=== PATIENT | female | born 1955 | race Caucasian/White ===

== ENCOUNTER → 2016-08-17 | Outpatient (CLI) | payer MEDICARE | LOC: MMGSC 15:08 | PROVIDERS: ATTEND Family Medicine | DX: Z01.812 Encounter for preprocedural laboratory examination (principal) | CPT/HCPCS: 36415; 80051 ==

== ENCOUNTER 2017-01-19 12:15 | Emergency (ER) | payer OTHER, MEDICARE ==
[2017-01-19] MEDS ORDERED: SODIUM CHLORIDE 0.9% 1,000 ML IV STA (12:30)
[2017-01-19] MEDS ORDERED: ORPHENADRINE 30 MG/ML 2 ML VIAL IVP STA (12:31)
[2017-01-19] MEDS ORDERED: RX INFO: IV CONTRAST WAS GIVEN 1 EACH MISC MISCELLANE PRN (12:31)
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
[2017-01-19 13:29] LABS: Basophils % (A) 1 %; CH 32.1; Eosinophils # (A) 0.3 k/uL (0-0.7); Eosinophils % (A) 4 %; HCT 44.4 % (34.0-46.0); HDW 2.89; HGB 15.4 gm/dL (11.4-16.0); Luc # (Auto) 0.14; Luc % (Auto) 2; Lymphocytes # (A) 1.6 k/uL (1.0-4.8); Lymphocytes % (A) 24 %; MCHC 34.7 g/dL (31.0-37.0); MCV 92.2 fL (80.0-100.0); Mean Platelet Volume 6.6; Monocytes # (A) 0.4 k/uL (0-1.0); Monocytes % (A) 5 %; Neutrophils # (A) 4.4 k/uL (1.3-7.7); Neutrophils % (A) 65 %; Partial Thromboplastin Time 23.9 sec (22.0-30.0); Prothrombin Time 9.8 sec (9.0-12.0); RBC 4.81 m/uL (3.80-5.40); RDW 13.4 % (11.5-15.5); WBC 6.8 k/uL (3.8-10.6); WBC (Perox) 6.74
[2017-01-19 13:29] LABS: Appearance,Urine Clear (Clear); Bilirubin,Urine Negative (Negative); Glucose,Urine (UA) Negative (Negative); Ketones,Urine Negative (Negative); Leukocyte Esterase,Urine Small (Negative); Mucus,Urine Rare /hpf; Nitrite,Urine Negative (Negative); Particle Count 2465; Protein,Urine Negative (Negative); Specific Gravity,Urine 1.011 (1.001-1.035); Squamous Epithelial Cell,Urine 4 /hpf (0-4); UA Billing (MACRO vs. MICRO) MICRO; Urobilinogen,Urine <2.0 mg/dL (<2.0); WBC,Urine 3 /hpf (0-5)
[2017-01-19 13:30] LABS: ALT 34 U/L (9-52); AST 32 U/L (14-36); Alkaline Phosphatase 112 U/L (38-126); Anion Gap 9 mmol/L; Blood Urea Nitrogen 19 mg/dL (7-17); Calcium 9.4 mg/dL (8.4-10.2); Carbon Dioxide 25 mmol/L (22-30); Chloride 105 mmol/L (98-107); Glucose 94 mg/dL (74-99); Non-African American GFR(MDRD) >60 (>60 ml/min/1.73 sqM); Potassium 4.3 mmol/L (3.5-5.1); Sodium 139 mmol/L (137-145); Total Bilirubin 0.7 mg/dL (0.2-1.3)
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
[2017-01-19 15:03] VITALS: RESP 18
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
[2017-01-19 15:56] VITALS: BP 147/51; PULSE 61; TEMP 98.3
== END 2017-01-19 15:50 | disposition home or self-care (01) ==
LOC: EC 12:15
DX: S16.1XXA Strain of muscle, fascia and tendon at neck level, initial encounter (principal); S80.01XA Contusion of right knee, initial encounter; R10.9 Unspecified abdominal pain; M54.9 Dorsalgia, unspecified; M25.551 Pain in right hip; M79.631 Pain in right forearm; I10 Essential (primary) hypertension; E07.9 Disorder of thyroid, unspecified; F32.9 Major depressive disorder, single episode, unspecified; F41.9 Anxiety disorder, unspecified; I25.2 Old myocardial infarction; Z87.891 Personal history of nicotine dependence; Z79.82 Long term (current) use of aspirin; Z79.899 Other long term (current) drug therapy; Z86.79 Personal history of other diseases of the circulatory system; Z72.821 Inadequate sleep hygiene; Z98.890 Other specified postprocedural states; Z90.49 Acquired absence of other specified parts of digestive tract; Y00.XXXD Assault by blunt object, subsequent encounter
CPT/HCPCS: 36415; 86900; 86901; 80053; 85025; 85610; 85730; 86850; 81001; 73090; 73562; 72125; 70450; 71260; 74177; 99284; 96374; 96361 ×3; J2360; Q9967

== ENCOUNTER → 2017-02-21 | Outpatient (CLI) | payer MEDICARE ==
[2017-02-21 21:23] LABS: Basophils # (A) 0.1 k/uL (0-0.2); Basophils % (A) 1 %; CH 32.6; CHCM 33.8; Eosinophils # (A) 0.3 k/uL (0-0.7); Eosinophils % (A) 4 %; HCT 49.5 % (34.0-46.0); HDW 2.74; HGB 16.2 gm/dL (11.4-16.0); Luc # (Auto) 0.12; Luc % (Auto) 2; Lymphocytes # (A) 1.5 k/uL (1.0-4.8); Lymphocytes % (A) 23 %; MCH 31.7 pg (25.0-35.0); MCHC 32.7 g/dL (31.0-37.0); MCV 96.9 fL (80.0-100.0); Mean Platelet Volume 8.6; Monocytes # (A) 0.3 k/uL (0-1.0); Monocytes % (A) 5 %; Neutrophils # (A) 4.4 k/uL (1.3-7.7); Neutrophils % (A) 66 %; RBC 5.11 m/uL (3.80-5.40); RDW 14.2 % (11.5-15.5); WBC 6.7 k/uL (3.8-10.6); WBC (Perox) 6.54
[2017-02-22 07:52] LABS: Hemoglobin A1C 4.9 % (4.2-6.1)
== END | disposition home or self-care (01) ==
LOC: MMGSC 14:38
PROVIDERS: ATTEND Family Medicine
DX: E11.9 Type 2 diabetes mellitus without complications (principal); E78.5 Hyperlipidemia, unspecified; E03.9 Hypothyroidism, unspecified; T14.8 Other injury of unspecified body region
CPT/HCPCS: 36415; 80061; 83036; 84439; 84443; 85025

== ENCOUNTER 2017-07-04 01:46 | Observation (INO) | payer MEDICARE ==
[2017-07-04] MEDS ORDERED: NITROGLYCERIN SL TABS 0.4 MG TAB SUBLINGUAL STA (02:04)
[2017-07-04] MEDS ORDERED: SODIUM CHLORIDE 0.9% 1,000 ML IV STA ×2 (02:04→03:59)
[2017-07-04] MEDS ORDERED: MORPHINE SULFATE 4 MG/ML SYRINGE IV STA (02:04)
[2017-07-04] MEDS ORDERED: ONDANSETRON 4 MG/2 ML VIAL IVP STA (02:04)
--- NOTE | 2017-07-04 02:11 | ED ---
Chest Pain HPI - General Stated Complaint: Chest pain Time Seen by Provider: 07/04/17 01:49 - History of Present Illness Initial Comments: [age] years old female presented with a chest pain, chest pain started at 11 PM tonight. She started with the upper back pain she was laying in the bed and has serotonin the bed pain started she denies any fall or any trauma pain is worse with deep breaths is located on the left lower lung area she does have a history of heart disease, she has been compliant with her medications. She denies any headaches no neck stiffness has chest pain is short-winded and pain is worse with a deep breaths also complaining about some discomfort over epigastric area as well as over the left upper quadrant area denies any frequency urgency dysuria denies any constipation or diarrhea no signs of any TIA or CVA - Related Data Home Medications Medication Instructions Recorded Confirmed Aspirin EC [Ecotrin] 325 mg PO AC-SUPPER 03/21/14 01/19/17 Multivitamins, Thera [Multivitamin 1 tab PO DAILY 03/21/14 01/19/17 (formulary)] Sertraline [Zoloft] 100 mg PO BID 03/21/14 01/19/17 Topiramate [Topamax] 50 mg PO BID 03/21/14 01/19/17 Furosemide [Lasix] 40 mg PO DAILY 01/12/15 01/19/17 [place]-3 Fatty Acids [[place]-3] 1,000 mg PO DAILY 01/12/15 01/19/17 Levothyroxine Sodium [Synthroid] 88 mcg PO DAILY 01/10/16 01/19/17 Metoprolol Succinate (ER) [Toprol 12.5 mg PO DAILY 01/10/16 01/19/17 Xl] Potassium Chloride [Klor-Con 10] 10 meq PO DAILY 01/10/16 01/19/17 Hydrocodone/Acetaminophen [[place] 1 tab PO Q4H PRN 01/19/17 01/19/17 10-325] Phentermine HCl 37.5 mg PO DAILY 01/19/17 01/19/17 Temazepam 30 mg PO HS 01/19/17 01/19/17 Previous Rx's Medication Instructions Recorded Atorvastatin [Lipitor] 40 mg PO DAILY #30 tab 03/23/14 Cyclobenzaprine [Flexeril] 10 mg PO TID PRN #12 tablet 01/10/16 Orphenadrine [Norflex] 100 mg PO Q12H #10 tablet.er 01/19/17 Allergies Allergy/AdvReac Type Severity Reaction Status Date / Time adhesive Allergy Rash/Hives Verified 07/04/17 02:08 ciprofloxacin [From Cipro] Allergy Rash/Hives Verified 07/04/17 02:08 ciprofloxacin HCl Allergy Rash/Hives Verified 07/04/17 02:08 [From Cipro] Fish Containing Products Allergy Rash/Hives Verified 07/04/17 02:08 [Fish] ibuprofen Allergy Nausea Verified 07/04/17 02:08 onion [Onion] Allergy Chest Pain Verified 07/04/17 02:08 Sulfa (Sulfonamide Allergy Rash/Hives Verified 07/04/17 02:08 Antibiotics) sulfamethoxazole Allergy Rash/Hives Verified 07/04/17 02:08 [From Bactrim] trimethoprim [From Bactrim] Allergy Rash/Hives Verified 07/04/17 02:08 Review of Systems ROS Statement: Those systems with pertinent positive or pertinent negative responses have been documented in the HPI. ROS Other: All systems not noted in ROS Statement are negative. Past Medical History Past Medical History: Coronary Artery Disease (CAD), Chest Pain / Angina, Hypertension, Myocardial Infarction ([place]), Sleep Apnea/CPAP/BIPAP, Thyroid Disorder Last Myocardial Infarction Date:: 1987 History of Any Multi-Drug Resistant Organisms: None Reported Past Surgical History: Appendectomy, Breast Surgery, Cholecystectomy, Heart Catheterization, Hysterectomy, Joint Replacement Additional Past Surgical History / Comment(s): . FINGER REPAIR CARPAL TUNNEL RELEASE-BILATERAL. rIGHT ARM SURGERY (HAS PLATE) Past Psychological History: Anxiety, Depression Smoking Status: Former smoker Past Alcohol Use History: Occasional Past Drug Use History: None Reported General Exam - General Exam Comments Initial Comments: General: The patient is awake and alert, in no distress, and does not appear acutely ill. She isn't quite distressed because of the Skin: Skin is warm and dry and no rashes or lesions are noted. Eye: Pupils are equal, round and reactive to light, extra-ocular movements are intact; there is normal conjunctiva bilaterally. Ears, nose, mouth and throat: There are moist mucous membranes and no oral lesions. Neck: The neck is supple, there is no tenderness or JVD. Cardiovascular: There is a regular rate and rhythm. No murmur, rub or gallop is appreciated. Respiratory: To auscultation bilateral, no wheezing no rhonchi no distress respiratory mora noticed Gastrointestinal: Soft, non-distended, mild tenderness in epigastric area and the left upper quadrant area muscles are positive no guarding no rebounds Back: There is no tenderness to palpation in the midline. There is no obvious deformity. Musculoskeletal: Normal ROM, no tenderness, There is no pedal edema. There is no calf tenderness or swelling. No cords were appreciated. Neurological: CN II-XII intact, Cranial nerves III through XII are intact. There are no obvious motor or sensory deficits. Coordination appears grossly intact. Speech is normal. Psychiatric: Cooperative, appropriate mood & affect, normal judgment. Course Vital Signs 07/04/17 07/04/17 07/04/17 01:50 02:10 03:23 Temperature 97.8 F Pulse Rate 69 59 L 53 L Respiratory 20 20 18 Rate Blood Pressure 135/67 143/60 119/59 O2 Sat by Pulse 96 98 97 Oximetry 07/04/17 03:52 Temperature Pulse Rate 56 L Respiratory 20 Rate Blood Pressure 125/92 O2 Sat by Pulse 97 Oximetry EKG is sinus pericardial ventricular rate is 53 [place] interval is 196 QRS duration is 88 QT/QTc is 434/47 review of this EKG reveals bradycardia and now some flattening of the T-wave in lead [address] elevation or ST depression noticed this EKG - Reevaluation(s) Reevaluation #1: My labs were reviewed so was she is reassessed at 350 this morning d-dimer is elevated will require CT angiogram Creatinine is 1.3 creatinine 4 months ago was 0.75 COPD she'll she seems dehydrated she be hydrated with a liter of fluid and then we'll proceed with a CT angiogram when she be be admitted to [facility] physician since she is a cardiac patient given a CT angiogram mima spoke with the Dr. Be he is her physician with the [facility] he agreed with that suleman 07/04/17 03:56 Critical Care Time Total Critical Care Time: 30 Critical Care Time: 62-year-old female came in with excruciating chest pain she required pain medication and oxygen and Nitrol review of the labs revealed elevated d-dimer she is to proceed with the CT chest angiogram she be admitted to Dr. Be he is with the [facility] will consult cardiology and we will treat accordingly see if Disposition Clinical Impression: Chest pain, Pleuritic chest pain Disposition: ADMITTED IP TO THIS HOSP Referrals: Caitlin Back MD [Primary Care Provider] - 1-2 days
[2017-07-04 02:40] LABS: Basophils # (A) 0.1 k/uL (0-0.2); Basophils % (A) 1 %; Eosinophils # (A) 0.5 k/uL (0-0.7); Eosinophils % (A) 6 %; HCT 44.5 % (34.0-46.0); HGB 14.7 gm/dL (11.4-16.0); Lymphocytes # (A) 2.1 k/uL (1.0-4.8); Lymphocytes % (A) 25 %; MCH 31.9 pg (25.0-35.0); MCHC 33.1 g/dL (31.0-37.0); MCV 96.4 fL (80.0-100.0); Mean Platelet Volume 7.5; Monocytes # (A) 0.4 k/uL (0-1.0); Monocytes % (A) 5 %; Neutrophils # (A) 5.2 k/uL (1.3-7.7); Neutrophils % (A) 62 %; Platelet Count 182 k/uL (150-450); RBC 4.62 m/uL (3.80-5.40); RDW 13.1 % (11.5-15.5); WBC 8.4 k/uL (3.8-10.6)
--- NOTE | 2017-07-04 02:41 | XR ---
EXAMINATION TYPE: XR chest 2V DATE OF EXAM: 07/04/2017 COMPARISON: 08/21/2014 HISTORY: Chest pain TECHNIQUE: Frontal and lateral views of the chest are obtained. FINDINGS: Heart and mediastinum are normal. Lungs are clear. Diaphragm is normal. Bony thorax is int act. IMPRESSION: Normal chest. No change.
[2017-07-04 03:03] LABS: D-Dimer 1.02 mg/L FEU (<0.60)
[2017-07-04 03:07] LABS: Partial Thromboplastin Time 23.7 sec (22.0-30.0)
[2017-07-04 03:09] LABS: Creatine Kinase 63 U/L (30-135)
[2017-07-04 03:11] LABS: Prothrombin Time 9.6 sec (9.0-12.0)
[2017-07-04 03:12] LABS: Albumin 3.7 g/dL (3.5-5.0); Calcium 9.5 mg/dL (8.4-10.2); Magnesium 2.2 mg/dL (1.6-2.3); Potassium 4.1 mmol/L (3.5-5.1); Total Bilirubin 0.4 mg/dL (0.2-1.3); Total Protein 6.1 g/dL (6.3-8.2)
[2017-07-04 03:22] LABS: Troponin I <0.012 ng/mL (0.000-0.034)
[2017-07-04] MEDS ORDERED: RX INFO: IV CONTRAST WAS GIVEN 1 EACH MISC MISCELLANE PRN (03:51)
[2017-07-04] MEDS ORDERED: NITROGLYCERIN SL TABS 0.4 MG TAB SUBLINGUAL PRN (03:59)
[2017-07-04] MEDS ORDERED: MORPHINE SULFATE 4 MG/ML SYRINGE IVP PRN (03:59)
[2017-07-04] MEDS ORDERED: HEPARIN SODIUM,PORCINE 5,000 UNIT/ML 1 ML VIAL IV ONE (03:59)
[2017-07-04] MEDS ORDERED: HEPARIN SOD,PORK IN 0.45% NACL 25,000 UNIT in 0.45% NACL 1 500ML.BAG IV SCH (04:00)
[2017-07-04] MEDS ORDERED: HYDROcodone/APAP 10-325MG 1 EACH TAB PO PRN (04:09)
[2017-07-04] MEDS ORDERED: CYCLOBENZAPRINE 10 MG TAB PO PRN (04:09)
[2017-07-04] MEDS ORDERED: ORPHENADRINE 100 MG PO SCH (04:15)
--- NOTE | 2017-07-04 05:14 | CT ---
EXAM: CT Chest With Intravenous Contrast CLINICAL HISTORY: Reason: Pain TECHNIQUE: Axial computed tomography images of the chest with intravenous contrast during the arterial phase of enhancement. CTDI is 243.8 mGy and DLP is 1068.8 mGy-cm. This CT exam was performed using one or more of the following dose reduction techniques: automated exposure control, adjustment of the mA and/or kV according to patient size, and/or use of iterative reconstruction technique. Coronal and sagittal reformatted images were created and reviewed. COMPARISON: CT chest 01/19/2017 FINDINGS: Pulmonary arteries: No evidence of pulmonary embolism. Aorta: No evidence of thoracic aortic aneurysm or dissection. Lungs: Mild right middle lobe and lingular subsegmental atelectasis or scarring. No evidence of acute pulmonary parenchymal disease or focal infiltrate. No pulmonary masses. Pleural space: No evidence of pleural effusion or pneumothorax. Heart: Heart size upper limits of normal. Scattered coronary arterial calcifications. No significant pericardial effusion. Bones/joints: Prominent degenerative changes throughout the thoracic spine with prominent anterior osteophyte formation. No acute bony abnormalities identified. Lymph nodes: Borderline-enlarged subcarinal mediastinal adenopathy and mild right hilar adenopathy. Upper abdomen: Imaged upper abdomen is unremarkable. IMPRESSION: No evidence of pulmonary embolism. No thoracic aortic aneurysm or dissection. Borderline subcarinal mediastinal and mild right hilar lymphadenopathy which is nonspecific.
[2017-07-04] MEDS ORDERED: LEVOTHYROXINE 88 MCG TAB PO SCH (06:30)
[2017-07-04] MEDS ORDERED: ALPRAZolam 0.25 MG TAB PO PRN (07:20)
[2017-07-04] MEDS ORDERED: NALOXONE 0.4 MG/ML 1 ML VIAL IV PRN (07:20)
--- NOTE | 2017-07-04 07:34 | P.HPIM ---
History of Present Illness H&P Date: 07/04/17 Chief Complaint: chest pain 62 year old female with CAD. Patient presented due to sudden onset left-sided chest pain. She reports that she was in bed last night at 11 PM watching the news very relaxed when all of a sudden she was trying to change her position and had a sudden tearing pain in her lower back that out of 10 in severity and nonradiating associated with any numbness tingling or weakness in her lower extremities never happened before felted like sharp pain 10 out of 10 in severity however she was waiting for the pain to go away where he was becoming so severe that then became associated with left-sided chest pain sharp in nature 10 out of 10 in severity and nonradiating associated with some nausea and shortness of breath but denies any sweating or dizziness or lightheadedness. Pain is nonradiating she took 4 tabs of aspirin and waited for about an hour pain not resolve and then her called EMS after 45 minutes of continuous pain patient reports that pain was resolved in the ER after taking morphine and nitro and oxygen. Patient was also found to have elevated d-dimer for which she CTA of the chest was performed and was negative for any permanent embolism. Patient was admitted for further care and to rule out acute coronary syndrome. Patient reports that in the past she had the left heart cath that showed distal coronary diseases could not be treated at that time due to risks outweigh benefits. Otherwise she feels comfortable during my interview denying any active chest pain however she still complaining of low back pain. Review of Systems Constitutional: Patient denies fever, denies chills, denies night sweating, denies significant weight changes Eyes: Patient denies visual changes, denies eye pain ENT: Patient denies ear pain, denies rhinorrhea, denies sore throat Cardiovascular: As per HPI, denies exertional dyspnea, denies peripheral leg edema, denies orthopnea, denies paroxysmal nocturnal dyspnea Respiratory:Patient denies cough, denies wheezing, denies shortness of breath Gastrointestinal: Patient denies diarrhea, denies constipation, denies nausea , denies vomiting, denies abdominal pain Genitourinary: Patient denies dysuria, denies hematuria, denies changes in urinary habits, denies genital lesions Musculoskeletal: Patient denies muscle pain, denies joint pain, complains of low back pain as per HPI Psychiatric: Patient denies changes in mood or memory, denies suicidal ideation, denies anxiety Endocrine: Patient denies heat intolerance, denies cold intolerance, denies excessive thirst, denies polyuria Neurological: Patient denies focal neurologic deficits, denies weakness, denies numbness, denies tingling Hem/Lymphatic: Patient denies bleeding tendency, denies bruising, denies swollen lymph glands Allergic/Immun: Patient denies recent allergic reactions Skin: Patient denies rashes, denies pruritis, denies ulcers Past Medical History Past Medical History: Coronary Artery Disease (CAD), Chest Pain / Angina, Hypertension, Myocardial Infarction ([place]), Sleep Apnea/CPAP/BIPAP, Thyroid Disorder Additional Past Medical History / Comment(s): previous [place] x2 Last Myocardial Infarction Date:: 2013 History of Any Multi-Drug Resistant Organisms: None Reported Past Surgical History: Appendectomy, Breast Surgery, Cholecystectomy, Heart Catheterization, Hysterectomy, Joint Replacement Additional Past Surgical History / Comment(s): . FINGER REPAIR CARPAL TUNNEL RELEASE-BILATERAL. rIGHT ARM SURGERY (HAS PLATE). Last cath 2013 - no intervention Past Anesthesia/Blood Transfusion Reactions: No Reported Reaction Past Psychological History: Anxiety, Depression Smoking Status: Current every day smoker Past Alcohol Use History: Occasional Additional Past Alcohol Use History / Comment(s): pt states she smoked from 1976 til 2005. then just restarted smoking in 05/2017. less than 1 ppd Past Drug Use History: None Reported - Past Family History Father Family Medical History: Myocardial Infarction ([place]) Mother Family Medical History: CVA/TIA Brother(s) Family Medical History: CVA/TIA Medications and Allergies Home Medications Medication Instructions Recorded Confirmed Type Aspirin EC [Ecotrin] 325 mg PO AC-SUPPER 03/21/14 07/04/17 History Multivitamins, Thera [Multivitamin 1 tab PO DAILY 03/21/14 07/04/17 History (formulary)] Sertraline [Zoloft] 100 mg PO BID 03/21/14 07/04/17 History Topiramate [Topamax] 50 mg PO BID 03/21/14 07/04/17 History Atorvastatin [Lipitor] 40 mg PO DAILY #30 tab 03/23/14 07/04/17 Rx Furosemide [Lasix] 40 mg PO DAILY 01/12/15 07/04/17 History Levothyroxine Sodium [Synthroid] 88 mcg PO DAILY 01/10/16 07/04/17 History Metoprolol Succinate (ER) [Toprol 12.5 mg PO DAILY 01/10/16 07/04/17 History Xl] Potassium Chloride [Klor-Con 10] 10 meq PO DAILY 01/10/16 07/04/17 History Hydrocodone/Acetaminophen [[place] 1 tab PO Q4H PRN 01/19/17 07/04/17 History 10-325] Phentermine HCl 37.5 mg PO DAILY 01/19/17 07/04/17 History Temazepam 30 mg PO HS 01/19/17 07/04/17 History Krill/Om-3/Dha/Epa/Phospho/Ast 1 each PO DAILY 07/04/17 07/04/17 History [[place]-3 Krill Oil 300 mg Sfgl] Allergies Allergy/AdvReac Type Severity Reaction Status Date / Time adhesive Allergy Rash/Hives Verified 07/04/17 02:08 ciprofloxacin [From Cipro] Allergy Rash/Hives Verified 07/04/17 02:08 ciprofloxacin HCl Allergy Rash/Hives Verified 07/04/17 02:08 [From Cipro] Fish Containing Products Allergy Rash/Hives Verified 07/04/17 02:08 [Fish] ibuprofen Allergy Nausea Verified 07/04/17 02:08 onion [Onion] Allergy Chest Pain Verified 07/04/17 02:08 Sulfa (Sulfonamide Allergy Rash/Hives Verified 07/04/17 02:08 Antibiotics) sulfamethoxazole Allergy Rash/Hives Verified 07/04/17 02:08 [From Bactrim] trimethoprim [From Bactrim] Allergy Rash/Hives Verified 07/04/17 02:08 Physical Exam Vitals: Vital Signs Temp Pulse Pulse Resp BP Pulse Ox 07/04/17 05:30 61 20 07/04/17 04:56 98.8 F 58 L 20 141/64 95 07/04/17 03:52 56 L 20 125/92 97 07/04/17 03:23 53 L 18 119/59 97 07/04/17 02:10 59 L 20 143/60 98 07/04/17 01:50 97.8 F 69 20 135/67 96 Intake and Output 07/03/17 07/03/17 07/04/17 14:59 22:59 06:59 Other: Voiding Method Toilet # Voids 2 Weight 108.862 kg Patient Weight 07/04/17 06:59 Weight 108.862 kg Constitutional: No acute distress, conversant, pleasant Eyes: Anicteric sclerae, moist conjunctiva, no lid-lag Pupils equal round reactive to light ENMT: NC/AT Oropharynx clear, no erythema, exudates Neck: Supple, FROM, no masses, or JVD No carotid bruits No thyromegaly Lungs: Clear to auscultation Clear to percussion Normal respiratory effort, no accessory muscle use Cardiovascular: Heart regular in rate and rhythm, No murmurs, gallops, or rubs No peripheral edema Abdominal: Stiff lumbar paraspinal muscles, with discomfort to palpation Soft Slight discomfort left lower quadrant of abdomen with deep palpation, no guarding, rebound or rigidity Abdomen moving with respiration Normoactive bowel sounds No hepatomegaly, No splenomegaly No palpable mass No abdominal wall hernia noted Skin: Normal temperature, tone, texture, turgor No induration No subcutaneous nodules No rash, lesions No ulcers Extremities: No digital cyanosis No clubbing Pedal pulses intact and symmetrical Radial pulses intact and symmetrical No calf tenderness Psychiatric: Alert and oriented to person, place and time Appropriate affect fair judgement Neuro Muscles Strength 5/5 in all 4 extremities Sensation to light touch grossly present throughout Cranial nerves II-XII grossly intact No focal sensory deficits Lymphatics: no palpable cervical or supraclavicular , or inguinal lymph nodes Results CBC & Chem 7: 07/04/17 01:50 07/04/17 01:50 Labs: Abnormal Lab Results - Last 24 Hours (Table) 07/04/17 07/04/17 Range/Units 01:50 01:50 D-Dimer 1.02 H (<0.60) mg/L FEU Chloride 109 H (98-107) mmol/L BUN 26 H (7-17) mg/dL Creatinine 1.30 H (0.52-1.04) mg/dL Total Protein 6.1 L (6.3-8.2) g/dL Thrombosis Risk Factor Assmnt - Choose All That Apply Each Factor Represents 1 point: Age 41-60 years, Obesity (BMI >25) Thrombosis Risk Factor Assessment Total Risk Factor Score: 2 Thrombosis Risk Factor Assessment Level: Low Risk Assessment and Plan (1) Chest pain Narrative/Plan: Rule out unstable angina Patient has strong history of CAD no stents in the past Continue with aspirin, statin Currently on heparin drip Nitro when necessary for chest pain Morphine when necessary Oxygen through nasal cannula keep oxygen saturation above 92% Await cardiology input Current Visit: Yes Status: Acute Code(s): R07.9 - CHEST PAIN, UNSPECIFIED SNOMED Code(s): 71054456 (2) Acute kidney injury Narrative/Plan: Avoid nephrotoxic medications Patient received contrast for CVA Continue with IV fluid hydration Monitor urine output Avoid NSAIDs Current Visit: Yes Status: Acute Code(s): N17.9 - ACUTE KIDNEY FAILURE, UNSPECIFIED SNOMED Code(s): 25806818 (3) Low back pain Narrative/Plan: Symptomatic control No radiculopathy at this point Current Visit: Yes Status: Acute Code(s): M54.5 - LOW BACK PAIN SNOMED Code(s): 202361242 (4) Hypertension Narrative/Plan: Currently controlled Continue home medications Current Visit: Yes Status: Acute Code(s): I10 - ESSENTIAL (PRIMARY) HYPERTENSION SNOMED Code(s): 29929255 (5) DVT prophylaxis Narrative/Plan: Currently patient heparin drip for ACS Current Visit: Yes Status: Acute Code(s): UFK6813 - SNOMED Code(s): 560577230 (6) Hypothyroid Narrative/Plan: Continue home medication Current Visit: No Status: Chronic Code(s): E03.9 - HYPOTHYROIDISM, UNSPECIFIED SNOMED Code(s): 62843442 Plan: CTA of the chest was done due to elevated d-dimer, no evidence of acute pulmonary embolism Surrogate decision-maker: Silvano ERWIN STATUS: Full code Discussed with: Patient, ER, RN Anticipated discharge: <[address]: Home A total of 35 minutes were spent on the care of this complex patient more than 50% of the time was spent in counseling and care coordination.
[2017-07-04] MEDS ORDERED: SODIUM CHLORIDE 0.9% 1,000 ML IV SCH (07:45)
[2017-07-04] MEDS ORDERED: HEPARIN SODIUM,PORCINE 5,000 UNIT/ML 1 ML VIAL SQ SCH (08:00)
[2017-07-04 08:14] VITALS: RESP 16
[2017-07-04 08:15] VITALS: BMI 43.9
[2017-07-04] MEDS ORDERED: MULTIVITAMINS, THERA 1 EACH TAB PO SCH (09:00)
[2017-07-04] MEDS ORDERED: NON-FORMULARY DRUG (Krill/Om-3/Dha/Epa/Phospho/Ast [Omega-3 Krill Oil 300 Mg Sfgl] 1 EACH) PO SCH (09:00)
[2017-07-04] MEDS ORDERED: FUROSEMIDE 40 MG TAB PO SCH (09:00)
[2017-07-04] MEDS ORDERED: METOPROLOL SUCCINATE (ER) 25 MG TAB.ER.24H PO SCH (09:00)
[2017-07-04] MEDS ORDERED: NON-FORMULARY DRUG (Omega-3 Fatty Acids [Omega-3] 1,000 MG) PO SCH (09:00)
[2017-07-04] MEDS ORDERED: ATORVASTATIN 40 MG TAB PO SCH (09:00)
[2017-07-04] MEDS ORDERED: SERTRALINE 100 MG TAB PO SCH (09:00)
[2017-07-04] MEDS ORDERED: TOPIRAMATE 25 MG TAB PO SCH (09:00)
[2017-07-04 09:03] LABS: Creatine Kinase 63 U/L (30-135)
[2017-07-04 09:15] LABS: Creatine Kinase MB 1.1 ng/mL (0.0-2.4); Troponin I <0.012 ng/mL (0.000-0.034)
[2017-07-04] MEDS ORDERED: LEVOTHYROXINE 88 MCG TAB PO STA (10:12)
--- NOTE | 2017-07-04 10:56 | P.CRDCN ---
History of Present Illness Consult date: 07/04/17 Consult reason: chest pain History of present illness: Mrs. Gomez is a pleasant 62-year-old female past medical history significant for coronary artery disease with chronic total occlusion of mid LAD , hypertension, dyslipidemia, chronic tobacco use and obesity. She follows with Dr. JEFF Polk in the office. We have been asked to see her in consultation for complaints of chest pain. She states she rolled over in bed last night around 2300 and felt something "tear" in her left mid back. The pain was excrutiating and worse with movement. After laying in bed for another hour or so with the back pain and crying she started having midsternal chest pain associated with palpitations, shortness of breath and nausea. At this time she decided to present to ED for evaluation. She was given SL nitroglycerin and got no relief of pain. Then morphine was given and she felt relief of her pain. The relief lasted for about 3 hours and came back again in her left mid back. At the time of my exam she denies chest pain, shortness of breath, palpitations, dizziness, nausea or vomiting. She is currently using a hot pack on her back and achieving relief. EKG on arrival reveals sinus bradycardia heart rate 53 with non-specific T-wave abnormalities. Consistent with old EKG. Chest xray negative for an acute cardiopulmonary process. CTA negative for PE or aortic dissection. Laboratory data reviewed, hemoglobin 14.7, platelets 182, d-dimer 1.02, potassium 4.1, magnesium 2.2, creatinine 1.3, cardiac enzymes negative 2. Current cardiac medications include potassium 10 daily, Toprol 12.5 mg daily, Lasix 40 mg daily, atorvastatin 40 mg daily, and aspirin 325 mg daily. Most recent Lexiscan stress test performed January 2016 reveals anteroapical fixed defect with partial reversibility suggesting a prior TN with mild allison- infarct ischemia. Most recent echocardiogram performed in May 2015 reveals preserved left ventricular function with ejection fraction 55%. Review of Systems At the time of my exam: CONSTITUTIONAL: Denies fever. Denies chills. EYES: Denies blurred vision. Denies vision changes. Denies eye pain. EARS, NOSE, MOUTH & THROAT: Denies headache. Denies sore throat. Denies ear pain. CARDIOVASCULAR: Denies chest pain. Denies shortness of breath. Denies orthopnea. Denies PND. Denies palpitations. RESPIRATORY: Denies cough. GASTROINTESTINAL: Denies abdominal pain. Denies diarrhea. Denies constipation. Denies nausea. Denies vomiting. MUSCULOSKELETAL: Plans of left mid back pain. INTEGUMENTARY: Denies pruitis. Denies rash. NEUROLOGIC: Denies numbness. Denies tingling. Denies weakness. PSYCHIATRIC: Denies anxiety. Denies depression. ENDOCRINE: Denies fatigue. Denies weight change. Denies polydipsia. Denies polyurina. GENITOURINARY: Denies burning, hematuria or urgency with micturation. HEMATOLOGIC: Denies history of anemia. Denies bleeding. Past Medical History Past Medical History: Coronary Artery Disease (CAD), Chest Pain / Angina, Hypertension, Myocardial Infarction ([place]), Sleep Apnea/CPAP/BIPAP, Thyroid Disorder Additional Past Medical History / Comment(s): previous [place] x2 Last Myocardial Infarction Date:: 2013 History of Any Multi-Drug Resistant Organisms: None Reported Past Surgical History: Appendectomy, Breast Surgery, Cholecystectomy, Heart Catheterization, Hysterectomy, Joint Replacement Additional Past Surgical History / Comment(s): . FINGER REPAIR CARPAL TUNNEL RELEASE-BILATERAL. rIGHT ARM SURGERY (HAS PLATE). Last cath 2013 - no intervention Past Anesthesia/Blood Transfusion Reactions: No Reported Reaction Past Psychological History: Anxiety, Depression Smoking Status: Current every day smoker Past Alcohol Use History: Occasional Additional Past Alcohol Use History / Comment(s): pt states she smoked from 1976 til 2005. then just restarted smoking in 05/2017. less than 1 ppd Past Drug Use History: None Reported - Past Family History Father Family Medical History: Myocardial Infarction ([place]) Mother Family Medical History: CVA/TIA Brother(s) Family Medical History: CVA/TIA Medications and Allergies Home Medications Medication Instructions Recorded Confirmed Type Aspirin EC [Ecotrin] 325 mg PO AC-SUPPER 03/21/14 07/04/17 History Multivitamins, Thera [Multivitamin 1 tab PO DAILY 03/21/14 07/04/17 History (formulary)] Sertraline [Zoloft] 100 mg PO BID 03/21/14 07/04/17 History Topiramate [Topamax] 50 mg PO BID-W/MEALS 03/21/14 07/04/17 History Atorvastatin [Lipitor] 40 mg PO DAILY #30 tab 03/23/14 07/04/17 Rx Furosemide [Lasix] 40 mg PO DAILY 01/12/15 07/04/17 History Levothyroxine Sodium [Synthroid] 88 mcg PO DAILY 01/10/16 07/04/17 History Metoprolol Succinate (ER) [Toprol 12.5 mg PO DAILY 01/10/16 07/04/17 History Xl] Potassium Chloride [Klor-Con 10] 10 meq PO DAILY 01/10/16 07/04/17 History Hydrocodone/Acetaminophen [[place] 1 tab PO Q4H PRN 01/19/17 07/04/17 History 10-325] Phentermine HCl 37.5 mg PO DAILY 01/19/17 07/04/17 History Temazepam 30 mg PO HS 01/19/17 07/04/17 History Krill/Om-3/Dha/Epa/Phospho/Ast 1 cap PO DAILY 07/04/17 07/04/17 History [[place]-3 Krill Oil 300 mg Sfgl] Allergies Allergy/AdvReac Type Severity Reaction Status Date / Time adhesive Allergy Rash/Hives Verified 07/04/17 08:46 ciprofloxacin [From Cipro] Allergy Rash/Hives Verified 07/04/17 08:46 ciprofloxacin HCl Allergy Rash/Hives Verified 07/04/17 08:46 [From Cipro] Fish Containing Products Allergy Rash/Hives Verified 07/04/17 08:46 [Fish] ibuprofen Allergy Nausea Verified 07/04/17 08:46 onion [Onion] Allergy Chest Pain Verified 07/04/17 08:46 Sulfa (Sulfonamide Allergy Rash/Hives Verified 07/04/17 08:46 Antibiotics) sulfamethoxazole Allergy Rash/Hives Verified 07/04/17 08:46 [From Bactrim] trimethoprim [From Bactrim] Allergy Rash/Hives Verified 07/04/17 08:46 Physical Exam Vitals: Vital Signs Temp Pulse Pulse Pulse Resp BP BP 07/04/17 07:31 97.7 F 65 16 123/67 07/04/17 05:30 61 20 07/04/17 04:56 98.8 F 58 L 20 141/64 07/04/17 03:52 56 L 20 125/92 07/04/17 03:23 53 L 18 119/59 02/08/18 02:10 59 L 20 143/60 07/04/17 01:50 97.8 F 69 20 135/67 Pulse Ox 07/04/17 07:31 95 07/04/17 05:30 07/04/17 04:56 95 07/04/17 03:52 97 07/04/17 03:23 97 07/04/17 02:10 98 07/04/17 01:50 96 Intake and Output 07/03/17 07/04/17 07/04/17 22:59 06:59 14:59 Other: Voiding Method Toilet # Voids 2 Weight 108.862 kg Blood pressure 123/67 heart rate 65 afebrile GENERAL: This is a 62-year-old female in no apparent distress at the time of my examination. HEENT: Head is atraumatic, normocephalic. Pupils are equal, round. Sclerae anicteric. Conjunctivae are clear. Mucous membranes of the mouth are moist. Neck is supple. There is no jugular venous distention. No carotid bruit is heard. LUNGS: Clear to auscultation no wheezes, rales or rhonchi. No chest wall tenderness is noted on palpation or with deep breathing. HEART: Regular rate and rhythm without murmurs, rubs or gallops. S1 and S2 heard. ABDOMEN: Soft, nontender. Bowel sounds are heard. No organomegaly noted. EXTREMITIES: No evidence of peripheral edema and no calf tenderness noted. VASCULAR: Radial and dorsalis pedis pulses palpated, no evidence of clubbing. NEUROLOGIC: Patient is awake, alert and oriented x3. Results 07/04/17 01:50 07/04/17 01:50 Cardiac Enzymes 07/04/17 07/04/17 Range/Units 01:50 01:50 AST 24 (14-36) U/L CK-MB (CK-2) 1.0 (0.0-2.4) ng/mL Troponin I <0.012 (0.000-0.034) ng/mL Coagulation 07/04/17 Range/Units 01:50 PT 9.6 (9.0-12.0) sec APTT 23.7 (22.0-30.0) sec CBC 07/04/17 Range/Units 01:50 WBC 8.4 (3.8-10.6) k/uL RBC 4.62 (3.80-5.40) m/uL Hgb 14.7 (11.4-16.0) gm/dL Hct 44.5 (34.0-46.0) % Plt Count 182 (150-450) k/uL Comprehensive Metabolic Panel 07/04/17 Range/Units 01:50 Sodium 143 (137-145) mmol/L Potassium 4.1 (3.5-5.1) mmol/L Chloride 109 H (98-107) mmol/L Carbon Dioxide 25 (22-30) mmol/L BUN 26 H (7-17) mg/dL Creatinine 1.30 H (0.52-1.04) mg/dL Glucose 93 (74-99) mg/dL Calcium 9.5 (8.4-10.2) mg/dL AST 24 (14-36) U/L ALT 25 (9-52) U/L Alkaline Phosphatase 102 (38-126) U/L Total Protein 6.1 L (6.3-8.2) g/dL Albumin 3.7 (3.5-5.0) g/dL Current Medications Generic Name Dose Route Start Last Admin Trade Name Freq PRN Reason Stop Dose Admin Hydrocodone Bitart/Acetaminophen 1 each 07/04/17 04:09 [place] 10 PO Q4H PRN Pain Alprazolam 0.25 mg 07/04/17 07:20 Xanax PO Q6HR PRN Anxiety Aspirin 325 mg 07/05/17 09:00 Aspirin PO DAILY [facility] Atorvastatin Calcium 40 mg 07/04/17 09:00 Lipitor PO DAILY [facility] Cyclobenzaprine HCl 10 mg 07/04/17 04:09 Flexeril PO TID PRN Pain Sodium Chloride 1,000 mls @ 100 mls/hr 07/04/17 02:04 07/04/17 02:18 Saline 0.9% IV 07/04/17 12:03 100 mls/hr .Q10H STA Administration Heparin Sodium/Sodium Chloride 500 mls @ 20.03 mls/hr 07/04/17 04:00 04:46 25,000 unit/ Sodium Chloride IV 9.18 units/kg/hr .Q24H HOLLI 20 mls/hr Protocol Administration 9.2 UNITS/KG/HR Sodium Chloride 1,000 mls @ 140 mls/hr 07/04/17 07:45 Saline 0.9% IV .Q7H9M [facility] Levothyroxine Sodium 88 mcg 07/04/17 06:30 07/04/17 06:09 Synthroid PO Not Given 0630 [facility] Metoprolol Succinate 12.5 mg 07/04/17 09:00 Toprol Xl PO DAILY [facility] Miscellaneous Information 1 each 07/04/17 03:51 07/04/17 04:00 Rx Info: Iv Contrast Was Given MISCELLANE 07/06/17 03:51 1 each DAILY PRN Administration Per Protocol Morphine Sulfate 2 mg 07/04/17 03:59 07/04/17 05:26 Morphine Sulfate (Inj) IVP 2 mg Q5M PRN Administration Chest Pain Multivitamins 1 each 07/04/17 09:00 Theragran PO DAILY [facility] Naloxone HCl 0.2 mg 07/04/17 07:20 Narcan IV Q2M PRN Opioid Reversal Nitroglycerin 0.4 mg 07/04/17 03:59 Nitrostat SUBLINGUAL Q5M PRN Chest Pain Sertraline HCl 100 mg 07/04/17 09:00 Zoloft PO BID [facility] Topiramate 50 mg 07/04/17 09:00 Topamax PO BID [facility] Intake and Output 07/03/17 07/04/17 07/04/17 22:59 06:59 14:59 Other: Voiding Method Toilet # Voids 2 Weight 108.862 kg 07/04/17 01:50 07/04/17 01:50 Assessment and Plan Assessment: ASSESSMENT 1. Musculoskeletal back 2. Chest pain, atypical. EKG with no evidence of ischemia and negative cardiac enzymes. 3. History of chronic stable coronary artery disease on appropriate medical therapy 4. Hypertension 5. Dyslipidemia 6. Chronic tobacco abuse 7. Obesity PLAN An acute coronary event has been ruled out with negative cardiac enzymes and no indication of EKG changes. Smoking cessation discussed and recommended. Lifestyle modifications recommended. No further cardiac workup required, follow-up with Dr. Polk in 2-3 weeks. Recommend possible anti-inflammatory medication for pain relief. Thank you kindly for this consultation. Nurse Practitioner note has been reviewed, I agree with a documented findings and plan of care. Patient was seen and examined.
[2017-07-04 11:34] VITALS: BP 107/53; PULSE 56; TEMP 98.2
--- NOTE | 2017-07-04 12:28 | P.DS ---
Providers Date of admission: 07/04/17 03:59 Expected date of discharge: 07/04/17 Attending physician: Michael Roberts MD Consults: 07/04/17 03:59 Consult Physician Urgent Consulting Provider: Raphael Vang Consult Reason/Comments: Chest pain Do you want consulting provider notified?: Yes Primary care physician: Caitlin Back - Discharge Diagnosis(es) (1) Chest pain Current Visit: Yes Status: Acute (2) Hypertension Current Visit: Yes Status: Acute (3) Acute kidney injury Current Visit: Yes Status: Acute Hospital Course: 62-year-old female that was admitted with symptoms of chest pain. So cardiac enzymes were negative. Cardiology EKG so no signs of ischemia with troponin negative. Patient okay to be discharged home. Condition at discharge stable Consultants Dr Soto Follow-up with PCP in one week Patient Condition at Discharge: Stable Plan - Discharge Summary New Discharge Prescriptions: Continue Topiramate [Topamax] 50 mg PO BID-W/MEALS Sertraline [Zoloft] 100 mg PO BID Multivitamins, Thera [Multivitamin (formulary)] 1 tab PO DAILY Aspirin EC [Ecotrin] 325 mg PO AC-SUPPER Atorvastatin [Lipitor] 40 mg PO DAILY #30 tab Furosemide [Lasix] 40 mg PO DAILY Potassium Chloride [Klor-Con 10] 10 meq PO DAILY Metoprolol Succinate (ER) [Toprol XL] 12.5 mg PO DAILY Levothyroxine Sodium [Synthroid] 88 mcg PO DAILY Temazepam 30 mg PO HS Phentermine HCl 37.5 mg PO DAILY Hydrocodone/Acetaminophen [[place] 10-325] 1 tab PO Q4H PRN PRN Reason: Pain Krill/Om-3/Dha/Epa/Phospho/Ast [[place]-3 Krill Oil 300 mg Sfgl] 1 cap PO DAILY Discharge Medication List Aspirin EC [Ecotrin] 325 mg PO AC-SUPPER 03/21/14 [History] Multivitamins, Thera [Multivitamin (formulary)] 1 tab PO DAILY 03/21/14 [History ] Sertraline [Zoloft] 100 mg PO BID 03/21/14 [History] Topiramate [Topamax] 50 mg PO BID-W/MEALS 03/21/14 [History] Atorvastatin [Lipitor] 40 mg PO DAILY #30 tab 03/23/14 [Rx] Furosemide [Lasix] 40 mg PO DAILY 01/12/15 [History] Levothyroxine Sodium [Synthroid] 88 mcg PO DAILY 01/10/16 [History] Metoprolol Succinate (ER) [Toprol XL] 12.5 mg PO DAILY 01/10/16 [History] Potassium Chloride [Klor-Con 10] 10 meq PO DAILY 01/10/16 [History] Hydrocodone/Acetaminophen [[place] 10-325] 1 tab PO Q4H PRN 01/19/17 [History] Phentermine HCl 37.5 mg PO DAILY 01/19/17 [History] Temazepam 30 mg PO HS 01/19/17 [History] Krill/Om-3/Dha/Epa/Phospho/Ast [[place]-3 Krill Oil 300 mg Sfgl] 1 cap PO DAILY [History] Follow up Appointment(s)/Referral(s): Khadar Polk MD [STAFF PHYSICIAN] - 2 Weeks Caitlin Back MD [Primary Care Provider] - 1-2 days Discharge Disposition: HOME SELF-CARE
[2017-07-04] MEDS ORDERED: NON-FORMULARY DRUG (Aspirin Ec 325 MG) PO SCH (17:30)
[2017-07-05] MEDS ORDERED: ASPIRIN 325 MG TAB PO SCH (09:00)
== END 2017-07-04 13:22 | disposition home or self-care (01) ==
LOC: EC 01:46 → 3OBS 03:59
PROVIDERS: ADMIT Internal Medicine; ATTEND Internal Medicine
DX: R07.89 Other chest pain (principal); R10.13 Epigastric pain; R79.89 Other specified abnormal findings of blood chemistry; R10.12 Left upper quadrant pain; N17.9 Acute kidney failure, unspecified; R11.0 Nausea; R00.2 Palpitations; R06.02 Shortness of breath; M54.5 Low back pain; M54.6 Pain in thoracic spine; I10 Essential (primary) hypertension; F17.200 Nicotine dependence, unspecified, uncomplicated; I25.82 Chronic total occlusion of coronary artery; I25.10 Atherosclerotic heart disease of native coronary artery without angina pectoris; E66.9 Obesity, unspecified; Z68.41 Body mass index [BMI] 40.0-44.9, adult; E03.9 Hypothyroidism, unspecified; E78.5 Hyperlipidemia, unspecified; F32.9 Major depressive disorder, single episode, unspecified; F41.9 Anxiety disorder, unspecified; Z79.82 Long term (current) use of aspirin; Z79.899 Other long term (current) drug therapy; Z88.6 Allergy status to analgesic agent; Z88.1 Allergy status to other antibiotic agents; Z91.013 Allergy to seafood; Z88.2 Allergy status to sulfonamides; Z91.018 Allergy to other foods; Z91.048 Other nonmedicinal substance allergy status; I25.2 Old myocardial infarction; G47.30 Sleep apnea, unspecified; Z99.89 Dependence on other enabling machines and devices; Z82.3 Family history of stroke
CPT/HCPCS: 99291; 96375 ×3; 96361 ×3; 96376 ×3; 96365 ×2; 96366; 36415; 93005; 85379; 83880; 80053; 82150; 82550; 82553; 83690; 83735; 84484; 85025; 85610; 85730; 71046; 71275; G0378; J2270; J1644 ×2; Q9967; J2405

== ENCOUNTER → 2017-08-01 | Outpatient (CLI) | payer MEDICARE | END | disposition home or self-care (01) | LOC: MMGSC 15:31 | PROVIDERS: ATTEND Family Medicine | DX: N39.0 Urinary tract infection, site not specified (principal) | CPT/HCPCS: 87086 ==

== ENCOUNTER 2017-08-14 15:16 | Emergency (ER) | payer MEDICARE ==
[2017-08-14] MEDS ORDERED: RX INFO: IV CONTRAST WAS GIVEN 1 EACH MISC MISCELLANE PRN (16:29)
[2017-08-14 16:40] LABS: Basophils # (A) 0.1 k/uL (0-0.2); Basophils % (A) 1 %; Eosinophils # (A) 0.6 k/uL (0-0.7); Eosinophils % (A) 7 %; HGB 14.6 gm/dL (11.4-16.0); Lymphocytes # (A) 2.5 k/uL (1.0-4.8); Lymphocytes % (A) 31 %; MCH 30.4 pg (25.0-35.0); MCHC 33.1 g/dL (31.0-37.0); MCV 91.8 fL (80.0-100.0); Mean Platelet Volume 7.2; Monocytes # (A) 0.4 k/uL (0-1.0); Monocytes % (A) 6 %; Neutrophils # (A) 4.3 k/uL (1.3-7.7); Neutrophils % (A) 54 %; Platelet Count 176 k/uL (150-450); RBC 4.79 m/uL (3.80-5.40); RDW 13.4 % (11.5-15.5)
[2017-08-14 16:47] LABS: Amorphous Sediment,Urine Rare /hpf; Appearance,Urine Cloudy (Clear); Bilirubin,Urine Negative (Negative); Blood,Urine Negative (Negative); Color,Urine Yellow; Glucose,Urine (UA) Negative (Negative); Ketones,Urine Negative (Negative); Leukocyte Esterase,Urine Negative (Negative); Mucus,Urine Rare /hpf; Nitrite,Urine Negative (Negative); Protein,Urine Negative (Negative); RBC,Urine 2 /hpf (0-5); Specific Gravity,Urine 1.017 (1.001-1.035); Squamous Epithelial Cell,Urine 3 /hpf (0-4); Urobilinogen,Urine <2.0 mg/dL (<2.0)
[2017-08-14] MEDS ORDERED: ONDANSETRON 4 MG/2 ML VIAL IVP STA (16:49)
[2017-08-14] MEDS ORDERED: MORPHINE SULFATE 4 MG/ML SYRINGE IVP STA (16:49)
[2017-08-14] MEDS ORDERED: MORPHINE SULFATE/PF 10MG/10ML VL ONE (16:56)
[2017-08-14 17:02] LABS: ALT 23 U/L (9-52); AST 19 U/L (14-36); Albumin 3.9 g/dL (3.5-5.0); Alkaline Phosphatase 126 U/L (38-126); Anion Gap 12 mmol/L; Blood Urea Nitrogen 19 mg/dL (7-17); Calcium 9.6 mg/dL (8.4-10.2); Carbon Dioxide 23 mmol/L (22-30); Chloride 109 mmol/L (98-107); Glucose 94 mg/dL (74-99); Potassium 4.1 mmol/L (3.5-5.1); Sodium 144 mmol/L (137-145); Total Bilirubin 0.3 mg/dL (0.2-1.3); Total Protein 6.6 g/dL (6.3-8.2)
[2017-08-14 17:03] VITALS: BP 140/64; PULSE 71; RESP 18; TEMP 97.5
[2017-08-14] MEDS ORDERED: MORPHINE SULFATE/PF 10MG/10ML VL IVP STA (17:04)
--- NOTE | 2017-08-14 18:02 | CT ---
EXAMINATION TYPE: CT abdomen pelvis w con DATE OF EXAM: 08/14/2017 COMPARISON: NONE HISTORY: Lower abd pain. CT DLP: 1915 mGycm. Automated exposure control for dose reduction was used. TECHNIQUE: Helical acquisition of images was performed from the lung bases through the pelvis. CONTRAST: Performed without Oral Contrast and with IV Contrast, patient injected with 100ml mL of Iso sanaz M300. FINDINGS: LUNG BASES: No significant abnormality is appreciated. LIVER/GB: No significant abnormality is appreciated. PANCREAS: No significant abnormality is seen. SPLEEN: No significant abnormality is seen. ADRENALS: No significant abnormality is seen. KIDNEYS: No significant abnormality is seen. PERITONEAL CAVITY: Negative. RETROPERITONEAL ADENOPATHY: None visualized REPRODUCTIVE ORGANS: No significant abnormality is seen URINARY BLADDER: No significant abnormality is seen. PELVIC ADENOPATHY: None visualized. OSSEOUS STRUCTURES: No significant abnormality is seen. BOWEL: No significant abnormality is seen. VASCULATURE: Negative except for widespread nonaneurysmal atherosclerotic calcifications. OTHER: The anterior abdominal wall is intact. IMPRESSION: NO ACUTE PROCESS, CT ABDOMEN PELVIS WITH CONTRAST.
--- NOTE | 2017-08-14 18:04 | ED ---
Abdominal Pain HPI - General Chief Complaint: Abdominal Pain Stated Complaint: lower abdominal pain Time Seen by Provider: 08/14/17 15:58 Source: patient Mode of arrival: ambulatory Limitations: no limitations - History of Present Illness Initial Comments: 62-year-old female patient presents to the emergency department today for complaints of suprapubic pain and pressure. Patient states that she has been having issues with the last 6 weeks. Patient states that she lifted something and felt a tearing sensation in her suprapubic region. States the pain was severe at that time radiating up into her chest. States that she was seen and evaluated for chest pain however was discharged home. Patient states that since that time she has been having some intermittent discomfort and pressure to the suprapubic region and also issue with urge incontinence. Patient states that she has been evaluated by her primary care physician. Patient states that over the last 2 weeks the pain has increased significantly. States that she has had numerous incontinent episodes. She states that she did have an ultrasound this morning ordered by her primary care doctor in the reported that he was normal. She states that she comes in tonight at the direction of her primary care physician for further evaluation. Patient denies any hematuria or dysuria. Patient states she is having urinary frequency. She denies any fevers or chills with this. She denies any low back pain. Denies any difficulty with bowel movements. Patient does have a history of hysterectomy and has had a bladder suspension twice. Patient states her symptoms now are similar to when she needed to suspensions in the past. Patient denies seeing a sewer connector in the recent past. Patient denies any recent rash, shortness breath, chest pain, nausea, vomiting, diarrhea, constipation, numbness, tingling , dizziness, weakness, headache, visual changes, or any other complaints. - Related Data Home Medications Medication Instructions Recorded Confirmed Aspirin EC [Ecotrin] 325 mg PO AC-SUPPER 03/21/14 08/14/17 Multivitamins, Thera [Multivitamin 1 tab PO DAILY 03/21/14 08/14/17 (formulary)] Sertraline [Zoloft] 100 mg PO BID 03/21/14 08/14/17 Topiramate [Topamax] 50 mg PO BID-W/MEALS 03/21/14 08/14/17 Furosemide [Lasix] 40 mg PO DAILY 01/12/15 08/14/17 Levothyroxine Sodium [Synthroid] 88 mcg PO DAILY 01/10/16 08/14/17 Metoprolol Succinate (ER) [Toprol 12.5 mg PO DAILY 01/10/16 08/14/17 XL] Potassium Chloride [Klor-Con 10] 10 meq PO DAILY 01/10/16 08/14/17 Hydrocodone/Acetaminophen [Williams 1 tab PO Q8H PRN 01/19/17 08/14/17 10-325] Temazepam 30 mg PO HS 01/19/17 08/14/17 Krill/Om-3/Dha/Epa/Phospho/Ast 1 cap PO DAILY 07/04/17 08/14/17 [[place]-3 Krill Oil 300 mg Sfgl] Fluticasone Nasal [place] [Flonase 1 spray EA NOSTRIL DAILY 08/14/17 08/14/17 Nasal [place]] Previous Rx's Medication Instructions Recorded Atorvastatin [Lipitor] 40 mg PO DAILY #30 tab 03/23/14 Allergies Allergy/AdvReac Type Severity Reaction Status Date / Time adhesive Allergy Rash/Hives Verified 08/14/17 18:03 ciprofloxacin [From Cipro] Allergy Rash/Hives Verified 08/14/17 18:03 ciprofloxacin HCl Allergy Rash/Hives Verified 08/14/17 18:03 [From Cipro] Fish Containing Products Allergy Rash/Hives Verified 08/14/17 18:03 [Fish] ibuprofen Allergy Nausea Verified 08/14/17 18:03 onion [Onion] Allergy Chest Pain Verified 08/14/17 18:03 Sulfa (Sulfonamide Allergy Rash/Hives Verified 08/14/17 18:03 Antibiotics) sulfamethoxazole Allergy Rash/Hives Verified 08/14/17 18:03 [From Bactrim] trimethoprim [From Bactrim] Allergy Rash/Hives Verified 08/14/17 18:03 Review of Systems ROS Statement: Those systems with pertinent positive or pertinent negative responses have been documented in the HPI. ROS Other: All systems not noted in ROS Statement are negative. Past Medical History Past Medical History: Coronary Artery Disease (CAD), Chest Pain / Angina, Hypertension, Myocardial Infarction ([place]), Sleep Apnea/CPAP/BIPAP, Thyroid Disorder Additional Past Medical History / Comment(s): previous [place] x2 Last Myocardial Infarction Date:: 2013 History of Any Multi-Drug Resistant Organisms: None Reported Past Surgical History: Appendectomy, Breast Surgery, Cholecystectomy, Heart Catheterization, Hysterectomy, Joint Replacement Additional Past Surgical History / Comment(s): . FINGER REPAIR CARPAL TUNNEL RELEASE-BILATERAL. rIGHT ARM SURGERY (HAS PLATE). Last cath 2013 - no intervention Past Anesthesia/Blood Transfusion Reactions: No Reported Reaction Past Psychological History: Anxiety, Depression Smoking Status: Current every day smoker Past Alcohol Use History: Occasional Past Drug Use History: None Reported - Past Family History Father Family Medical History: Myocardial Infarction ([place]) Mother Family Medical History: CVA/TIA Brother(s) Family Medical History: CVA/TIA General Exam Limitations: no limitations General appearance: alert, in no apparent distress, other (This is a well- developed, well-nourished adult female patient in no acute distress. Vital signs upon presentation are temperature 98.4F, pulse 79, respirations 20, blood pressure 126/63, pulse ox 98% on room air.) Eye exam: Present: normal appearance, PERRL, EOMI. Absent: scleral icterus, conjunctival injection, periorbital swelling Respiratory exam: Present: normal lung sounds bilaterally. Absent: respiratory distress, wheezes, rales, rhonchi, stridor Cardiovascular Exam: Present: regular rate, normal rhythm, normal heart sounds. Absent: systolic murmur, diastolic murmur, rubs, gallop, clicks GI/Abdominal exam: Present: soft, tenderness (Suprapubic tenderness), normal bowel sounds. Absent: distended, guarding, rebound, rigid External exam: Present: normal external exam Speculum exam: Present: other (Painful speculum insertion. ). Absent: erythema , vaginal bleeding, foreign body By manual exam: Present: other (Bulgling over the anterior vaginal wall. Vaginal tenderness. ) Back exam: Absent: CVA tenderness (R), CVA tenderness (L) Neurological exam: Present: alert, oriented X3, CN II-XII intact Psychiatric exam: Present: normal affect, normal mood Skin exam: Present: warm, dry, intact, normal color. Absent: rash Course Vital Signs 08/14/17 08/14/17 15:18 17:03 Temperature 98.4 F 97.5 F L Pulse Rate 79 71 Respiratory 20 18 Rate Blood Pressure 126/63 140/64 O2 Sat by Pulse 98 96 Oximetry Medical Decision Making - Medical Decision Making 62-year-old female patient presents to the emergency department today with complaints of suprapubic pain and pressure. Physical examination did reveal suprapubic tenderness. Did perform a vaginal examination, bulging was noted over the anterior wall of the vagina. There is no external prolapse. Labs reviewed and were unremarkable. Urinalysis was negative. CT of the abdomen and pelvis was obtained and showed no acute abnormalities. I did discuss findings with the patient and her . Did discuss that her symptoms are probably related to bladder prolapse. She will be discharged home to follow-up with the ELECTRODE CLEANING MACHINE OPERATOR as soon as possible. She is instructed to return here immediately for any new, worsening, or concerning symptoms. Patient does take Williams 10 at home for pain control, she is urged to continue taking this. She verbalizes understanding and agrees with this plan. - Lab Data Result diagrams: 08/14/17 16:00 08/14/17 16:00 Lab Results 08/14/17 08/14/17 08/14/17 Range/Units 16:00 16:00 16:00 WBC 8.0 (3.8-10.6) k/uL RBC 4.79 (3.80-5.40) m/uL Hgb 14.6 (11.4-16.0) gm/dL Hct 44.0 (34.0-46.0) % MCV 91.8 (80.0-100.0) fL MCH 30.4 (25.0-35.0) pg MCHC 33.1 (31.0-37.0) g/dL RDW 13.4 (11.5-15.5) % Plt Count 176 (150-450) k/uL Neutrophils % 54 % Lymphocytes % 31 % Monocytes % 6 % Eosinophils % 7 % Basophils % 1 % Neutrophils # 4.3 (1.3-7.7) k/uL Lymphocytes # 2.5 (1.0-4.8) k/uL Monocytes # 0.4 (0-1.0) k/uL Eosinophils # 0.6 (0-0.7) k/uL Basophils # 0.1 (0-0.2) k/uL Sodium 144 (137-145) mmol/L Potassium 4.1 (3.5-5.1) mmol/L Chloride 109 H (98-107) mmol/L Carbon Dioxide 23 (22-30) mmol/L Anion Gap 12 mmol/L BUN 19 H (7-17) mg/dL Creatinine 0.76 (0.52-1.04) mg/dL Est GFR (CKD-EPI)AfAm >90 (>60 ml/min/1.73 sqM) Est GFR (CKD-EPI)NonAf 86 (>60 ml/min/1.73 sqM) Glucose 94 (74-99) mg/dL Calcium 9.6 (8.4-10.2) mg/dL Total Bilirubin 0.3 (0.2-1.3) mg/dL AST 19 (14-36) U/L ALT 23 (9-52) U/L Alkaline Phosphatase 126 (38-126) U/L Total Protein 6.6 (6.3-8.2) g/dL Albumin 3.9 (3.5-5.0) g/dL Urine Color Yellow Urine Appearance Cloudy H (Clear) Urine pH 7.0 (5.0-8.0) Ur Specific [place] 1.017 (1.001-1.035) Urine Protein Negative (Negative) Urine Glucose (UA) Negative (Negative) Urine Ketones Negative (Negative) Urine Blood Negative (Negative) Urine Nitrite Negative (Negative) Urine Bilirubin Negative (Negative) Urine Urobilinogen <2.0 (<2.0) mg/dL Ur Leukocyte Esterase Negative (Negative) Urine RBC 2 (0-5) /hpf Ur Squamous Epith Cells 3 (0-4) /hpf Amorphous Sediment Rare H (None) /hpf Urine Mucus Rare H (None) /hpf - Radiology Data Radiology results: report reviewed, image reviewed Ultrasound of the pelvis ordered by Dr. Urrutiake he was performed this morning, results show the uterus is surgically absent, endometrium is surgically absent, right ovary surgically absent, left ovary surgically absent, bilateral adnexa with normal limits, posterior cul-de-sac is within normal limits. Impression by Dr. Barnett shows unremarkable transabdominal images of the low pelvis with surgical absence of the uterus and ovaries. CT of the abdomen and pelvis with contrast was obtained. Report was reviewed in its entirety. Impression by Dr. Alfred Hartmann shows no acute process, CT abdomen and pelvis with contrast. Disposition Clinical Impression: Suprapubic pain, Bladder prolapse Disposition: HOME SELF-CARE Condition: Good Instructions: Abdominal Pain (ED) Additional Instructions: Follow-up with ELECTRODE CLEANING MACHINE OPERATOR as soon as possible. Return here immediately for any new , worsening, or concerning symptoms. Referrals: Caitlin Back MD [Primary Care Provider] - 1-2 days Samra Dhillon MD [STAFF PHYSICIAN] - 1-2 days Time of Disposition: 18:18
== END 2017-08-14 18:29 | disposition home or self-care (01) ==
LOC: EC 15:16
DX: N81.10 Cystocele, unspecified (principal); R10.30 Lower abdominal pain, unspecified; I25.10 Atherosclerotic heart disease of native coronary artery without angina pectoris; I10 Essential (primary) hypertension; I25.2 Old myocardial infarction; E07.9 Disorder of thyroid, unspecified; F41.9 Anxiety disorder, unspecified; F32.9 Major depressive disorder, single episode, unspecified; F17.200 Nicotine dependence, unspecified, uncomplicated; G47.30 Sleep apnea, unspecified; Z99.89 Dependence on other enabling machines and devices; Z90.49 Acquired absence of other specified parts of digestive tract; Z95.5 Presence of coronary angioplasty implant and graft; Z79.51 Long term (current) use of inhaled steroids; Z79.82 Long term (current) use of aspirin; Z79.899 Other long term (current) drug therapy; Z91.048 Other nonmedicinal substance allergy status; Z88.1 Allergy status to other antibiotic agents; Z91.013 Allergy to seafood; Z88.6 Allergy status to analgesic agent; Z91.018 Allergy to other foods; Z88.2 Allergy status to sulfonamides
CPT/HCPCS: 99284; 96374; 96375; 36415; 80053; 85025; 81001; 74177; J2405; Q9967; J2270

== ENCOUNTER → 2017-08-14 | Outpatient (CLI) | payer MEDICARE ==
--- NOTE | 2017-08-14 13:31 | US ---
EXAMINATION TYPE: US pelvic limited DATE OF EXAM: 08/14/2017 COMPARISON: CT 01/19/2017 CLINICAL HISTORY: R10.30 LOWER PELVIC PAIN. Total hysterectomy 1980. Lower pelvic pain TECHNIQUE: . Transabdominal sonographic images of the pelvis were acquired Date of LMP: 1980 EXAM MEASUREMENTS: Uterus: Surgically absent Endometrial Stripe: Surgically absent Right Ovary: Surgically absent Left Ovary: Surgically absent 1. Uterus: Surgically absent 2. Endometrium: Surgically absent 3. Right Ovary: Surgically absent 4. Left Ovary: Surgically absent 5. Bilateral Adnexa: wnl 6. Posterior cul-de-sac: wnl IMPRESSION: Unremarkable transabdominal images of the low pelvis with surgical absence of the uterus and ovaries. MTDD
== END | disposition home or self-care (01) ==
LOC: RADUSWWP 11:54
PROVIDERS: ATTEND Family Medicine
DX: R10.30 Lower abdominal pain, unspecified (principal); Z90.710 Acquired absence of both cervix and uterus; Z90.722 Acquired absence of ovaries, bilateral
CPT/HCPCS: 76856; 76857

== ENCOUNTER 2017-08-20 09:25 | Observation (INO) | payer MEDICARE ==
[2017-08-20] MEDS ORDERED: SODIUM CHLORIDE 0.9% 1,000 ML IV ONE (10:28)
[2017-08-20] MEDS ORDERED: MORPHINE SULFATE/PF 10MG/10ML VL IVP STA ×2 (10:28→11:26)
[2017-08-20 10:53] LABS: Appearance,Urine Clear (Clear); Bilirubin,Urine Negative (Negative); Blood,Urine Negative (Negative); Color,Urine Colorless; Glucose,Urine (UA) Negative (Negative); Ketones,Urine Negative (Negative); Leukocyte Esterase,Urine Negative (Negative); Nitrite,Urine Negative (Negative); Protein,Urine Negative (Negative); Specific Gravity,Urine 1.007 (1.001-1.035); Urobilinogen,Urine <2.0 mg/dL (<2.0)
[2017-08-20 11:13] LABS: Basophils # (A) 0.1 k/uL (0-0.2); Basophils % (A) 1 %; Eosinophils # (A) 0.4 k/uL (0-0.7); Eosinophils % (A) 5 %; HCT 45.6 % (34.0-46.0); HGB 14.9 gm/dL (11.4-16.0); Lymphocytes # (A) 1.7 k/uL (1.0-4.8); Lymphocytes % (A) 20 %; MCH 29.9 pg (25.0-35.0); MCHC 32.6 g/dL (31.0-37.0); MCV 91.7 fL (80.0-100.0); Mean Platelet Volume 7.1; Monocytes # (A) 0.5 k/uL (0-1.0); Monocytes % (A) 6 %; Neutrophils # (A) 5.8 k/uL (1.3-7.7); Neutrophils % (A) 67 %; Platelet Count 189 k/uL (150-450); RBC 4.97 m/uL (3.80-5.40); RDW 13.3 % (11.5-15.5); WBC 8.7 k/uL (3.8-10.6)
[2017-08-20 11:21] LABS: Calcium 9.9 mg/dL (8.4-10.2); Potassium 4.5 mmol/L (3.5-5.1); Total Bilirubin 0.6 mg/dL (0.2-1.3); Total Protein 6.8 g/dL (6.3-8.2)
[2017-08-20] MEDS ORDERED: PHENAZOPYRIDINE 200 MG TAB PO STA (11:38)
--- NOTE | 2017-08-20 12:28 | ED ---
General Adult HPI - General Chief complaint: Urogenital Stated complaint: bladder/kidney pain Time Seen by Provider: 08/20/17 10:08 Source: patient, family, RN notes reviewed, old records reviewed Mode of arrival: ambulatory Limitations: no limitations - History of Present Illness Initial comments: Chief complaint history of present illness is a 62-year-old female here for . The patient's been having bladder and suprapubic pain getting progressively worse over the last week. Patient's serum difficulty urinating. - Related Data Home Medications Medication Instructions Recorded Confirmed Aspirin EC [Ecotrin] 325 mg PO AC-SUPPER 03/21/14 08/20/17 Multivitamins, Thera [Multivitamin 1 tab PO DAILY 03/21/14 08/20/17 (formulary)] Sertraline [Zoloft] 100 mg PO BID 03/21/14 08/20/17 Topiramate [Topamax] 50 mg PO BID-W/MEALS 03/21/14 08/20/17 Furosemide [Lasix] 40 mg PO DAILY 01/12/15 08/20/17 Levothyroxine Sodium [Synthroid] 88 mcg PO DAILY 01/10/16 08/20/17 Metoprolol Succinate (ER) [Toprol 12.5 mg PO DAILY 01/10/16 08/20/17 XL] Potassium Chloride [Klor-Con 10] 10 meq PO DAILY 01/10/16 08/20/17 Hydrocodone/Acetaminophen [[place] 1 tab PO Q8H PRN 01/19/17 08/20/17 10-325] Temazepam 30 mg PO HS 01/19/17 08/20/17 Krill/Om-3/Dha/Epa/Phospho/Ast 1 cap PO DAILY 07/04/17 08/20/17 [[place]-3 Krill Oil 300 mg Sfgl] Fluticasone Nasal [place] [Flonase 1 spray EA NOSTRIL DAILY 08/14/17 08/20/17 Nasal [place]] Previous Rx's Medication Instructions Recorded Atorvastatin [Lipitor] 40 mg PO DAILY #30 tab 03/23/14 Allergies Allergy/AdvReac Type Severity Reaction Status Date / Time adhesive Allergy Rash/Hives Verified 08/20/17 09:59 ciprofloxacin [From Cipro] Allergy Rash/Hives Verified 08/20/17 09:59 ciprofloxacin HCl Allergy Rash/Hives Verified 08/20/17 09:59 [From Cipro] Fish Containing Products Allergy Rash/Hives Verified 08/20/17 09:59 [Fish] ibuprofen Allergy Nausea Verified 08/20/17 09:59 onion [Onion] Allergy Chest Pain Verified 08/20/17 09:59 Sulfa (Sulfonamide Allergy Rash/Hives Verified 08/20/17 09:59 Antibiotics) sulfamethoxazole Allergy Rash/Hives Verified 08/20/17 09:59 [From Bactrim] trimethoprim [From Bactrim] Allergy Rash/Hives Verified 08/20/17 09:59 Review of Systems ROS Statement: Those systems with pertinent positive or pertinent negative responses have been documented in the HPI. Review of systems no headache or chest pain or shortness of breath she is able to urinate frequent small amounts. But with significant amount of pain. The patient rocks with pain with her legs wide open. Examination done last week showed suspicion for a bladder prolapse with the beginnings of one. Patient does have an appointment to follow-up with AEROSPACE QUALITY ENGINEER tomorrow but she is in too much pain to wait. Patient denies any fever or chills. No nausea no vomiting. All systems were reviewed. Past medical problems significant for angina, hypertension, previous [place], sleep apnea, hypothyroidism. The patient's surgeries include appendectomy, breast surgery, cholecystectomy, heart catheterization without stents because of the placement problems. Left total knee replacement. Finger repair. Family history noncontributory ALLERGIES to adhesive, Cipro, fish containing products, ibuprofen and onions. While in emergency room the patient did receive IV morphine for pain relief. She was also given Pyridium after urine was collected. ROS Other: All systems not noted in ROS Statement are negative. Past Medical History Past Medical History: Coronary Artery Disease (CAD), Chest Pain / Angina, Hypertension, [place]ocardial Infarction ([place]), Sleep Apnea/CPAP/BIPAP, Thyroid Disorder Additional Past Medical History / Comment(s): previous [place] x2 Last Myocardial Infarction Date:: 2013 History of Any Multi-Drug Resistant Organisms: None Reported Past Surgical History: Appendectomy, Breast Surgery, Cholecystectomy, Heart Catheterization, Hysterectomy, Joint Replacement Additional Past Surgical History / Comment(s): . FINGER REPAIR CARPAL TUNNEL RELEASE-BILATERAL. rIGHT ARM SURGERY (HAS PLATE). Last cath 2013 - no intervention Past Anesthesia/Blood Transfusion Reactions: No Reported Reaction Past Psychological History: Anxiety, Depression Smoking Status: Current every day smoker Past Alcohol Use History: Occasional Past Drug Use History: None Reported - Past Family History Father Family Medical History: Myocardial Infarction ([place]) Mother Family Medical History: CVA/TIA Brother(s) Family Medical History: CVA/TIA General Exam - General Exam Comments Initial Comments: General: The patient is awake and alert, moderate distress because of pain with urination need for frequent urination and suprapubic region pain getting progressively worse. Also complains of bilateral flank discomfort complaining that her kidneys hurt. Vital signs temperature 98.0 pulse 76 respiratory rate 20 pulse ox 96% room air blood pressure 142/73 Eye: Pupils are equal, , extra-ocular movements are intact; there is normal conjunctiva bilaterally. No signs of icterus. Ears, nose, mouth and throat: There are moist mucous membranes and no oral lesions. Neck: The neck is supple, moves without apparent discomfort Cardiovascular: There is a regular rate and rhythm. No murmur, rub or gallop is appreciated. Respiratory: Lungs are clear to auscultation, respirations are non-labored, breath sounds are equal. No wheezes, stridor, rales, or rhonchi. Gastrointestinal: Discomfort with palpation suprapubic region. Vaginal examination done with the help of Sharyn KABA, Usha possible mild bladder prolapse also possibility of a small dilatation of the urethra just proximal to the meatus of the urethra. Palpation of this caused exquisite discomfort. The nurse was instructed to insert a Bernstein catheter to initially evacuate this area and then finally into the bladder which did help significantly per patient. Back: Complains of back discomfort, and her kidney area. Musculoskeletal: Normal ROM, no tenderness, There is no pedal edema. There is no calf tenderness or swelling. Neurological: No neuro deficits Skin: Skin is warm and dry and no rashes or lesions are noted. Psychiatric: Cooperative, history of depression and anxiety, no complaints of depression. Limitations: no limitations Course Vital Signs 08/20/17 08/20/17 09:30 11:30 Temperature 98.0 F Pulse Rate 76 60 Respiratory 20 18 Rate Blood Pressure 142/73 126/58 O2 Sat by Pulse 96 99 Oximetry Medical Decision Making - Medical Decision Making Medical decision making; this is a 62-year-old female with a complaint of difficulty urinating and pain with urinating. Patient had a Bernstein catheter in which significantly helped. It appears the patient has a dilatation of the distal urethra just proximal to the meatus. Also possibility of a prolapse causing this to happen. The patient has had a hysterectomy and 2 previous bladder suspensions. Labs today show evidence of acute kidney injury. On the of the month, 6 days ago her creatinine was 0.76 today is 1.22. The first week of June was 1.3. Patient denies ever having had knowledge of any previous acute kidney injuries or renal problems. The patient was given IV morphine to relieve the pain the most was fully catheter. Patient was also given Pyridium. I discussed the labs with the patient which include a white count of 8.7 hemoglobin 14.9 hematocrit of 45 with a potassium 4.5. BUN as noted 21 creatinine 1.2 to with GFR 48. Glucose 90. Urine clean no signs of infection. I discussed the case with Dr. Jeong, on-call hospitalist. Patient be admitted to his service. He states he'll complete the orders including possible consultation from AEROSPACE QUALITY ENGINEER. Dr. Blount - Lab Data Result diagrams: 08/20/17 10:55 08/20/17 10:55 Lab Results 08/20/17 08/20/17 08/20/17 Range/Units 10:05 10:55 10:55 WBC 8.7 (3.8-10.6) k/uL RBC 4.97 (3.80-5.40) m/uL Hgb 14.9 (11.4-16.0) gm/dL Hct 45.6 (34.0-46.0) % MCV 91.7 (80.0-100.0) fL MCH 29.9 (25.0-35.0) pg MCHC 32.6 (31.0-37.0) g/dL RDW 13.3 (11.5-15.5) % Plt Count 189 (150-450) k/uL Neutrophils % 67 % Lymphocytes % 20 % Monocytes % 6 % Eosinophils % 5 % Basophils % 1 % Neutrophils # 5.8 (1.3-7.7) k/uL Lymphocytes # 1.7 (1.0-4.8) k/uL Monocytes # 0.5 (0-1.0) k/uL Eosinophils # 0.4 (0-0.7) k/uL Basophils # 0.1 (0-0.2) k/uL Sodium 143 (137-145) mmol/L Potassium 4.5 (3.5-5.1) mmol/L Chloride 105 (98-107) mmol/L Carbon Dioxide 25 (22-30) mmol/L Anion Gap 13 mmol/L BUN 21 H (7-17) mg/dL Creatinine 1.22 H (0.52-1.04) mg/dL Est GFR (CKD-EPI)AfAm 56 (>60 ml/min/1.73 sqM) Est GFR (CKD-EPI)NonAf 48 (>60 ml/min/1.73 sqM) Glucose 90 (74-99) mg/dL Calcium 9.9 (8.4-10.2) mg/dL Total Bilirubin 0.6 (0.2-1.3) mg/dL AST 23 (14-36) U/L ALT 26 (9-52) U/L Alkaline Phosphatase 98 (38-126) U/L Total Protein 6.8 (6.3-8.2) g/dL Albumin 4.0 (3.5-5.0) g/dL Urine Color Colorless Urine Appearance Clear (Clear) Urine pH 5.0 (5.0-8.0) Ur Specific [place] 1.007 (1.001-1.035) Urine Protein Negative (Negative) Urine Glucose (UA) Negative (Negative) Urine Ketones Negative (Negative) Urine Blood Negative (Negative) Urine Nitrite Negative (Negative) Urine Bilirubin Negative (Negative) Urine Urobilinogen <2.0 (<2.0) mg/dL Ur Leukocyte Esterase Negative (Negative) Disposition Clinical Impression: Acute kidney injury, Urethral urinoma Disposition: ADMITTED IP TO THIS HOSP Condition: Fair Referrals: Caitlin Back MD [Primary Care Provider] - 1-2 days
[2017-08-20] MEDS ORDERED: ACETAMINOPHEN TAB 325 MG TAB PO PRN (13:36)
[2017-08-20] MEDS ORDERED: NALOXONE 0.4 MG/ML 1 ML VIAL IV PRN (13:36)
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
[2017-08-20 14:49] VITALS: BMI 46.8
[2017-08-20] MEDS: HYDROcodone/APAP 5-325MG 1 EACH TAB PO PRN ×2 (15:34→20:16)
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
[2017-08-20] MEDS ORDERED: ASPIRIN 325 MG TAB PO SCH (17:30)
[2017-08-20] MEDS: TOPIRAMATE 25 MG TAB PO SCH (17:46)
[2017-08-20] MEDS ORDERED: TEMAZEPAM 30 MG CAP PO SCH (21:00)
[2017-08-20] MEDS: OXYBUTYNIN CHLORIDE 5 MG TAB PO SCH (21:06)
[2017-08-20] MEDS: SERTRALINE 100 MG TAB PO SCH (21:06)
[2017-08-20] MEDS: SODIUM CHLORIDE 0.9% 1,000 ML IV SCH (23:30)
[2017-08-21] MEDS: HYDROcodone/APAP 5-325MG 1 EACH TAB PO PRN ×3 (00:40→12:51)
[2017-08-21] MEDS: SODIUM CHLORIDE 0.9% 1,000 ML IV SCH (00:49)
[2017-08-21 06:17] LABS: Basophils # (A) 0.1 k/uL (0-0.2); Basophils % (A) 1 %; Eosinophils # (A) 0.4 k/uL (0-0.7); Eosinophils % (A) 7 %; HCT 38.6 % (34.0-46.0); HGB 13.2 gm/dL (11.4-16.0); Lymphocytes # (A) 1.6 k/uL (1.0-4.8); Lymphocytes % (A) 30 %; MCH 31.6 pg (25.0-35.0); MCHC 34.3 g/dL (31.0-37.0); MCV 91.9 fL (80.0-100.0); Mean Platelet Volume 6.8; Monocytes # (A) 0.3 k/uL (0-1.0); Monocytes % (A) 5 %; Neutrophils # (A) 2.9 k/uL (1.3-7.7); Neutrophils % (A) 54 %; Platelet Count 159 k/uL (150-450); RBC 4.19 m/uL (3.80-5.40); RDW 13.1 % (11.5-15.5); WBC 5.4 k/uL (3.8-10.6)
[2017-08-21 06:29] LABS: Calcium 8.9 mg/dL (8.4-10.2); Phosphorus 5.1 mg/dL (2.5-4.5); Potassium 4.2 mmol/L (3.5-5.1); Total Bilirubin 0.4 mg/dL (0.2-1.3); Total Protein 5.4 g/dL (6.3-8.2)
[2017-08-21] MEDS ORDERED: LEVOTHYROXINE 88 MCG TAB PO SCH (06:30)
[2017-08-21] MEDS: TOPIRAMATE 25 MG TAB PO SCH (07:03)
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
[2017-08-21] MEDS: OXYBUTYNIN CHLORIDE 5 MG TAB PO SCH (08:54)
[2017-08-21] MEDS: SERTRALINE 100 MG TAB PO SCH (08:54)
[2017-08-21] MEDS ORDERED: FUROSEMIDE 40 MG TAB PO SCH (09:00)
[2017-08-21] MEDS ORDERED: NON-FORMULARY DRUG (Krill/Om-3/Dha/Epa/Phospho/Ast [Omega-3 Krill Oil 300 Mg Sfgl] 1 CAP) PO SCH (09:00)
[2017-08-21] MEDS ORDERED: FLUTICASONE 50MCG/SPRAY NASAL 16GM EA NOSTRIL SCH (09:00)
[2017-08-21] MEDS ORDERED: METOPROLOL SUCCINATE (ER) 25 MG TAB.ER.24H PO SCH (09:00)
[2017-08-21] MEDS ORDERED: ATORVASTATIN 40 MG TAB PO SCH (09:00)
[2017-08-21] MEDS ORDERED: POTASSIUM CHLORIDE ER 10 MEQ TAB.ER.PRT PO SCH (09:00)
--- NOTE | 2017-08-21 09:16 | P.DS ---
Providers Date of admission: 08/20/17 12:36 Expected date of discharge: 08/21/17 Attending physician: Levi Jara MD Consults: 08/20/17 13:38 Consult Physician Routine Consulting Provider: Yovani Thompson Consult Reason/Comments: bladder obstruction Do you want consulting provider notified?: Yes 08/20/17 18:09 Consult Physician Routine Consulting Provider: Westley Lakhani Consult Reason/Comments: VULVAR PAIN Do you want consulting provider notified?: Already Contacted Primary care physician: Caitlin Back - Discharge Diagnosis(es) (1) Suprapubic pain Current Visit: No Status: Acute (2) Bladder spasm Current Visit: Yes Status: Acute (3) Lumbar disc disease Current Visit: Yes Status: Acute (4) Acute kidney injury Current Visit: Yes Status: Acute (5) Hypertension Current Visit: No Status: Acute Hospital Course: Patient is a 62-year-old female with a past medical history of coronary artery disease, dyslipidemia, hypertension, and obstructive sleep apnea who presented to the hospital with complaints of bladder and suprapubic pain. She had recently had a CT of the abdomen and pelvis and pelvic ultrasound completed both of which were negative. Her laboratory analysis showed a slightly elevated creatinine at 1.22. Her urinalysis was negative. She was admitted as observation for further care. She had a Bernstein catheter inserted with return of 100 mL of urine. She stated that this event happened after she turned in bed and felt a pop and it has been going on since that point in time. She was seen by Dr. Felipe of urology he felt that this was not due to urinary retention as she only had 100 mL and Bernstein catheter was placed. He was concerned about possible bladder spasm and started her on Ditropan. He states she may need a cystoscopy at some point in the future. Is also concerned this could be coming from her lumbar disc disease as it started after feeling a pop in her back. She was seen by [facility] and had a pelvic exam performed which was negative. They did not feel it was secondary to a BEER BREWER issue is she has had her pelvic organs removed and no sign of a vaginal infection. He felt that this could be secondary to bladder spasms or detrussor instability. Her creatinine had improved by the next morning down to 1.03. Her Bernstein catheter has been discontinued and will ensure she voids prior to discharge. She was determined stable for discharge as there is no plans for further inpatient workup at this point in time. I discussed with the patient that this bladder issue and spasm could be coming from her back. She does not feel it is secondary to this she has had back problems for years. She does states that it all started after she turned in bed and felt a pop. I again told her that this may be secondary to a back problem with her history of lumbar disc disease. She still feels she tore something that it was not in her back. We discussed the results of her CT scan and pelvic ultrasound. I have assured her that she will need continued follow-up for this problem including follow-up with Dr. Soliman and Dr. Felipe for possible cystoscopy. However, at this point in time her work-up can be completed as an outpatient. Patient is frustrated that no definitive diagnosis has been made this hospitalization and I do empathize with her. She would like to see Dr. Soliman prior to following with Dr. Felipe. I do recommend repeat renal function at time of visit with Dr. Soliman. I do believe that she may have interstitial cystitis. We did discuss having colonoscopy to ensure that there is no external pressure on the bladder, she is not interested at this time saying that they told her she didn't have to follow- up for 10 years. I encouraged her to think about this further if she does not have improvement with ditropan being started and steroid pack. Patient seen and examined at bedside. No chest pain or shortness of breath. Still feels the feeling of incomplete bladder emptying and the need to urinate despite having Bernstein catheter in place. Vital signs reviewed and stable. General: non toxic, no distress, appears at stated age Derm: warm, dry Head: atraumatic, normocephalic, symmetric Eyes: EOMI, no lid lag, anicteric sclera Mouth: no lip lesion, mucus membranes moist Cardiovascular: S1S2 reg, no murmur, positive posterior tibial pulse bilateral, Lungs: CTA bilateral, no rhonchi, no rales , no accessory muscle use Abdominal: soft, nontender to palpation, no guarding, no appreciable organomegaly Ext: no gross muscle atrophy, no edema, no contractures Neuro: CN II-XI grossly intact, no focal neuro deficits Psych: Alert, oriented, appropriate affect A total of 35 minutes of time were spent preparing this complex discharge summary . Pertinent Studies: CT abdomen and pelvis with contrast was done on 08/14/17 and came back negative. Pelvic ultrasound was done on 08/14/17 and came back negative Procedures: None Patient Condition at Discharge: Stable Plan - Discharge Summary Discharge Rx Participant: No New Discharge Prescriptions: New Acetaminophen Tab [Tylenol] 650 mg PO Q6HR PRN tab PRN Reason: Mild Pain Or Fever > 100.5 HYDROcodone/APAP 5-325MG [[place] 5-325] 2 each PO Q4HR PRN tab PRN Reason: Moderate Pain methylPREDNISolone Dose Pack [Medrol Dose Pack] 4 mg PO DIRECTED #21 package Oxybutynin Chloride [Oxybutynin Chloride ER] 10 mg PO HS #30 tab.er.24 Continue Topiramate [Topamax] 50 mg PO BID-W/MEALS Sertraline [Zoloft] 100 mg PO BID Multivitamins, Thera [Multivitamin (formulary)] 1 tab PO DAILY Aspirin EC [Ecotrin] 325 mg PO AC-SUPPER Atorvastatin [Lipitor] 40 mg PO DAILY #30 tab Furosemide [Lasix] 40 mg PO DAILY Potassium Chloride [Klor-Con 10] 10 meq PO DAILY Metoprolol Succinate (ER) [Toprol XL] 12.5 mg PO BID Levothyroxine Sodium [Synthroid] 88 mcg PO DAILY Temazepam 30 mg PO HS Krill/Om-3/Dha/Epa/Phospho/Ast [[place]-3 Krill Oil 300 mg Sfgl] 1 cap PO DAILY Fluticasone Nasal [place] [Flonase Nasal [place]] 1 spray EA NOSTRIL DAILY Discontinued Hydrocodone/Acetaminophen [[place] 10-325] 1 tab PO Q8H PRN PRN Reason: Pain Discharge Medication List Aspirin EC [Ecotrin] 325 mg PO AC-SUPPER 03/21/14 [History] Multivitamins, Thera [Multivitamin (formulary)] 1 tab PO DAILY 03/21/14 [History ] Sertraline [Zoloft] 100 mg PO BID 03/21/14 [History] Topiramate [Topamax] 50 mg PO BID-W/MEALS 03/21/14 [History] Atorvastatin [Lipitor] 40 mg PO DAILY #30 tab 03/23/14 [Rx] Furosemide [Lasix] 40 mg PO DAILY 01/12/15 [History] Levothyroxine Sodium [Synthroid] 88 mcg PO DAILY 01/10/16 [History] Metoprolol Succinate (ER) [Toprol XL] 12.5 mg PO BID 01/10/16 [History] Potassium Chloride [Klor-Con 10] 10 meq PO DAILY 01/10/16 [History] Temazepam 30 mg PO HS 01/19/17 [History] Krill/Om-3/Dha/Epa/Phospho/Ast [[place]-3 Krill Oil 300 mg Sfgl] 1 cap PO DAILY [History] Fluticasone Nasal [place] [Flonase Nasal [place]] 1 spray EA NOSTRIL DAILY 08/14/17 [History] Acetaminophen Tab [Tylenol] 650 mg PO Q6HR PRN tab 08/21/17 [Rx] HYDROcodone/APAP 5-325MG [[place] 5-325] 2 each PO Q4HR PRN tab 08/21/17 [Rx] Oxybutynin Chloride [Oxybutynin Chloride ER] 10 mg PO HS #30 tab.er.24 08/21/17 [Rx] methylPREDNISolone Dose Pack [Medrol Dose Pack] 4 mg PO DIRECTED #21 package 08/21/17 [Rx] Follow up Appointment(s)/Referral(s): Caitlin Back MD [Primary Care Provider] - 1-2 days
[2017-08-21] MEDS ORDERED: MULTIVITAMINS, THERA 1 EACH TAB PO SCH (12:00)
[2017-08-21 14:24] VITALS: BP 119/64; PULSE 51; RESP 16; TEMP 97.9
== END 2017-08-21 13:25 | disposition home or self-care (01) ==
LOC: EC 09:25 → 6PED 12:36
PROVIDERS: ADMIT Internal Medicine; ATTEND Internal Medicine
DX: R10.2 Pelvic and perineal pain (principal); N32.89 Other specified disorders of bladder; M51.27 Other intervertebral disc displacement, lumbosacral region; I10 Essential (primary) hypertension; N17.9 Acute kidney failure, unspecified; N36.8 Other specified disorders of urethra; R39.14 Feeling of incomplete bladder emptying; N90.89 Other specified noninflammatory disorders of vulva and perineum; M46.90 Unspecified inflammatory spondylopathy, site unspecified; E03.9 Hypothyroidism, unspecified; I25.10 Atherosclerotic heart disease of native coronary artery without angina pectoris; G47.33 Obstructive sleep apnea (adult) (pediatric); Z99.89 Dependence on other enabling machines and devices; F41.9 Anxiety disorder, unspecified; F32.9 Major depressive disorder, single episode, unspecified; F17.200 Nicotine dependence, unspecified, uncomplicated; G43.909 Migraine, unspecified, not intractable, without status migrainosus; G89.29 Other chronic pain; I25.2 Old myocardial infarction; E66.01 Morbid (severe) obesity due to excess calories; Z68.42 Body mass index [BMI] 45.0-49.9, adult; Z79.82 Long term (current) use of aspirin; Z79.899 Other long term (current) drug therapy; Z79.51 Long term (current) use of inhaled steroids; Z88.6 Allergy status to analgesic agent; Z88.1 Allergy status to other antibiotic agents; Z88.2 Allergy status to sulfonamides; Z88.8 Allergy status to other drugs, medicaments and biological substances; Z91.018 Allergy to other foods; Z91.048 Other nonmedicinal substance allergy status; Z87.440 Personal history of urinary (tract) infections; Z90.710 Acquired absence of both cervix and uterus; Z81.8 Family history of other mental and behavioral disorders; Z84.2 Family history of other diseases of the genitourinary system; Z82.49 Family history of ischemic heart disease and other diseases of the circulatory system; Z82.3 Family history of stroke
CPT/HCPCS: 51702 ×2; 99284 ×2; 96374 ×2; 96375 ×2; 36415; 80053 ×2; 83735; 84100; 85025 ×2; 81003; G0378 ×2; J2270

== ENCOUNTER → 2017-11-15 | Outpatient (CLI) | payer MEDICARE ==
[2017-11-15 11:25] LABS: Partial Thromboplastin Time 24.1 sec (22.0-30.0); Prothrombin Time 9.5 sec (9.0-12.0)
[2017-11-15 11:30] LABS: Appearance,Urine Clear (Clear); Bilirubin,Urine Negative (Negative); Blood,Urine Negative (Negative); Color,Urine Light Yellow; Glucose,Urine (UA) Negative (Negative); HCT 48.5 % (34.0-46.0); Ketones,Urine Negative (Negative); Leukocyte Esterase,Urine Negative (Negative); MCH 31.1 pg (25.0-35.0); MCHC 32.9 g/dL (31.0-37.0); MCV 94.6 fL (80.0-100.0); Mean Platelet Volume 6.8; Nitrite,Urine Negative (Negative); Platelet Count 183 k/uL (150-450); Protein,Urine Negative (Negative); RBC 5.13 m/uL (3.80-5.40); RDW 13.6 % (11.5-15.5); Specific Gravity,Urine 1.008 (1.001-1.035); Urobilinogen,Urine <2.0 mg/dL (<2.0)
[2017-11-15 11:43] LABS: Albumin 4.4 g/dL (3.5-5.0); Calcium 9.8 mg/dL (8.4-10.2); Potassium 4.4 mmol/L (3.5-5.1); Total Bilirubin 0.5 mg/dL (0.2-1.3)
== END | disposition home or self-care (01) ==
LOC: LABPAT 10:42
PROVIDERS: ATTEND Orthopaedic Surgery
DX: Z01.812 Encounter for preprocedural laboratory examination (principal); M17.11 Unilateral primary osteoarthritis, right knee
CPT/HCPCS: 36415; 80053; 81003; 85027; 85610; 85730; 87070

== ENCOUNTER 2017-12-03 06:07 | Inpatient (IN) | payer OTHER, MEDICARE ==
[2017-11-25 10:56] VITALS: BMI 44.8
[~2017-12-03 06:07] MED LIST: DEXAMETHASONE SOD PHOSPHATE 10 MG/ML 1 ML VIAL IV ONE; HYDROmorphone 0.5 MG/0.5 ML SYRINGE IVP PRN; LACTATED RINGERS 1,000 ML IV SCH; ONDANSETRON 4 MG/2 ML VIAL IVP ONE; ceFAZolin IN SWFI 2 GM/20 ML SYRINGE IVP ONE
[2017-12-03] MEDS ORDERED: MIDAZOLAM 2 MG/2 ML VIAL ONE (07:50)
[2017-12-03] MEDS ORDERED: fentaNYL (PF) 50 MCG/ML 2 ML AMP ONE (07:50)
[2017-12-03] MEDS ORDERED: PROPOFOL 10 MG/ML 20 ML VIAL IV ONE (07:50)
[2017-12-03] MEDS ORDERED: LACTATED RINGERS 1,000 ML IV ONE (08:05)
[2017-12-03] MEDS ORDERED: HYDROcodone/APAP 10-325MG 1 EACH TAB PO PRN (10:12)
[2017-12-03] MEDS ORDERED: BISACODYL 10 MG SUPP RECTAL PRN (10:12)
[2017-12-03] MEDS ORDERED: ACETAMINOPHEN TAB 325 MG TAB PO PRN (10:12)
[2017-12-03] MEDS ORDERED: NA PHOS,M-B/NA PHOS,DI-BA 133 ML ENEMA RECTAL PRN (10:12)
[2017-12-03] MEDS ORDERED: ONDANSETRON 4 MG/2 ML VIAL IVP PRN (10:12)
[2017-12-03] MEDS ORDERED: TEMAZEPAM 15 MG CAP PO PRN (10:12)
[2017-12-03] MEDS ORDERED: HYDROmorphone 0.5 MG/0.5 ML SYRINGE IVP PRN ×2 (10:12)
[2017-12-03] MEDS ORDERED: MAGNESIUM HYDROXIDE 2,400 MG/10 ML CUP PO PRN (10:12)
[2017-12-03] MEDS ORDERED: NALOXONE 0.4 MG/ML 1 ML VIAL IV PRN (10:12)
--- NOTE | 2017-12-03 10:50 | XR ---
EXAMINATION TYPE: XR knee limited RT DATE OF EXAM: 12/03/2017 CLINICAL HISTORY: Right knee pain and arthritis status post total knee replacement. TECHNIQUE: Portable AP and crosstable lateral views of the right knee are obtained immediately posto peratively. COMPARISON: Right knee x-ray January 19, 2017 FINDINGS: Metallic hardware from total right knee arthroplasty is seen and appears satisfactory in a lignment and position. There is evidence of recent surgery with diffuse subcutaneous gas and soft ti ssue swelling anteriorly and superiorly noted. IMPRESSION: METALLIC HARDWARE FROM TOTAL RIGHT KNEE ARTHROPLASTY IS SATISFACTORY IN ALIGNMENT.
[2017-12-03] MEDS: HYDROmorphone 0.5 MG/0.5 ML SYRINGE IVP PRN ×4 (11:22→20:57)
[2017-12-03] MEDS: LACTATED RINGERS 1,000 ML IV SCH ×2 (12:00→21:23)
[2017-12-03] MEDS: hydrOXYzine PAMOATE 25 MG CAP PO PRN ×2 (12:46→19:42)
[2017-12-03] MEDS: HYDROcodone/APAP 10-325MG 1 EACH TAB PO PRN ×2 (12:46→19:42)
[2017-12-03] MEDS: ceFAZolin IN SWFI 2 GM/20 ML SYRINGE IVP SCH (15:48)
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
[2017-12-03] MEDS: TOPIRAMATE 25 MG TAB PO SCH (17:44)
[2017-12-03] MEDS: ALBUTEROL NEBULIZED 2.5 MG/3 ML INHALATION SCH (19:39)
[2017-12-03] MEDS: SERTRALINE 100 MG TAB PO SCH (20:35)
[2017-12-03] MEDS: SENNOSIDES-DOCUSATE SODIUM 1 EACH TAB PO SCH (20:35)
[2017-12-03] MEDS: FLUTICASONE 50MCG/SPRAY NASAL 16GM EA NOSTRIL SCH (20:35)
[2017-12-03] MEDS ORDERED: ASPIRIN 325 MG TAB PO SCH (21:00)
[2017-12-03] MEDS ORDERED: HYDROmorphone 0.5 MG/0.5 ML SYRINGE ONE (23:10)
[2017-12-04] MEDS ORDERED: HYDROmorphone 0.5 MG/0.5 ML SYRINGE ONE (02:47)
[2017-12-04] MEDS: ceFAZolin IN SWFI 2 GM/20 ML SYRINGE IVP SCH (04:56)
[2017-12-04] MEDS: HYDROcodone/APAP 10-325MG 1 EACH TAB PO PRN (05:39)
[2017-12-04] MEDS: LEVOTHYROXINE 88 MCG TAB PO SCH (05:39)
[2017-12-04] MEDS: hydrOXYzine PAMOATE 25 MG CAP PO PRN (05:40)
[2017-12-04 08:00] LABS: Basophils # (A) 0.1 k/uL (0-0.2); Basophils % (A) 1 %; Eosinophils # (A) 0.2 k/uL (0-0.7); Eosinophils % (A) 2 %; HCT 38.5 % (34.0-46.0); Lymphocytes # (A) 2.2 k/uL (1.0-4.8); Lymphocytes % (A) 22 %; MCH 31.6 pg (25.0-35.0); MCHC 33.1 g/dL (31.0-37.0); MCV 95.7 fL (80.0-100.0); Monocytes # (A) 0.6 k/uL (0-1.0); Monocytes % (A) 6 %; Neutrophils # (A) 6.8 k/uL (1.3-7.7); Neutrophils % (A) 68 %; Platelet Count 187 k/uL (150-450); RBC 4.03 m/uL (3.80-5.40); RDW 13.5 % (11.5-15.5); WBC 9.9 k/uL (3.8-10.6)
[2017-12-04 08:03] LABS: HGB 12.7 gm/dL (11.4-16.0)
--- NOTE | 2017-12-04 08:03 | P.PN ---
Subjective Progress Note Date: 12/04/17 Principal diagnosis: right knee pain Patient is a 62-year-old female with a past medical history of hypertension, dyslipidemia, and prior myocardial infarction who presented for elective right total knee arthroplasty. She tolerated the procedure well with no immediate post-op complications. Struggles with pain control. Patient seen and examined at bedside. No complaints of chest pain of shortness of breath. Difficulty with pain control overnight. Despite norco and dilaudid she is still having knee throbbing. She takes norco 10 at home every 3-5 hours and states it barely touches her chronic pain. I have agreed to add ultram. Objective - Vital Signs Vital signs: Vital Signs Temp 97.1 F L 12/04/17 07:30 Pulse 68 12/04/17 07:30 Resp 16 12/04/17 07:30 BP 160/69 12/04/17 07:30 Pulse Ox 93 L 12/04/17 07:30 Intake & Output 12/03/17 12/04/17 12/04/17 18:59 06:59 18:59 Intake Total 1400 1680 Output Total 1350 Balance 50 1680 Weight 111.13 kg Intake: IV 1200 Intake, IV Titration 200 1200 Amount Lactated Ringers 1,000 ml 200 1200 @ 100 mls/hr IV .Q10H HOLLI Rx#:[id number] Oral 480 Output: Urine 1300 Estimated Blood Loss 50 Other: Voiding Method Indwelling Catheter Indwelling Catheter Indwelling Catheter # Voids 2 - Exam General: non toxic, no distress, appears at stated age, Obese Derm: warm, dry, dressing intact over right knee without soak through. Head: atraumatic, normocephalic, symmetric Eyes: EOMI, no lid lag, anicteric sclera Mouth: no lip lesion, mucus membranes moist Cardiovascular: S1S2 reg, no murmur, positive posterior tibial pulse bilateral, Lungs: decreased bs b/l bases, no rhonchi, no rales , no accessory muscle use Abdominal: soft, nontender to palpation, no guarding, no appreciable organomegaly Ext: no gross muscle atrophy, no edema, no contractures Neuro: CN II-XI grossly intact, no focal neuro deficits Psych: Alert, oriented, appropriate affect Assessment and Plan Assessment: Osteoarthritis status post Right total knee arthroplasty -Pain control -PT/OT evaluation -Plan is for home with home health care -DVT prophylaxis as per orthopedic surgery with aspirin 325 mg twice daily -Await CBC Obstructive sleep apnea -Home CPAP Atherosclerotic coronary artery disease -Currently on aspirin, Lipitor, metoprolol Hypertension, controlled -Resume home medications as listed above -Follow blood pressures, anticipate that slightly elevated blood pressure secondary to pain Hypothyroidism -Synthroid Morbid obesity -Structured outpatient weight loss - still awaiting to work with PT and struggling with pain control. Once pain is better controlled she is medically stable for dishcarge at the discretion of Dr. Landaverde and the orthopedic team. Thank you for allowing us to participate in the care of this patient. Do not hesitate to contact us with questions. Someone can be reached from the [facility] hospitalist group at all hours of the day at [phone].
[2017-12-04] MEDS ORDERED: oxyCODONE-APAP 5-325MG 1 EACH TAB PO PRN (08:30)
[2017-12-04] MEDS: ALBUTEROL NEBULIZED 2.5 MG/3 ML INHALATION SCH ×3 (08:32→19:48)
--- NOTE | 2017-12-04 08:37 | P.PN ---
Subjective Progress Note Date: 12/04/17 Principal diagnosis: Status post right total knee arthroplasty This is a 62 year-old female post right total knee arthroplasty. This is post- op day 1. The patient was evaluated at the bedside today. The patient denies nausea, vomiting, abdominal pain, shortness of breath, and chest pain this morning. She states her pain is not controlled at this time. The patient has not been up with physical therapy yet this morning. Objective - Vital Signs Vital signs: Vital Signs Temp 97.1 F L 12/04/17 07:30 Pulse 68 12/04/17 07:30 Resp 16 12/04/17 07:30 BP 160/69 12/04/17 07:30 Pulse Ox 93 L 12/04/17 07:30 Intake & Output 12/03/17 12/04/17 12/04/17 18:59 06:59 18:59 Intake Total 1400 1680 Output Total 1350 Balance 50 1680 Weight 111.13 kg Intake: IV 1200 Intake, IV Titration 200 1200 Amount Lactated Ringers 1,000 ml 200 1200 @ 100 mls/hr IV .Q10H HOLLI Rx#:[id number] Oral 480 Output: Urine 1300 Estimated Blood Loss 50 Other: Voiding Method Indwelling Catheter Indwelling Catheter Indwelling Catheter # Voids 2 - Exam The patient does not appear in acute distress. Alert and orientated x3. Dressing is clean dry and intact. Incision appears fine with no erythema or active drainage. Calf is soft and nontender. Good foot and ankle motion without difficulty. Sensation and circulatory status is intact. - Labs CBC & Chem 7: 12/04/17 07:05 Assessment and Plan (1) Primary localized osteoarthritis of right knee Current Visit: Yes Status: Acute Code(s): M17.11 - UNILATERAL PRIMARY OSTEOARTHRITIS, RIGHT KNEE SNOMED Code(s): 331315160 (2) Status post total right knee replacement Current Visit: Yes Status: Acute Code(s): Z96.651 - PRESENCE OF RIGHT ARTIFICIAL KNEE JOINT SNOMED Code(s): 8077678437204 Plan: 1. Continue pain control, increase to Percocet and Toradol as needed 2. Anticoagulation changed to Xarelto 3. Start physical therapy, CPM, and ambulation 4. Anticipate discharge home with homecare in the next 1-2 days.
[2017-12-04] MEDS: METOPROLOL SUCCINATE (ER) 25 MG TAB.ER.24H PO SCH (09:15)
[2017-12-04] MEDS: ATORVASTATIN 40 MG TAB PO SCH (09:15)
[2017-12-04] MEDS: SERTRALINE 100 MG TAB PO SCH ×2 (09:15→20:49)
[2017-12-04] MEDS: TOPIRAMATE 25 MG TAB PO SCH ×2 (09:15→17:05)
[2017-12-04] MEDS: POTASSIUM CHLORIDE ER 10 MEQ TAB.ER.PRT PO SCH (09:15)
[2017-12-04] MEDS: FLUTICASONE 50MCG/SPRAY NASAL 16GM EA NOSTRIL SCH ×2 (09:18→20:48)
[2017-12-04] MEDS: traMADol 50 MG TAB PO PRN ×3 (09:18→21:43)
[2017-12-04] MEDS: KETOROLAC 30 MG/ML 1 ML VIAL IVP PRN ×3 (09:23→21:42)
[2017-12-04] MEDS: oxyCODONE-APAP 5-325MG 1 EACH TAB PO PRN ×3 (10:10→19:42)
[2017-12-04] MEDS: RIVAROXABAN 10 MG TAB PO SCH (11:01)
[2017-12-04] MEDS: FUROSEMIDE 40 MG TAB PO SCH (11:01)
[2017-12-04] MEDS: LACTATED RINGERS 1,000 ML IV SCH (11:13)
[2017-12-04] MEDS: MULTIVITAMINS, THERA 1 EACH TAB PO SCH (11:57)
--- NOTE | 2017-12-04 17:47 | OP ---
OPERATIVE REPORT DATE OF SURGERY: 12/03/2017 SURGEON: Alfredo Landaverde SOLAR ENERGY ENGINEER: ISAIAS Lara PREOPERATIVE DIAGNOSIS: Degenerative joint disease of the right knee. FINAL DIAGNOSIS: Degenerative joint disease of the right knee. PROCEDURE PERFORMED: Right total knee replacement arthroplasty utilizing Rosemary Press-Fit components. DESCRIPTION OF PROCEDURE: The patient was taken to the operative suite and placed in supine position. Spinal anesthesia was performed by the department of anesthesiology. A Betadine prep was carried out over the right thigh to mid calf. Sterile drapes were applied in the usual manner. Pneumatic tourniquet was inflated to 350 mmHg. A medial parapatellar incision was developed. The medial retinaculum was incised as well as the synovium. The patella was everted and dislocated laterally as the knee was brought into flexion and held in a leg lr. An intramedullary cutting guide was initiated into the femur. A size 5 right was selected. Appropriate cuts were initiated. Provisionary component size 5 right was impacted into position and alignment as well as bone interface was well maintained. The tibial cutting guide was aligned and the wafer cut was performed. Wafer was removed as well as excising both medial and lateral menisci. A size 3 tibial plate was selected. A 10 mm spacer was checked as the knee was taken through full range of motion, and following acceptance of the provisionary component, tibial tray was marked for position. The tibial tray was then secured and appropriate peg holes were drilled in preparation for the final patella. The patella was shaped with a shelving planer. A size 29 mm patellar component was selected and examined and selected for final component. Pulsavac antibiotic solution was utilized in preparation for the final component. The final size 3 trabecular metal three-hole peg plate was selected, placed in pre- drilled holes and impacted. The final size right 5 femoral component was impacted into position. The final patellar component size 29 was placed in the pre-drilled peg holes and impacted into position. The final 10 mm polyethylene tray was inserted into tibial tray and locked in position. The knee was placed in slight flexion and pneumatic tourniquet deflated. Knee was irrigated with Pulsavac antibiotic solution. Superficial bleeding was controlled with the electrocautery. Medial retinaculum was the approximated with #3 Vicryl suture in horizontal mattress fashion. Number 2 Quill suture was utilized in reinforcing the retinaculum in running fashion. Vicryl 2-0 was utilized in closure of subcutaneous tissue. Number 3-0 Quill suture was utilized for subcuticular closure. Dermabond was utilized in sealing the wound and a sterile dressing was applied. The patient was then transferred to the recovery room in satisfactory postoperative condition. GROSS PATHOLOGY: There was evidence of degenerative joint disease of the right knee. NEIL / JOAQUIMN: [id number] / [id number]
[2017-12-04] MEDS: SENNOSIDES-DOCUSATE SODIUM 1 EACH TAB PO SCH (20:49)
[2017-12-05] MEDS: oxyCODONE-APAP 5-325MG 1 EACH TAB PO PRN ×3 (00:34→11:40)
[2017-12-05] MEDS: traMADol 50 MG TAB PO PRN ×2 (04:30→17:29)
[2017-12-05] MEDS: KETOROLAC 30 MG/ML 1 ML VIAL IVP PRN ×3 (04:30→20:37)
[2017-12-05] MEDS: LEVOTHYROXINE 88 MCG TAB PO SCH (05:46)
[2017-12-05] MEDS: ALBUTEROL NEBULIZED 2.5 MG/3 ML INHALATION SCH ×3 (08:03→19:34)
--- NOTE | 2017-12-05 08:10 | P.PN ---
Subjective Progress Note Date: 12/05/17 Principal diagnosis: right knee pain Patient is a 62-year-old female with a past medical history of hypertension, dyslipidemia, and prior myocardial infarction who presented for elective right total knee arthroplasty. She tolerated the procedure well with no immediate post-op complications. Struggles with pain control. Patient seen and examined at bedside. Still struggling with pain control. No chest pain, no shortness of breath. Sleeping better. Had a bowel movement. Objective - Vital Signs Vital signs: Vital Signs Temp 98.6 F 12/05/17 07:45 Pulse 67 12/05/17 07:45 Resp 16 12/05/17 07:45 BP 116/67 12/05/17 07:45 Pulse Ox 97 12/04/17 23:55 Intake & Output 12/04/17 12/05/17 12/05/17 18:59 06:59 18:59 Intake Total 220 820 Output Total 2750 200 Balance -2530 620 Intake: Oral 220 820 Output: Urine 2750 200 Uretheral (Bernstein) 1400 Other: Voiding Method Indwelling Catheter Toilet # Voids 1 2 1 # Bowel Movements 1 - Exam General: non toxic, no distress, appears at stated age, Obese Derm: warm, dry, dressing intact over right knee without soak through. Head: atraumatic, normocephalic, symmetric Eyes: EOMI, no lid lag, anicteric sclera Mouth: no lip lesion, mucus membranes moist Cardiovascular: S1S2 reg, no murmur, positive posterior tibial pulse bilateral, Lungs: decreased bs b/l bases, no rhonchi, no rales , no accessory muscle use Abdominal: soft, nontender to palpation, no guarding, no appreciable organomegaly Ext: no gross muscle atrophy, trace edema right leg, no contractures Neuro: CN II-XI grossly intact, no focal neuro deficits Psych: Alert, oriented, appropriate affect - Labs CBC & Chem 7: 12/04/17 07:05 Assessment and Plan Assessment: Osteoarthritis status post Right total knee arthroplasty -Pain control -PT/OT evaluation -Plan is for home with home health care -DVT prophylaxis as per orthopedic surgery with aspirin 325 mg twice daily -Post op HgB stable Obstructive sleep apnea -Home CPAP Atherosclerotic coronary artery disease -Currently on aspirin, Lipitor, metoprolol Hypertension, controlled -Resume home medications as listed above -Follow blood pressures, anticipate that slightly elevated blood pressure secondary to pain Hypothyroidism -Synthroid Morbid obesity -Structured outpatient weight loss Medically stable for discharge at the discretion of Dr. Landaverde and the orthopedic team. Thank you for allowing us to participate in the care of this patient. Do not hesitate to contact us with questions. Someone can be reached from the [facility] hospitalist group at all hours of the day at [phone].
--- NOTE | 2017-12-05 08:23 | P.PN ---
Subjective Progress Note Date: 12/05/17 Principal diagnosis: Status post right total knee arthroplasty This is a 62 year-old female post right total knee arthroplasty. This is post- op day 2. The patient was evaluated at the bedside today. The patient denies nausea, vomiting, abdominal pain, shortness of breath, and chest pain this morning. She states her pain is better controlled today. The patient has been up with physical therapy and is doing well. She states she has had loose stools last night due to the Senok[place]. Objective - Vital Signs Vital signs: Vital Signs Temp 98.6 F 12/05/17 07:45 Pulse 64 12/05/17 08:16 Resp 16 12/05/17 07:45 BP 116/67 12/05/17 07:45 Pulse Ox 97 12/04/17 23:55 Intake & Output 12/04/17 12/05/17 12/05/17 18:59 06:59 18:59 Intake Total 220 820 Output Total 2750 200 Balance -2530 620 Intake: Oral 220 820 Output: Urine 2750 200 Uretheral (Bernstein) 1400 Other: Voiding Method Indwelling Catheter Toilet # Voids 1 2 1 # Bowel Movements 1 - Exam The patient does not appear in acute distress. Alert and orientated x3. Dressing is clean dry and intact. Incision appears fine with no erythema or active drainage. Calf is soft and nontender. Good foot and ankle motion without difficulty. Sensation and circulatory status is intact. - Labs CBC & Chem 7: 12/04/17 07:05 Assessment and Plan (1) Primary localized osteoarthritis of right knee Current Visit: Yes Status: Acute Code(s): M17.11 - UNILATERAL PRIMARY OSTEOARTHRITIS, RIGHT KNEE SNOMED Code(s): 652150662 (2) Status post total right knee replacement Current Visit: Yes Status: Acute Code(s): Z96.651 - PRESENCE OF RIGHT ARTIFICIAL KNEE JOINT SNOMED Code(s): 0089583331159 Plan: 1. Continue pain control, continue Percocet and Toradol as needed 2. Anticoagulation with Xarelto 3. Continue physical therapy, CPM, and ambulation 4. Anticipate discharge home with homecare likely tomorrow.
[2017-12-05] MEDS: RIVAROXABAN 10 MG TAB PO SCH (08:55)
[2017-12-05] MEDS: ATORVASTATIN 40 MG TAB PO SCH (08:55)
[2017-12-05] MEDS: POTASSIUM CHLORIDE ER 10 MEQ TAB.ER.PRT PO SCH (08:55)
[2017-12-05] MEDS: FUROSEMIDE 40 MG TAB PO SCH (08:55)
[2017-12-05] MEDS: METOPROLOL SUCCINATE (ER) 25 MG TAB.ER.24H PO SCH (08:55)
[2017-12-05] MEDS: FLUTICASONE 50MCG/SPRAY NASAL 16GM EA NOSTRIL SCH ×2 (08:55→21:14)
[2017-12-05] MEDS: TOPIRAMATE 25 MG TAB PO SCH ×2 (08:56→17:30)
[2017-12-05] MEDS: SERTRALINE 100 MG TAB PO SCH ×2 (08:56→21:14)
[2017-12-05] MEDS: MULTIVITAMINS, THERA 1 EACH TAB PO SCH (11:45)
[2017-12-05] MEDS: SENNOSIDES-DOCUSATE SODIUM 1 EACH TAB PO SCH (21:07)
[2017-12-06] MEDS: traMADol 50 MG TAB PO PRN (00:41)
[2017-12-06] MEDS: oxyCODONE-APAP 5-325MG 1 EACH TAB PO PRN ×2 (06:00→13:02)
[2017-12-06] MEDS: LEVOTHYROXINE 88 MCG TAB PO SCH (06:00)
[2017-12-06 07:23] VITALS: BP 104/61; RESP 16; TEMP 98.6
[2017-12-06] MEDS: FLUTICASONE 50MCG/SPRAY NASAL 16GM EA NOSTRIL SCH (07:42)
[2017-12-06 07:43] LABS: Basophils % (A) 0 %; Eosinophils # (A) 0.2 k/uL (0-0.7); Eosinophils % (A) 2 %; HGB 11.3 gm/dL (11.4-16.0); Lymphocytes # (A) 1.4 k/uL (1.0-4.8); Lymphocytes % (A) 13 %; MCH 31.2 pg (25.0-35.0); MCHC 33.4 g/dL (31.0-37.0); MCV 93.4 fL (80.0-100.0); Mean Platelet Volume 7.2; Monocytes # (A) 0.6 k/uL (0-1.0); Monocytes % (A) 6 %; Neutrophils # (A) 8.2 k/uL (1.3-7.7); Neutrophils % (A) 78 %; Platelet Count 156 k/uL (150-450); RBC 3.64 m/uL (3.80-5.40); RDW 13.1 % (11.5-15.5); WBC 10.5 k/uL (3.8-10.6)
[2017-12-06] MEDS: TOPIRAMATE 25 MG TAB PO SCH (07:43)
[2017-12-06] MEDS: ALBUTEROL NEBULIZED 2.5 MG/3 ML INHALATION SCH ×2 (07:54→12:59)
[2017-12-06 07:57] VITALS: PULSE 78
--- NOTE | 2017-12-06 08:55 | P.DS ---
Providers Date of admission: 12/03/17 06:07 Expected date of discharge: 12/06/17 Attending physician: Alfredo Landaverde Consults: 12/03/17 10:12 Consult Physician Routine Consulting Provider: Caitlin Back Consult Reason/Comments: medical management Do you want consulting provider notified?: Yes 12/03/17 10:27 Consult Physician Routine Consulting Provider: Basilio Alvarado Consult Reason/Comments: medical managment Do you want consulting provider notified?: Yes Primary care physician: Stated None - Discharge Diagnosis(es) (1) Primary localized osteoarthritis of right knee Current Visit: Yes Status: Acute (2) Status post total right knee replacement Current Visit: Yes Status: Acute Hospital Course: This is a pleasant 62-year-old male last seen in our office with complaints of right knee pain. Patient has known history of degenerative arthritis of the right knee and presented to discuss options. After discussion and consideration , patient elected to proceed with a total knee arthroplasty of the right knee. The patient was seen preoperatively and medically cleared for surgery by Dr. Perdue. The patient was admitted to [facility] and underwent right total knee arthroplasty on 12/03/[address] Landaverde. The procedure was performed without complications or sequelae. The patient has done well postoperatively. The patient was seen and evaluated at bedside today and denies any new complaints. Pain is reasonably controlled. Dressing is clean dry and intact. Incision looks fine with no erythema or active drainage. Calf is soft and nontender. The patient has full foot and ankle motion without difficulty. Patient's right lower extremity is neurovascular intact. Patient is orthopedically stable for discharge to home today. Pertinent Studies: Laboratory Tests 12/06/17 07:02 WBC 10.5 RBC 3.64 L Hgb 11.3 L Hct 34.0 Neutrophils # 8.2 H Patient Condition at Discharge: Stable Plan - Discharge Summary Discharge Rx Participant: Yes New Discharge Prescriptions: New oxyCODONE HCL/ACETAMINOPHEN [Percocet 5-325 mg] 1 tab PO Q4HR PRN #50 tab PRN Reason: Pain Rivaroxaban [Xarelto] 10 mg PO DAILY #14 tab No Action Topiramate [Topamax] 50 mg PO BID-W/MEALS Sertraline [Zoloft] 100 mg PO BID Multivitamins, Thera [Multivitamin (formulary)] 1 tab PO DAILY Aspirin EC [Ecotrin] 325 mg PO AC-SUPPER Atorvastatin [Lipitor] 40 mg PO DAILY #30 tab Furosemide [Lasix] 40 mg PO DAILY Potassium Chloride [Klor-Con 10] 10 meq PO DAILY Metoprolol Succinate (ER) [Toprol XL] 12.5 mg PO DAILY Levothyroxine Sodium [Synthroid] 88 mcg PO DAILY Krill/Om-3/Dha/Epa/Phospho/Ast [Ruth-3 Krill Oil 300 mg Sfgl] 1 cap PO DAILY Fluticasone Nasal [place] [Flonase Nasal [place]] 2 spray EA NOSTRIL BID Acetaminophen Tab [Tylenol] 650 mg PO Q6HR PRN tab PRN Reason: Mild Pain Or Fever > 100.5 Albuterol Nebulized [Ventolin Nebulized] 2.5 mg INHALATION RT-TID HYDROcodone/APAP 5-325MG [[place] 5-325] 2 tab PO Q4HR PRN PRN Reason: Moderate Pain Discharge Medication List Aspirin EC [Ecotrin] 325 mg PO AC-SUPPER 03/21/14 [History] Multivitamins, Thera [Multivitamin (formulary)] 1 tab PO DAILY 03/21/14 [History ] Sertraline [Zoloft] 100 mg PO BID 03/21/14 [History] Topiramate [Topamax] 50 mg PO BID-W/MEALS 03/21/14 [History] Atorvastatin [Lipitor] 40 mg PO DAILY #30 tab 03/23/14 [Rx] Furosemide [Lasix] 40 mg PO DAILY 01/12/15 [History] Levothyroxine Sodium [Synthroid] 88 mcg PO DAILY 01/10/16 [History] Metoprolol Succinate (ER) [Toprol XL] 12.5 mg PO DAILY 01/10/16 [History] Potassium Chloride [Klor-Con 10] 10 meq PO DAILY 01/10/16 [History] Krill/Om-3/Dha/Epa/Phospho/Ast [Ruth-3 Krill Oil 300 mg Sfgl] 1 cap PO DAILY [History] Fluticasone Nasal [place] [Flonase Nasal [place]] 2 spray EA NOSTRIL BID 08/14/17 [ History] Acetaminophen Tab [Tylenol] 650 mg PO Q6HR PRN tab 08/21/17 [Rx] Albuterol Nebulized [Ventolin Nebulized] 2.5 mg INHALATION RT-TID 12/03/17 [ History] HYDROcodone/APAP 5-325MG [[place] 5-325] 2 tab PO Q4HR PRN 12/03/17 [History] Rivaroxaban [Xarelto] 10 mg PO DAILY #14 tab 12/06/17 [Rx] oxyCODONE HCL/ACETAMINOPHEN [Percocet 5-325 mg] 1 tab PO Q4HR PRN #50 tab [Rx] Follow up Appointment(s)/Referral(s): Alfredo Landaverde DO [Doctor of Osteopathic Medicine] - 12/18/17 8:00 am Ambulatory/Diagnostic Orders: Continuous Passive Motion (CPM) Machine [DME.AMB1] Time Frame: 3 Weeks, Location : None Selected Activity/Diet/Wound Care/Special Instructions: [facility] - [phone] Weightbearing as tolerated with a walker Xarelto daily for 2 weeks. then Aspirin 325mg 1 tablet daily for 1 month CPM 5-6 hours daily-Start CPM at 45 degrees then increase by 5 degrees every time on CPM as patient tolerates. Maximum total of 15 degrees every 24 hours. May shower in 3 days if no drainage from incision Keep incision clean and dry Call [facility] at with questions or concerns Call [facility] once home to arrange delivery of CPM - [phone] Discharge Disposition: HOME WITH HOME HEALTH SERVICES
--- NOTE | 2017-12-06 09:25 | XR ---
EXAMINATION TYPE: XR chest 2V DATE OF EXAM: 12/06/2017 COMPARISON: 07/04/2017 HISTORY: Postop knee surgery. Shortness of breath. Fever. TECHNIQUE: Frontal and lateral views of the chest are obtained. FINDINGS: There is no focal air space opacity, pleural effusion, or pneumothorax seen. The cardiac silhouette size is within normal limits. The osseous structures are intact. Moderate multilevel deg enerative changes of the thoracic spine are noted. The anterior margin of the chest is not included o n the lateral image. IMPRESSION: No acute cardiopulmonary process.
[2017-12-06] MEDS: KETOROLAC 30 MG/ML 1 ML VIAL IVP PRN (10:00)
[2017-12-06] MEDS: SERTRALINE 100 MG TAB PO SCH (10:04)
[2017-12-06] MEDS: POTASSIUM CHLORIDE ER 10 MEQ TAB.ER.PRT PO SCH (10:04)
[2017-12-06] MEDS: ATORVASTATIN 40 MG TAB PO SCH (10:04)
[2017-12-06] MEDS: FUROSEMIDE 40 MG TAB PO SCH (10:04)
[2017-12-06] MEDS: RIVAROXABAN 10 MG TAB PO SCH (10:04)
[2017-12-06] MEDS: METOPROLOL SUCCINATE (ER) 25 MG TAB.ER.24H PO SCH (10:04)
--- NOTE | 2017-12-06 10:43 | P.PN ---
Subjective Progress Note Date: 12/06/17 Principal diagnosis: right knee pain Patient is a 62-year-old female with a past medical history of hypertension, dyslipidemia, and prior myocardial infarction who presented for elective right total knee arthroplasty. She tolerated the procedure well with no immediate post-op complications. Struggles with pain control. Had 1 episode of fevers overnight. Patient seen and examined at bedside. Feeling better today. No shortness of breath. Chronic dry cough unchanged. No urinary symptoms such as dysuria or urinary frequency. Does not feel like she has an infection. Just had one episode of fevers. She is unsure whether she was wearing her CPAP when these fevers occurred or not. Encouraged incentive spirometry home to continue to use this along with her CPAP. D/W patient follow up with Dr. Kolb early next week. We'll also need to monitor fever profile at home. If recurrent fever greater than 100.[address] Landaverde or Dr. Back seek medical attention. Objective - Vital Signs Vital signs: Vital Signs Temp 98.6 F 12/06/17 07:00 Pulse 78 12/06/17 08:05 Resp 16 12/06/17 08:00 BP 104/61 12/06/17 07:00 Pulse Ox 94 L 12/06/17 07:00 Intake & Output 12/05/17 12/06/17 12/06/17 18:59 06:59 18:59 Intake Total 677 500 Output Total 200 Balance 477 500 Weight 111.13 kg Intake: Oral 677 500 Output: Urine 200 Other: Voiding Method Toilet Toilet Toilet # Voids 1 1 # Bowel Movements 1 - Exam General: non toxic, no distress, appears at stated age, Obese Derm: warm, dry, dressing intact over right knee . Head: atraumatic, normocephalic, symmetric Eyes: EOMI, no lid lag, anicteric sclera Mouth: no lip lesion, mucus membranes moist Cardiovascular: S1S2 reg, no murmur, positive posterior tibial pulse bilateral, Lungs: decreased bs b/l bases, no rhonchi, no rales , no accessory muscle use Abdominal: soft, nontender to palpation, no guarding, no appreciable organomegaly Ext: no gross muscle atrophy, no edema right leg, no contractures Neuro: CN II-XI grossly intact, no focal neuro deficits Psych: Alert, oriented, appropriate affect - Labs CBC & Chem 7: 12/06/17 07:02 Labs: Abnormal Lab Results - Last 24 Hours (Table) 12/06/17 Range/Units 07:02 RBC 3.64 L (3.80-5.40) m/uL Hgb 11.3 L (11.4-16.0) gm/dL Neutrophils # 8.2 H (1.3-7.7) k/uL Assessment and Plan Assessment: Fevers - CXR negative, not recurrent - Likely due to atelectasis - Patient given instructions to monitor temp at home and call if greater than 100.4 -No urinary symptoms. - D/W patient most common causes of infection/ fever post op... UTI and PNA and signs and symptoms to look for. Osteoarthritis status post Right total knee arthroplasty -Pain control -PT/OT recs -Plan is for home with home health care -DVT prophylaxis as per orthopedic surgery with aspirin 325 mg twice daily -Post op HgB stable Anticipated Acute blood loss anemia - stable, follow up with [facility] Obstructive sleep apnea -Home CPAP Atherosclerotic coronary artery disease -Currently on aspirin, Lipitor, metoprolol Hypertension, controlled -Resume home medications as listed above -Follow blood pressures, anticipate that slightly elevated blood pressure secondary to pain Hypothyroidism -Synthroid Morbid obesity -Structured outpatient weight loss Medically stable for discharge at the discretion of Dr. Landaverde and the orthopedic team. Instructions on monitoring fever added to discharge. Thank you for allowing us to participate in the care of this patient. Do not hesitate to contact us with questions. Someone can be reached from the [facility] hospitalist group at all hours of the day at [phone].
[2017-12-06] MEDS: MULTIVITAMINS, THERA 1 EACH TAB PO SCH (13:03)
== END 2017-12-06 14:56 | disposition home health service (06) | DRG 470 ==
LOC: 2ORMAIN 06:07 → 3SUR 10:16
PROVIDERS: ADMIT Orthopaedic Surgery; ATTEND Orthopaedic Surgery
PROC: 0SRC0JA Replacement of Right Knee Joint with Synthetic Substitute, Uncemented, Open Approach (ICD-10-PCS; principal; 2017-12-03 08:00)
DX: M17.11 Unilateral primary osteoarthritis, right knee (principal); J98.11 Atelectasis; D62 Acute posthemorrhagic anemia; Z68.41 Body mass index [BMI] 40.0-44.9, adult; E03.9 Hypothyroidism, unspecified; E66.01 Morbid (severe) obesity due to excess calories; Z83.3 Family history of diabetes mellitus; Z82.3 Family history of stroke; Z83.2 Family history of diseases of the blood and blood-forming organs and certain disorders involving the immune mechanism; Z80.0 Family history of malignant neoplasm of digestive organs; Z80.8 Family history of malignant neoplasm of other organs or systems; E78.5 Hyperlipidemia, unspecified; G47.33 Obstructive sleep apnea (adult) (pediatric); G89.29 Other chronic pain; I10 Essential (primary) hypertension; I25.10 Atherosclerotic heart disease of native coronary artery without angina pectoris; I25.2 Old myocardial infarction; Z79.82 Long term (current) use of aspirin; Z79.899 Other long term (current) drug therapy; Z80.7 Family history of other malignant neoplasms of lymphoid, hematopoietic and related tissues; Z82.49 Family history of ischemic heart disease and other diseases of the circulatory system; Z90.710 Acquired absence of both cervix and uterus; Z88.2 Allergy status to sulfonamides; Z88.1 Allergy status to other antibiotic agents; Z91.013 Allergy to seafood; Z91.81 History of falling; Z79.890 Hormone replacement therapy; Z96.652 Presence of left artificial knee joint; M54.5 Low back pain
CPT/HCPCS: 71046; 85025; 88300; 94640

== ENCOUNTER → 2018-03-07 | Outpatient (CLI) | payer OTHER ==
[2018-03-07 13:53] LABS: Basophils # (A) 0.1 k/uL (0-0.2); Basophils % (A) 1 %; Eosinophils # (A) 0.3 k/uL (0-0.7); Eosinophils % (A) 5 %; HCT 45.8 % (34.0-46.0); HGB 14.6 gm/dL (11.4-16.0); Lymphocytes # (A) 1.6 k/uL (1.0-4.8); Lymphocytes % (A) 26 %; MCH 29.7 pg (25.0-35.0); MCHC 31.8 g/dL (31.0-37.0); MCV 93.2 fL (80.0-100.0); Mean Platelet Volume 7.3; Monocytes # (A) 0.3 k/uL (0-1.0); Monocytes % (A) 5 %; Neutrophils # (A) 3.7 k/uL (1.3-7.7); Neutrophils % (A) 60 %; Platelet Count 172 k/uL (150-450); RBC 4.91 m/uL (3.80-5.40); RDW 13.9 % (11.5-15.5); WBC 6.2 k/uL (3.8-10.6)
[2018-03-07 16:17] LABS: Erythrocyte Sedimentation Rate 8 mm/hr (0-20)
== END ==
LOC: LABWHC1 12:41
PROVIDERS: ATTEND Orthopaedic Surgery
DX: M25.551 Pain in right hip (principal); M70.61 Trochanteric bursitis, right hip; M25.561 Pain in right knee; M67.861 Other specified disorders of synovium, right knee; Z96.651 Presence of right artificial knee joint
CPT/HCPCS: 36415; 85025; 85652; 86140

== ENCOUNTER → 2018-03-19 | Outpatient (CLI) | payer OTHER ==
[2018-03-19 15:11] LABS: HCT 50.2 % (34.0-46.0); HGB 15.9 gm/dL (11.4-16.0); MCH 29.6 pg (25.0-35.0); MCHC 31.6 g/dL (31.0-37.0); MCV 93.6 fL (80.0-100.0); Mean Platelet Volume 6.7; Platelet Count 200 k/uL (150-450); RBC 5.36 m/uL (3.80-5.40); RDW 14.4 % (11.5-15.5); WBC 7.6 k/uL (3.8-10.6)
[2018-03-19 15:19] LABS: Prothrombin Time 9.5 sec (9.0-12.0)
[2018-03-19 15:22] LABS: Albumin 4.3 g/dL (3.5-5.0); Calcium 9.9 mg/dL (8.4-10.2); Potassium 4.3 mmol/L (3.5-5.1); Total Bilirubin 0.4 mg/dL (0.2-1.3); Total Protein 7.3 g/dL (6.3-8.2)
[2018-03-19 15:27] LABS: Appearance,Urine Clear (Clear); Bilirubin,Urine Negative (Negative); Blood,Urine Negative (Negative); Color,Urine Yellow; Glucose,Urine (UA) Negative (Negative); Ketones,Urine Negative (Negative); Leukocyte Esterase,Urine Negative (Negative); Nitrite,Urine Negative (Negative); Protein,Urine Negative (Negative); Specific Gravity,Urine 1.015 (1.001-1.035); Urobilinogen,Urine <2.0 mg/dL (<2.0)
== END ==
LOC: LABPAT 14:25
PROVIDERS: ATTEND Orthopaedic Surgery
DX: Z01.812 Encounter for preprocedural laboratory examination (principal)
CPT/HCPCS: 80053; 81003; 85027; 85610; 85730; 87070

== ENCOUNTER 2018-04-15 06:40 | Inpatient (IN) | payer OTHER, MEDICARE ==
[2018-04-08 12:30] VITALS: BMI 48.4
[~2018-04-15 06:40] MED LIST changes: +ACETAMINOPHEN TAB 500 MG TAB PO ONE; -HYDROmorphone 0.5 MG/0.5 ML SYRINGE IVP PRN; -LACTATED RINGERS 1,000 ML IV SCH; +LIDOCAINE 1% 20 ML VIAL (10MG/ML) FOR IV START INTRADERMA PRN; +MELOXICAM 7.5 MG TAB PO ONE; +MIDAZOLAM 2 MG/2 ML VIAL IV PRN; +ROPIVACAINE 246.25 MG, EPINEPHrine 0.5 MG, KETOROLAC 30 MG, cloNIDine HCL/PF 80 MCG, WA... MISCELLANE ONE; +SCOPOLAMINE 1.5MG/72HR PATCH TRANSDERM ONE; +TRANEXAMIC ACID 1,000 MG in SODIUM CHLORIDE 0.9% 50 ML IVPB ONE; -ceFAZolin IN SWFI 2 GM/20 ML SYRINGE IVP ONE
[2018-04-15] MEDS: LACTATED RINGERS 1,000 ML IV SCH (07:38)
[2018-04-15] MEDS ORDERED: fentaNYL (PF) 50 MCG/ML 2 ML AMP ONE (08:39)
[2018-04-15] MEDS ORDERED: PROPOFOL 10 MG/ML 20 ML VIAL IV ONE (08:39)
[2018-04-15] MEDS ORDERED: SODIUM CHLORIDE 0.9% 100 ML BAG ONE (08:39)
[2018-04-15] MEDS ORDERED: diphenhydrAMINE 50 MG/ML 1 ML VIAL ONE (08:39)
[2018-04-15] MEDS ORDERED: MIDAZOLAM 2 MG/2 ML VIAL ONE (08:39)
[2018-04-15] MEDS ORDERED: TRANEXAMIC ACID 1,000 MG/10 ML VIAL ONE (08:39)
[2018-04-15] MEDS ORDERED: HYDROmorphone 1 MG/ML 1 ML SYRINGE IVP PRN ×2 (08:59)
[2018-04-15] MEDS ORDERED: BISACODYL 10 MG SUPP RECTAL PRN (08:59)
[2018-04-15] MEDS ORDERED: MAGNESIUM HYDROXIDE 2,400 MG/10 ML CUP PO PRN (08:59)
[2018-04-15] MEDS ORDERED: ONDANSETRON 4 MG/2 ML VIAL IVP PRN (08:59)
[2018-04-15] MEDS ORDERED: HYDROcodone/APAP 5-325MG 1 EACH TAB PO PRN (08:59)
[2018-04-15] MEDS ORDERED: NA PHOS,M-B/NA PHOS,DI-BA 133 ML ENEMA RECTAL PRN (08:59)
[2018-04-15] MEDS ORDERED: DIAZEPAM 5 MG TAB PO PRN (08:59)
[2018-04-15] MEDS ORDERED: NALOXONE 0.4 MG/ML 1 ML VIAL IV PRN (08:59)
[2018-04-15] MEDS ORDERED: ceFAZolin 1,000 MG VIAL IVPB ONE (09:06)
[2018-04-15] MEDS ORDERED: ceFAZolin 3,000 MG in SODIUM CHLORIDE 0.9% IRRIGATIO 3,000 ML IRRIGATION ONE (09:35)
[2018-04-15] MEDS ORDERED: LACTATED RINGERS 1,000 ML IV ONE (10:00)
[2018-04-15] MEDS ORDERED: ROPIVACAINE 1,100 MG, SODIUM CHLORIDE 0.9% 500 ML 330 ML MISCELLANE PRN ×2 (10:54)
--- NOTE | 2018-04-15 11:53 | XR ---
EXAMINATION TYPE: XR knee limited RT DATE OF EXAM: 04/15/2018 CLINICAL HISTORY: Right knee pain and arthritis status post total knee replacement. TECHNIQUE: Portable AP and crosstable lateral views of the right knee are obtained immediately posto peratively. COMPARISON: None FINDINGS: Metallic hardware from total right knee arthroplasty is seen and appears satisfactory in a lignment and position. There is evidence of recent surgery with diffuse subcutaneous gas and soft ti ssue swelling noted. IMPRESSION: METALLIC HARDWARE FROM TOTAL RIGHT KNEE ARTHROPLASTY IS SATISFACTORY IN ALIGNMENT.
[2018-04-15] MEDS: HYDROmorphone 0.5 MG/0.5 ML SYRINGE IVP PRN ×2 (12:48→12:53)
[2018-04-15] MEDS: HYDROcodone/APAP 5-325MG 1 EACH TAB PO PRN (14:21)
[2018-04-15] MEDS: SODIUM CHLORIDE 0.9% 1,000 ML IV SCH ×2 (14:22→20:50)
[2018-04-15] MEDS ORDERED: ceFAZolin 3 GM in SODIUM CHLORIDE 0.9% 100 ML IVPB SCH (16:00)
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
--- NOTE | 2018-04-15 16:31 | P.OP ---
Date of Procedure: 04/15/18 Preoperative Diagnosis: Loosening tibial component right total knee Postoperative Diagnosis: Loosening tibial component right total knee Procedure(s) Performed: Revision right total knee arthroplasty Implants: [employer] Legion Oxinium constrained femoral component size 3, right [employer] legion press-fit stem 12 mm x 160 mm [employer] legion revision tibial baseplate size 3, right [employer] Legion offset emergency care attendant, 6 mm [employer] legion press-fit stem 11 mm x 120 mm [employer] size 9 mm Legion constrained articular insert, size 3-4 [employer] Jojo II resurfacing patellar component, 29 mm, 7.5 mm thick All components were cemented using [place] R bone cement x 2 The articulation is Oxinium on polyethylene. Anesthesia: spinal Surgeon: Tyree Pascual [employer] Recruiter #1: Manisha Childs Estimated Blood Loss (ml): 150 Pathology: other (Cultures 2 and frozen section) Condition: stable Disposition: PACU Indications for Procedure: This is a 63-year-old female that was seen by me in the office for persistent pain in her right knee following a right total knee arthroplasty. After discussing the surgical nonsurgical treatment options with her at length, she wishes to proceed with a revision right total knee arthroplasty. Informed consent was obtained. Operative Findings: The operative findings are consistent with a loose tibial component of the right total knee arthroplasty. Description of Procedure: Patient was seen in the preoperative area consent was reviewed and operative site was marked with a skin marker. An adductor canal pain catheter was placed by anesthesia in the preoperative area. Patient was then brought to the operating room and given preoperative antibiotics intravenously. A spinal anesthetic was administered by the anesthesia department. A tourniquet was placed on the upper thigh and the lower extremity was prepped and draped in usual sterile fashion. A gram of transexamic acid was given. A universal timeout was then performed which confirmed the patient's name, surgical site, ALLERGIES, and consent. The lower extremity was then exsanguinated and tourniquet was inflated to 250 mmHg. A standard and anterior midline approach to the knee was performed. The skin and subcutaneous tissue was dissected down to the patellar tendon, with the prior scar being excised. A medial parapatellar arthrotomy was then performed. A moderate amount of clear fluid was encountered, and this was cultured 2. The knee was then extended, the patellar was everted, and the knee was again flexed. A sample of synovium was then sent for frozen section, which was found to be negative for acute inflammation. There was difficulty in everting the patella, so a quadriceps snip was performed in order to enhance exposure without risking rupturing the patellar tendon. The components were then inspected and grossly were found to be well fixed. The tibial poly-was then removed without incident. Attention was directed to the femur. Using a small oscillating saw, the implant cement interface was disrupted, and the femoral component was easily removed with an osteotome and a mallet. There was minimal bone loss encountered. Attention was then directed to the tibia. Again using a small oscillating saw, the implant bone interface was disrupted. The tibial component was an easily removed with an osteotome and a mallet. The undersurface of the tibial component showed very little bone ingrowth. There was very little bone loss from the tibia. Next, the saw was then used to remove the patellar bone and as well. Attention was redirected to the femur. Sequential reaming of the femoral canal was performed until good cortical fit at 12 mm. The distal cutting guide was then placed over the reamer the distal femur cut was performed. Next the 4-in- 1 cutting block was placed over the reamer and the appropriate cuts were performed. The cutting block and reamer were then removed and the femoral trial was placed. The bone was then removed for the box. Femoral trial was then removed. Attention was then redirected to the tibia. Sequential reaming of the tibial canal was performed until good cortical fit at 11 mm. The intramedullary proximal tibial cutting guide was then placed over the reamer, the proximal tibia was cut. The tibia was sized and it was determined that an offset stem should be used. Proximal tibia was then prepared for the offset stem next the patella was then prepared as well. Trials were then placed with a 9 mm constrained liner. The knee was able to fully extend and flex to 115 and was stable throughout all range of motion. Trials were then removed. The cut surfaces of bone were then irrigated with pulsatile lavage. The posterior structures were injected with the ropivacaine solution. The knee was also irrigated with Irrisept solution. The components were then opened, the cement was mixed, and the components were then cemented in place. The cement was allowed to harden with the knee in full extension. While the cement was hardening, the remaining soft tissues were then injected with a ropivacaine solution, which consisted of 246.25 mg of ropivacaine, 0.5 mg of epinephrine, 30 mg of Toradol, 80 g of clonidine, and 48.45 mL of sterile water, for a total of 100 mL of fluid injected. After the cemented hardened. The tourniquet was released, and hemostasis was obtained. A second gram of transexamic acid was given. The knee was again irrigated. The knee was again taken through range of motion and found to be stable throughout all range of motion of 0-130 , and the patella tracked normally. The fascia was then closed with #2 strata fix suture. The subcutaneous tissue was closed with 3-0 Vicryl and 3-0 strata fix. Dermabond glue was used for the skin and placed with the knee in flexion. The patient was placed in a sterile silver dressing. Patient was then transferred to recovery room in stable condition. The cataloging assistant VALENTIN Babin was required due the complexity surgery and the need for a skilled surgical assistant certified. She assisted in positioning, draping, retraction, and closure of the wound.
[2018-04-15] MEDS: HYDROmorphone 1 MG/ML 1 ML SYRINGE IVP PRN (18:16)
[2018-04-15] MEDS: ASPIRIN 325 MG TAB PO SCH (18:17)
[2018-04-15] MEDS: SENNOSIDES-DOCUSATE SODIUM 1 EACH TAB PO SCH (20:47)
[2018-04-15] MEDS: SERTRALINE 100 MG TAB PO SCH (20:48)
[2018-04-16] MEDS: HYDROmorphone 1 MG/ML 1 ML SYRINGE IVP PRN ×3 (00:06→09:07)
[2018-04-16] MEDS: LACTATED RINGERS 1,000 ML IV SCH (02:06)
[2018-04-16] MEDS: LEVOTHYROXINE 88 MCG TAB PO SCH (05:52)
[2018-04-16] MEDS: HYDROcodone/APAP 5-325MG 1 EACH TAB PO PRN (05:53)
[2018-04-16 08:20] LABS: Basophils % (A) 0 %; Eosinophils # (A) 0.3 k/uL (0-0.7); Eosinophils % (A) 3 %; HCT 39.1 % (34.0-46.0); HGB 13.3 gm/dL (11.4-16.0); Lymphocytes # (A) 2.2 k/uL (1.0-4.8); Lymphocytes % (A) 22 %; MCH 31.6 pg (25.0-35.0); MCHC 34.1 g/dL (31.0-37.0); MCV 92.8 fL (80.0-100.0); Mean Platelet Volume 7.2; Monocytes # (A) 0.6 k/uL (0-1.0); Monocytes % (A) 6 %; Neutrophils # (A) 6.8 k/uL (1.3-7.7); Neutrophils % (A) 68 %; Platelet Count 159 k/uL (150-450); RBC 4.21 m/uL (3.80-5.40); RDW 14.4 % (11.5-15.5); WBC 9.9 k/uL (3.8-10.6)
[2018-04-16] MEDS ORDERED: HYDROcodone/APAP 7.5-325MG 1 EACH TAB PO PRN (08:48)
[2018-04-16] MEDS ORDERED: KETOROLAC 30 MG/ML 1 ML VIAL IVP STA (08:49)
--- NOTE | 2018-04-16 08:54 | P.PN ---
Subjective Progress Note Date: 04/16/18 This is a 63-year-old female who is status post revision right total knee arthroplasty. This is postoperative day #1 and patient is seen and evaluated at bedside with Dr. Tyree Pascual. Patient does complain of pain today. Patient denies any fever/chills, numbness, weakness, tingling, abdominal pain, shortness of breath or chest pain. Objective - Vital Signs Vital signs: Vital Signs Temp 98 F 04/16/18 07:00 Pulse 62 04/16/18 07:00 Resp 16 04/16/18 07:00 BP 129/74 04/16/18 07:00 Pulse Ox 96 04/16/18 07:00 Intake & Output 04/15/18 04/16/18 04/16/18 18:59 06:59 18:59 Intake Total 1451 800 Output Total 150 Balance 1301 800 Weight 120.202 kg Intake: IV 1451 Intake, IV Titration 800 Amount Sodium Chloride 0.9% 1, 700 000 ml @ 70 mls/hr IV . [id number] [facility] Rx#:[id number] ceFAZolin 3 gm In Sodium 100 Chloride 0.9% 50 ml @ 100 mls/hr IVPB Q8HR [facility] Rx# :[id number] Output: Estimated Blood Loss 150 Other: Voiding Method Toilet Toilet # Voids 1 2 - Exam Vital signs are stable. Patient is in no acute distress and is alert and oriented 3. Calf is soft and nontender to palpation. Dressing is clean, dry, and intact. Patient has full foot and ankle motion without pain or difficulty. Neurovascular status and circulatory status are intact. - Labs CBC & Chem 7: 04/16/18 07:22 Labs: Microbiology - Last 24 Hours (Table) 04/15/18 10:30 Gram Stain - Preliminary Knee - Right Wound Culture - Preliminary 04/15/18 10:30 Gram Stain - Preliminary Knee - Right Wound Culture - Preliminary 04/15/18 10:30 Anaerobic Culture - Preliminary Knee - Right 04/15/18 10:30 Anaerobic Culture - Preliminary Knee - Right Assessment and Plan Assessment: Coronary artery disease Depression Hypothyroidism (1) Status post revision of total replacement of right knee Current Visit: Yes Status: Acute Code(s): Z96.651 - PRESENCE OF RIGHT ARTIFICIAL KNEE JOINT SNOMED Code(s): 239416821114893 Plan: #1 Continue with routine postoperative care and pain control, leave dressing in place for ten days. #2 Anticoagulation with aspirin. #3 Physical therapy and CPM today. #4 Appreciate input from medicine. #5 Anticipate discharge home with home care likely tomorrow.
[2018-04-16] MEDS: ATORVASTATIN 40 MG TAB PO SCH (09:07)
[2018-04-16] MEDS: ASPIRIN 325 MG TAB PO SCH ×2 (09:07→20:13)
[2018-04-16] MEDS: PANTOPRAZOLE 40 MG TABLET PO SCH (09:07)
[2018-04-16] MEDS: SERTRALINE 100 MG TAB PO SCH ×2 (09:07→20:14)
[2018-04-16] MEDS: METOPROLOL SUCCINATE (ER) 25 MG TAB.ER.24H PO SCH (09:07)
[2018-04-16] MEDS: FUROSEMIDE 40 MG TAB PO SCH (09:08)
--- NOTE | 2018-04-16 09:45 | P.PN ---
Progress Note - Text 04/16 720am 63-year-old female status post total knee replacement by Dr. Tyree castillo. Patient has an On-Q pump for postop pain control, solution running at 10 mL an hour. Patient has had poor pain relief. I asked the nurse to increase the rate to 12 mL an hour. Oral pain meds have been ordered by the surgeon
--- NOTE | 2018-04-16 09:54 | P.ONQ ---
Anesthesiology Proc Note - PNB - Peripheral Nerve Block Performed Right Adductor Canal Infusion Time Out Performed: Yes Procedure Start Time: :21 Procedure Stop Time: :30 Indication: Acute Post-Operative Pain, Requested by physician Sedation Type: Sedate with meaningful contact maintained Preparation: Sterile Dressing Position: Supine Catheter: Indwelling Needle Types: On-Q Needle Size: 100mm (4") Needle Gauge: 21 Technique: Ultrasound Injectate: 0.5% Ropivacaine (see comment for volume) (ropi .5% 20cc) Blood Aspirated: No Pain Paresthesia on Injection Noted: No Resistance on Injection: Normal Events: Uneventful and Well Tolerated
--- NOTE | 2018-04-16 12:29 | P.PN ---
Subjective Progress Note Date: 04/16/18 The patient is a 63 yo F with the PMH of hypothyroidism, ELINA on CPAP, CAD s/p MIs x 2, depression, and tiera knee OA was admitted to the hospital for planned R knee repeat total arthroplasty. The patient initially underwent a R knee arthroplasty 11/2017 and subsequently developed severe pain of the R knee. She underwent the repeat R total knee arthroplasty uneventfully yesterday. She was seen and examined at the bedside. Patient notes that she continues to have pain at R knee 12/03 at time of my examination but otherwise denied any active complaints. She has been ambulating to the restroom and had a BM overnight. She otherwise denied fever, chills, nausea, vomiting, cough, chest pain, or SOB. Objective - Vital Signs Vital signs: Vital Signs Temp 98 F 04/16/18 07:00 Pulse 62 04/16/18 07:00 Resp 16 04/16/18 07:00 BP 129/74 04/16/18 07:00 Pulse Ox 96 04/16/18 07:00 Intake & Output 04/15/18 04/16/18 04/16/18 18:59 06:59 18:59 Intake Total 1451 800 Output Total 150 Balance 1301 800 Weight 120.202 kg Intake: IV 1451 Intake, IV Titration 800 Amount Sodium Chloride 0.9% 1, 700 000 ml @ 70 mls/hr IV . [id number] [facility] Rx#:[id number] ceFAZolin 3 gm In Sodium 100 Chloride 0.9% 50 ml @ 100 mls/hr IVPB Q8HR [facility] Rx# :[id number] Output: Estimated Blood Loss 150 Other: Voiding Method Toilet Toilet # Voids 1 2 - Exam General: Non-toxic, in mild distress due to pain, appears stated age, obese HEENT: NC/AT, anicteric sclerae, moist conjunctiva, no lid-lag, PERRLA Cardiovascular: S1/S2 wnl, no murmurs, rubs, or gallops Lungs: Clear to auscultation, normal respiratory effort, no accessory muscle use Abdominal: Soft, nontender, non-distended, no guarding, rebound, or rigidity Skin: Warm, dry Extremities: No edema or contractures, RLE w/ PEDRO bandage in place Psychiatric: Alert and oriented to person, place and time, appropriate affect, Intact judgment Neuro: CN II-XII grossly intact, Strength 5/5 in all extremities except RLE due to pain, Speech intact, Sensation to light touch grossly intact throughout - Labs CBC & Chem 7: 04/16/18 07:22 Labs: Microbiology - Last 24 Hours (Table) 04/15/18 10:30 Gram Stain - Preliminary Knee - Right Wound Culture - Preliminary 04/15/18 10:30 Gram Stain - Preliminary Knee - Right Wound Culture - Preliminary 04/15/18 10:30 Anaerobic Culture - Preliminary Knee - Right 04/15/18 10:30 Anaerobic Culture - Preliminary Knee - Right Assessment and Plan Plan: Post-operative pain s/p R total knee arthroplasty - Care as per Orthopedic service - C/w [place], Dilaudid, and Toradol prn for pain. Pt also started on Naropin pump. - Currently on Aspirin 325 mg po bid - PT/OT - Bowel regimen CAD - C/w Aspirin, Lipitor 40, and Toprol 25 mg po qhs - C/w Lasix 40 mg qd ELINA - C/w CPAP home device Depression - C/w Zoloft Hypothyroidism - C/w Levothyroxine 88 mcg qam DVT//GI proph - Aspirin high dose - Protonix 40 mg qd Pt advised that if she is to take NSAIDs following discharge (ie Mobic) along with Aspirin, that she should take a PPI along with it.
[2018-04-16] MEDS: KETOROLAC 30 MG/ML 1 ML VIAL IVP SCH ×2 (14:40→20:14)
[2018-04-16] MEDS: HYDROcodone/APAP 7.5-325MG 1 EACH TAB PO PRN (14:40)
[2018-04-16] MEDS: SODIUM CHLORIDE 0.9% 1,000 ML IV SCH (19:05)
[2018-04-16] MEDS: SENNOSIDES-DOCUSATE SODIUM 1 EACH TAB PO SCH (20:15)
[2018-04-17] MEDS: KETOROLAC 30 MG/ML 1 ML VIAL IVP SCH ×3 (03:45→20:39)
[2018-04-17] MEDS: SODIUM CHLORIDE 0.9% 1,000 ML IV SCH ×2 (05:36→20:38)
[2018-04-17] MEDS: LACTATED RINGERS 1,000 ML IV SCH (05:36)
[2018-04-17] MEDS: HYDROcodone/APAP 7.5-325MG 1 EACH TAB PO PRN ×4 (06:04→20:37)
[2018-04-17] MEDS: LEVOTHYROXINE 88 MCG TAB PO SCH (06:05)
--- NOTE | 2018-04-17 06:57 | P.PN ---
Progress Note - Text Progress Note Date: 04/17/18 Mariya is doing well this morning. She is postop day 3, right total knee replacement. She has a right adductor canal catheter is working well for her. She is using minimal when necessary medications. She reports that she still has some burning pain over the anterior knee but the pain is under control. She does not have any leg weakness. No numbness or tingling beyond the knee. Catheters running well. We will continue to follow the patient while she is in the hospital
--- NOTE | 2018-04-17 09:32 | P.PN ---
Subjective Progress Note Date: 04/17/18 Principal diagnosis: Loosening of components right knee. Status post total right knee arthroplasty revision. his is a 63-year-old female who is status post revision total right knee arthroplasty. She states that she had increased pain last evening. She has reservations about discharging home today. Vital signs are stable. Objective - Vital Signs Vital signs: Vital Signs Temp 99.2 F 04/17/18 00:30 Pulse 63 04/17/18 00:30 Resp 17 04/17/18 00:30 BP 96/45 04/17/18 00:30 Pulse Ox 96 04/17/18 00:30 Intake & Output 04/16/18 04/17/18 04/17/18 18:59 06:59 18:59 Intake Total 700 Balance 700 Intake: Intake, IV Titration 700 Amount Sodium Chloride 0.9% 1, 700 000 ml @ 70 mls/hr IV . [id number] [facility] Rx#:[id number] Other: Voiding Method Toilet Toilet # Voids 1 - Exam This is a pleasant 63-year-old female in no acute distress. She is alert and oriented 3. Exam of the right knee reveals that her dressing is clean, dry and intact. No active drainage. Dermabond glue is intact. She has full foot and ankle motion without difficulty or pain. Neurovascular status to the right lower extremity is intact. - Labs CBC & Chem 7: 04/16/18 07:22 Labs: Microbiology - Last 24 Hours (Table) 04/15/18 10:30 Gram Stain - Preliminary Knee - Right Wound Culture - Preliminary 04/15/18 10:30 Gram Stain - Preliminary Knee - Right Wound Culture - Preliminary Assessment and Plan (1) Status post revision of total replacement of right knee Current Visit: Yes Status: Acute Code(s): Z96.651 - PRESENCE OF RIGHT ARTIFICIAL KNEE JOINT SNOMED Code(s): 874160061077216 (2) Hypertension Current Visit: No Status: Acute Code(s): I10 - ESSENTIAL (PRIMARY) HYPERTENSION SNOMED Code(s): 75808597 (3) Low back pain Current Visit: No Status: Acute Code(s): M54.5 - LOW BACK PAIN SNOMED Code (s): 943827807 Plan: The clinical findings are discussed the patient. She would like to stay 1 more day for pain management and routine care. We are planning discharge to home tomorrow.
[2018-04-17] MEDS: ATORVASTATIN 40 MG TAB PO SCH (10:03)
[2018-04-17] MEDS: METOPROLOL SUCCINATE (ER) 25 MG TAB.ER.24H PO SCH (10:03)
[2018-04-17] MEDS: ASPIRIN 325 MG TAB PO SCH ×2 (10:04→20:37)
[2018-04-17] MEDS: SERTRALINE 100 MG TAB PO SCH ×2 (10:04→20:38)
[2018-04-17] MEDS: PANTOPRAZOLE 40 MG TABLET PO SCH (10:04)
[2018-04-17] MEDS: FUROSEMIDE 40 MG TAB PO SCH (10:04)
--- NOTE | 2018-04-17 11:43 | P.PN ---
Subjective Progress Note Date: 04/17/18 Principal diagnosis: knee pain Patient seen and examined at bedside. She denies any chest pain, shortness breath, nausea, or vomiting. She had a bowel movement yesterday. Knee pain is much better controlled today. Objective - Vital Signs Vital signs: Vital Signs Temp 99.2 F 04/17/18 00:30 Pulse 63 04/17/18 10:11 Resp 16 04/17/18 10:11 BP 139/62 04/17/18 10:11 Pulse Ox 94 L 04/17/18 10:11 Intake & Output 04/16/18 04/17/18 04/17/18 18:59 06:59 18:59 Intake Total 700 Balance 700 Intake: Intake, IV Titration 700 Amount Sodium Chloride 0.9% 1, 700 000 ml @ 70 mls/hr IV . [id number] [facility] Rx#:[id number] Other: Voiding Method Toilet Toilet # Voids 1 - Exam General: non toxic, no distress, appears at stated age, obese Derm: warm, dry Head: atraumatic, normocephalic, symmetric Eyes: EOMI, no lid lag, anicteric sclera Mouth: no lip lesion, mucus membranes moist Cardiovascular: S1S2 reg, no murmur, positive posterior tibial pulse bilateral, Lungs: Decreased breath sounds bilateral bases, no rhonchi, no rales , no accessory muscle use Abdominal: soft, nontender to palpation, no guarding, no appreciable organomegaly Ext: no gross muscle atrophy, no edema, no contractures, dressing in place over right knee Neuro: CN II-XI grossly intact, no focal neuro deficits Psych: Alert, oriented, appropriate affect - Labs CBC & Chem 7: 04/16/18 07:22 Labs: Microbiology - Last 24 Hours (Table) 04/15/18 10:30 Gram Stain - Preliminary Knee - Right Wound Culture - Preliminary 04/15/18 10:30 Gram Stain - Preliminary Knee - Right Wound Culture - Preliminary Assessment and Plan Assessment: Coronary artery disease -Continue with aspirin, Lipitor, metoprolol Obstructive sleep apnea -Continue with home CPAP Hypothyroidism -Continue levothyroxine Depression -Continue zoloft Right TKA with post-op pain - pain control with norco dilaudid and toradol - PT/OT - Ortho recs - add protonix for 30 days while on BID aspirin, once completes BID asa then should resume once daily aspirin- added to discharge med recs medically stable for discharge at the discretion of ortho DVT prophylaxis: Aspirin Discussed with: Patient A total of 15 minutes was spent on the care of this complex patient more than 50 % of the time was spent in counseling and care coordination.
[2018-04-17] MEDS: SENNOSIDES-DOCUSATE SODIUM 1 EACH TAB PO SCH (20:28)
[2018-04-18] MEDS: HYDROmorphone 1 MG/ML 1 ML SYRINGE IVP PRN (00:40)
[2018-04-18] MEDS: KETOROLAC 30 MG/ML 1 ML VIAL IVP SCH ×3 (03:02→09:12)
[2018-04-18] MEDS: LEVOTHYROXINE 88 MCG TAB PO SCH (06:01)
[2018-04-18] MEDS: HYDROcodone/APAP 7.5-325MG 1 EACH TAB PO PRN ×2 (06:44→12:53)
[2018-04-18] MEDS: METOPROLOL SUCCINATE (ER) 25 MG TAB.ER.24H PO SCH (07:10)
[2018-04-18] MEDS: PANTOPRAZOLE 40 MG TABLET PO SCH (07:10)
[2018-04-18] MEDS: ASPIRIN 325 MG TAB PO SCH (07:10)
[2018-04-18] MEDS: SERTRALINE 100 MG TAB PO SCH (07:11)
[2018-04-18] MEDS: SODIUM CHLORIDE 0.9% 1,000 ML IV SCH (07:11)
[2018-04-18] MEDS: FUROSEMIDE 40 MG TAB PO SCH (07:11)
[2018-04-18] MEDS: ATORVASTATIN 40 MG TAB PO SCH (07:11)
[2018-04-18] MEDS: LACTATED RINGERS 1,000 ML IV SCH (07:15)
[2018-04-18 08:14] LABS: Basophils % (A) 1 %; Eosinophils # (A) 0.4 k/uL (0-0.7); Eosinophils % (A) 6 %; HCT 34.8 % (34.0-46.0); HGB 11.3 gm/dL (11.4-16.0); Lymphocytes # (A) 1.4 k/uL (1.0-4.8); Lymphocytes % (A) 19 %; MCH 30.6 pg (25.0-35.0); MCHC 32.4 g/dL (31.0-37.0); MCV 94.3 fL (80.0-100.0); Mean Platelet Volume 7.2; Monocytes # (A) 0.5 k/uL (0-1.0); Monocytes % (A) 7 %; Neutrophils # (A) 4.9 k/uL (1.3-7.7); Neutrophils % (A) 67 %; Platelet Count 143 k/uL (150-450); RBC 3.69 m/uL (3.80-5.40); RDW 14.2 % (11.5-15.5); WBC 7.3 k/uL (3.8-10.6)
[2018-04-18] MEDS ORDERED: SODIUM CHLORIDE 0.9% 1,000 ML IV SCH (09:15)
--- NOTE | 2018-04-18 09:54 | P.PN ---
Subjective Progress Note Date: 04/18/18 Principal diagnosis: Loosening of components right knee. Status post total right knee arthroplasty revision. his is a 63-year-old female who is status post revision total right knee arthroplasty. She states that she does not feel well today. She did have a temperature of 100.6 this morning. She complains of chest pain and shortness of breath. Objective - Vital Signs Vital signs: Vital Signs Temp 100.6 F H 04/18/18 07:00 Pulse 71 04/18/18 07:00 Resp 17 04/18/18 07:00 BP 138/54 04/18/18 07:00 Pulse Ox 93 L 04/18/18 07:00 Intake & Output 04/17/18 04/18/18 04/18/18 18:59 06:59 18:59 Other: Voiding Method Toilet # Voids 1 2 # Bowel Movements 1 1 - Exam This is a pleasant 63-year-old female in no acute distress. She is alert and oriented 3. Exam of the right knee reveals that her dressing has serosanguineous drainage. Dressing is removed. There is a small area of active drainage about the mid to distal incision. Otherwise Dermabond glue is intact. Moderate swelling to the knee and calf. She has full foot and ankle motion with mild calf pain. Neurovascular status to the right lower extremity is intact. - Labs CBC & Chem 7: 04/18/18 06:40 Labs: Abnormal Lab Results - Last 24 Hours (Table) 04/18/18 Range/Units 06:40 RBC 3.69 L (3.80-5.40) m/uL Hgb 11.3 L (11.4-16.0) gm/dL Plt Count 143 L (150-450) k/uL Microbiology - Last 24 Hours (Table) 04/15/18 10:30 Anaerobic Culture - Preliminary Knee - Right 04/15/18 10:30 Anaerobic Culture - Preliminary Knee - Right 04/15/18 10:30 Gram Stain - Final Knee - Right Wound Culture - Final 04/15/18 10:30 Gram Stain - Final Knee - Right Wound Culture - Final Assessment and Plan (1) Status post revision of total replacement of right knee Current Visit: Yes Status: Acute Code(s): Z96.651 - PRESENCE OF RIGHT ARTIFICIAL KNEE JOINT SNOMED Code(s): 158498592737878 (2) Hypertension Current Visit: No Status: Acute Code(s): I10 - ESSENTIAL (PRIMARY) HYPERTENSION SNOMED Code(s): 64460107 (3) Low back pain Current Visit: No Status: Acute Code(s): M54.5 - LOW BACK PAIN SNOMED Code (s): 240499459 Plan: The clinical findings are discussed the patient. A chest CT has been ordered by internal medicine. I will order a venous Doppler as well. Dressing was changed. Will await Doppler and CT results.
--- NOTE | 2018-04-18 10:54 | US ---
EXAMINATION TYPE: US venous doppler duplex LE RT, post op right total knee replacement on 04/15/18 DATE OF EXAM: 04/18/2018 10:21 AM COMPARISON: NONE CLINICAL HISTORY: Calf pain, SOB, s/p tka. right leg swelling; on aspirin SIDE PERFORMED: Right TECHNIQUE: The lower extremity deep venous system is examined utilizing real time linear array sonog rajinder with graded compression, doppler sonography and color-flow sonography. VESSELS IMAGED: Common Femoral Vein Deep Femoral Vein Greater Saphenous Vein * Femoral Vein Popliteal Vein Small Saphenous Vein * Proximal Calf Veins (* superficial vessels) Right Leg: Negative for DVT IMPRESSION: 1. Right lower extremity ultrasound negative for deep venous thrombosis.
--- NOTE | 2018-04-18 13:41 | CT ---
EXAMINATION TYPE: CT angio chest DATE OF EXAM: 04/18/2018 COMPARISON: Prior CT 01/19/2017 HISTORY: pulmonary embolism CT DLP: 554.7 mGycm Automated exposure control for dose reduction was used. CONTRAST: CTA scan of the thorax is performed with IV Contrast, patient injected with 100 mL of Isovue 370, pul monary embolism protocol. MIP images are created and reviewed. 3D reconstructed images are created on an independent workstation and reviewed. FINDINGS: LUNGS: The lungs are grossly clear, there is no concerning parenchymal mass or nodule identified. T here is no pleural effusion or pneumothorax seen. The tracheobronchial tree is patent. Suspect there is some underlying air trapping. AORTA: No additional significant abnormality is seen. MEDIASTINUM: There is satisfactory enhancement of the pulmonary artery and its branches, there is no CT evidence for pulmonary embolism. There are no greater than 1 cm hilar or mediastinal lymph nodes. No pericardial effusion is seen. Pulmonary artery is dilated, correlate for pulmonary artery hyper tension. There are coronary artery calcifications present. The heart is enlarged. OTHER: There is a calcified right hilar nodes. IMPRESSION: NO EVIDENT PULMONARY EMBOLISM. CORRELATE FOR POSSIBLE COPD, PULMONARY ARTERY HYPERTENSION. CORONARY A RTERY DISEASE, CARDIOMEGALY.
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
[2018-04-18 17:08] VITALS: BP 102/45; PULSE 68; RESP 16; TEMP 98
== END 2018-04-18 17:38 | disposition home health service (06) | DRG 468 ==
LOC: 2ORMAIN 06:40 → 4SSUR 13:14
PROVIDERS: ADMIT Orthopaedic Surgery; ATTEND Orthopaedic Surgery
PROC: 0SPC0JZ Removal of Synthetic Substitute from Right Knee Joint, Open Approach (ICD-10-PCS; principal; 2018-04-15 09:00)
PROC: 0SRC06A Replacement of Right Knee Joint with Oxidized Zirconium on Polyethylene Synthetic Substitute, Uncemented, Open Approach (ICD-10-PCS; principal; 2018-04-15 09:00)
DX: T84.032A Mechanical loosening of internal right knee prosthetic joint, initial encounter (principal); Y79.2 Prosthetic and other implants, materials and accessory orthopedic devices associated with adverse incidents; E03.9 Hypothyroidism, unspecified; E78.5 Hyperlipidemia, unspecified; F17.200 Nicotine dependence, unspecified, uncomplicated; F32.9 Major depressive disorder, single episode, unspecified; G47.33 Obstructive sleep apnea (adult) (pediatric); I10 Essential (primary) hypertension; I25.10 Atherosclerotic heart disease of native coronary artery without angina pectoris; Z99.89 Dependence on other enabling machines and devices; I25.2 Old myocardial infarction; M17.0 Bilateral primary osteoarthritis of knee; Z79.82 Long term (current) use of aspirin; Z79.899 Other long term (current) drug therapy; Z80.0 Family history of malignant neoplasm of digestive organs; Z80.7 Family history of other malignant neoplasms of lymphoid, hematopoietic and related tissues; Z80.8 Family history of malignant neoplasm of other organs or systems; Z82.49 Family history of ischemic heart disease and other diseases of the circulatory system; Z86.718 Personal history of other venous thrombosis and embolism; Z90.710 Acquired absence of both cervix and uterus; Z79.890 Hormone replacement therapy; Z88.6 Allergy status to analgesic agent; Z91.013 Allergy to seafood; Z88.2 Allergy status to sulfonamides; Z88.8 Allergy status to other drugs, medicaments and biological substances; Z91.018 Allergy to other foods; Z90.49 Acquired absence of other specified parts of digestive tract
CPT/HCPCS: 71275; 85025; 87070; 87075; 87205; 88305; 88331

== ENCOUNTER 2018-05-28 14:53 | Emergency (ER) | payer MEDICARE ==
[2018-05-28 16:10] LABS: Basophils # (A) 0.1 k/uL (0-0.2); Basophils % (A) 1 %; Eosinophils # (A) 0.3 k/uL (0-0.7); Eosinophils % (A) 4 %; HCT 43.8 % (34.0-46.0); HGB 13.9 gm/dL (11.4-16.0); Lymphocytes # (A) 1.8 k/uL (1.0-4.8); Lymphocytes % (A) 27 %; MCHC 31.7 g/dL (31.0-37.0); MCV 91.3 fL (80.0-100.0); Mean Platelet Volume 6.6; Monocytes # (A) 0.4 k/uL (0-1.0); Monocytes % (A) 6 %; Neutrophils # (A) 4.1 k/uL (1.3-7.7); Neutrophils % (A) 59 %; Platelet Count 210 k/uL (150-450); RDW 14.2 % (11.5-15.5); WBC 6.9 k/uL (3.8-10.6)
[2018-05-28 16:30] LABS: Creatine Kinase 38 U/L (30-135)
[2018-05-28 16:33] LABS: ALT 26 U/L (9-52); AST 22 U/L (14-36); Albumin 3.9 g/dL (3.5-5.0); Alkaline Phosphatase 113 U/L (38-126); Anion Gap 9 mmol/L; Blood Urea Nitrogen 13 mg/dL (7-17); Calcium 10.2 mg/dL (8.4-10.2); Carbon Dioxide 26 mmol/L (22-30); Chloride 110 mmol/L (98-107); Glucose 87 mg/dL (74-99); Potassium 4.6 mmol/L (3.5-5.1); Sodium 145 mmol/L (137-145); Total Bilirubin 0.4 mg/dL (0.2-1.3); Total Protein 6.9 g/dL (6.3-8.2)
[2018-05-28 16:43] LABS: Creatine Kinase MB <0.2 ng/mL (0.0-2.4); Troponin I <0.012 ng/mL (0.000-0.034)
--- NOTE | 2018-05-28 17:18 | XR ---
EXAMINATION TYPE: XR chest 2V DATE OF EXAM: 05/28/2018 COMPARISON: 12/06/2017 HISTORY: Chest pain TECHNIQUE: Frontal and lateral views of the chest are obtained. FINDINGS: Heart and mediastinum are normal. Lungs are clear. Diaphragm is normal. Bony thorax is int act. IMPRESSION: Normal chest. No change.
[2018-05-28] MEDS ORDERED: cefTRIAXone 1,000 MG VIAL (IM USE) IM STA (18:53)
[2018-05-28] MEDS ORDERED: IPRATROPIUM-ALBUTEROL 3 ML NEB INHALATION STA (18:53)
[2018-05-28] MEDS ORDERED: methylPREDNISolone SOD SUCCI 125 MG/2 ML VIAL IM ONE (18:53)
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
[2018-05-28] MEDS ORDERED: LIDOCAINE 1% INJ 10MG/ML (20 ML MDV) SQ STA (19:21)
[2018-05-28 20:10] VITALS: BP 137/82; PULSE 61; RESP 16; TEMP 98
== END 2018-05-28 20:09 | disposition home or self-care (01) ==
LOC: EC 14:53
DX: J40 Bronchitis, not specified as acute or chronic (principal); J06.9 Acute upper respiratory infection, unspecified; I25.10 Atherosclerotic heart disease of native coronary artery without angina pectoris; I10 Essential (primary) hypertension; I25.2 Old myocardial infarction; E03.9 Hypothyroidism, unspecified; G43.909 Migraine, unspecified, not intractable, without status migrainosus; F41.9 Anxiety disorder, unspecified; F32.9 Major depressive disorder, single episode, unspecified; F17.200 Nicotine dependence, unspecified, uncomplicated; G47.33 Obstructive sleep apnea (adult) (pediatric); Z99.89 Dependence on other enabling machines and devices; Z95.818 Presence of other cardiac implants and grafts; Z96.652 Presence of left artificial knee joint; Z82.49 Family history of ischemic heart disease and other diseases of the circulatory system; Z79.82 Long term (current) use of aspirin; Z79.899 Other long term (current) drug therapy; Z91.048 Other nonmedicinal substance allergy status; Z88.1 Allergy status to other antibiotic agents; Z91.013 Allergy to seafood; Z88.6 Allergy status to analgesic agent; Z91.018 Allergy to other foods; Z88.2 Allergy status to sulfonamides
CPT/HCPCS: 36415; 94640; 93005; 80053; 82550; 82553; 84484; 85025; 87502; 71046; 99285; 96372 ×3; J2930; J2001; J0696

== ENCOUNTER 2018-06-12 15:23 | Inpatient (IN) | payer MEDICARE ==
[2018-06-12] MEDS ORDERED: SODIUM CHLORIDE 0.9% 1,000 ML IV STA (15:53)
[2018-06-12] MEDS ORDERED: ASPIRIN 81 MG PO STA (15:53)
[2018-06-12] MEDS ORDERED: ONDANSETRON 4 MG/2 ML VIAL IVP STA (15:53)
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
[2018-06-12 16:11] LABS: Basophils # (A) 0.1 k/uL (0-0.2); Basophils % (A) 1 %; Eosinophils # (A) 0.3 k/uL (0-0.7); Eosinophils % (A) 3 %; HCT 45.8 % (34.0-46.0); HGB 15.5 gm/dL (11.4-16.0); Lymphocytes # (A) 1.6 k/uL (1.0-4.8); Lymphocytes % (A) 19 %; MCH 30.8 pg (25.0-35.0); MCHC 33.7 g/dL (31.0-37.0); MCV 91.3 fL (80.0-100.0); Mean Platelet Volume 6.7; Monocytes # (A) 0.4 k/uL (0-1.0); Monocytes % (A) 5 %; Neutrophils # (A) 6.2 k/uL (1.3-7.7); Neutrophils % (A) 71 %; Platelet Count 187 k/uL (150-450); RBC 5.02 m/uL (3.80-5.40); RDW 14.2 % (11.5-15.5); WBC 8.7 k/uL (3.8-10.6)
[2018-06-12 16:23] LABS: Calcium 9.7 mg/dL (8.4-10.2); Magnesium 2.3 mg/dL (1.6-2.3); Potassium 4.1 mmol/L (3.5-5.1); Total Bilirubin 0.5 mg/dL (0.2-1.3); Total Protein 6.8 g/dL (6.3-8.2)
[2018-06-12 16:27] LABS: INR 0.8 (<1.2); Partial Thromboplastin Time 22.4 sec (22.0-30.0); Prothrombin Time 9.3 sec (9.0-12.0)
[2018-06-12 16:29] LABS: Creatine Kinase 35 U/L (30-135)
[2018-06-12 16:32] LABS: D-Dimer 4.44 mg/L FEU (<0.60)
--- NOTE | 2018-06-12 16:32 | XR ---
EXAMINATION TYPE: XR chest 2V DATE OF EXAM: 06/12/2018 COMPARISON: Prior chest x-ray 05/28/2018 HISTORY: Chest pain TECHNIQUE: Frontal and lateral views of the chest are obtained. FINDINGS: There are overlying cardiac leads. There is no focal air space opacity, pleural effusion, o r pneumothorax seen. The cardiac silhouette size is within normal limits. The osseous structures a re intact. IMPRESSION: No acute cardiopulmonary process.
[2018-06-12 16:38] LABS: Creatine Kinase MB 0.4 ng/mL (0.0-2.4); Troponin I <0.012 ng/mL (0.000-0.034)
[2018-06-12 17:20] LABS: Appearance,Urine Turbid (Clear); Bilirubin,Urine Negative (Negative); Blood,Urine Negative (Negative); Color,Urine Yellow; Glucose,Urine (UA) Negative (Negative); Ketones,Urine Negative (Negative); Leukocyte Esterase,Urine Negative (Negative); Mucus,Urine Rare /hpf; Nitrite,Urine Negative (Negative); PH, Urine 7.5 (5.0-8.0); Protein,Urine Negative (Negative); Specific Gravity,Urine 1.014 (1.001-1.035); Squamous Epithelial Cell,Urine 4 /hpf (0-4); Urobilinogen,Urine <2.0 mg/dL (<2.0); WBC,Urine 68 /hpf (0-5)
--- NOTE | 2018-06-12 18:00 | CT ---
EXAMINATION TYPE: CT brain wo con DATE OF EXAM: 06/12/2018 COMPARISON: 01/19/2017 HISTORY: SOB/ pain CT DLP: 1099.4 mGycm Automated exposure control for dose reduction was used. FINDINGS: Ventricles have normal size. There is no mass effect nor midline shift. There is no sign of intracran ial hemorrhage. There is no evidence of cerebral edema. Calvarium is intact. IMPRESSION: NEGATIVE CT SCAN OF THE BRAIN. NO CHANGE.
--- NOTE | 2018-06-12 18:04 | CT ---
EXAMINATION TYPE: CT chest angio for PE DATE OF EXAM: 06/12/2018 COMPARISON: 04/18/2018 HISTORY: pain/SOB CT DLP: 931.4 mGycm Automated exposure control for dose reduction was used. CONTRAST: CT Chest for pulmonary embolism performed with with IV Contrast, patient injected with 100 mL of Isov ue 370. There are 3-D post processed images. FINDINGS: There is mild aneurysm of the ascending aorta that measures 4.2 cm. There is no mediastinal adenopath y. There are no hilar masses. I see no filling defects in the pulmonary arteries. There is no pulmona ry consolidation. There is no evidence of a pulmonary mass. There are no hilar masses. There is no pl eural effusion. The bony thorax is intact. IMPRESSION: No evidence of pulmonary embolism. Mild cardiomegaly. No adverse change compared to old exam. Stable aneurysm of the ascending aorta.
[2018-06-12] MEDS ORDERED: KETOROLAC 30 MG/ML 1 ML VIAL IVP STA (18:19)
[2018-06-12] MEDS ORDERED: NITROGLYCERIN SL TABS 0.4 MG TAB SUBLINGUAL PRN (19:37)
[2018-06-12] MEDS ORDERED: ONDANSETRON 4 MG/2 ML VIAL IVP PRN (20:11)
[2018-06-12] MEDS ORDERED: cefTRIAXone 2,000 MG in SODIUM CHLORIDE 0.9% 100 ML IVPB SCH (21:00)
[2018-06-12 21:07] VITALS: BMI 47.5
[2018-06-12] MEDS: MORPHINE SULFATE 4 MG/ML SYRINGE IVP PRN (21:15)
[2018-06-12 21:55] LABS: Creatine Kinase 36 U/L (30-135)
[2018-06-12 22:07] LABS: Creatine Kinase MB 0.4 ng/mL (0.0-2.4); Troponin I <0.012 ng/mL (0.000-0.034)
[2018-06-12] MEDS ORDERED: ALBUTEROL NEBULIZED 2.5 MG/3 ML INHALATION PRN (22:53)
[2018-06-12] MEDS ORDERED: MAG HYDROX/AL HYDROX/SIMETH 30 ML, HYOSCYAMINE ELIXIR 10 ML, CIMETIDINE HCL 300 MG, LID... PO ONE ×4 (22:55)
[2018-06-12] MEDS ORDERED: NALOXONE 0.4 MG/ML 1 ML VIAL IV PRN (23:00)
[2018-06-12] MEDS: SODIUM CHLORIDE 0.9% 1,000 ML IV SCH (23:33)
[2018-06-12] MEDS: SERTRALINE 100 MG TAB PO SCH (23:42)
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
[2018-06-12] MEDS: PANTOPRAZOLE 40 MG TABLET PO SCH (23:43)
[2018-06-12] MEDS: TOPIRAMATE 25 MG TAB PO SCH (23:43)
[2018-06-12] MEDS: ATORVASTATIN 40 MG TAB PO SCH (23:43)
[2018-06-13] MEDS: NAPROXEN 250 MG TAB PO PRN (01:18)
[2018-06-13] MEDS: MORPHINE SULFATE 4 MG/ML SYRINGE IVP PRN (03:08)
[2018-06-13 04:07] LABS: Basophils # (A) 0.1 k/uL (0-0.2); Basophils % (A) 1 %; Eosinophils # (A) 0.3 k/uL (0-0.7); Eosinophils % (A) 4 %; HCT 43.4 % (34.0-46.0); HGB 14.4 gm/dL (11.4-16.0); Lymphocytes # (A) 2.2 k/uL (1.0-4.8); Lymphocytes % (A) 28 %; MCH 30.8 pg (25.0-35.0); MCHC 33.3 g/dL (31.0-37.0); MCV 92.5 fL (80.0-100.0); Mean Platelet Volume 6.8; Monocytes # (A) 0.4 k/uL (0-1.0); Monocytes % (A) 5 %; Neutrophils # (A) 4.7 k/uL (1.3-7.7); Neutrophils % (A) 61 %; Platelet Count 163 k/uL (150-450); RBC 4.69 m/uL (3.80-5.40); RDW 14.4 % (11.5-15.5); WBC 7.7 k/uL (3.8-10.6)
[2018-06-13 04:19] LABS: Calcium 9.4 mg/dL (8.4-10.2); Potassium 4.1 mmol/L (3.5-5.1)
[2018-06-13 04:22] LABS: Creatine Kinase 43 U/L (30-135)
[2018-06-13 04:36] LABS: Creatine Kinase MB 0.6 ng/mL (0.0-2.4); Troponin I <0.012 ng/mL (0.000-0.034)
[2018-06-13] MEDS: TOPIRAMATE 25 MG TAB PO SCH ×2 (06:49→21:20)
[2018-06-13] MEDS: SODIUM CHLORIDE 0.9% 1,000 ML IV SCH ×2 (06:49→15:15)
[2018-06-13] MEDS: PANTOPRAZOLE 40 MG TABLET PO SCH ×2 (06:49→21:20)
[2018-06-13] MEDS: FLUTICASONE 44 MCG INHALER INHALATION SCH ×2 (07:48→19:56)
[2018-06-13] MEDS: BENZOCAINE SPRAY 1 CAN TOPICAL ONE ×3 (10:43→10:55)
[2018-06-13] MEDS ORDERED: SODIUM CHLORIDE 0.9% 250 ML IV ONE (10:43)
[2018-06-13] MEDS ORDERED: fentaNYL (PF) 50 MCG/ML 2 ML AMP IVP ONE (10:55)
[2018-06-13] MEDS ORDERED: MIDAZOLAM 2 MG/2 ML VIAL IVP ONE (10:55)
--- NOTE | 2018-06-13 11:08 | CONS ---
CONSULTATION CHIEF COMPLAINT: TIASherman Meraz is a 63-year-old lady with history of obstructive sleep apnea, coronary artery disease, status post prior angioplasty, who sees my associate, Dr. Itz Polk in the office. He comes into hospital study comes into hospital with episodes of dizziness, blurred vision and slurred speech that lasted for about 2 hours. She also felt somewhat weak in her legs, came to the ER and gradually her symptoms have resolved. At the time of my evaluation, she appears comfortable at rest. Does not have any focal neurological deficits. Denies chest pain, difficulty in breathing, palpitations, or syncope. She had extensive workup in the ER. A CT scan of the chest was negative for pulmonary embolism. This was done secondary to elevated D-dimer. Cardiac enzymes have been negative. EKG shows sinus bradycardia without ST-T wave changes. Patient also had a CT scan of the brain that was negative. PAST MEDICAL HISTORY: Significant for COPD, hypothyroidism, dyslipidemia, hypertension. MEDICATIONS: At home included Requip 0.5 mg daily, Topamax 50 mg, Zoloft 100 b.i.d. K-Dur 10 q. daily, Toprol-XL 25 q. Synthroid, Lasix 40 mg daily, QVAR, Lipitor, aspirin and albuterol. The patient has multiple drug allergies including Cipro, sulfa and ibuprofen. FAMILY HISTORY: Negative for premature coronary artery disease. SOCIAL HISTORY: She denies smoking, ETOH abuse or drug abuse. REVIEW OF SYSTEMS: HEENT is unremarkable. CARDIAC: As described above. RESPIRATORY: Negative. GI: Negative. GENITOURINARY: Negative. ALLERGY/IMMUNOLOGY: Negative. SKIN: Negative. MUSCULOSKELETAL: as described above. PSYCHOSOCIAL: Negative. ENDOCRINE: Negative. DERMATOLOGICAL: Negative. CONSTITUTIONAL: Negative. ONCOLOGICAL: Negative. [employer] DRIVER: As described above. PHYSICAL EXAM: Patient is afebrile. Heart rate is 68 beats per minute. Blood pressure is 120/67, respiratory Chest exam reveals good air entry bilaterally heart exam reveals first and second heart sounds. No gallop. No murmur. Abdomen is soft, nontender. Exam of extremities did not reveal edema. Peripheral pulses are felt. LABS: Showed that the hemoglobin is 14.4, tropinins are negative. Tropes are negative. CT brain did not show any acute pathology 1. Potassium is 4.1 creatinine is 0.9. Echo results are pending at this time. Carotid duplex results are pending at this time. ASSESSMENT: 1. Transient ischemic attach, rule out cardiac source for thromboembolic phenomenon. 2. Coronary artery disease, status post angioplasty. 3. Hypertension. 4. Hypothyroidism. PLAN: I will advise the patient to undergo a transesophageal echo to rule out cardiac source for thromboembolic CVA. Thank you for allowing us to participate in the care of this pleasant lady. MMLUCHO / IJN: [id number] /
--- NOTE | 2018-06-13 11:30 | ECHOF ---
Referral Reason:tia MEASUREMENTS -------- HEIGHT: 157.5 cm WEIGHT: 119.7 kg BP: 123/67 RVIDd: 3.4 cm (< 3.3) IVSd: 1.3 cm (0.6 - 1.1) LVIDd: 4.3 cm (3.9 - 5.3) LVPWd: 1.2 cm (0.6 - 1.1) IVSs: 1.6 cm LVIDs: 2.9 cm LVPWs: 2.2 cm LA Diam: 4.0 cm (2.7 - 3.8) LAESV Index (A-L): 25.25 ml/m Ao Diam: 3.2 cm (2.0 - 3.7) AV Cusp: 2.5 cm (1.5 - 2.6) EPSS: 1.2 cm MV E Jett: 0.83 m/s MV DecT: 375 ms MV A Jett: 1.12 m/s MV E/A Ratio: 0.74 RAP: 5.00 mmHg RVSP: 27.00 mmHg MV EF SLOPE: 57.06 mm/s (70 - 150) MV EXCURSION: 1.64 cm (> 18.000) FINDINGS -------- Sinus rhythm. This was a technically adequate study. The left ventricular size is normal. There is mild concentric left ventricular hypertrophy. Overa ll left ventricular systolic function is normal with, an EF between 55 - 60 %. The right ventricle is mildly enlarged. Normal LA size by volume 22+/-6 ml/m2. The right atrium is normal in size. The aortic valve is trileaflet, and appears structurally normal. No aortic stenosis or regurgitation. The mitral valve is normal. There is trace to mild mitral regurgitation. Mild tricuspid regurgitation present. Right ventricular systolic pressure is normal at < 35 mmHg. The right ventricular systolic pressure, as measured by Doppler, is 27.00mmHg. There is no pulmonic regurgitation present. The aortic root size is normal. Normal inferior vena cava with normal inspiratory collapse consistent with estimated right atrial pre ssure of 5 mmHg. The inferior vena cava is mildly dilated. There is no pericardial effusion. CONCLUSIONS -------- 1. Sinus rhythm. 2. This was a technically adequate study. 3. The left ventricular size is normal. 4. There is mild concentric left ventricular hypertrophy. 5. Overall left ventricular systolic function is normal with, an EF between 55 - 60 %. 6. The right ventricle is mildly enlarged. 7. Normal LA size by volume 22+/-6 ml/m2. 8. The aortic valve is trileaflet, and appears structurally normal. No aortic stenosis or regurgitati on. 9. The mitral valve is normal. 10. There is trace to mild mitral regurgitation. 11. Mild tricuspid regurgitation present. 12. Right ventricular systolic pressure is normal at < 35 mmHg. 13. There is no pulmonic regurgitation present. 14. The aortic root size is normal. 15. Normal inferior vena cava with normal inspiratory collapse consistent with estimated right atrial pressure of 5 mmHg. 16. The inferior vena cava is mildly dilated. 17. There is no pericardial effusion. BAG PRESSER: DEIRDRE Espinosa
[2018-06-13] MEDS ORDERED: LOPERAMIDE 2 MG CAP PO PRN (11:42)
--- NOTE | 2018-06-13 12:21 | US ---
EXAMINATION TYPE: US carotid duplex BILAT DATE OF EXAM: 06/13/2018 COMPARISON: US 2016 CLINICAL HISTORY: tia. Lightheadedness, dizziness, TIA, exam done portable. EXAM MEASUREMENTS: RIGHT: Peak Systolic Velocity (PSV) cm/sec ----- Right CCA: 62.4 ----- Right ICA: 87.9 ----- Right ECA: 90.0 ICA/CCA ratio: 1.4 RIGHT: End Diastole cm/sec ----- Right CCA: 11.1 ----- Right ICA: 34.3 ----- Right ECA: 12.2 LEFT: Peak Systolic Velocity (PSV) cm/sec ----- Left CCA: 54.8 ----- Left ICA: 72.1 ----- Left ECA: 87.5 ICA/CCA ratio: 1.3 LEFT: End Diastole cm/sec ----- Left CCA: 12.0 ----- Left ICA: 35.1 ----- Left ECA: 9.7 VERTEBRALS (direction of flow): Right Vertebral: Antegrade Left Vertebral: Antegrade Rhythm: Normal Bilateral intimal thickening, no elevated velocities, no significant stenosis. Turbulent flow is noted on the left common carotid artery side. IMPRESSION: 1. Intimal thickening. No significant flow-limiting stenosis is evident. 2. There is some turbulent flow noted in the left common carotid artery internal carotid artery Criteria for Assigning % of Stenosis / Diameter reduction (Estimation based on the indirect measurements of the internal carotid artery velocities (ICA PSV). 1. Normal (no stenosis)=ICA PSV < 125 cm/s: ratio < 2.0: ICA EDV<40 cm/s. 2. Less than 50% stenosis=ICA PSV < 125 cm/s: ratio < 2.0: ICA EDV<40 cm/s. 3. 50 to 69% stenosis=ICA PSV of 125 to 230 cm/s: ration 2.0 ? 4.0: ICA EDV 40-100 cm/s. 4. Greater than 70% stenosis to near occlusion= ICA PSV > 230 cm/s: ratio > 4.0: ICA EDV > 100 cm/s. 5. Near occlusion= ICA PSV velocities may be low or undetectable: variable ratio and ICA EDV. 6. Total occlusion=unable to detect flow.
--- NOTE | 2018-06-13 12:29 | P.PN ---
Subjective Progress Note Date: 06/13/18 Principal diagnosis: TIA, diarrhea Patient was seen and examined. No acute events overnight. Patient returned from [facility]. She has no complaints this morning except for diarrhea. She denies any nausea, vomiting, chest pain, shortness of breath or palpitations. Patient' s reports that she had an episode of dizziness this morning she stood up to use the bathroom. The dizziness followed slurred speech, wobbliness in the lower extremity. Patient was concerned for stroke, prompting her to come to the ED. In the ED she received a GI cocktail which caused her to have diarrhea as per patient. Objective - Vital Signs Vital signs: Vital Signs Temp 97.5 F L 06/13/18 08:00 Pulse 55 L 06/13/18 11:11 Resp 18 06/13/18 11:11 BP 101/55 06/13/18 11:11 Pulse Ox 96 06/13/18 11:11 Intake & Output 06/12/18 06/13/18 06/13/18 18:59 06:59 18:59 Intake Total 150 Balance 150 Weight 117.934 kg 119.8 kg Intake: IV 150 Other: # Voids 1 - Exam General: [non toxic], [no distress], [appears at stated age] Derm: [warm], [dry] Head: [atraumatic], [normocephalic], [symmetric] Eyes: [EOMI], [no lid lag], [anicteric sclera] Mouth: [no lip lesion], [mucus membranes moist] Cardiovascular: [S1S2 reg], [no murmur], [positive DP pulse bilateral] Lungs: [CTA bilateral], [no rhonchi, no rales] , [no accessory muscle use] Abdominal: [soft], [ nontender to palpation], [no guarding], [no appreciable organomegaly] Ext: [no gross muscle atrophy], [no edema], [no contractures] Neuro: [Extremities 5 out of 5 strength, sensation intact to touch.] Psych: [Alert], [oriented], [appropriate affect] - Labs CBC & Chem 7: 06/13/18 03:45 06/13/18 03:45 Labs: Abnormal Lab Results - Last 24 Hours (Table) 06/12/18 06/12/18 06/12/18 Range/Units 15:45 15:45 16:55 D-Dimer 4.44 H (<0.60) mg/L FEU Chloride 108 H (98-107) mmol/L Glucose 113 H (74-99) mg/dL Urine Appearance Turbid H (Clear) Urine WBC 68 H (0-5) /hpf Urine WBC Clumps Rare H (None) /hpf Urine Mucus Rare H (None) /hpf 06/13/18 Range/Units 03:45 D-Dimer (<0.60) mg/L FEU Chloride (98-107) mmol/L Glucose 123 H (74-99) mg/dL Urine Appearance (Clear) Urine WBC (0-5) /hpf Urine WBC Clumps (None) /hpf Urine Mucus (None) /hpf Microbiology - Last 24 Hours (Table) 06/12/18 16:55 Urine Culture - Preliminary Urine,Voided Assessment and Plan Assessment: Assessment and Plan 1. TIA 2. Dizziness 3. Gastritis 4. Chest pain 5. Diarrhea 6. Hypertension 7. Hypothyroidism 8. ELINA 1. Symptoms of dizziness, headache, slurred speech lasting for 5 hours and completely resolved at this time. CT of the brain is negative for acute changes. Echocardiogram shows EF of 55-60% with mild LVH. Carotid ultrasound done, pending read. Cardiology was consulted, recommended [facility], done and pending read. We'll follow the results of the MRI brain. Continue aspirin and Lipitor. Neurochecks. Telemetry monitoring. Will consult PT, OT and ST. 2. Postural dizziness, possible dehydration. Echocardiogram shows EF of 55-60 % with no major valvular disorders. Telemetry monitoring. Orthostats + as pulse increased > 20 BPM on standing. Start NS at 100 cc/h. 3. Some epigastric discomfort. We'll continue Zofran IV 3 times a day as needed for nausea or vomiting. Continue Protonix 40 mg by mouth twice a day. 4. Troponins are less than 0.022 with EKG showing sinus bradycardia. Acute cord syndrome was ruled out. CTA of the chest is done in the ED due to elevated d-dimer, negative for PE. Pain possibly referred from GI. Telemetry monitoring. Continue aspirin, Lipitor and metoprolol. Follow cardiology recommendations. 5. Clostridium difficile negative. Will start Imodium 2 mg by mouth 4 times a day as needed for diarrhea. 6. BP is 111/56. Continue metoprolol 25 mg by mouth daily. Monitor vitals, adjust medications as necessary. 7. Stable. Continue Synthroid 88 g by mouth daily. 8. Stable. CPAP at bedtime. Patient suffered likely TIA, stroke workup underway. MR brain, [facility], carotid Doppler results pending. PT, OT and speech therapy evaluation pending. Patient has titanium plates in her right upper extremities, bilateral knee replacements. All 3 procedures have been done at [facility].
[2018-06-13] MEDS: SERTRALINE 100 MG TAB PO SCH ×2 (13:54→21:20)
[2018-06-13] MEDS: ASPIRIN 325 MG TAB PO SCH (13:55)
[2018-06-13] MEDS: METOPROLOL SUCCINATE (ER) 25 MG TAB.ER.24H PO SCH (13:59)
[2018-06-13] MEDS: LEVOTHYROXINE 88 MCG TAB PO SCH (14:00)
[2018-06-13] MEDS: ATORVASTATIN 40 MG TAB PO SCH (14:04)
[2018-06-13 15:18] LABS: Hemoglobin A1C 5.1 % (4.0-6.0)
[2018-06-13] MEDS ORDERED: LORazepam 2 MG/ML INJ IV STA (16:17)
--- NOTE | 2018-06-13 19:30 | MR ---
EXAMINATION TYPE: MR brain wo con DATE OF EXAM: 06/13/2018 COMPARISON: None HISTORY: Lightheadedness, TIA Standard multiplanar, multisequence MRI departmental protocol Multiplanar, multisequence images of the brain were acquired. Diffusion weighted imaging was performe d. FINDINGS: Ventricles and sulci appear normal. There is no mass effect nor midline shift. There is no sign of intracranial hemorrhage. On the T2 and FLAIR images there are a few foci of increased signal in the white matter that measure up to 3 to 4 mm. Total number is approximately 5. The brain stem is intact. Corpus callosum appears normal. Sella turcica is normal. There is no evidence of posterior fo ssa mass. There is no evidence of cortical infarct. IMPRESSION: There are a few small white matter high signal foci of uncertain significance. This could relate to m inimal chronic small vessel ischemia. No acute intracranial abnormality.
[2018-06-14] MEDS: PANTOPRAZOLE 40 MG TABLET PO SCH ×2 (07:34→17:26)
[2018-06-14] MEDS: TOPIRAMATE 25 MG TAB PO SCH ×2 (07:35→17:26)
[2018-06-14] MEDS: FLUTICASONE 44 MCG INHALER INHALATION SCH ×2 (07:51→20:05)
[2018-06-14] MEDS: ATORVASTATIN 40 MG TAB PO SCH (09:08)
[2018-06-14] MEDS: SERTRALINE 100 MG TAB PO SCH ×2 (09:08→20:42)
[2018-06-14] MEDS: METOPROLOL SUCCINATE (ER) 25 MG TAB.ER.24H PO SCH (09:08)
[2018-06-14] MEDS: LEVOTHYROXINE 88 MCG TAB PO SCH (09:08)
[2018-06-14] MEDS: ASPIRIN 325 MG TAB PO SCH (09:08)
--- NOTE | 2018-06-14 10:31 | P.PN ---
Subjective Progress Note Date: 06/14/18 Principal diagnosis: TIA, dizziness Patient was seen and examined. No acute events overnight. Patient continues to complain of lightheadedness, worse when going from a laying to a standing position. She denies any chest pain or palpitations. Patient reports some difficulties when ambulating to the bathroom, and needs to hold on to the wall. She denies vertiginous symptoms. No hearing loss. Fluid stopped last night, IV line infiltrated. Patient denies any slurred speech, difficulty speaking or eating, any numbness weakness or tingling of the extremities. Objective - Vital Signs Vital signs: Vital Signs Temp 98.7 F 06/14/18 08:00 Pulse 60 06/14/18 08:11 Resp 16 06/14/18 08:00 BP 103/63 06/14/18 08:00 Pulse Ox 95 06/14/18 08:00 Intake & Output 06/13/18 06/14/18 06/14/18 18:59 06:59 18:59 Intake Total 270 740 360 Balance 270 740 360 Weight 121.3 kg Intake: IV 150 Intake, IV Titration 500 Amount Sodium Chloride 0.9% 1, 500 000 ml @ 100 mls/hr IV . Q10H [facility] Rx#:[id number] Oral 120 240 360 Other: Voiding Method Toilet # Voids 2 1 2 # Bowel Movements 1 1 - Exam General: [non toxic], [no distress], [appears at stated age] Derm: [warm], [dry] Head: [atraumatic], [normocephalic], [symmetric] Eyes: [EOMI], [no lid lag], [anicteric sclera] Mouth: [no lip lesion], [mucus membranes moist] Cardiovascular: [S1S2 reg], [bradycardia], [positive DP pulse bilateral] Lungs: [CTA bilateral], [no rhonchi, no rales] , [no accessory muscle use] Abdominal: [soft], [ nontender to palpation], [no guarding], [no appreciable organomegaly] Ext: [no gross muscle atrophy], [no edema], [no contractures] Neuro: [Extremities 5 out of 5 strength, sensation intact to touch.] Psych: [Alert], [oriented], [appropriate affect] - Labs CBC & Chem 7: 06/13/18 03:45 06/13/18 03:45 Labs: Microbiology - Last 24 Hours (Table) 06/12/18 16:55 Urine Culture - Final Urine,Voided 06/12/18 15:45 Blood Culture - Preliminary Blood No Growth after 24 hours Assessment and Plan Assessment: Assessment and Plan 1. TIA 2. Dizziness 3. Gastritis 4. Chest pain 5. Diarrhea 6. Hypertension 7. Hypothyroidism 8. ELINA 1. Symptoms of dizziness, headache, slurred speech lasting for 5 hours and completely resolved at this time. CT of the brain is negative for acute changes. Echocardiogram shows EF of 55-60% with mild LVH. MRI brain shows few small white matter high signal foci, could relate to minimal chronic small vessel disease. Carotid ultrasound done, shows intimal thickening, turbulent flow in the left common carotid artery. A1c and lipid panel within normal limits. Cardiology was consulted, recommended ODETTE, done and pending read. Continue aspirin and Lipitor. Neurochecks. Telemetry monitoring. Will follow PT, OT and ST recommendations. 2. Postural dizziness, possible dehydration. Echocardiogram shows EF of 55-60 % with no major valvular disorders. Telemetry monitoring, shows bradycardia. Orthostats + as pulse increased > 20 BPM on standing. Continue NS at 100 cc/h. Follow orthostats this morning. We will follow Cardiology recommendations for bradycardia. 3. Some epigastric discomfort. We'll continue Zofran IV 3 times a day as needed for nausea or vomiting. Continue Protonix 40 mg by mouth twice a day. 4. Troponins are less than 0.022 with EKG showing sinus bradycardia. Acute cord syndrome was ruled out. CTA of the chest is done in the ED due to elevated d-dimer, negative for PE. Pain possibly referred from GI. Telemetry monitoring. Continue aspirin, Lipitor and metoprolol. Follow cardiology recommendations. 5. Clostridium difficile negative. Will start Imodium 2 mg by mouth 4 times a day as needed for diarrhea. 6. BP is 103/63. Continue metoprolol 25 mg by mouth daily. Monitor vitals, adjust medications as necessary. 7. Stable. Continue Synthroid 88 g by mouth daily. 8. Stable. CPAP at bedtime. Patient suffered possible CVA. Stroke workup mostly benign, patient continues to complain of dizziness. FU Orthostats. FU Cardiology for bradycardia. Continue IVF.
[2018-06-14] MEDS ORDERED: ASPIRIN-ACET-CAFF 250-250-65MG 1 EACH TAB PO PRN (11:45)
--- NOTE | 2018-06-14 11:54 | P.PN ---
Subjective Progress Note Date: 06/14/18 This is a pleasant 63-year-old female with history of obstructive sleep apnea, coronary artery disease with prior PCI, she presented to the hospital with symptoms of dizziness, blurred vision, and slurring of speech. She is being worked up for possible TIA. Cardiology was requested to see the patient to perform a ODETTE. ODETTE was performed yesterday by Dr. Parikh which did reveal evidence of a PFO. MRI of the brain revealed a few small white matter foci of uncertain significance. This could relate to minimal chronic small vessel ischemia. No acute intracranial abnormality was noted. Patient was seen and examined this morning, denies any further symptoms at present. Overall she feels well. Blood pressure 120/70 with a heart rate in the 50s to 60s. CBC normal. Sodium 140, potassium 4.1, BUN 17 and creatinine 0.9. Objective - Vital Signs Vital signs: Vital Signs Temp 98 F 06/14/18 11:36 Pulse 58 L 06/14/18 11:36 Resp 16 06/14/18 11:36 BP 114/74 06/14/18 11:36 Pulse Ox 98 06/14/18 11:36 Intake & Output 06/13/18 06/14/18 06/14/18 18:59 06:59 18:59 Intake Total 270 740 360 Balance 270 740 360 Weight 121.3 kg Intake: IV 150 Intake, IV Titration 500 Amount Sodium Chloride 0.9% 1, 500 000 ml @ 100 mls/hr IV . Q10H [facility] Rx#:[id number] Oral 120 240 360 Other: Voiding Method Toilet Toilet # Voids 2 1 2 # Bowel Movements 1 1 - Exam PHYSICAL EXAMINATION: GENERAL: 63-year-old female in no acute distress at the time of my examination HEENT: Head is atraumatic, normocephalic. Pupils equal, round. Sclera anicteric. Conjunctiva are clear. Mucous membranes of the mouth are moist. Neck is supple. There is no elevated jugular venous pressure. No carotid bruit is heard. HEART EXAMINATION: Heart S1, S2 normal. No murmur or gallop heard. CHEST EXAMINATION: Lungs are clear to auscultation and precussion. No chest wall tenderness is noted on palpation or with deep breathing. ABDOMEN: Soft, nontender. Bowel sounds are heard. No organomegaly noted. EXTREMITIES: 2+ peripheral pulses with no evidence of peripheral edema and no calf tenderness noted. NEUROLOGIC patient is awake, alert and oriented 3 . . - Labs CBC & Chem 7: 06/13/18 03:45 06/13/18 03:45 Labs: Microbiology - Last 24 Hours (Table) 06/12/18 16:55 Urine Culture - Final Urine,Voided 06/12/18 15:45 Blood Culture - Preliminary Blood No Growth after 24 hours Assessment and Plan Plan: Assessment and plan #1 TIA, evidence of PFO on transesophageal echocardiographic study. #2 coronary artery disease with prior PCI #3 hypertension #4 hyperlipidemia #5 hypothyroidism Plan From cardiology's perspective, patient may be able to be discharged home. Dr. Miller will perform PFO closure as an outpatient. He explained this to the patient in detail as well as the risks and the benefits. Patient will go home on aspirin, Lipitor 80, Plavix 75 mg daily. We will make her a follow-up appointment in the office to see Dr. JEFF Polk post discharge. DNP note has been reviewed, I agree with a documented findings and plan of care. Patient was seen and examined.
[2018-06-14] MEDS: ACETAMINOPHEN TAB 500 MG TAB PO PRN ×2 (12:20→17:28)
[2018-06-14] MEDS: NAPROXEN 250 MG TAB PO PRN (12:21)
[2018-06-14] MEDS: SODIUM CHLORIDE 0.9% 1,000 ML IV SCH ×3 (13:14→22:00)
[2018-06-14] MEDS: CLOPIDOGREL 75 MG TAB PO SCH (13:25)
[2018-06-14] MEDS ORDERED: MORPHINE ORAL SOLN 10 MG/5 ML CUP PO PRN (15:42)
--- NOTE | 2018-06-14 16:00 | CT ---
EXAMINATION TYPE: CT angio head neck DATE OF EXAM: 06/14/2018 HISTORY: Lightheadedness, concern for CVA COMPARISON: MRI brain 06/13/2018, carotid ultrasound 06/13/2018 CT DLP: 623.2 mGycm. Automated Exposure Control for Dose Reduction was Utilized. TECHNIQUE: CTA scan of the neck is performed with IV Contrast, patient injected with 65cc mL of Isov ue 370, axial images are obtained, coronal and sagittal reformatted images are reviewed. Three-D [place] nstructed images are created on an independent workstation and reviewed. FINDINGS: Carotid/Vascular Structures: Normal three-vessel aortic arch. The visualized portions of the thoracic aorta are unremarkable. There is an early origin of the left vertebral artery which is patent. The r ight vertebral artery has a normal origin and is patent throughout its course. The bilateral common c arotid arteries are patent without evidence of aneurysmal dilatation or narrowing. The bilateral inte rnal carotid arteries are within normal limits. The origin of the external carotid arteries unremarka ble. The internal carotid arteries course superiorly through the skull base without evidence of aneur ysmal dilatation or narrowing. The basilar artery and its branches are unremarkable. There is a origin of the left posterior c erebral artery. The [place] is otherwise unremarkable. The anterior cerebral arteries are bi lateral and patent. The anterior communicating caving artery is patent. The middle cerebral arteries are patent without evidence of aneurysmal dilatation or narrowing. The right posterior cerebral arter y is unremarkable. Other: Limited evaluation of the lung apices are unremarkable. Multilevel degenerative type changes a re seen throughout the visualized cervical spine IMPRESSION: 1. No evidence of hemodynamically significant luminal narrowing of the bilateral carotid system, vert ebral arteries. 2. No hemodynamically significant narrowing of the intracranial vasculature. 3. origin of the left posterior cerebral artery, a normal anatomic variant.
[2018-06-14] MEDS ORDERED: traMADol 50 MG TAB PO STA (18:30)
[2018-06-15] MEDS: NAPROXEN 250 MG TAB PO PRN ×2 (00:12→08:39)
[2018-06-15] MEDS: ACETAMINOPHEN TAB 500 MG TAB PO PRN (03:42)
[2018-06-15] MEDS: PANTOPRAZOLE 40 MG TABLET PO SCH ×2 (06:31→18:22)
[2018-06-15] MEDS: TOPIRAMATE 25 MG TAB PO SCH ×2 (06:32→18:22)
[2018-06-15] MEDS: FLUTICASONE 44 MCG INHALER INHALATION SCH ×2 (08:09→20:39)
[2018-06-15] MEDS: ASPIRIN 325 MG TAB PO SCH (08:39)
[2018-06-15] MEDS: LEVOTHYROXINE 88 MCG TAB PO SCH (08:39)
[2018-06-15] MEDS: ATORVASTATIN 40 MG TAB PO SCH (08:39)
[2018-06-15] MEDS: SERTRALINE 100 MG TAB PO SCH ×2 (08:40→20:33)
[2018-06-15] MEDS: SODIUM CHLORIDE 0.9% 1,000 ML IV SCH ×2 (08:40→20:33)
[2018-06-15] MEDS: CLOPIDOGREL 75 MG TAB PO SCH (08:40)
[2018-06-15] MEDS ORDERED: KETOROLAC 30 MG/ML 1 ML VIAL IVP STA (11:37)
[2018-06-15] MEDS ORDERED: MECLIZINE 25 MG TAB PO STA (11:38)
--- NOTE | 2018-06-15 11:54 | P.PN ---
Subjective Progress Note Date: 06/15/18 Principal diagnosis: Lightheadedness Patient seen and examined. No acute events overnight. Telemetry reveals heart rate in the high 50s. Patient reports being on metoprolol 25 mg daily since March, since her hip replacement surgery. She has been previously been on Metoprolol with issues in the past. Her Metoprolol was increased from 12.5 to 25 mg in preparation for surgery. She had been doing fine until her presentation to the hospital. Patient complains of lightheadedness when getting from laying to standing position. She also complains of headache, stabbing pain behind her eye. No nausea or vomiting. No chest pain, shortness of breath or palpitations. No hearing loss. She does complain of some pain in her R ear. No ear discharge, fever or chills. Objective - Vital Signs Vital signs: Vital Signs Temp 97.7 F 06/15/18 08:30 Pulse 52 L 06/15/18 08:30 Resp 16 06/15/18 08:30 BP 117/62 06/15/18 08:30 Pulse Ox 95 06/15/18 08:30 Intake & Output 06/14/18 06/15/18 06/15/18 18:59 06:59 18:59 Intake Total 720 1650 800 Balance 720 1650 800 Weight 123.2 kg Intake: IV 800 Sodium Chloride 0.9% 1, 800 000 ml @ 100 mls/hr IV . Q10H [facility] Rx#:[id number] Intake, IV Titration 700 Amount Sodium Chloride 0.9% 1, 700 000 ml @ 100 mls/hr IV . Q10H [facility] Rx#:[id number] Oral 720 950 Other: Voiding Method Toilet Toilet Toilet # Voids 2 1 1 # Bowel Movements 1 - Exam General: [non toxic], [no distress], [appears at stated age] Derm: [warm], [dry] Head: [atraumatic], [normocephalic], [symmetric] Eyes: [EOMI], [no lid lag], [anicteric sclera] Mouth: [no lip lesion], [mucus membranes moist] Cardiovascular: [S1S2 reg], [bradycardia], [positive DP pulse bilateral] Lungs: [CTA bilateral], [no rhonchi, no rales] , [no accessory muscle use] Abdominal: [soft], [ nontender to palpation], [no guarding], [no appreciable organomegaly] Ext: [no gross muscle atrophy], [no edema], [no contractures] Neuro: [Extremities 5 out of 5 strength, sensation intact to touch.] Psych: [Alert], [oriented], [appropriate affect] - Labs CBC & Chem 7: 06/13/18 03:45 06/13/18 03:45 Labs: Microbiology - Last 24 Hours (Table) 06/12/18 15:45 Blood Culture - Preliminary Blood No Growth after 48 hours Assessment and Plan Assessment: Assessment and Plan 1. TIA 2. Lightheadedness - Dehydration vs. Symptomatic bradycardia vs Migraine 3. Headache 4. Gastritis 5. Chest pain 6. Diarrhea 7. Hypertension 8. Hypothyroidism 9. ELINA 1. Symptoms of dizziness, headache, slurred speech lasting for 5 hours and completely resolved at this time. CT of the brain is negative for acute changes. Echocardiogram shows EF of 55-60% with mild LVH. MRI brain shows few small white matter high signal foci, could relate to minimal chronic small vessel disease. Carotid ultrasound done, shows intimal thickening, turbulent flow in the left common carotid artery. ODETTE shows PFO that will be repaired in the outpatient setting. CTA of the head and neck is unremarkable. A1c and lipid panel within normal limits. Continue aspirin and Lipitor. Neurochecks. Telemetry monitoring. Will follow PT, OT and ST recommendations. 2. Postural dizziness, possible dehydration + symptomatic bradycardia (HR ~ 52) . Echocardiogram shows EF of 55-60% with no major valvular disorders. Telemetry monitoring, shows bradycardia. Orthostats + as pulse increased > 20 BPM on standing, negative yesterday. Can DC IVF and encorage PO hydration. Discussed with Dr. Hodge, will decrease Metoprolol from 25 mg PO QD to 12.5 mg PO QD. Trial of Meclizine 25 mg PO Q6H. We will follow Cardiology recommendations for bradycardia. 3. Possible Migraine vs. inner ear pathology. CVA workup is complete and ruled out. Toradol 30 mg IV x 1 with a trial of Meclizine 25 mg PO Q6H. Continue Tylenol and Naproxen PRN for headache. 4. Some epigastric discomfort. We'll continue Zofran IV 3 times a day as needed for nausea or vomiting. Continue Protonix 40 mg by mouth twice a day. 5. Resolved. Troponins are less than 0.022 with EKG showing sinus bradycardia. Acute coronary syndrome was ruled out. CTA of the chest is done in the ED due to elevated d-dimer, negative for PE. Pain possibly referred from GI. Telemetry monitoring. Continue aspirin, Lipitor. Decrease Metoprolol. Follow cardiology recommendations. 6. Clostridium difficile negative. Will start Imodium 2 mg by mouth 4 times a day as needed for diarrhea. 7. BP is 117/62. Decrease Metoprolol from 25 mg PO QD to 12.5 mg PO QD. Monitor vitals, adjust medications as necessary. 8. Stable. Continue Synthroid 88 g by mouth daily. 9. Stable. CPAP at bedtime. CVA workup complete and negative. Patient continues to be lightheaded and is not safe for discharge. She has symptomatic bradycardia, we will decrease Metoprolol and observe her overnight.
--- NOTE | 2018-06-15 13:16 | P.PN ---
Subjective Progress Note Date: 06/15/18 Principal diagnosis: TIA This is a pleasant 63-year-old female patient with a known history of coronary artery disease, hypertension, dyslipidemia, was admitted to the hospital with an episode of TIA presented as dizziness, blurry vision, and slurred speech. The symptoms has resolved completely. Yesterday she was complaining of some headache which seems to be better today. She underwent transesophageal echocardiogram which revealed patent foramen ovale with [id number] shunt. The plan is to proceed with percutaneous closure of the PFO in the next few days to next few weeks. Hemodynamically she is bradycardic with heart rate in the 50s. I am going to decrease the dose of metoprolol to 12.5 mg by mouth daily. Objective - Vital Signs Vital signs: Vital Signs Temp 98 F 06/15/18 11:56 Pulse 54 L 06/15/18 11:56 Resp 20 06/15/18 11:56 BP 128/72 06/15/18 11:56 Pulse Ox 96 06/15/18 11:56 Intake & Output 06/14/18 06/15/18 06/15/18 18:59 06:59 18:59 Intake Total 720 1650 1160 Balance 720 1650 1160 Weight 123.2 kg Intake: IV 800 Sodium Chloride 0.9% 1, 800 000 ml @ 100 mls/hr IV . Q10H [facility] Rx#:[id number] Intake, IV Titration 700 Amount Sodium Chloride 0.9% 1, 700 000 ml @ 100 mls/hr IV . Q10H [facility] Rx#:[id number] Oral 720 950 360 Other: Voiding Method Toilet Toilet Toilet # Voids 2 1 1 # Bowel Movements 1 - Constitutional General appearance: Present: no acute distress - Respiratory Respiratory: bilateral: CTA - Cardiovascular Rhythm: regular Heart sounds: normal: S1, S2 - Labs CBC & Chem 7: 06/13/18 03:45 06/13/18 03:45 Labs: Microbiology - Last 24 Hours (Table) 06/12/18 15:45 Blood Culture - Preliminary Blood No Growth after 48 hours Assessment and Plan Assessment: Assessment #1 an episode of TIA #2 coronary artery disease #3 patent foramen ovale Plan #1 continue dual antiplatelet therapy along with a statin #2 decrease the dose of metoprolol in view of the bradycardia #3 percutaneous closure of the PFO in the next few weeks.
[2018-06-15] MEDS: MECLIZINE 12.5 MG TAB PO PRN ×2 (18:22→23:37)
[2018-06-15] MEDS: METOPROLOL SUCCINATE (ER) 25 MG TAB.ER.24H PO SCH (20:21)
[2018-06-15] MEDS: KETOROLAC 30 MG/ML 1 ML VIAL IVP PRN (20:32)
[2018-06-16] MEDS: methylPREDNISolone SOD SUCCI 125 MG/2 ML VIAL IV SCH ×3 (00:30→16:48)
[2018-06-16] MEDS: SODIUM CHLORIDE 0.9% 1,000 ML IV SCH (04:00)
[2018-06-16] MEDS: KETOROLAC 30 MG/ML 1 ML VIAL IVP PRN ×3 (05:03→22:31)
[2018-06-16] MEDS: PANTOPRAZOLE 40 MG TABLET PO SCH ×2 (06:43→16:49)
[2018-06-16] MEDS: FLUTICASONE 44 MCG INHALER INHALATION SCH ×2 (07:47→19:16)
[2018-06-16] MEDS ORDERED: METOPROLOL SUCCINATE (ER) 25 MG TAB.ER.24H PO SCH (09:00)
[2018-06-16] MEDS: CLOPIDOGREL 75 MG TAB PO SCH (09:37)
[2018-06-16] MEDS: TOPIRAMATE 25 MG TAB PO SCH ×2 (09:37→16:49)
[2018-06-16] MEDS: ASPIRIN 325 MG TAB PO SCH (09:37)
[2018-06-16] MEDS: ATORVASTATIN 40 MG TAB PO SCH (09:37)
[2018-06-16] MEDS: LEVOTHYROXINE 88 MCG TAB PO SCH (09:37)
[2018-06-16] MEDS: SERTRALINE 100 MG TAB PO SCH ×2 (09:37→20:43)
--- NOTE | 2018-06-16 10:39 | P.PN ---
Subjective Progress Note Date: 06/16/18 Principal diagnosis: Dizziness 63-year-old femalewith PMH of sleep apnea, CAD, hypertension presents to the ED for lightheadedness, slurred speech and blurry vision which lasted for 2 hours as she got up to use the bathroom. She also complains of a frontal headache, 10 out of 10 in severity behind her bilateral eyes.there is initial concerns for CVA. The working diagnosis was TIA. CT brain showed no acute changes.CT of the head and neck was unremarkable. MRI of the brain did not show an acute stroke. Cardiology was consulted and ODETTE was performed to rule out thromboembolic causes of stroke. A small PFO was discovered, recommended to follow-up outpatient for repair. A1c and lipid panel were within normal limits. Patient was initially orthostatic positive on day 1 was subsequently negative on days 2 and 3 after some IV fluids. Telemetry revealed sinus bradycardia. Cardiology recommended decreasing her Metoprolol from 25 mg to 12.5 mg daily. Patient continued to feel dizzy and a recommendation was made to discontinue her metoprolol completely. An otic exam showed that possible cause of dizziness could be vestibular neuritis or complex migraine. She was given Toradol IV with great improvement in her headache. Solu-Medrol and Meclizine was started for possible vestibular neuritis along with otic drops. Physical therapy was reconsulted to work with the patient. Patient seen and examined. No acute events overnight. Patient reports continued dizziness, this morning when ambulating with physical therapy. She reports resolution of her lightheadedness when she sits up side of her bed. She continues to complain of right ear pain, feels like fluid buildup behind her right ear. She denies she denies any frequent ear infections. She denies any nausea or vomiting. She denies any tinnitus or hearing loss. Patient does wear corrective lenses for her vision, last checked less than 1 year ago. Patient reports that Toradol helped immensely but she is still concerned about the possibility of falling. Objective - Vital Signs Vital signs: Vital Signs Temp 98.1 F 06/16/18 04:00 Pulse 57 L 06/16/18 04:00 Resp 18 06/16/18 04:00 BP 124/70 06/16/18 04:00 Pulse Ox 96 06/16/18 04:00 Intake & Output 06/15/18 06/16/18 06/16/18 18:59 06:59 18:59 Intake Total 1880 1400 200 Balance 1880 1400 200 Weight 124.4 kg Intake: IV 800 Sodium Chloride 0.9% 1, 800 000 ml @ 100 mls/hr IV . Q10H [facility] Rx#:[id number] Intake, IV Titration 1100 Amount Sodium Chloride 0.9% 1, 1100 000 ml @ 100 mls/hr IV . Q10H [facility] Rx#:[id number] Oral 1080 300 200 Other: Voiding Method Toilet Toilet # Voids 1 4 - Exam General: [non toxic], [no distress], [appears at stated age] Derm: [warm], [dry] Head: [atraumatic], [normocephalic], [symmetric] Eyes: [EOMI], [no lid lag], [anicteric sclera] Mouth: [no lip lesion], [mucus membranes moist] Cardiovascular: [S1S2 reg], [bradycardia], [positive DP pulse bilateral] Lungs: [CTA bilateral], [no rhonchi, no rales] , [no accessory muscle use] Abdominal: [soft], [ nontender to palpation], [no guarding], [no appreciable organomegaly] Ext: [no gross muscle atrophy], [no edema], [no contractures] Neuro: [Extremities 5 out of 5 strength, sensation intact to touch.] Psych: [Alert], [oriented], [appropriate affect] Otic exam shows mild erythema in the right ear canal. There is some fluid buildup behind the tympanic membrane. Tympanic membranes are bulging and there is no discharge.there is some tenderness with pulling on the right earlobe. Left ear is within normal limits. - Labs CBC & Chem 7: 06/13/18 03:45 06/13/18 03:45 Labs: Microbiology - Last 24 Hours (Table) 06/12/18 15:45 Blood Culture - Preliminary Blood No Growth after 72 hours Assessment and Plan Assessment: Assessment and Plan 1. TIA - initial presentation of dizziness, headache, slurred speech and LE weakness 2. Dizziness - Dehydration vs. Symptomatic bradycardia vs. Migraine vs. Vestibular neuritis 3. Headache 4. Gastritis 5. Chest pain 6. Diarrhea 7. Hypertension 8. Hypothyroidism 9. ELINA 1. Symptoms of dizziness, headache, slurred speech lasting for 5 hours and completely resolved at this time. CT of the brain is negative for acute changes. Echocardiogram shows EF of 55-60% with mild LVH. MRI brain shows few small white matter high signal foci, could relate to minimal chronic small vessel disease. Carotid ultrasound done, shows intimal thickening, turbulent flow in the left common carotid artery. ODETTE shows PFO that will be repaired in the outpatient setting. CTA of the head and neck is unremarkable. A1c and lipid panel within normal limits. Continue aspirin and Lipitor. Neurochecks. Telemetry monitoring. Will follow PT, OT and ST recommendations. 2. Postural dizziness, possible dehydration + symptomatic bradycardia (HR ~ 57 ) + vestibular neuritis (given otic complaints). Echocardiogram shows EF of 55- 60% with no major valvular disorders. Telemetry monitoring, shows bradycardia. Orthostats initially + as pulse increased > 20 BPM on standing, negative since. Can DC IVF and encorage PO hydration. Discussed with Dr. Hodge, will completely discontinue Metoprolol. Continue Meclizine 25 mg PO Q6H. Started Solumedrol 60 mg IV Q6H and Otic ear drops for possible vestibular neuritis. We will follow Cardiology recommendations for bradycardia. Follow PT and OT recommendations. 3. Possible Migraine. CVA workup is complete and ruled out. Toradol 30 mg IV Q6H with a trial of Meclizine 25 mg PO Q6H. Continue Tylenol and Naproxen PRN for headache. 4. Some epigastric discomfort. We'll continue Zofran IV 3 times a day as needed for nausea or vomiting. Continue Protonix 40 mg by mouth twice a day. 5. Resolved. Troponins are less than 0.022 with EKG showing sinus bradycardia. Acute coronary syndrome was ruled out. CTA of the chest is done in the ED due to elevated d-dimer, negative for PE. Pain possibly referred from GI. Telemetry monitoring. Continue aspirin, Lipitor. Decrease Metoprolol. Follow cardiology recommendations. 6. Clostridium difficile negative. Will start Imodium 2 mg by mouth 4 times a day as needed for diarrhea. 7. BP is 124/70. Discussed with Dr. Hodge, DC Metoprolol. Monitor vitals, adjust medications as necessary. 8. Stable. Continue Synthroid 88 g by mouth daily. 9. Stable. CPAP at bedtime. CVA workup complete and negative. Patient continues to be lightheaded and is not safe for discharge. She has symptomatic bradycardia, we will DC Metoprolol. Start Solumedrol for possible vestibular neuritis. Work with PT. Possible DC pending clinical improvement.
[2018-06-16] MEDS: NEOMYCIN-POLYMYXIN-HC (3.5-10,000-10 MG) OTIC DROPS 10 ML BTL RIGHT EAR SCH ×3 (11:38→20:43)
--- NOTE | 2018-06-16 15:05 | P.PN ---
Subjective Progress Note Date: 06/16/18 Principal diagnosis: TIA This is a pleasant 63-year-old female patient with a known history of coronary artery disease, hypertension, dyslipidemia, was admitted to the hospital with an episode of TIA presented as dizziness, blurry vision, and slurred speech. The symptoms has resolved completely. Yesterday she was complaining of some headache which seems to be better today. She underwent transesophageal echocardiogram which revealed patent foramen ovale with fzejv-jz-sefr shunt. The plan is to proceed with percutaneous closure of the PFO in the next few days to next few weeks. Hemodynamically she is bradycardic with heart rate in the 50s. She has been feeling dizzy and lightheaded. Because of that I did recommend to stop the metoprolol completely. Objective - Vital Signs Vital signs: Vital Signs Temp 97.3 F L 06/16/18 11:40 Pulse 50 L 06/16/18 11:40 Resp 18 06/16/18 11:40 BP 143/74 06/16/18 11:40 Pulse Ox 96 06/16/18 04:00 Intake & Output 06/15/18 06/16/18 06/16/18 18:59 06:59 18:59 Intake Total 1880 1400 440 Balance 1880 1400 440 Weight 124.4 kg Intake: IV 800 Sodium Chloride 0.9% 1, 800 000 ml @ 100 mls/hr IV . Q10H HOLLI Rx#:[id number] Intake, IV Titration 1100 Amount Sodium Chloride 0.9% 1, 1100 000 ml @ 100 mls/hr IV . Q10H HOLLI Rx#:[id number] Oral 1080 300 440 Other: Voiding Method Toilet Toilet # Voids 1 4 1 # Bowel Movements 1 - Constitutional General appearance: Present: no acute distress - Respiratory Respiratory: bilateral: CTA - Cardiovascular Rhythm: regular Heart sounds: normal: S1, S2 - Labs CBC & Chem 7: 06/13/18 03:45 06/13/18 03:45 Labs: Microbiology - Last 24 Hours (Table) 06/12/18 15:45 Blood Culture - Preliminary Blood No Growth after 72 hours Assessment and Plan Assessment: Assessment #1 an episode of TIA #2 coronary artery disease #3 patent foramen ovale #4 symptomatic bradycardia Plan #1 continue dual antiplatelet therapy along with a statin #2 DC the metoprolol in view of the bradycardia #3 percutaneous closure of the PFO in the next few weeks.
[2018-06-17] MEDS: TOPIRAMATE 25 MG TAB PO SCH ×2 (06:55→18:12)
[2018-06-17] MEDS: PANTOPRAZOLE 40 MG TABLET PO SCH ×2 (06:56→18:12)
[2018-06-17] MEDS: ASPIRIN 325 MG TAB PO SCH (07:47)
[2018-06-17] MEDS: SERTRALINE 100 MG TAB PO SCH (07:48)
[2018-06-17] MEDS: ATORVASTATIN 40 MG TAB PO SCH (07:48)
[2018-06-17] MEDS: LEVOTHYROXINE 88 MCG TAB PO SCH (07:48)
[2018-06-17] MEDS: CLOPIDOGREL 75 MG TAB PO SCH (07:48)
[2018-06-17] MEDS: methylPREDNISolone SOD SUCCI 125 MG/2 ML VIAL IV SCH ×2 (07:48→15:21)
[2018-06-17] MEDS: KETOROLAC 30 MG/ML 1 ML VIAL IVP PRN ×2 (07:49→14:17)
[2018-06-17] MEDS: NEOMYCIN-POLYMYXIN-HC (3.5-10,000-10 MG) OTIC DROPS 10 ML BTL RIGHT EAR SCH ×3 (07:50→15:25)
[2018-06-17] MEDS: FLUTICASONE 44 MCG INHALER INHALATION SCH (07:55)
--- NOTE | 2018-06-17 12:32 | P.DS ---
Providers Date of admission: 06/16/18 16:12 Expected date of discharge: 06/17/18 Attending physician: Michael Roberts MD Consults: 06/12/18 20:08 Consult Physician Urgent Consulting Provider: Jony Hodge Consult Reason/Comments: Chest pain Do you want consulting provider notified?: Yes Primary care physician: [facility] Course: Discharge Diagnosis: Intractable headache Intractable dizziness with bradycardia- Beta manfred discontinued Patent foramen Ovale Coronary artery disease Morbid obesity- BMI 50.2 HLD Chronic low back pain Hypothyroidism ELINA with CPAP use Hospital Course: Patient is a 63-year-old female with a history of hypertension, myocardial infarction, and obstructive sleep apnea who initially presented here on 06/12/18 after waking up with postural dizziness and lightheadedness associated with blurred vision and slurred speech which lasted approximately 2 hours. She denies any history of stroke. She also had a complaint of a frontal headache around the right eye which had been going on for a few days ago worse on the day of admission. The emergency department she underwent a CT of the chest which was negative for acute PE, CT had is negative for any acute process. Initial EKG showed no significant ST-T segment changes, troponin was negative, and urinalysis was negative. She was admitted for further evaluation of possible TIA. She underwent an echocardiogram which was remarkable for patent foramen ovale, she was seen by cardiology and outpatient procedure as planned.. She underwent an MRI of the brain which showed chronic small vessel ischemic changes. She underwent a carotid Doppler which was negative. This was followed by a CTA of the neck which was also negative. He was noted to have bradycardia and initially her beta manfred was decreased and was then held completely. She continued to have some bradycardia. Throughout her hospitalization she continued to complain of a 10 out of 10 headache. She describes as bilateral and frontal in nature. It feels as though there is a pressure behind her eye and she feels as though her vision is sometimes blurried and she is seen shadows in her pereferral vision. SHe also reports intermittent numbness in her hands. She states that when she is laying flat she is not dizzy however when she gets up and walks she becomes dizzy, her headache worsens, and she must sit down. She reports that she closes her eyes but she is unsure whether this seems to help with the headache. She states that the Toradol has helped. She is not a candidate for Imitrex secondary to her history of coronary artery disease. She was also given a trail of steroids with no help after 24 hours of treatment. There is concern that she needed evaluation by neurology with her persistent headache and associated visual changes. [facility] was contacted who graciously accepted the patient and she will be transferred there for further evaluation. Patient seen and examined at bedside. She is upset and tearful. States that there has been no answer to why she is having pain and dizziness. She reports that she continues to have a headache it is relieved with Toradol which lasted approximately 3 hours when she has to have another 3 hours pain. She states she tried to get up and walk today and became excessively dizzy headed to be directed back to the room and sat back down. Her dizziness is resolved. She denies any chest pain, shortness of breath, nausea, or vomiting. She states she is intermittent numbness in her hands as described above but none currently. Vital signs reviewed and stable. General: non toxic, no distress, appears at stated age Derm: warm, dry Head: atraumatic, normocephalic, symmetric Eyes: EOMI, no lid lag, anicteric sclera Mouth: no lip lesion, mucus membranes moist Cardiovascular: S1S2 reg, no murmur, positive posterior tibial pulse bilateral, Lungs: CTA bilateral, no rhonchi, no rales , no accessory muscle use Abdominal: soft, nontender to palpation, no guarding, no appreciable organomegaly Ext: no gross muscle atrophy, no edema, no contractures Neuro: CN II-XI grossly intact, no focal neuro deficits Psych: Alert, oriented, appropriate affect A total of 45 minutes of time were spent preparing this complex discharge summary . Pertinent Studies: Echocardiogram-mild LVH, ejection fraction 55-60% CTA of the chest-no evidence of PE, mild cardiomegaly, stable aneurysm of the ascending aorta at 4.2 cm MRI brain-few small white matter high signal foci of uncertain significant could be related to chronic small vessel ischemia Carotid Dopplers-negative CTA of the head and neck-no hemodynamically significant narrowing of the intracranial vasculature, origin the left posterior cerebral artery, normal anatomic variant Procedures: Transesophageal echo-patent foramen ovale Plan - Discharge Summary New Discharge Prescriptions: No Action Topiramate [Topamax] 50 mg PO BID-W/MEALS Sertraline [Zoloft] 100 mg PO BID Multivitamins, Thera [Multivitamin (formulary)] 1 tab PO DAILY Atorvastatin [Lipitor] 40 mg PO DAILY #30 tab Furosemide [Lasix] 40 mg PO DAILY Potassium Chloride [Klor-Con 10] 10 meq PO DAILY Metoprolol Succinate (ER) [Toprol XL] 25 mg PO DAILY Levothyroxine Sodium [Synthroid] 88 mcg PO DAILY Krill/Om-3/Dha/Epa/Phospho/Ast [[place]-3 Krill Oil 300 mg Sfgl] 1 cap PO DAILY Albuterol Nebulized [Ventolin Nebulized] 2.5 mg INHALATION RT-TID PRN PRN Reason: Shortness Of Breath Aspirin 81 mg PO HS rOPINIRole HCL [Requip] 0.5 mg PO HS Beclomethasone Dipropionate [Qvar 40 mcg Redihaler] 2 puff INHALATION RT-BID Discharge Medication List Multivitamins, Thera [Multivitamin (formulary)] 1 tab PO DAILY 03/21/14 [History ] Sertraline [Zoloft] 100 mg PO BID 03/21/14 [History] Topiramate [Topamax] 50 mg PO BID-W/MEALS 03/21/14 [History] Atorvastatin [Lipitor] 40 mg PO DAILY #30 tab 03/23/14 [Rx] Furosemide [Lasix] 40 mg PO DAILY 01/12/15 [History] Levothyroxine Sodium [Synthroid] 88 mcg PO DAILY 01/10/16 [History] Metoprolol Succinate (ER) [Toprol XL] 25 mg PO DAILY 01/10/16 [History] Potassium Chloride [Klor-Con 10] 10 meq PO DAILY 01/10/16 [History] Krill/Om-3/Dha/Epa/Phospho/Ast [[place]-3 Krill Oil 300 mg Sfgl] 1 cap PO DAILY [History] Albuterol Nebulized [Ventolin Nebulized] 2.5 mg INHALATION RT-TID PRN 12/03/17 [ History] Aspirin 81 mg PO HS 04/08/18 [History] Beclomethasone Dipropionate [Qvar 40 mcg Redihaler] 2 puff INHALATION RT-BID [History] rOPINIRole HCL [Requip] 0.5 mg PO HS 06/12/18 [History] Follow up Appointment(s)/Referral(s): Caitlin Back MD [Primary Care Provider] - 1 Week () Gama Parikh MD [STAFF PHYSICIAN] - 1 Week Patient Instructions/Handouts: Transient Ischemic Attack (DC), Transesophageal Echocardiogram (DC), Urinary Tract Infection in Women (DC), Heart Healthy Diet ( DC)
--- NOTE | 2018-06-17 12:40 | P.PN ---
Subjective Progress Note Date: 06/17/18 Principal diagnosis: TIA This is a pleasant 63-year-old female patient with a known history of coronary artery disease, hypertension, dyslipidemia, was admitted to the hospital with an episode of TIA presented as dizziness, blurry vision, and slurred speech. The symptoms has resolved completely. Yesterday she was complaining of some headache which seems to be better today. She underwent transesophageal echocardiogram which revealed patent foramen ovale with eekya-yj-tytt shunt. The plan is to proceed with percutaneous closure of the PFO in the next few days to next few weeks. On follow-up with the patient today, she stated that she continues to be dizzy and having headache. She expressed the wishes that she wanted be transferred to [facility]. Objective - Vital Signs Vital signs: Vital Signs Temp 97.6 F 06/17/18 12:23 Pulse 54 L 06/17/18 12:25 Resp 16 06/17/18 12:23 BP 108/57 06/17/18 12:23 Pulse Ox 94 L 06/17/18 12:23 Intake & Output 06/16/18 06/17/18 06/17/18 18:59 06:59 18:59 Intake Total 662 900 360 Balance 662 900 360 Intake: Oral 662 900 360 Other: Voiding Method Toilet # Voids 1 2 1 # Bowel Movements 1 - Constitutional General appearance: Present: no acute distress - Respiratory Respiratory: bilateral: CTA - Cardiovascular Rhythm: regular Heart sounds: normal: S1, S2 - Labs CBC & Chem 7: 06/13/18 03:45 06/13/18 03:45 Labs: Microbiology - Last 24 Hours (Table) 06/12/18 15:45 Blood Culture - Preliminary Blood No Growth after 96 hours Assessment and Plan Assessment: Assessment #1 an episode of TIA #2 coronary artery disease #3 patent foramen ovale #4 symptomatic bradycardia Plan #1 continue dual antiplatelet therapy along with a statin #2 the patient is going to be transferred to [facility].
[2018-06-17 15:31] VITALS: BP 143/63; PULSE 47; RESP 18; TEMP 98.1
--- NOTE | 2018-07-10 10:14 | ECHOT ---
TRANSESOPHAGEAL ECHOCARDIOGRAM INDICATION: TIA. PROCEDURE NOTE: After obtaining informed consent, transesophageal echocardiogram was performed in left lateral position using an Omniplane probe. Local and IV sedation were obtained using Xylocaine spray and intravenous Versed and fentanyl. The patient tolerated the procedure well without any obvious immediate complications. Patient received moderate conscious sedation. Sedation time was 10 minutes. FINDINGS: 1. There is no intracardiac thrombus within the left atrial appendage, left atrium, right atrium or right ventricle. 2. Left ventricle has normal size and systolic function. 3. Mitral valve is anatomically normal. There is mild mitral regurgitation noted. 4. Aortic valve is a 3-leaflet valve. There is no evidence of aortic stenosis or regurgitation. 5. Aorta shows mild atherosclerotic changes. 6. Interatrial septum: There is a PFO with evidence of fisr-ag-driwp shunt with color- flow Doppler. There is no evidence of opsop-uz-qoyz shunt with agitated saline contrast study. CONCLUSIONS: 1. A small patent foramen ovale with zrzm-[id number] shunt is noted on the study. 2. There is no intracardiac thrombus. 3. Left ventricular function is normal. MMODL / IJN: [id number] /
== END 2018-06-17 18:52 | disposition short-term general hospital (02) | DRG 69 ==
LOC: EC 15:23 → 1SOBS 19:59 → 3SCARD 06-13 00:57 → OBSVTOIN 06-16 16:12
PROVIDERS: ADMIT Internal Medicine; ATTEND Internal Medicine
PROC: B246ZZ4 Ultrasonography of Right and Left Heart, Transesophageal (ICD-10-PCS; principal; 2018-06-13 10:15)
DX: G45.9 Transient cerebral ischemic attack, unspecified (principal); Q21.1 Atrial septal defect; Z68.43 Body mass index [BMI] 50.0-59.9, adult; N39.0 Urinary tract infection, site not specified; R51 Headache; I67.82 Cerebral ischemia; I71.2 Thoracic aortic aneurysm, without rupture; E66.01 Morbid (severe) obesity due to excess calories; R00.1 Bradycardia, unspecified; H53.9 Unspecified visual disturbance; J44.9 Chronic obstructive pulmonary disease, unspecified; K29.70 Gastritis, unspecified, without bleeding; E86.0 Dehydration; I25.10 Atherosclerotic heart disease of native coronary artery without angina pectoris; R40.2362 Coma scale, best motor response, obeys commands, at arrival to emergency department; R40.2142 Coma scale, eyes open, spontaneous, at arrival to emergency department; R40.2252 Coma scale, best verbal response, oriented, at arrival to emergency department; R07.9 Chest pain, unspecified; H53.8 Other visual disturbances; R42 Dizziness and giddiness; I10 Essential (primary) hypertension; E78.5 Hyperlipidemia, unspecified; G89.29 Other chronic pain; M54.5 Low back pain; E03.9 Hypothyroidism, unspecified; G47.33 Obstructive sleep apnea (adult) (pediatric); F32.9 Major depressive disorder, single episode, unspecified; F41.9 Anxiety disorder, unspecified; H92.01 Otalgia, right ear; I25.2 Old myocardial infarction; F17.200 Nicotine dependence, unspecified, uncomplicated; Z79.82 Long term (current) use of aspirin; Z79.890 Hormone replacement therapy; Z79.51 Long term (current) use of inhaled steroids; Z79.899 Other long term (current) drug therapy; Z99.89 Dependence on other enabling machines and devices; Z90.49 Acquired absence of other specified parts of digestive tract; Z90.710 Acquired absence of both cervix and uterus; Z90.722 Acquired absence of ovaries, bilateral; Z96.653 Presence of artificial knee joint, bilateral; Z96.649 Presence of unspecified artificial hip joint; Z98.61 Coronary angioplasty status; Z88.1 Allergy status to other antibiotic agents; Z91.013 Allergy to seafood; Z88.2 Allergy status to sulfonamides; Z88.8 Allergy status to other drugs, medicaments and biological substances; Z91.018 Allergy to other foods; Z91.048 Other nonmedicinal substance allergy status; Z82.49 Family history of ischemic heart disease and other diseases of the circulatory system; Z81.8 Family history of other mental and behavioral disorders; Z80.0 Family history of malignant neoplasm of digestive organs; Z84.1 Family history of disorders of kidney and ureter; Z82.3 Family history of stroke; Z80.8 Family history of malignant neoplasm of other organs or systems; Z80.7 Family history of other malignant neoplasms of lymphoid, hematopoietic and related tissues
CPT/HCPCS: 36415; 70450; 70496; 70498; 70551; 71046; 71275; 80048; 80053; 80061; 81001; 82150; 82550; 82553; 83036; 83690; 83735; 84484; 85025; 85379; 85610; 85652; 85730; 86140; 87040; 87086; 87324; 93005; 93306; 93312; 93320; 93325; 93880; 94640; 94760; 96361; 96374; 96375; 99285

== ENCOUNTER 2018-06-24 12:19 | Emergency (ER) | payer MEDICARE ==
[2018-06-24] MEDS ORDERED: HYDROmorphone 1 MG/ML 1 ML SYRINGE IVP STA (12:30)
[2018-06-24] MEDS ORDERED: LORazepam 2 MG/ML INJ IV STA (12:30)
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
[2018-06-24 12:41] VITALS: TEMP 98
--- NOTE | 2018-06-24 13:46 | XR ---
EXAMINATION TYPE: XR chest 2V DATE OF EXAM: 06/24/2018 COMPARISON: Chest x-ray and CTA chest June 12, 2018. HISTORY: Chest pain. TECHNIQUE: Frontal and lateral views of the chest are obtained. FINDINGS: There is diminished inspiration on current study there is cardiomegaly with new mild to mo derate central vascular congestion. No suspicious focal airspace opacity, pleural effusion, or pneu mothorax is evident. The osseous structures are intact. IMPRESSION: Cardiomegaly with new mild to moderate central vascular congestion, possible CHF exacerb ation. Correlate clinically. Findings may be exaggerated by poor inspiration on current study.
[2018-06-24 13:56] LABS: Basophils % (A) 1 %; Eosinophils # (A) 0.3 k/uL (0-0.7); Eosinophils % (A) 4 %; HCT 39.7 % (34.0-46.0); HGB 12.7 gm/dL (11.4-16.0); Lymphocytes # (A) 1.5 k/uL (1.0-4.8); Lymphocytes % (A) 17 %; MCH 29.1 pg (25.0-35.0); MCV 91.1 fL (80.0-100.0); Mean Platelet Volume 6.6; Monocytes # (A) 0.6 k/uL (0-1.0); Monocytes % (A) 7 %; Neutrophils # (A) 6.1 k/uL (1.3-7.7); Neutrophils % (A) 70 %; Platelet Count 164 k/uL (150-450); RBC 4.36 m/uL (3.80-5.40); RDW 14.5 % (11.5-15.5); WBC 8.8 k/uL (3.8-10.6)
[2018-06-24 14:01] LABS: ALT 25 U/L (9-52); AST 19 U/L (14-36); Albumin 3.4 g/dL (3.5-5.0); Alkaline Phosphatase 97 U/L (38-126); Amylase 32 U/L (30-110); Anion Gap 7 mmol/L; Blood Urea Nitrogen 18 mg/dL (7-17); Carbon Dioxide 21 mmol/L (22-30); Chloride 112 mmol/L (98-107); Glucose 95 mg/dL (74-99); Lipase 70 U/L (23-300); Potassium 4.1 mmol/L (3.5-5.1); Sodium 140 mmol/L (137-145)
[2018-06-24 14:04] LABS: INR 0.9 (<1.2); Partial Thromboplastin Time 24.3 sec (22.0-30.0); Prothrombin Time 9.7 sec (9.0-12.0)
[2018-06-24 14:12] LABS: Creatine Kinase 35 U/L (30-135)
[2018-06-24 14:26] LABS: Troponin I <0.012 ng/mL (0.000-0.034)
[2018-06-24 14:30] LABS: D-Dimer 5.1 mg/L FEU (<0.60)
--- NOTE | 2018-06-24 15:36 | CT ---
EXAMINATION TYPE: CT angio chest DATE OF EXAM: 06/24/2018 3:20 PM COMPARISON: 06/12 HISTORY: RUQ pain CT DLP: 818.8 mGycm Automated exposure control for dose reduction was used. CONTRAST: CTA scan of the thorax is performed with IV Contrast, patient injected with 100 mL of Isovue 370, pul monary embolism protocol. FINDINGS: LUNGS: There is a 1 mm pleural-based nodule right upper lobe axial image 35. There is an area of allison pheral consolidation and nodular density involving the right upper lobe laterally. Additional area wi thin the right lower lobe pleural-based consolidation. Posterior there subsegmental consolidation. No pneumothorax. MEDIASTINUM: There is suboptimal enhancement pulmonary arteries. However, there are filling defects w ithin the right upper lobe and there is nonfilling of right lower lobe pulmonary arterial branches. T his is in the distribution of the area of multifocal consolidation compatible with acute pulmonary em bolism with suspected pulmonary infarction. Within the left upper lobe there also appears to be a filling defect suggestive of acute pulmonary em bolism. Nonfilling of 2 lower lobe segmental branches are also noted which are suspected cirrhosis fo r additional areas of pulmonary emboli. Atherosclerotic change of the aorta. The right ventricle the left ventricle ratio is greater than 1 c orrelate for RV strain.. OTHER: Hypertrophic and degenerative change of the spine noted. IMPRESSION: 1. Suboptimal enhancement pulmonary arteries. However, there is evidence of bilateral acute pulmonary embolism. There are multifocal areas of peripheral based consolidation for which pulmonary infarctio n is favored over pneumonia correlate clinically. 2. Correlate for right ventricular strain.
[2018-06-24] MEDS ORDERED: HEPARIN SODIUM,PORCINE 5,000 UNIT/ML 1 ML VIAL IV PRN (16:56)
[2018-06-24] MEDS ORDERED: HEPARIN SODIUM,PORCINE 10,000 UNIT/ML 1 ML VIAL IV ONE (16:56)
[2018-06-24] MEDS ORDERED: HEPARIN SOD,PORK IN 0.45% NACL 25,000 UNIT in 0.45% NACL 1 250ML.BAG IV SCH (17:00)
[2018-06-24] MEDS ORDERED: HYDROmorphone 0.5 MG/0.5 ML SYRINGE IVP STA ×2 (18:55→20:40)
[2018-06-24 20:44] VITALS: BP 122/62; PULSE 68; RESP 22
== END 2018-06-24 20:52 | disposition other institution (70) ==
LOC: EC 12:19
DX: I26.99 Other pulmonary embolism without acute cor pulmonale (principal); E03.9 Hypothyroidism, unspecified; E78.5 Hyperlipidemia, unspecified; F32.9 Major depressive disorder, single episode, unspecified; G47.33 Obstructive sleep apnea (adult) (pediatric); I10 Essential (primary) hypertension; F41.9 Anxiety disorder, unspecified; G89.29 Other chronic pain; I25.119 Atherosclerotic heart disease of native coronary artery with unspecified angina pectoris; I25.2 Old myocardial infarction; F17.200 Nicotine dependence, unspecified, uncomplicated; Z79.82 Long term (current) use of aspirin; Z79.899 Other long term (current) drug therapy; Z88.1 Allergy status to other antibiotic agents; Z88.2 Allergy status to sulfonamides; Z91.048 Other nonmedicinal substance allergy status; Z91.013 Allergy to seafood; Z88.6 Allergy status to analgesic agent; Z82.49 Family history of ischemic heart disease and other diseases of the circulatory system; Z95.818 Presence of other cardiac implants and grafts; Z96.652 Presence of left artificial knee joint; Z98.890 Other specified postprocedural states
CPT/HCPCS: 99291; 96365; 96366; 96374; 96375; 96376 ×2; 36415; 93005; 85379; 80053; 82150; 82550; 82553; 83690; 83735; 84484; 85025; 85610; 85730; 71046; 71275; J2060; J1644 ×2; J1170 ×2; Q9967

== ENCOUNTER 2018-12-10 16:20 | Emergency (ER) | payer MEDICARE ==
[2018-12-10] MEDS ORDERED: SODIUM CHLORIDE 0.9% 1,000 ML IV STA (16:43)
[2018-12-10 16:55] LABS: Basophils # (A) 0.1 k/uL (0-0.2); Basophils % (A) 1 %; Eosinophils # (A) 0.4 k/uL (0-0.7); Eosinophils % (A) 5 %; HCT 44.1 % (34.0-46.0); HGB 14.9 gm/dL (11.4-16.0); Lymphocytes # (A) 2.2 k/uL (1.0-4.8); Lymphocytes % (A) 27 %; MCH 30.4 pg (25.0-35.0); MCHC 33.8 g/dL (31.0-37.0); Mean Platelet Volume 7.3; Monocytes # (A) 0.4 k/uL (0-1.0); Monocytes % (A) 4 %; Neutrophils % (A) 62 %; Platelet Count 197 k/uL (150-450); RDW 15.1 % (11.5-15.5); WBC 8.1 k/uL (3.8-10.6)
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
[2018-12-10 17:04] LABS: Albumin 4.3 g/dL (3.5-5.0); Calcium 9.6 mg/dL (8.4-10.2); Potassium 3.6 mmol/L (3.5-5.1); Total Bilirubin 0.5 mg/dL (0.2-1.3); Total Protein 6.9 g/dL (6.3-8.2)
[2018-12-10 17:07] LABS: INR 0.9 (<1.2); Partial Thromboplastin Time 26.8 sec (22.0-30.0); Prothrombin Time 9.8 sec (9.0-12.0)
--- NOTE | 2018-12-10 17:35 | XR ---
EXAMINATION TYPE: XR abdomen 1V DATE OF EXAM: 12/10/2018 COMPARISON: NONE HISTORY: Chest pain TECHNIQUE: 2 views upright FINDINGS: There is no sign of intestinal obstruction or pneumoperitoneum. Fecal pattern is normal. Th ere are no pathologic calcifications over the kidneys. Lung bases are clear. IMPRESSION: Nonacute abdomen.
--- NOTE | 2018-12-10 17:36 | XR ---
EXAMINATION TYPE: XR chest 1V portable DATE OF EXAM: 12/10/2018 COMPARISON: 06/24/2018 HISTORY: Chest pain TECHNIQUE: Single frontal view of the chest is obtained. FINDINGS: Heart and mediastinum are normal. Lungs are clear. Diaphragm is normal. There are chest le ads. Bony thorax is intact. IMPRESSION: Normal chest. No change.
[2018-12-10 17:44] VITALS: RESP 18
[2018-12-10] MEDS ORDERED: MORPHINE SULFATE 4 MG/ML SYRINGE IVP STA (17:45)
--- NOTE | 2018-12-10 18:00 | CT ---
EXAMINATION TYPE: CT angio chest DATE OF EXAM: 12/10/2018 5:46 PM COMPARISON: 06/24/2018 HISTORY: chest pain. PE vs Dissection CT DLP: 862.3 mGycm Automated exposure control for dose reduction was used. CONTRAST: CTA scan of the thorax is performed with IV Contrast, patient injected with 100 mL of Isovue 370, pul monary embolism protocol. There are 3-D post processed images.. FINDINGS: There is mild coarsening of the pulmonary interstitial markings bilaterally. Thoracic aorta shows no aneurysm or dissection. There is no mediastinal adenopathy. There are no hilar masses. The pulmonary arteries show no filling defects. Heart appears mildly enlarged with no pericardial effusion. Upper a bdominal soft tissues are intact. There is some spurring in the thoracic spine. I see no bony destruc tive process. IMPRESSION: CARDIOMEGALY. NO EVIDENCE OF PULMONARY EMBOLISM. MILD PULMONARY INTERSTITIAL INFILTRATES ARE INCREASE D COMPARED TO OLD EXAM. THERE IS CLEARING OF SOME 3 CM AREA OF AIRSPACE CONSOLIDATION IN THE LATERAL RIGHT MIDLUNG COMPARED TO OLD EXAM. THERE IS CLEARING OF PLEURAL THICKENING AT THE RIGHT POSTERIOR [place] NG BASE COMPARED TO OLD EXAM. THERE IS CLEARING OF THE BILATERAL PULMONARY EMBOLI COMPARED TO OLD EXA M.
[2018-12-10] MEDS ORDERED: POLYETHYLENE GLYCOL 3350 17 GM POWD.PACK PO STA (18:16)
[2018-12-10] MEDS ORDERED: fentaNYL (PF) 50 MCG/ML 2 ML AMP IVP STA (18:24)
[2018-12-10] MEDS ORDERED: DIAZEPAM 5 MG/ML 2 ML INJ IVP STA (18:25)
[2018-12-10 19:04] VITALS: BP 127/72; PULSE 71
[2018-12-10 19:33] VITALS: TEMP 98.4
== END 2018-12-10 19:32 | disposition home or self-care (01) ==
LOC: EC 16:20
DX: R07.1 Chest pain on breathing (principal); I10 Essential (primary) hypertension; I25.2 Old myocardial infarction; E03.9 Hypothyroidism, unspecified; G43.909 Migraine, unspecified, not intractable, without status migrainosus; F41.9 Anxiety disorder, unspecified; F32.9 Major depressive disorder, single episode, unspecified; F17.200 Nicotine dependence, unspecified, uncomplicated; G47.33 Obstructive sleep apnea (adult) (pediatric); Z99.89 Dependence on other enabling machines and devices; Z95.818 Presence of other cardiac implants and grafts; Z96.652 Presence of left artificial knee joint; Z82.49 Family history of ischemic heart disease and other diseases of the circulatory system; Z86.711 Personal history of pulmonary embolism; Z79.890 Hormone replacement therapy; Z79.01 Long term (current) use of anticoagulants; Z79.899 Other long term (current) drug therapy; Z91.048 Other nonmedicinal substance allergy status; Z88.1 Allergy status to other antibiotic agents; Z91.013 Allergy to seafood; Z88.6 Allergy status to analgesic agent; Z88.2 Allergy status to sulfonamides
CPT/HCPCS: 36415; 93005; 80053; 83690; 83735; 84484; 85025; 85610; 85730; 71045; 74018; 71275; 99285; 96374; 96375 ×2; 96361 ×2; J2270; J3360; J3010; Q9967

== ENCOUNTER 2019-07-31 08:14 | Day surgery (SDC) | payer MEDICARE, BC ==
[2019-07-30 09:37] VITALS: BMI 48.4
[~2019-07-31 08:14] MED LIST changes: -ACETAMINOPHEN TAB 500 MG TAB PO ONE; +ALPRAZolam 0.25 MG TAB PO PRN; +ALPRAZolam 0.5 MG TAB PO PRN; +ASPIRIN 81 MG PO ONE; -DEXAMETHASONE SOD PHOSPHATE 10 MG/ML 1 ML VIAL IV ONE; -LIDOCAINE 1% 20 ML VIAL (10MG/ML) FOR IV START INTRADERMA PRN; -MELOXICAM 7.5 MG TAB PO ONE; -MIDAZOLAM 2 MG/2 ML VIAL IV PRN; -ONDANSETRON 4 MG/2 ML VIAL IVP ONE; -ROPIVACAINE 246.25 MG, EPINEPHrine 0.5 MG, KETOROLAC 30 MG, cloNIDine HCL/PF 80 MCG, WA... MISCELLANE ONE; -SCOPOLAMINE 1.5MG/72HR PATCH TRANSDERM ONE; -TRANEXAMIC ACID 1,000 MG in SODIUM CHLORIDE 0.9% 50 ML IVPB ONE
[2019-07-31 09:42] LABS: Basophils % (A) 0 %; Eosinophils # (A) 0.4 k/uL (0-0.7); Eosinophils % (A) 5 %; HCT 47.9 % (34.0-46.0); HGB 15.9 gm/dL (11.4-16.0); Lymphocytes # (A) 1.6 k/uL (1.0-4.8); Lymphocytes % (A) 23 %; MCH 31.3 pg (25.0-35.0); MCHC 33.2 g/dL (31.0-37.0); Mean Platelet Volume 7.7; Monocytes # (A) 0.3 k/uL (0-1.0); Monocytes % (A) 4 %; Neutrophils # (A) 4.7 k/uL (1.3-7.7); Neutrophils % (A) 65 %; Platelet Count 159 k/uL (150-450); RBC 5.09 m/uL (3.80-5.40); RDW 13.3 % (11.5-15.5); WBC 7.1 k/uL (3.8-10.6)
[2019-07-31 09:52] LABS: Calcium 9.4 mg/dL (8.4-10.2); Potassium 4.3 mmol/L (3.5-5.1)
[2019-07-31] MEDS ORDERED: SODIUM CHLORIDE 0.9% 1,000 ML IV ONE (10:30)
[2019-07-31] MEDS ORDERED: MIDAZOLAM 2 MG/2 ML VIAL IV ONE (10:47)
[2019-07-31] MEDS ORDERED: LIDOCAINE 1% INJ 10MG/ML (20 ML MDV) SQ ONE (10:48)
[2019-07-31] MEDS ORDERED: HYDROmorphone 1 MG/ML 1 ML SYRINGE IVP ONE (10:53)
[2019-07-31] MEDS ORDERED: HEPARIN SODIUM 1,000 UN/ML (10ML VL) IV ONE (10:58)
[2019-07-31] MEDS ORDERED: IOPAMIDOL-370 50ML BTL INJ ONE (11:15)
[2019-07-31] MEDS ORDERED: CLOPIDOGREL 75 MG TAB PO ONE (11:27)
[2019-07-31] MEDS ORDERED: SODIUM CHLORIDE 0.9% 1,000 ML IV SCH (11:30)
--- NOTE | 2019-07-31 11:39 | P.PCN ---
Date of Procedure: 07/31/19 Operative Findings: PERCUTANEOUS CLOSURE OF PFO PERFORMING PHYSICIAN: Jony Hodge MD. PROCEDURE PERFORMED: 1. Intracardiac echocardiogram imaging. 2. Successful percutaneous closure of patent foramen ovale using 25 mm Amplatzer PFO occluder with an excellent results and without any residual shunt. 3. Right atrial angiogram. INDICATION: This is a 64-year-old female patient who sees Dr. Polk as an outpatient who was diagnosed recently with TIA and underwent a ODETTE which revealed patent foramen ovale with evidence of [id number] shunt. Because of that, she was scheduled to undergo a PFO closure. APPROACH: Right common femoral vein. COMPLICATION: None. LEVEL OF SEDATION: Moderate with sedation length of 20 minutes. PROCEDURE DESCRIPTION: After obtaining informed consent, the patient was brought to the cardiac labor contract analyst. The right common femoral vein was cannulated x2 using micropuncture technique under ultrasound guidance, the micropuncture wire passed easily, then I placed two 8- [place] sheath in the right groin. At that point, anticoagulation was initiated using heparin and [place] [address] units of heparin IV with continuous ACT monitoring throughout the procedure. After that, the intracardiac echocardiogram probe was advanced through one of the venous sheath all the way to the right atrium where we did interrogate the i nteratrial septum and identified the patent foramen ovale which was measured about 25 mm. Subsequently, I did cross the patent foramen ovale using 0.035 J-wire with the backup support of multipurpose catheter. The wire was advanced all the way to the left upper pulmonary vein and subsequently the catheter was advanced over the wire to the left upper pulmonary vein. The 0.035 J-wire was pulled out and then I advanced a jose rafael wire. Subsequently, the multipurpose catheter was withdrawn out and the wire was left in the left upper pulmonary vein. After that, I did prep the Amplatzer PFO occluder under saline. The device was loaded into the cement railroad car loader, which was attached to the sheath. Subsequently, I did exchange my 8-[place] sheath into the Shuttle sheath over a 0.035 jose rafael wire. The sheath was advanced all the way under fluoroscopy guidance to the left atrium. Subsequently, the dilator of the sheath was withdrawn out along with the wire. After that, I did load the Amplatzer PFO occluder under continuous saline flush to the sheath. The device was advanced all the way through the sheath were I did where I did deploy initially the left atrial occluder and then I pulled back the sheath and the left atrial occluder all the way to the interatrial septum and then I deployed the right atrial occluder after that. Before I released the device, I did interrogate the septum using ice images on multiple views. After I realized that the device was stable enough and in good position the device was released. Interrogation using ice was also performed after the device was released. By the end I did right atrial angiogram. The procedure was completed without any complication. POSTPROCEDURE MANAGEMENT: 1. Dual anti-platelet therapy for 1 month. 2. Aspirin for 6 months. 3. An echo in 24 hours, in 1 week, in 4 weeks, as well as in 6 months. 5. Follow up with Dr. Polk
[2019-07-31 14:22] VITALS: RESP 20
[2019-07-31] MEDS: TOPIRAMATE 25 MG TAB PO SCH (17:34)
[2019-07-31] MEDS: SERTRALINE 100 MG TAB PO SCH (17:34)
[2019-08-01] MEDS ORDERED: LEVOTHYROXINE 88 MCG TAB PO SCH (06:30)
--- NOTE | 2019-08-01 07:32 | XR ---
EXAMINATION TYPE: XR chest 2V DATE OF EXAM: 08/01/2019 COMPARISON: Chest x-ray and CT chest December 10, 2018. HISTORY: ASD placement. TECHNIQUE: Frontal and lateral views of the chest are obtained. FINDINGS: There is chronic parenchymal changes without new suspicious focal air space opacity, pleur al effusion, or pneumothorax seen. The cardiac silhouette size is stable and mildly enlarged. Late ral view shows new cardiac closure device. The osseous structures are intact. IMPRESSION: Chronic changes and mild cardiomegaly without acute pulmonary process.
[2019-08-01] MEDS ORDERED: ATORVASTATIN 40 MG TAB PO SCH (09:00)
[2019-08-01] MEDS ORDERED: AST PO SCH (09:00)
[2019-08-01] MEDS ORDERED: ASPIRIN 325 MG TAB PO SCH (09:00)
[2019-08-01] MEDS ORDERED: EPA PO SCH (09:00)
[2019-08-01] MEDS ORDERED: FUROSEMIDE 40 MG TAB PO SCH (09:00)
[2019-08-01] MEDS ORDERED: KRILL PO SCH (09:00)
[2019-08-01] MEDS ORDERED: MULTIVITAMINS, THERA 1 EACH TAB PO SCH (09:00)
[2019-08-01] MEDS ORDERED: POTASSIUM CHLORIDE ER 10 MEQ TAB.ER.PRT PO SCH (09:00)
[2019-08-01] MEDS ORDERED: CLOPIDOGREL 75 MG TAB PO SCH (09:00)
[2019-08-01] MEDS ORDERED: ASPIRIN 81 MG PO SCH (09:00)
[2019-08-01] MEDS ORDERED: [UNRECOGNIZED DRUG - OTHER] PO SCH (09:00)
[2019-08-01] MEDS ORDERED: DHA PO SCH (09:00)
[2019-08-01] MEDS ORDERED: PHOSPHO PO SCH (09:00)
[2019-08-01] MEDS ORDERED: METOPROLOL SUCCINATE (ER) 25 MG TAB.ER.24H PO SCH (09:00)
--- NOTE | 2019-08-01 09:04 | P.DS ---
Providers Date of admission: 2019 Attending physician: Jony Hodge Primary care physician: Dona Hooker [facility] Course: This is a very pleasant 64-year-old female patient who sees Dr. Polk in the office on regular basis who was diagnosed recently with TIA/CVA. Transesophageal echocardiogram was performed and revealed evidence off patent rey ovale was bidirectional shunt and also fenestrated interatrial septum. Because of that, the patient was admitted to the hospital yesterday and underwent successful percutaneous closure of patent foramen ovale using 25 mm Amplatzer PFO occluder with an excellent results and without any residual shunt. The procedure was performed from the right groin. She was seen this morning. She is asymptomatic from a cardiovascular standpoint overview. The right groin is soft without any discrete hematoma but there was tenderness on examination. I am going to obtain an ultrasound to rule out any pseudoaneurysm or fistula. If the ultrasound came in to be unremarkable the patient is going to be discharged home. She is going to be discharged on dual antiplatelet therapy and then she will follow-up with Dr. Polk in the office next week. Plan - Discharge Summary Discharge Rx Participant: Yes New Discharge Prescriptions: New Clopidogrel [Plavix] 75 mg PO DAILY #90 tablet No Action Topiramate [Topamax] 50 mg PO BID-W/MEALS Sertraline [Zoloft] 100 mg PO BID Multivitamins, Thera [Multivitamin (formulary)] 1 tab PO DAILY Atorvastatin [Lipitor] 40 mg PO DAILY #30 tab Furosemide [Lasix] 40 mg PO DAILY Potassium Chloride [Klor-Con 10] 10 meq PO DAILY Levothyroxine Sodium [Synthroid] 88 mcg PO DAILY Krill/Om-3/Dha/Epa/Phospho/Ast [[place]-3 Krill Oil 300 mg Sfgl] 1 cap PO DAILY rOPINIRole HCL [Requip] 2 mg PO 2000 Metoprolol Succinate (ER) [Toprol Xl] 25 mg PO DAILY Aspirin 81 mg PO DAILY Cannabidiol (Cbd) Extract [Epidiolex] 0 mg PO DAILY PRN PRN Reason: Pain Control Discharge Medication List Multivitamins, Thera [Multivitamin (formulary)] 1 tab PO DAILY 03/21/14 [History] Sertraline [Zoloft] 100 mg PO BID 03/21/14 [History] Topiramate [Topamax] 50 mg PO BID-W/MEALS 03/21/14 [History] Atorvastatin [Lipitor] 40 mg PO DAILY #30 tab 03/23/14 [Rx] Furosemide [Lasix] 40 mg PO DAILY 01/12/15 [History] Levothyroxine Sodium [Synthroid] 88 mcg PO DAILY 01/10/16 [History] Potassium Chloride [Klor-Con 10] 10 meq PO DAILY 01/10/16 [History] Krill/Om-3/Dha/Epa/Phospho/Ast [[place]-3 Krill Oil 300 mg Sfgl] 1 cap PO DAILY 07/04/17 [History] rOPINIRole HCL [Requip] 2 mg PO 2000 06/12/18 [History] Metoprolol Succinate (ER) [Toprol Xl] 25 mg PO DAILY 12/10/18 [History] Aspirin 81 mg PO DAILY 07/30/19 [History] Cannabidiol (Cbd) Extract [Epidiolex] 0 mg PO DAILY PRN 07/30/19 [History] Clopidogrel [Plavix] 75 mg PO DAILY #90 tablet 08/01/19 [Rx] Follow up Appointment(s)/Referral(s): Khadar Polk MD [STAFF PHYSICIAN] - 1 Week Jony Hodge MD [STAFF PHYSICIAN] - (Please keep these follow up appointments: 1. August 10, 2019 at 3:45 PM 2. September 01, 2019 at 3:15 PM 3. February 03, 2020 at 2:00 PM 4. August 01, 2020 at 1:15 PM) Activity/Diet/Wound Care/Special Instructions: PFO closure precautions: 1. Support your puncture site by applying firm, steady pressure whenever you cough, laugh, sneeze or bear down to have a bowel movement (2-day restriction). 2. Watch for any excessive bruising, active bleeding, a firm knot forming under your skin, extreme tenderness and signs of infection (redness, swelling, fever). 3. Shower daily, do not soak puncture in a tub bath, jacuzzi, pool, hernández etc. for 1 week. This is to prevent risk of infection. 4. Drink plenty of fluids the day of and day after your procedure to flush contrast dye out of your kidneys. 5. Take all medications as directed. Never stop any new medication without your physicians OK. 6. No driving for 2 days after procedure. 7. 10- pound weight lifting restriction for 1 week. 8. Low sodium/low fat diet. 9. Activity limited until follow up appointment with your towboat pilot. In case of any problems, please call [facility] [place] @ [phone].
[2019-08-01] MEDS: TOPIRAMATE 25 MG TAB PO SCH (09:17)
[2019-08-01] MEDS: SERTRALINE 100 MG TAB PO SCH (09:17)
--- NOTE | 2019-08-01 10:15 | US ---
EXAMINATION TYPE: US lower ext pseudo artery RT DATE OF EXAM: 08/01/2019 COMPARISON: NONE CLINICAL HISTORY: rule out aneurysm. Catherization yesterday, right groin tenderness. EXAM PERFORMED: Grayscale and color Doppler duplex imaging performed of the groin, post cardiac vicente ter to assess for pseudoaneurysm. SIDE PERFORMED: right Color and Waveform Doppler performed to assess for the presence of pseudoaneurysm; Is there ultrasound evidence of a pseudoaneurysm: no Is there evidence of AV shunting: no Is there a fluid collection present: no Scanning of right groin shows patent right common femoral artery and vein. No suspicious connection. No suspicious focal fluid collection. IMPRESSION: No ultrasound evidence for pseudoaneurysm.
[2019-08-01 11:03] VITALS: BP 102/50; TEMP 97.5
[2019-08-01 13:08] VITALS: PULSE 60
--- NOTE | 2019-08-01 16:42 | ECHOF ---
Referral Reason:Post ASD/PFO Insertion MEASUREMENTS -------- HEIGHT: 157.5 cm WEIGHT: 120.7 kg BP: RVIDd: 3.4 cm (< 3.3) IVSd: 1.3 cm (0.6 - 1.1) LVIDd: 4.4 cm (3.9 - 5.3) LVPWd: 1.2 cm (0.6 - 1.1) IVSs: 1.7 cm LVIDs: 3.1 cm LVPWs: 1.6 cm LA Diam: 3.7 cm (2.7 - 3.8) LAESV Index (A-L): 24.12 ml/m Ao Diam: 3.4 cm (2.0 - 3.7) AV Cusp: 2.4 cm (1.5 - 2.6) MV EXCURSION: 22.213 mm (> 18.000) MV EF SLOPE: 77 mm/s (70 - 150) EPSS: 0.9 cm MV E Jett: 1.00 m/s MV DecT: 260 ms MV A Jett: 1.09 m/s MV E/A Ratio: 0.91 RAP: 5.00 mmHg RVSP: 26.36 mmHg FINDINGS -------- Sinus rhythm. This was a technically adequate study. The left ventricular size is normal. There is mild concentric left ventricular hypertrophy. Overa ll left ventricular systolic function is normal with, an EF between 55 - 60 %. The right ventricle is mildly enlarged. Normal LA size by volume 22+/-6 ml/m2. The right atrial size is normal. There is an interatrial closure device in place with evidence of small shunt. The aortic valve is trileaflet, and appears structurally normal. No aortic stenosis or regurgitation. The mitral valve is normal. Mild tricuspid regurgitation present. Right ventricular systolic pressure is normal at < 35 mmHg. Trace/mild (physiologic) pulmonic regurgitation. The aortic root size is normal. IVC Not well visulized. There is no pericardial effusion. CONCLUSIONS -------- 1. Sinus rhythm. 2. This was a technically adequate study. 3. The left ventricular size is normal. 4. There is mild concentric left ventricular hypertrophy. 5. Overall left ventricular systolic function is normal with, an EF between 55 - 60 %. 6. The right ventricle is mildly enlarged. 7. Normal LA size by volume 22+/-6 ml/m2. 8. There is an interatrial closure device in place without evidence of shunt. 9. The aortic valve is trileaflet, and appears structurally normal. No aortic stenosis or regurgitati on. 10. The mitral valve is normal. 11. Mild tricuspid regurgitation present. 12. Right ventricular systolic pressure is normal at < 35 mmHg. 13. Trace/mild (physiologic) pulmonic regurgitation. 14. IVC Not well visulized. 15. There is no pericardial effusion. BLOCK CABLEMAN: Corinne Nava RDCS
== END 2019-08-01 13:35 | disposition home or self-care (01) ==
LOC: CATHCVL 08:14 → 3SCARD 13:05 → CATHCVL 08-01 13:35
PROVIDERS: ATTEND Internal Medicine Interventional Cardiology
DX: Q21.1 Atrial septal defect (principal); I25.10 Atherosclerotic heart disease of native coronary artery without angina pectoris; I10 Essential (primary) hypertension; E78.5 Hyperlipidemia, unspecified; Z72.0 Tobacco use; Z86.73 Personal history of transient ischemic attack (TIA), and cerebral infarction without residual deficits; Z86.711 Personal history of pulmonary embolism; Z79.82 Long term (current) use of aspirin; Z79.890 Hormone replacement therapy; Z79.899 Other long term (current) drug therapy; Z88.6 Allergy status to analgesic agent; Z88.1 Allergy status to other antibiotic agents; Z88.2 Allergy status to sulfonamides; Z88.8 Allergy status to other drugs, medicaments and biological substances
CPT/HCPCS: 93306; 93581; 93662; 86900; 86901; 80048; 85025; 86850; 71046; 93975; 93926; C1759; C1769 ×4; C1894; C1817; J2250; J0690; J2001; J1644; J1170; Q9967; 86920

== ENCOUNTER 2022-06-24 17:58 | Emergency (ER) | payer BC, MEDICARE ==
[2022-06-24 18:03] VITALS: TEMP 97.7
--- NOTE | 2022-06-24 18:12 | ED ---
General Adult HPI - General Chief complaint: Chest Pain Stated complaint: chest pain, SOB Time Seen by Provider: 06/24/22 18:11 Source: patient Mode of arrival: wheelchair Limitations: no limitations - History of Present Illness Initial comments: Patient presents to the ED with her for evaluation. Patient states that she has had left-sided chest pain constantly since last night. She also states that she has had increasing dyspnea and bilateral lower extremity edema for the past couple of days. Patient admits to having a mild, chronic and unchanged cough. Patient denies fever or chills, trauma or injury, neck/arm/jaw/back pain, pleuritic pain, hemoptysis, palpitations, dizziness, nausea/vomiting/diaphoresis, abdominal pain, dysuria or urinary symptoms, decreased urine output, leg or calf pain, or any other symptoms or complaints. - Related Data Home Medications Medication Instructions Recorded Confirmed Multivitamins, Thera [Multivitamin 1 tab PO DAILY 03/21/14 06/24/22 (formulary)] Topiramate [Topamax] 50 mg PO BID-W/MEALS 03/21/14 06/24/22 Furosemide [Lasix] 40 mg PO DAILY 01/12/15 06/24/22 Levothyroxine Sodium [Synthroid] 88 mcg PO DAILY 01/10/16 06/24/22 Potassium Chloride [Klor-Con 10 ER] 10 meq PO DAILY 01/10/16 06/24/22 Metoprolol Succinate (ER) [Toprol 25 mg PO DAILY 12/10/18 06/24/22 Xl] Aspirin 81 mg PO DAILY 07/30/19 06/24/22 Escitalopram Oxalate [Lexapro] 20 mg PO DAILY 06/24/22 06/24/22 Meloxicam [Mobic] 15 mg PO W/SUPPER 06/24/22 06/24/22 Pramipexole [Mirapex] 0.5 mg PO HS 06/24/22 06/24/22 Previous Rx's Medication Instructions Recorded Atorvastatin [Lipitor] 40 mg PO DAILY #30 tab 03/23/14 Allergies Allergy/AdvReac Type Severity Reaction Status Date / Time adhesive Allergy Rash/Hives Verified 06/24/22 19:05 ciprofloxacin [From Cipro] Allergy Rash/Hives Verified 06/24/22 19:05 ciprofloxacin HCl Allergy Rash/Hives Verified 06/24/22 19:05 [From Cipro] Fish Containing Products Allergy Rash/Hives Verified 06/24/22 19:05 [Fish] ibuprofen Allergy Nausea Verified 06/24/22 19:05 Sulfa (Sulfonamide Allergy Rash/Hives Verified 06/24/22 19:05 Antibiotics) sulfamethoxazole Allergy Rash/Hives Verified 06/24/22 19:05 [From Bactrim] trimethoprim [From Bactrim] Allergy Rash/Hives Verified 06/24/22 19:05 raw onion Allergy Chest Pain Uncoded 06/24/22 19:05 Review of Systems ROS Statement: Those systems with pertinent positive or pertinent negative responses have been documented in the HPI. ROS Other: All systems not noted in ROS Statement are negative. Past Medical History Past Medical History: Coronary Artery Disease (CAD), Chest Pain / Angina, CVA/TIA, Hyperlipidemia, Hypertension, Myocardial Infarction (SC), Osteoarthritis (OA), Pulmonary Embolus (PE), Sleep Apnea/CPAP/BIPAP, Thyroid Disorder Additional Past Medical History / Comment(s): chest pain, HTN Other HX: Previous SC x2, ELINA with CPAP, hypothyroid, chronic low back pain (4 ruptured discs), RIGHT AND LEFT LUNG-BLOOD CLOT Last Myocardial Infarction Date:: 2013 History of Any Multi-Drug Resistant Organisms: None Reported Past Surgical History: Appendectomy, Breast Surgery, Cholecystectomy, Heart Catheterization, Hysterectomy, Joint Replacement, Orthopedic Surgery, Tonsillectomy Additional Past Surgical History / Comment(s): 2 cardiac caths-unable to perform intervention, bilateral breast reductions, hysterectomy with bilateral oophorectomy, r hand little finger repair, bilateral wrist carpal tunnel releases, R arm ORIF with 2 plates, L knee arthroscopies x 3, total L knee arthroplasty, Rt knee arthroscopy, bladder suspensions 2 or 3 times, colonoscopy.right arm with plates, total right knee x2 ,trigger finger repaired Past Anesthesia/Blood Transfusion Reactions: No Reported Reaction Past Psychological History: Anxiety, Depression Past Alcohol Use History: Rare Past Drug Use History: None Reported - Past Family History Father Family Medical History: Dementia, Myocardial Infarction (SC) Mother Family Medical History: CVA/TIA, Renal Disease Additional Family Medical History / Comment(s): Mother of kidney failure. Brother(s) Family Medical History: Cancer, CVA/TIA Additional Family Medical History / Comment(s): pancreatic cancer Daughter(s) Family Medical History: Cancer, Pulmonary Embolus Additional Family Medical History / Comment(s): thyroid cancer Sister(s) Family Medical History: Cancer Additional Family Medical History / Comment(s): lymphoma General Exam Limitations: no limitations General appearance: alert, in no apparent distress Head exam: Present: atraumatic, normocephalic Eye exam: Present: normal appearance, EOMI ENT exam: Present: mucous membranes moist Neck exam: Present: other (Trachea is in midline) Respiratory exam: Present: normal lung sounds bilaterally. Absent: respiratory distress, wheezes, rales, rhonchi, stridor, chest wall tenderness Cardiovascular Exam: Present: regular rate, normal rhythm, normal heart sounds, other (Normal radial pulses bilaterally) GI/Abdominal exam: Present: soft, other (Obese abdomen). Absent: tenderness, gu arding Extremities exam: Present: other (1+ bilateral lower extremity pitting edema; negative Homans sign bilaterally). Absent: tenderness, calf tenderness Neurological exam: Present: alert, oriented X3. Absent: motor sensory deficit Psychiatric exam: Present: normal affect, normal mood Skin exam: Present: warm, dry, intact, normal color Course Vital Signs 06/24/22 06/24/22 17:59 18:50 Temperature 97.7 F Pulse Rate 61 58 L Respiratory 20 18 Rate Blood Pressure 168/71 173/81 O2 Sat by Pulse 96 98 Oximetry - Reevaluation(s) Reevaluation #1: 06/24/22 21:38 Patient denies development of any new symptoms while in the ED. Patient remains alert and breathing comfortably with a normal room oxygen saturation. Patient is aware of her test results, and she feels comfortable being discharged home at this time. Patient was counseled about chest pain and dyspnea, and she was clearly explained return and follow-up instructions. Patient was instructed to follow up closely with her primary care provider. Patient feels comfortable with this plan. EKG Findings - EKG Comments: EKG Findings:: ED physician interpretation: Sinus bradycardia, ventricular rate of 53 bpm, no ectopy, normal CT and QRS intervals, normal QT interval, leftward axis, no ST or T-wave abnormality, motion artifact is present Medical Decision Making - Medical Decision Making Was pt. sent in by a medical professional or institution (, PA, FINISHING AND SHIPPING SUPERVISOR, urgent care, hospital, or residential...) When possible be specific @ -[No] Did you speak to anyone other than the patient for history (EMS, parent, family, police, friend...)? What history was obtained from this source @ -[No] Did you review nursing and triage notes (agree or disagree)? Why? @ -[I reviewed and agree with nursing and triage notes] Were old charts reviewed (outside hosp., previous admission, EMS record, old EKG, old radiological studies, urgent care reports/EKG's, residential records)? Report findings @ -[No old charts were reviewed] Differential Diagnosis (chest pain, altered mental status, abdominal pain women, abdominal pain men, vaginal bleeding, weakness, fever, dyspnea, syncope, headache, dizziness, GI bleed, back pain, seizure, CVA, palpatations, mental health)? @ -[Differential Chest Pain: Stable Angina, Unstable Angina, STEMI, NSTEMI Aortic Dissection, Pneumothorax, Musculoskeletal, Esophageal Spasm GERD, CHF, COPD, pleural effusion, edema, this is not meant to be an all-inclusive list. ] EKG interpreted by me (3pts min.). @ -[As above] X-rays interpreted by me (1pt min.). @ -[Negative chest x-ray] CT interpreted by me (1pt min.). @ -No U/S interpreted by me (1pt. min.). @ -[None done] What testing was considered but not performed or refused? (CT, X-rays, U/S, labs)? Why? @ -[None] What meds were considered but not given or refused? Why? @ -[None] Did you discuss the management of the patient with other professionals (professionals i.e. , PA, FINISHING AND SHIPPING SUPERVISOR, lab, RT, psych nurse, social services coordinator, case filler, teacher, alumni relations officer, case management coordinator)? Give summary @ -[No] Was smoking cessation discussed for >3mins.? @ -[No] Was critical care preformed (if so, how long)? @ -[No] Were there social determinants of health that impacted care today? How? (Homelessness, low income, unemployed, alcoholism, drug addiction, transportation, low edu. Level, literacy, decrease access to med. care, prison, rehab)? @ -[No] Was there de-escalation of care discussed even if they declined (Discuss DNR or withdrawal of care, Hospice)? DNR status @ -[No] What co-morbidities impacted this encounter? (DM, HTN, Smoking, COPD, CAD, Cancer, CVA, ARF, Chemo, Hep., AIDS, mental health diagnosis, sleep apnea, morbid obesity)? @ -[Obesity, hypertension] Was patient admitted / discharged? Hospital course, mention meds given and route, prescriptions, significant lab abnormalities, going to OR and other pertinent info. @ -Patient is breathing comfortably in the ED with a normal room air oxygen saturation. Patient's EKG does not show any ST or T-wave abnormality. Patient's CT angiography chest is negative for pulmonary embolism or any other concerning finding. Patient reports having constant chest pain since last night, and her troponin is negative. I do not suspect an emergent medical condition at this time. Will discharge patient home at this time. Patient feels comfortable with this plan. Undiagnosed new problem with uncertain prognosis? @ -[No] Drug Therapy requiring intensive monitoring for toxicity (Heparin, Nitro, Insulin, Cardizem)? @ -[No] Were any procedures done? @ -[No] Diagnosis/symptom? @ -Chest pain Acute, or Chronic, or Acute on Chronic? @ -Acute Uncomplicated (without systemic symptoms) or Complicated (systemic symptoms)? @ -[default] Side effects of treatment? @ -[No] Exacerbation, Progression, or Severe Exacerbation? @ -[No] Poses a threat to life or bodily function? How? (Chest pain, USA, SC, pneumonia, PE, COPD, DKA, ARF, appy, cholecystitis, CVA, Diverticulitis, Homicidal, Suicidal, threat to staff... and all critical care pts) @ -[No] - Lab Data Result diagrams: 06/24/22 18:43 06/24/22 18:43 Lab Results 06/24/22 06/24/22 06/24/22 Range/Units 18:43 18:43 18:43 WBC 8.5 (3.8-10.6) k/uL RBC 4.72 (3.80-5.40) m/uL Hgb 15.3 (11.4-16.0) gm/dL Hct 45.0 (34.0-46.0) % MCV 95.4 (80.0-100.0) fL MCH 32.4 (25.0-35.0) pg MCHC 34.0 (31.0-37.0) g/dL RDW 13.1 (11.5-15.5) % Plt Count 160 (150-450) k/uL MPV 7.9 Neutrophils % 61 % Lymphocytes % 26 % Monocytes % 5 % Eosinophils % 6 % Basophils % 1 % Neutrophils # 5.2 (1.3-7.7) k/uL Lymphocytes # 2.2 (1.0-4.8) k/uL Monocytes # 0.4 (0-1.0) k/uL Eosinophils # 0.5 (0-0.7) k/uL Basophils # 0.1 (0-0.2) k/uL PT 9.5 (9.0-12.0) sec INR 0.9 (<1.2) APTT 23.9 (22.0-30.0) sec D-Dimer 1.28 H (<0.60) mg/L FEU Sodium 142 (137-145) mmol/L Potassium 4.1 (3.5-5.1) mmol/L Chloride 111 H (98-107) mmol/L Carbon Dioxide 25 (22-30) mmol/L Anion Gap 6 mmol/L BUN 20 H (7-17) mg/dL Creatinine 0.76 (0.52-1.04) mg/dL Est GFR (CKD-EPI)AfAm >90 (>60 ml/min/1.73 sqM) Est GFR (CKD-EPI)NonAf 83 (>60 ml/min/1.73 sqM) Glucose 91 (74-99) mg/dL Calcium 9.2 (8.4-10.2) mg/dL Magnesium 2.1 (1.6-2.3) mg/dL Total Bilirubin 0.5 (0.2-1.3) mg/dL AST 27 (14-36) U/L ALT 32 (4-34) U/L Alkaline Phosphatase 112 (38-126) U/L Troponin I (0.000-0.034) ng/mL NT-Pro-B Natriuret Pep pg/mL Total Protein 6.4 (6.3-8.2) g/dL Albumin 4.0 (3.5-5.0) g/dL 06/24/22 06/24/22 Range/Units 18:43 18:43 WBC (3.8-10.6) k/uL RBC (3.80-5.40) m/uL Hgb (11.4-16.0) gm/dL Hct (34.0-46.0) % MCV (80.0-100.0) fL MCH (25.0-35.0) pg MCHC (31.0-37.0) g/dL RDW (11.5-15.5) % Plt Count (150-450) k/uL MPV Neutrophils % % Lymphocytes % % Monocytes % % Eosinophils % % Basophils % % Neutrophils # (1.3-7.7) k/uL Lymphocytes # (1.0-4.8) k/uL Monocytes # (0-1.0) k/uL Eosinophils # (0-0.7) k/uL Basophils # (0-0.2) k/uL PT (9.0-12.0) sec INR (<1.2) APTT (22.0-30.0) sec D-Dimer (<0.60) mg/L FEU Sodium (137-145) mmol/L Potassium (3.5-5.1) mmol/L Chloride (98-107) mmol/L Carbon Dioxide (22-30) mmol/L Anion Gap mmol/L BUN (7-17) mg/dL Creatinine (0.52-1.04) mg/dL Est GFR (CKD-EPI)AfAm (>60 ml/min/1.73 sqM) Est GFR (CKD-EPI)NonAf (>60 ml/min/1.73 sqM) Glucose (74-99) mg/dL Calcium (8.4-10.2) mg/dL Magnesium (1.6-2.3) mg/dL Total Bilirubin (0.2-1.3) mg/dL AST (14-36) U/L ALT (4-34) U/L Alkaline Phosphatase (38-126) U/L Troponin I <0.012 (0.000-0.034) ng/mL NT-Pro-B Natriuret Pep 172 pg/mL Total Protein (6.3-8.2) g/dL Albumin (3.5-5.0) g/dL - Radiology Data Chest x-ray: Mild cardiomegaly without acute pulmonary process. No significant change from prior. CT angiography chest with IV contrast: 1. No CT evidence for acute pulmonary embolism. 2. Mild scattered linear scarring and/or atelectasis present bilaterally. No suspicious acute pulmonary process. Disposition Clinical Impression: Chest pain Disposition: HOME SELF-CARE Condition: Stable Instructions (If sedation given, give patient instructions): Chest Pain (ED), Dyspnea (ED) Additional Instructions: Return to the ER immediately should you develop new or worsening pain, increased shortness of breath, a fever, feeling dizzy or faint, vomiting, or new or worsening symptoms. Follow up closely with your primary care provider. Is patient prescribed a controlled substance at d/c from ED?: No Referrals: Dona Roldan DO [Primary Care Provider] - 1-2 days Time of Disposition: 21:44
[2022-06-24 18:54] LABS: Basophils # (A) 0.1 k/uL (0-0.2); Basophils % (A) 1 %; Eosinophils # (A) 0.5 k/uL (0-0.7); Eosinophils % (A) 6 %; HGB 15.3 gm/dL (11.4-16.0); Lymphocytes # (A) 2.2 k/uL (1.0-4.8); Lymphocytes % (A) 26 %; MCH 32.4 pg (25.0-35.0); MCV 95.4 fL (80.0-100.0); Mean Platelet Volume 7.9; Monocytes # (A) 0.4 k/uL (0-1.0); Monocytes % (A) 5 %; Neutrophils # (A) 5.2 k/uL (1.3-7.7); Neutrophils % (A) 61 %; Platelet Count 160 k/uL (150-450); RBC 4.72 m/uL (3.80-5.40); RDW 13.1 % (11.5-15.5); WBC 8.5 k/uL (3.8-10.6)
[2022-06-24 19:03] LABS: ALT 32 U/L (4-34); AST 27 U/L (14-36); African American GFR (CKD) >90 (>60 ml/min/1.73 sqM); Alkaline Phosphatase 112 U/L (38-126); Anion Gap 6 mmol/L; Blood Urea Nitrogen 20 mg/dL (7-17); Calcium 9.2 mg/dL (8.4-10.2); Carbon Dioxide 25 mmol/L (22-30); Chloride 111 mmol/L (98-107); Glucose 91 mg/dL (74-99); Magnesium 2.1 mg/dL (1.6-2.3); Non-African American GFR(CKD) 83 (>60 ml/min/1.73 sqM); Sodium 142 mmol/L (137-145); Total Bilirubin 0.5 mg/dL (0.2-1.3); Total Protein 6.4 g/dL (6.3-8.2)
[2022-06-24 19:10] LABS: INR 0.9 (<1.2); Partial Thromboplastin Time 23.9 sec (22.0-30.0); Prothrombin Time 9.5 sec (9.0-12.0)
[2022-06-24 19:14] LABS: Potassium 4.1 mmol/L (3.5-5.1)
[2022-06-24] MEDS ORDERED: SODIUM CHLORIDE 0.9% 500 ML 500 ML IV ONE (19:32)
--- NOTE | 2022-06-24 20:53 | XR ---
EXAMINATION TYPE: XR chest 2V DATE OF EXAM: 06/24/2022 COMPARISON: Chest x-ray August 01, 2019 HISTORY: Chest pain. TECHNIQUE: Frontal and lateral views of the chest are obtained. FINDINGS: There is no suspicious new focal air space opacity, pleural effusion, or pneumothorax seen . The cardiac silhouette size is stable and mildly enlarged. Septal closure device redemonstrated on lateral view. The osseous structures are intact. IMPRESSION: Mild cardiomegaly without acute pulmonary process. No significant change from prior.
--- NOTE | 2022-06-24 21:23 | CT ---
EXAMINATION TYPE: CT chest angio for PE DATE OF EXAM: 06/24/2022 COMPARISON: Prior CT chest June 12, 2018 HISTORY: chest pain, dyspnea, and elevated d-dimer CT DLP: 819.2 mGycm. Automated Exposure Control for Dose Reduction was Utilized. CONTRAST: CTA scan of the thorax is performed with IV Contrast, patient injected with 100 mL of Isovue 370, pul monary embolism protocol. MIP Images are created on CT scanner and reviewed. FINDINGS: LUNGS: Slightly suboptimal as patient has difficulty holding breath. Low lung volumes with mild scatt ered linear scarring and/or atelectasis is present bilaterally. No suspicious focal consolidation. No pleural effusion or pneumothorax seen bilaterally. MEDIASTINUM: There is satisfactory enhancement of the pulmonary artery and its branches, there is no CT evidence for pulmonary embolism. Enlarged main pulmonary artery 3.5 cm consistent with underlying pulmonary artery hypertension. There are no greater than 1 cm hilar or mediastinal lymph nodes. Hear t size upper limits of normal. No pericardial effusion is seen. OTHER: Multilevel spurring in the thoracic spine. Coronary artery calcification is present. IMPRESSION: 1. No CT evidence for acute pulmonary embolism. 2. Mild scattered linear scarring and/or atelectasis present bilaterally. No suspicious acute pulmona ry process.
[2022-06-24 21:54] VITALS: BP 141/75; PULSE 86; RESP 15
== END 2022-06-24 21:54 | disposition home or self-care (01) ==
LOC: EC 17:58
DX: R07.89 Other chest pain (principal); I10 Essential (primary) hypertension; I25.10 Atherosclerotic heart disease of native coronary artery without angina pectoris; I25.2 Old myocardial infarction; G47.30 Sleep apnea, unspecified; M19.90 Unspecified osteoarthritis, unspecified site; E03.9 Hypothyroidism, unspecified; Z86.711 Personal history of pulmonary embolism; Z86.73 Personal history of transient ischemic attack (TIA), and cerebral infarction without residual deficits; Z79.1 Long term (current) use of non-steroidal anti-inflammatories (NSAID); Z79.890 Hormone replacement therapy; Z79.82 Long term (current) use of aspirin; Z79.899 Other long term (current) drug therapy; Z91.048 Other nonmedicinal substance allergy status; Z91.013 Allergy to seafood; Z88.2 Allergy status to sulfonamides; Z88.1 Allergy status to other antibiotic agents; Z88.6 Allergy status to analgesic agent; Z88.8 Allergy status to other drugs, medicaments and biological substances; Z90.49 Acquired absence of other specified parts of digestive tract
CPT/HCPCS: 36415; 93005; 85379; 83880; 80053; 83735; 84484; 85025; 85610; 85730; 71046; 71275; 99285; 96360; 96361; Q9967

== ENCOUNTER 2023-02-04 09:17 | Observation (INO) | payer MEDICARE ==
[2023-02-04] MEDS ORDERED: NITROGLYCERIN OINT 1 INCH/GM PACKET TOPICAL STA (09:45)
[2023-02-04] MEDS ORDERED: ASPIRIN 81 MG PO STA (09:45)
--- NOTE | 2023-02-04 09:58 | ED ---
General Adult HPI - General Chief complaint: Chest Pain Stated complaint: Chest Pain Time Seen by Provider: 02/04/23 09:25 Source: patient, RN notes reviewed, old records reviewed Mode of arrival: wheelchair Limitations: no limitations - History of Present Illness Initial comments: This is a 68-year-old female who presents emergency department she states she has a past medical history of 2 previous heart attacks and history of high blood pressure. Patient comes in today because on she started having just a little bit of anterior lower chest pain with some shortness of breath and she states that pain radiates to the back. Patient states since then the pain is gotten worse and more intense shortness of breath also is gotten worse. Patient denies any fever chills or cough per patient denies reproducible pain. Patient denies any rashes or redness. Patient denies any lightheadedness or dizziness. Patient denies any abdominal pain patient denies nausea vomiting - Related Data Home Medications Medication Instructions Recorded Confirmed Multivitamins, Thera [Multivitamin 1 tab PO DAILY 03/21/14 02/04/23 (formulary)] Topiramate [Topamax] 50 mg PO BID 03/21/14 02/04/23 Furosemide [Lasix] 40 mg PO DAILY 01/12/15 02/04/23 Levothyroxine Sodium [Synthroid] 88 mcg PO DAILY 01/10/16 02/04/23 Potassium Chloride [Klor-Con 10 ER] 10 meq PO DAILY 01/10/16 02/04/23 Metoprolol Succinate (ER) [Toprol 25 mg PO DAILY 12/10/18 02/04/23 Xl] Pramipexole [Mirapex] 0.5 mg PO HS 06/24/22 02/04/23 FLUoxetine HCL [PROzac] 20 mg PO DAILY 07/15/22 02/04/23 Aspirin [Adult Low Dose Aspirin EC] 81 mg PO DAILY 02/04/23 02/04/23 Furosemide [Lasix] 20 mg PO DAILY@1400 02/04/23 02/04/23 traZODone HCL 100 mg PO HS 02/04/23 02/04/23 Previous Rx's Medication Instructions Recorded Atorvastatin [Lipitor] 40 mg PO DAILY #30 tab 03/23/14 Allergies Allergy/AdvReac Type Severity Reaction Status Date / Time adhesive Allergy Rash/Hives Verified 09/11/23 11:15 ciprofloxacin [From Cipro] Allergy Rash/Hives Verified 02/04/23 11:15 ciprofloxacin HCl Allergy Rash/Hives Verified 02/04/23 11:15 [From Cipro] Fish Containing Products Allergy Rash/Hives Verified 02/04/23 11:15 [Fish] Sulfa (Sulfonamide Allergy Rash/Hives Verified 02/04/23 11:15 Antibiotics) sulfamethoxazole Allergy Rash/Hives Verified 02/04/23 11:15 [From Bactrim] trimethoprim [From Bactrim] Allergy Rash/Hives Verified 02/04/23 11:15 ibuprofen AdvReac Nausea Verified 02/04/23 11:15 raw onion AdvReac Chest Pain Uncoded 02/04/23 11:15 Review of Systems ROS Statement: Those systems with pertinent positive or pertinent negative responses have been documented in the HPI. ROS Other: All systems not noted in ROS Statement are negative. Past Medical History Past Medical History: Coronary Artery Disease (CAD), Chest Pain / Angina, CVA/TIA, Hyperlipidemia, Hypertension, Myocardial Infarction ([place]), Ost eoarthritis (OA), Pulmonary Embolus (PE), Sleep Apnea/CPAP/BIPAP, Thyroid Disorder Additional Past Medical History / Comment(s): chest pain, HTN Other HX: Previous [place] x2, ELINA with CPAP, hypothyroid, chronic low back pain (4 ruptured discs), RIGHT AND LEFT LUNG-BLOOD CLOT Last Myocardial Infarction Date:: 2013 History of Any Multi-Drug Resistant Organisms: None Reported Past Surgical History: Appendectomy, Breast Surgery, Cholecystectomy, Heart Catheterization, Hysterectomy, Joint Replacement, Orthopedic Surgery, Tonsillectomy Additional Past Surgical History / Comment(s): 2 cardiac caths-unable to perform intervention, bilateral breast reductions, hysterectomy with bilateral oophorectomy, r hand little finger repair, bilateral wrist carpal tunnel releases, R arm ORIF with 2 plates, L knee arthroscopies x 3, total L knee arthroplasty, Rt knee arthroscopy, bladder suspensions 2 or 3 times, colonoscopy.right arm with plates, total right knee x2 ,trigger finger repaired Past Anesthesia/Blood Transfusion Reactions: No Reported Reaction Past Psychological History: Anxiety, Depression Smoking Status: Current every day smoker Past Alcohol Use History: Rare Past Drug Use History: None Reported - Past Family History Father Family Medical History: Dementia, Myocardial Infarction ([place]) Mother Family Medical History: CVA/TIA, Renal Disease Additional Family Medical History / Comment(s): Mother of kidney failure. Brother(s) Family Medical History: Cancer, CVA/TIA Additional Family Medical History / Comment(s): pancreatic cancer Daughter(s) Family Medical History: Cancer, Pulmonary Embolus Additional Family Medical History / Comment(s): thyroid cancer Sister(s) Family Medical History: Cancer Additional Family Medical History / Comment(s): lymphoma General Exam - General Exam Comments Initial Comments: GENERAL: Patient is well-developed and well-nourished. Patient is nontoxic and well- hydrated and is in mild distress. ENT: Neck is soft and supple. No significant lymphadenopathy is noted. Oropharynx is clear. Moist mucous membranes. Neck has full range of motion without eliciting any pain. EYES: The sclera were anicteric and conjunctiva were pink and moist. Extraocular movements were intact and pupils were equal round and reactive to light. Eyelids were unremarkable. PULMONARY: Unlabored respirations. Good breath sounds bilaterally. No audible rales rhonc hi or wheezing was noted. CARDIOVASCULAR: There is a regular rate and rhythm without any murmurs gallops or rubs. ABDOMEN: Soft and nontender with normal bowel sounds. SKIN: Skin is clear with no lesions or rashes and otherwise unremarkable. NEUROLOGIC: Patient is alert and oriented x3. Cranial nerves II through XII are grossly intact. Motor and sensory are also intact. Normal speech, volume and content. Symmetrical smile. MUSCULOSKELETAL: Normal extremities with adequate strength and full range of motion. No lower extremity swelling or edema. No calf tenderness. LYMPHATICS: No significant lymphadenopathy is noted PSYCHIATRIC: Normal psychiatric evaluation. Limitations: no limitations Course Vital Signs 02/04/23 02/04/23 02/04/23 09:22 09:42 11:15 Temperature 97.3 F L Pulse Rate 63 73 52 L Pulse Rate [ 73 Storage Administrator ] Respiratory 16 20 18 Rate Blood Pressure 154/80 139/77 125/74 O2 Sat by Pulse 98 98 94 L Oximetry Medical Decision Making - Medical Decision Making EKG as interpreted by myself. EKG shows sinus bradycardia 58 bpm ME interval is 99 QRS is 92 QT interval 09/13/1989 QTC is 425. Patient's EKG showselevation or depression Was pt. sent in by a medical professional or institution (Dr., PA, MANAGER PRODUCT MANAGEMENT, urgent care, hospital, or intermediate...) When possible be specific @ -No Did you speak to anyone other than the patient for history (EMS, parent, family, police, friend...)? What history was obtained from this source @ -No Did you review nursing and triage notes (agree or disagree)? Why? @ -I reviewed and agree with nursing and triage notes Were old charts reviewed (outside hosp., previous admission, EMS record, old EKG, old radiological studies, urgent care reports/EKG's, intermediate records)? Report findings @ -Reviewed prior labs and prior radiological studies Differential Diagnosis (chest pain, altered mental status, abdominal pain women, abdominal pain men, vaginal bleeding, weakness, fever, dyspnea, syncope, headache, dizziness, GI bleed, back pain, seizure, CVA, palpatations, mental health, musculoskeletal)? @ -Differential Chest Pain: Stable Angina, Unstable Angina, STEMI, NSTEMI Aortic Dissection, Pneumothorax, Musculoskeletal, Esophageal Spasm GERD, Cholecystitis, Pancreatitis, Zoster, this is not meant to be an all-inclusive list. EKG interpreted by me (3pts min.). @ -As above X-rays interpreted by me (1pt min.). @ -None done CT interpreted by me (1pt min.). @ -None done U/S interpreted by me (1pt. min.). @ -None done What testing was considered but not performed or refused? (CT, X-rays, U/S, labs)? Why? @ -None What meds were considered but not given or refused? Why? @ -None Did you discuss the management of the patient with other professionals (professionals i.e. VALENTIN Byers, MANAGER PRODUCT MANAGEMENT, lab, RT, psych nurse, social studies teacher, mc kay stitcher, teacher, court security officer, case packer)? Give summary @ -I spoke with Dr. Honeycutt agreed to admit the patient admitted the patient wrote admitting orders Was smoking cessation discussed for >3mins.? @ -No Was critical care preformed (if so, how long)? @ -No Were there social determinants of health that impacted care today? How? (Homelessness, low income, unemployed, alcoholism, drug addiction, transportation, low edu. Level, literacy, decrease access to med. care, longterm, rehab)? @ -No Was there de-escalation of care discussed even if they declined (Discuss DNR or withdrawal of care, Hospice)? DNR status @ -No What co-morbidities impacted this encounter? (DM, HTN, Smoking, COPD, CAD, Cancer, CVA, ARF, Chemo, Hep., AIDS, mental health diagnosis, sleep apnea, morbid obesity)? @ -None Was patient admitted / discharged? Hospital course, mention meds given and route, prescriptions, significant lab abnormalities, going to OR and other pertinent info. @ -Patient continued to have chest pain throughout her ED course. Patient was given aspirin and Tylenol and that did not alleviate her pain. I spoke with Dr. Honeycutt after lab work was back in x-rays back which all were normal and he agreed to admit the patient admitted the patient wrote admitting orders and I consult cardiology. Patient also had a urinary tract infection I started the patient on Rocephin. Undiagnosed new problem with uncertain prognosis? @ -No Drug Therapy requiring intensive monitoring for toxicity (Heparin, Nitro, Insulin, Cardizem)? @ -No Were any procedures done? @ -No Diagnosis/symptom? @ -Chest pain Acute, or Chronic, or Acute on Chronic? @ -Acute Uncomplicated (without systemic symptoms) or Complicated (systemic symptoms)? @ -Complicated Side effects of treatment? @ -No Exacerbation, Progression, or Severe Exacerbation? @ -No Poses a threat to life or bodily function? How? (Chest pain, [place], [place], pneumonia, PE, COPD, DKA, ARF, appy, cholecystitis, CVA, Diverticulitis, Homicidal, Suicidal, threat to staff... and all critical care pts) @ -Yes this could lead to an [place] poor perfusion and end organ dysfunction Diagnosis/symptom? @ -Urinary tract infection Acute, or Chronic, or Acute on Chronic? @ -Acute Uncomplicated (without systemic symptoms) or Complicated (systemic symptoms)? @ -Uncomplicated Side effects of treatment? @ -none Exacerbation, Progression, or Severe Exacerbation] @ -no Poses a threat to life or bodily function? @ -no - Lab Data Result diagrams: 02/04/23 09:54 02/04/23 09:54 Lab Results 02/04/23 02/04/23 02/04/23 Range/Units 09:54 09:54 09:54 WBC 8.3 (3.8-10.6) k/uL RBC 5.40 (3.80-5.40) m/uL Hgb 17.7 H (11.4-16.0) gm/dL Hct 52.1 H (34.0-46.0) % MCV 96.5 (80.0-100.0) fL MCH 32.7 (25.0-35.0) pg MCHC 33.9 (31.0-37.0) g/dL RDW 13.6 (11.5-15.5) % Plt Count 157 (150-450) k/uL MPV 8.1 Neutrophils % 69 % Lymphocytes % 18 % Monocytes % 6 % Eosinophils % 5 % Basophils % 0 % Neutrophils # 5.8 (1.3-7.7) k/uL Lymphocytes # 1.5 (1.0-4.8) k/uL Monocytes # 0.5 (0-1.0) k/uL Eosinophils # 0.4 (0-0.7) k/uL Basophils # 0.0 (0-0.2) k/uL PT 9.6 (9.0-12.0) sec INR 0.9 (<1.2) APTT 22.6 (22.0-30.0) sec Sodium 139 (137-145) mmol/L Potassium 4.1 (3.5-5.1) mmol/L Chloride 110 H (98-107) mmol/L Carbon Dioxide 22 (22-30) mmol/L Anion Gap 7 mmol/L BUN 14 (7-17) mg/dL Creatinine 0.89 (0.52-1.04) mg/dL Est GFR (CKD-EPI)AfAm 78 (>60 ml/min/1.73 sqM) Est GFR (CKD-EPI)NonAf 68 (>60 ml/min/1.73 sqM) Glucose 109 H (74-99) mg/dL Calcium 9.5 (8.4-10.2) mg/dL Magnesium 1.9 (1.6-2.3) mg/dL Total Bilirubin 0.8 (0.2-1.3) mg/dL AST 29 (14-36) U/L ALT 27 (4-34) U/L Alkaline Phosphatase 89 (38-126) U/L Troponin I (0.000-0.034) ng/mL Total Protein 6.7 (6.3-8.2) g/dL Albumin 3.8 (3.5-5.0) g/dL Amylase 51 (30-110) U/L Lipase 102 (23-300) U/L Urine Color Urine Appearance (Clear) Urine pH (5.0-8.0) Ur Specific [place] (1.001-1.035) Urine Protein (Negative) Urine Glucose (UA) (Negative) Urine Ketones (Negative) Urine Blood (Negative) Urine Nitrite (Negative) Urine Bilirubin (Negative) Urine Urobilinogen (<2.0) mg/dL Ur Leukocyte Esterase (Negative) Urine RBC (0-5) /hpf Urine WBC (0-5) /hpf Ur Squamous Epith Cells (0-4) /hpf Granular Casts (0) /lpf Urine Mucus (None) /hpf 02/04/23 02/04/23 Range/Units 09:54 09:59 WBC (3.8-10.6) k/uL RBC (3.80-5.40) m/uL Hgb (11.4-16.0) gm/dL Hct (34.0-46.0) % MCV (80.0-100.0) fL MCH (25.0-35.0) pg MCHC (31.0-37.0) g/dL RDW (11.5-15.5) % Plt Count (150-450) k/uL MPV Neutrophils % % Lymphocytes % % Monocytes % % Eosinophils % % Basophils % % Neutrophils # (1.3-7.7) k/uL Lymphocytes # (1.0-4.8) k/uL Monocytes # (0-1.0) k/uL Eosinophils # (0-0.7) k/uL Basophils # (0-0.2) k/uL PT (9.0-12.0) sec INR (<1.2) APTT (22.0-30.0) sec Sodium (137-145) mmol/L Potassium (3.5-5.1) mmol/L Chloride (98-107) mmol/L Carbon Dioxide (22-30) mmol/L Anion Gap mmol/L BUN (7-17) mg/dL Creatinine (0.52-1.04) mg/dL Est GFR (CKD-EPI)AfAm (>60 ml/min/1.73 sqM) Est GFR (CKD-EPI)NonAf (>60 ml/min/1.73 sqM) Glucose (74-99) mg/dL Calcium (8.4-10.2) mg/dL Magnesium (1.6-2.3) mg/dL Total Bilirubin (0.2-1.3) mg/dL AST (14-36) U/L ALT (4-34) U/L Alkaline Phosphatase (38-126) U/L Troponin I <0.012 (0.000-0.034) ng/mL Total Protein (6.3-8.2) g/dL Albumin (3.5-5.0) g/dL Amylase (30-110) U/L Lipase (23-300) U/L Urine Color Yellow Urine Appearance Cloudy H (Clear) Urine pH 5.5 (5.0-8.0) Ur Specific [place] 1.023 (1.001-1.035) Urine Protein 1+ H (Negative) Urine Glucose (UA) Negative (Negative) Urine Ketones Negative (Negative) Urine Blood Small H (Negative) Urine Nitrite Negative (Negative) Urine Bilirubin Negative (Negative) Urine Urobilinogen <2.0 (<2.0) mg/dL Ur Leukocyte Esterase Large H (Negative) Urine RBC 41 H (0-5) /hpf Urine WBC 127 H (0-5) /hpf Ur Squamous Epith Cells 5 H (0-4) /hpf Granular Casts 3 (0) /lpf Urine Mucus Occasional H (None) /hpf Disposition Clinical Impression: Chest pain, Urinary tract infection Disposition: ADMITTED IP TO THIS HOSP Referrals: Dona Roldan DO [Primary Care Provider] - 1-2 days Time of Disposition: 12:53
[2023-02-04 10:16] LABS: Appearance,Urine Cloudy (Clear); Bilirubin,Urine Negative (Negative); Blood,Urine Small (Negative); Color,Urine Yellow; Glucose,Urine (UA) Negative (Negative); Granular Casts,Urine 3 /lpf (0); Ketones,Urine Negative (Negative); Leukocyte Esterase,Urine Large (Negative); Mucus,Urine Occasional /hpf; Nitrite,Urine Negative (Negative); PH, Urine 5.5 (5.0-8.0); Protein,Urine 1+ (Negative); RBC,Urine 41 /hpf (0-5); Specific Gravity,Urine 1.023 (1.001-1.035); Squamous Epithelial Cell,Urine 5 /hpf (0-4); Urobilinogen,Urine <2.0 mg/dL (<2.0); WBC,Urine 127 /hpf (0-5)
[2023-02-04 10:21] LABS: INR 0.9 (<1.2); Partial Thromboplastin Time 22.6 sec (22.0-30.0); Prothrombin Time 9.6 sec (9.0-12.0)
[2023-02-04 10:24] LABS: ALT 27 U/L (4-34); AST 29 U/L (14-36); African American GFR (CKD) 78 (>60 ml/min/1.73 sqM); Albumin 3.8 g/dL (3.5-5.0); Alkaline Phosphatase 89 U/L (38-126); Amylase 51 U/L (30-110); Anion Gap 7 mmol/L; Blood Urea Nitrogen 14 mg/dL (7-17); Calcium 9.5 mg/dL (8.4-10.2); Carbon Dioxide 22 mmol/L (22-30); Chloride 110 mmol/L (98-107); Glucose 109 mg/dL (74-99); Lipase 102 U/L (23-300); Magnesium 1.9 mg/dL (1.6-2.3); Non-African American GFR(CKD) 68 (>60 ml/min/1.73 sqM); Potassium 4.1 mmol/L (3.5-5.1); Sodium 139 mmol/L (137-145); Total Bilirubin 0.8 mg/dL (0.2-1.3); Total Protein 6.7 g/dL (6.3-8.2)
--- NOTE | 2023-02-04 10:42 | XR ---
EXAMINATION TYPE: XR chest 2V DATE OF EXAM: 02/04/2023 COMPARISON: 07/15/2022 HISTORY: Shortness of breath TECHNIQUE: Frontal and lateral views of the chest are obtained. FINDINGS: Scattered senescent parenchymal changes noted. Hyperinflation compatible with COPD. No evidence for infiltrate. No evidence for atelectasis. Heart size is stable. Mediastinal structures are stable and grossly unremarkable. No evidence for hilar prominence. Degenerative changes dorsal spine. IMPRESSION: 1. No evidence for acute pulmonary disease.
[2023-02-04 10:48] LABS: Basophils % (A) 0 %; Eosinophils # (A) 0.4 k/uL (0-0.7); Eosinophils % (A) 5 %; HCT 52.1 % (34.0-46.0); HGB 17.7 gm/dL (11.4-16.0); Lymphocytes # (A) 1.5 k/uL (1.0-4.8); Lymphocytes % (A) 18 %; MCH 32.7 pg (25.0-35.0); MCHC 33.9 g/dL (31.0-37.0); MCV 96.5 fL (80.0-100.0); Mean Platelet Volume 8.1; Monocytes # (A) 0.5 k/uL (0-1.0); Monocytes % (A) 6 %; Neutrophils # (A) 5.8 k/uL (1.3-7.7); Neutrophils % (A) 69 %; Platelet Count 157 k/uL (150-450); RDW 13.6 % (11.5-15.5); WBC 8.3 k/uL (3.8-10.6)
[2023-02-04] MEDS ORDERED: cefTRIAXone IN SWFI 1,000 MG/10 ML SYRINGE IVP STA (11:06)
[2023-02-04] MEDS ORDERED: HYDROmorphone 0.5 MG/0.5 ML SYRINGE IVP STA (11:13)
[2023-02-04] MEDS ORDERED: NITROGLYCERIN SL TABS 0.4 MG TAB SUBLINGUAL PRN (12:56)
--- NOTE | 2023-02-04 14:10 | P.HPIM ---
History of Present Illness H&P Date: 02/04/23 Chief Complaint: Chest pressure Pleasant 68-year-old patient who follows with Dr. Dona Roldan. Follows with patient companion Dr. JEFF Polk. Prior history of PFO occluder. Patient's had a previous cardiac catheterization. Was told she is occluded arteries not for any intervention except for medical management. 2 days ago on Saturday patient felt slight pressure in the right side of the chest. Present most of the day. The next day that is yesterday on Saturday patient increasing chest pressure and she decided to relax most of the day. This morning in the left significant chest pressure in the center of the chest. Also going between the shoulder blades. [place] a bit short of breath and significant only tired. No perspiration or dizziness no lightheadedness. Presented to the ER. Admitted with unstable angina. Initial troponin negative. Patient been also having urinary symptoms including frequency. Slight blood in the urine and dysuria. Patient is chronically low back pain and has been told has a prolapsed bladder. Review of systems: GEN.: Tired EYES: None HEENT: None NECK: None RESPIRATORY: None CARDIOVASCULAR: As above GASTROINTESTINAL: None GENITOURINARY: Prolapsing urinary bladder MUSCULOSKELETAL: Multiple joint pains including lower back LYMPHATICS: None HEMATOLOGICAL: None PSYCHIATRY: None NEUROLOGICAL: None Past medical history to include: CAD as per cardiac catheterization but not for intervention. Medical management. Hyperlipidemia, hypertension, previous [place], osteoarthritis, pulmonary embolism fevers ago. Obstructive sleep apnea with CPAP, hypothyroid anxiety depression Social history: Patient smoked for 29 years 2 2005. Smoke about averaged half a pack packs a day.. Alcohol rarely. Lives with her . Physical examination: VITAL SIGNS: 97.3, 63, 16, 154/80, 98% room air GENERAL: BMI 47.6, declining in bed awake not in distress. EYES: Pupils equal. Conjunctiva normal. HEENT: External appearance of nose and ears normal, oral cavity grossly normal. NECK: JVD unable to assess; masses not palpable. HEART: First and second heart sounds are normal; no edema. LUNGS: Respiratory rate normal; decreased breath sounds. ABDOMEN: Soft, nontender, liver spleen not palpable, no masses palpable. PSYCH: Alert and oriented x3; mood and affect normal. MUSCULOSKELETAL:No Clubbing/cyanosis;muscles-grossly intact. OA NEUROLOGICAL: Cranial nerves grossly intact; no facial asymmetry, power and sensation grossly intact. LYMPHATICS: No lymph nodes palpable in the axilla and neck INVESTIGATIONS, reviewed in the clinical context: White count 8.3 hemoglobin 17.7 platelets 157 sodium 139 potassium 4.1 BUN 14 creatinine 0.89 Troponin I less than 0.0122 UA positive for protein one plus, leukoesterase large, WBC 127 EKG tracing personally reviewed by me-normal sinus rhythm. Nonspecific ST/T- wave changes. Chest x-ray film personally reviewed by me-cardiomegaly. Assessment and plan: -Unstable angina in a patient with known coronary artery disease. Previous cardiac catheterization. Not a candidate for intervention. Does follow with Dr. JEFF Polk from cardiology. -CAD with a prior history of cardiac catheterization showing occluded vessels in the inferior part of the heart as per the patient. Did not have any further intervention. Aspirin. Toprol-XL. Lipitor. -Morbid obesity BMI 47.6 Weight loss measures -Depression otherwise specified Prozac 20 mg a day -Hypothyroid Synthroid 88 g a day -Essential hypertension Toprol-XL 25 mg a day -Restless leg syndrome Mirapex 0.5 mg daily at bedtime -Chronic insomnia Trazodone 100 mg daily at bedtime -Primary osteoarthritis multiple joints Tylenol as needed -Acute UTI with cystitis Received IV ceftriaxone in the ER. Started on Keflex tomorrow. Discussed with the patient. Cardiology consulted. Past Medical History Past Medical History: Coronary Artery Disease (CAD), Chest Pain / Angina, CVA/TIA, Hyperlipidemia, Hypertension, Myocardial Infarction ([place]), Osteoarthritis (OA), Pulmonary Embolus (PE), Sleep Apnea/CPAP/BIPAP, Thyroid Disorder Additional Past Medical History / Comment(s): chest pain, HTN Other HX: Previous [place] x2, ELINA with CPAP, hypothyroid, chronic low back pain (4 ruptured discs), RIGHT AND LEFT LUNG-BLOOD CLOT Last Myocardial Infarction Date:: 2013 History of Any Multi-Drug Resistant Organisms: None Reported Past Surgical History: Appendectomy, Breast Surgery, Cholecystectomy, Heart Catheterization, Hysterectomy, Joint Replacement, Orthopedic Surgery, Tonsillectomy Additional Past Surgical History / Comment(s): 2 cardiac caths-unable to perform intervention, bilateral breast reductions, hysterectomy with bilateral oophorectomy, r hand little finger repair, bilateral wrist carpal tunnel releases, R arm ORIF with 2 plates, L knee arthroscopies x 3, total L knee arthroplasty, Rt knee arthroscopy, bladder suspensions 2 or 3 times, colonosc opy.right arm with plates, total right knee x2 ,trigger finger repaired Past Anesthesia/Blood Transfusion Reactions: No Reported Reaction Past Psychological History: Anxiety, Depression Smoking Status: Current every day smoker Past Alcohol Use History: Rare Past Drug Use History: None Reported - Past Family History Father Family Medical History: Dementia, Myocardial Infarction ([place]) Mother Family Medical History: CVA/TIA, Renal Disease Additional Family Medical History / Comment(s): Mother of kidney failure. Brother(s) Family Medical History: Cancer, CVA/TIA Additional Family Medical History / Comment(s): pancreatic cancer Daughter(s) Family Medical History: Cancer, Pulmonary Embolus Additional Family Medical History / Comment(s): thyroid cancer Sister(s) Family Medical History: Cancer Additional Family Medical History / Comment(s): lymphoma Medications and Allergies Home Medications Medication Instructions Recorded Confirmed Type Multivitamins, Thera [Multivitamin 1 tab PO DAILY 03/21/14 02/04/23 History (formulary)] Topiramate [Topamax] 50 mg PO BID 03/21/14 02/04/23 History Atorvastatin [Lipitor] 40 mg PO DAILY #30 tab 03/23/14 02/04/23 Rx Furosemide [Lasix] 40 mg PO DAILY 01/12/15 02/04/23 History Levothyroxine Sodium [Synthroid] 88 mcg PO DAILY 01/10/16 02/04/23 History Potassium Chloride [Klor-Con 10 ER] 10 meq PO DAILY 01/10/16 02/04/23 History Metoprolol Succinate (ER) [Toprol 25 mg PO DAILY 12/10/18 02/04/23 History Xl] Pramipexole [Mirapex] 0.5 mg PO HS 06/24/22 02/04/23 History FLUoxetine HCL [PROzac] 20 mg PO DAILY 07/15/22 02/04/23 History Aspirin [Adult Low Dose Aspirin EC] 81 mg PO DAILY 02/04/23 02/04/23 History Furosemide [Lasix] 20 mg PO DAILY@1400 02/04/23 02/04/23 History traZODone HCL 100 mg PO HS 02/04/23 02/04/23 History Allergies Allergy/AdvReac Type Severity Reaction Status Date / Time adhesive Allergy Rash/Hives Verified 02/04/23 11:15 ciprofloxacin [From Cipro] Allergy Rash/Hives Verified 02/04/23 11:15 ciprofloxacin HCl Allergy Rash/Hives Verified 02/04/23 11:15 [From Cipro] Fish Containing Products Allergy Rash/Hives Verified 02/04/23 11:15 [Fish] Sulfa (Sulfonamide Allergy Rash/Hives Verified 02/04/23 11:15 Antibiotics) sulfamethoxazole Allergy Rash/Hives Verified 02/04/23 11:15 [From Bactrim] trimethoprim [From Bactrim] Allergy Rash/Hives Verified 02/04/23 11:15 ibuprofen AdvReac Nausea Verified 02/04/23 11:15 raw onion AdvReac Chest Pain Uncoded 02/04/23 11:15 Physical Exam Vitals: Vital Signs Temp Pulse Pulse Resp BP Pulse Ox 02/04/23 11:15 52 L 18 125/74 94 L 02/04/23 09:42 73 73 20 139/77 98 02/04/23 09:22 97.3 F L 63 16 154/80 98 Intake and Output 02/03/23 02/04/23 02/04/23 22:59 06:59 14:59 Other: Weight 117.934 kg Results CBC & Chem 7: 02/04/23 09:54 02/04/23 09:54 Labs: Abnormal Lab Results - Last 24 Hours (Table) 02/04/23 02/04/23 02/04/23 Range/Units 09:54 09:54 09:59 Hgb 17.7 H (11.4-16.0) gm/dL Hct 52.1 H (34.0-46.0) % Chloride 110 H (98-107) mmol/L Glucose 109 H (74-99) mg/dL Urine Appearance Cloudy H (Clear) Urine Protein 1+ H (Negative) Urine Blood Small H (Negative) Ur Leukocyte Esterase Large H (Negative) Urine RBC 41 H (0-5) /hpf Urine WBC 127 H (0-5) /hpf Ur Squamous Epith Cells 5 H (0-4) /hpf Urine Mucus Occasional H (None) /hpf
[2023-02-04] MEDS ORDERED: RX INFO: IV CONTRAST WAS GIVEN 1 EACH MISC MISCELLANE PRN (14:11)
[2023-02-04] MEDS: FLUoxetine HCL 20 MG CAP PO SCH (15:04)
[2023-02-04] MEDS: ATORVASTATIN 40 MG TAB PO SCH (15:04)
[2023-02-04] MEDS: LEVOTHYROXINE 88 MCG TAB PO SCH (15:04)
[2023-02-04] MEDS: METOPROLOL SUCCINATE (ER) 25 MG TAB.ER.24H PO SCH (15:04)
--- NOTE | 2023-02-04 15:58 | CT ---
EXAMINATION TYPE: CT angio chest CT DLP: 1023.8 mGycm, Automated exposure control for dose reduction was used. DATE OF EXAM: 02/04/2023 3:34 PM COMPARISON: Multiple CTA chest with most recent 07/15/2022. CLINICAL INDICATION:Female, 68 years old with history of Rule out PE.; chest pain, sob r/o PE. TECHNIQUE/CONTRAST: CTA scan of the thorax is performed with IV Contrast, patient injected with 85ml mL of Isovue 370, pu lmonary embolism protocol. MIP images are created and reviewed. FINDINGS: Pulmonary Artery: There is no evidence for a filling defect within the pulmonary vasculature to sugge st acute pulmonary embolism. The pulmonary artery is of normal size. Lungs/Pleura: No evidence of focal consolidation, pleural effusion or pneumothorax. Right middle lobe and lingular linear scarring. Airway: Large airways are patent. Heart: Heart is within normal limits for size. No pericardial effusion. Mild coronary arterial calcif ications. Vasculature: No evidence of aortic aneurysm. Atherosclerotic calcification of the aorta and its branc hes. Mediastinum: Stable slightly enlarged 1.3 cm right hilar lymph node (series 401, image 69). Musculoskeletal: Mild degenerative disc disease changes are present throughout the thoracolumbar spin e. No acute process. Soft Tissues: Unremarkable. Lower neck: No significant findings. Upper Abdomen: No significant findings. IMPRESSION: 1. No evidence of pulmonary embolism or acute thoracic process. 2. Stable mildly enlarged right hilar lymph node.
[2023-02-04] MEDS ORDERED: ACETAMINOPHEN TAB 325 MG TAB PO PRN (18:48)
[2023-02-04] MEDS: NITROGLYCERIN OINT 1 INCH/GM PACKET TOPICAL SCH ×2 (18:51→23:03)
[2023-02-04] MEDS: TOPIRAMATE 25 MG TAB PO SCH (20:45)
[2023-02-04] MEDS ORDERED: traZODone HCL 100 MG TAB PO SCH (21:00)
[2023-02-04] MEDS ORDERED: PRAMIPEXOLE 0.5 MG TAB PO SCH (21:00)
[2023-02-05 06:32] VITALS: RESP 16
[2023-02-05] MEDS: LEVOTHYROXINE 88 MCG TAB PO SCH (06:33)
[2023-02-05] MEDS: NITROGLYCERIN OINT 1 INCH/GM PACKET TOPICAL SCH ×2 (06:33→12:36)
[2023-02-05 07:18] VITALS: BMI 47.5
[2023-02-05 08:21] VITALS: TEMP 97.9
[2023-02-05] MEDS: CEPHALEXIN 500 MG CAP PO SCH ×2 (08:22→08:59)
[2023-02-05] MEDS: FLUoxetine HCL 20 MG CAP PO SCH (08:23)
[2023-02-05] MEDS: TOPIRAMATE 25 MG TAB PO SCH (08:23)
[2023-02-05] MEDS: ATORVASTATIN 40 MG TAB PO SCH (08:23)
[2023-02-05] MEDS: METOPROLOL SUCCINATE (ER) 25 MG TAB.ER.24H PO SCH (08:57)
[2023-02-05] MEDS ORDERED: MULTIVITAMINS, THERA 1 EACH TAB PO SCH (09:00)
[2023-02-05] MEDS ORDERED: ASPIRIN 81 MG PO SCH (09:00)
[2023-02-05] MEDS ORDERED: ASPIRIN 325 MG TAB PO SCH (09:00)
[2023-02-05 12:34] VITALS: BP 127/59; PULSE 69
[2023-02-05] MEDS: ISOSORBIDE MONONITRATE ER 30 MG TAB.ER.24H PO SCH ×2 (12:36→12:41)
--- NOTE | 2023-02-05 14:27 | CONS ---
CONSULTATION HISTORY OF PRESENT ILLNESS: This is a 68-year-old lady with a known history of CAD and known occlusion of a diffusely diseased LAD in the mid to distal portion. She also has history of PFO closure percutaneously. She has hypertension, hyperlipidemia, and obesity. She also has obstructive sleep apnea and uses CPAP on a regular basis. Cardiac cath was performed in 2013, which revealed that the circumflex was codominant, tortuous, minor irregularities. LAD has diffuse disease with 2 small diagonal branches and occlusion in the distal portion. Stress test consistently revealed anteroapical fixed defect with ejection fraction in the 50% range. The patient came into the hospital mainly with complaints of having discomfort in the chest. Her main symptom was tightness and pressure in the right side of the chest lateral to the sternum. This pain is almost reproducible. Sometimes she takes a deep breath and it hurts. D-dimer was mildly elevated and CT angio was negative for pulmonary embolism. Pain seems to radiate laterally to the right lateral chest wall. She is resting comfortably without symptoms. Troponins are normal. DIAGNOSTIC STUDIES: EKG revealed sinus bradycardia, no acute changes. PAST MEDICAL HISTORY: 1. CAD with known distal LAD occlusion on medical therapy. 2. PFO with a questionable TIA in the past and PFO closure percutaneously. 3. Obstructive sleep apnea, uses CPAP regularly. 4. Hypothyroidism. 5. History of pulmonary embolism, details unavailable. MEDICATIONS: Medications at home include: 1. Topamax. 2. Lasix. 3. Synthroid. 4. Potassium. 5. Metoprolol succinate 25 mg daily. 6. Aspirin 81 mg daily. 7. Prozac. PHYSICAL EXAMINATION: VITAL SIGNS: Blood pressure is 118/70, pulse rate is 60. HEENT: Unremarkable. Fundus was not examined by me. NECK: Supple. No JVD. I do not hear a carotid bruit. HEART: S1 and S2 heard normally. HEART: Heart sounds are distantly audible. LUNGS: Reveal bilateral decent air entry. ABDOMEN: Soft, nontender. EXTREMITIES: Lower extremities reveal diminished pulses. CENTRAL NERVOUS SYSTEM: Grossly within normal limits. IMPRESSION: 1. Atypical chest pain. 2. Known coronary artery disease, stable. 3. History of depression. 4. Hypertension. 5. Hyperlipidemia. 6. Obstructive sleep apnea, wears CPAP regularly. RECOMMENDATIONS: To continue same medical regimen. We will decrease the beta-manfred dose. Give it only if the heart rate is more than 55. I will also add Imdur 30 mg daily, increase activity, discharge the patient and see her in the office in 2 weeks and perform a stress test as an outpatient. Discussed my thoughts in detail with the patient. Thank you very much for the consult. NEIL / BETTIE: [id number] /
[2023-02-05 16:40] LABS: Chol/HDL Ratio 2.86 Ratio; LDL Cholesterol,Calculated 49.5 mg/dL (0.0-131.0)
--- NOTE | 2023-02-05 17:51 | P.DS ---
Providers Date of admission: 02/04/23 12:56 Expected date of discharge: 02/05/23 Attending physician: Burt Honeycutt Consults: 02/04/23 12:56 Consult Physician Urgent Consulting Provider: [facility] Consult Reason/Comments: Chest pain Do you want consulting provider notified?: Yes Primary care physician: Dona Roldan [facility] Course: Chief Complaint: Chest pressure Pleasant 68-year-old patient who follows with Dr. Dona Roldan. Follows with grooming salon manager Dr. JEFF Polk. Prior history of PFO occluder. Patient's had a previous cardiac catheterization. Was told she is occluded arteries not for any intervention except for medical management. 2 days ago on Saturday patient felt slight pressure in the right side of the chest. Present most of the day. The next day that is yesterday on Saturday patient increasing chest pressure and she decided to relax most of the day. This morning in the left significant chest pressure in the center of the chest. Also going between the shoulder blades. [place] a bit short of breath and significant only tired. No perspiration or dizziness no lightheadedness. Presented to the ER. Admitted with unstable angina. Initial troponin negative. Patient been also having urinary symptoms including frequency. Slight blood in the urine and dysuria. Patient is chronically low back pain and has been told has a prolapsed bladder. February 05: Patient feeling well this morning. No chest pain. Imdur added. Seen by carl Duncan Cleared for discharge. Discussed with patient. Past medical history to include: CAD as per cardiac catheterization but not for intervention. Medical management. Hyperlipidemia, hypertension, previous [place], osteoarthritis, pulmonary embolism fevers ago. Obstructive sleep apnea with CPAP, hypothyroid anxiety depression Social history: Patient smoked for 29 years 2 2005. Smoke about averaged half a pack packs a day.. Alcohol rarely. Lives with her . Physical examination: VITAL SIGNS: 97.9, 69, 16, 127/59, 92% room air GENERAL: Sitting up, comfortable EYES: Pupils equal. Conjunctiva normal. HEENT: External appearance of nose and ears normal, oral cavity grossly normal. NECK: JVD unable to assess; masses not palpable. HEART: First and second heart sounds are normal; no edema. LUNGS: Respiratory rate normal; decreased breath sounds. ABDOMEN: Soft, nontender, liver spleen not palpable, no masses palpable. PSYCH: Alert and oriented x3; mood and affect normal. MUSCULOSKELETAL:No Clubbing/cyanosis;muscles-grossly intact. OA INVESTIGATIONS, reviewed in the clinical context: LDL 49. White count 8.3 hemoglobin 17.7 platelets 157 sodium 139 potassium 4.1 BUN 14 creatinine 0.89 Troponin I less than 0.0122 UA positive for protein one plus, leukoesterase large, WBC 127 EKG tracing personally reviewed by me-normal sinus rhythm. Nonspecific ST/T- wave changes. Chest x-ray film personally reviewed by me-cardiomegaly. Assessment and plan: -Unstable angina in a patient with known coronary artery disease. Previous cardiac catheterization. Not a candidate for intervention. Does follow with Dr. JEFF Polk from cardiology. Imdur 30 mg added. We'll follow-up with cartilage E outpatient. -CAD with a prior history of cardiac catheterization showing occluded vessels in the inferior part of the heart as per the patient. Did not have any further intervention. Aspirin. Toprol-XL. Lipitor. -Morbid obesity BMI 47.6 Weight loss measures -Depression otherwise specified Prozac 20 mg a day -Hypothyroid Synthroid 88 g a day -Essential hypertension Toprol-XL 25 mg a day -Restless leg syndrome Mirapex 0.5 mg daily at bedtime -Chronic insomnia Trazodone 100 mg daily at bedtime -Primary osteoarthritis multiple joints Tylenol as needed -Acute UTI with cystitis Received IV ceftriaxone in the ER. Complete 2 more days of Keflex Disposition: Home Past Medical History Past Medical History: Coronary Artery Disease (CAD), Chest Pain / Angina, CVA/TIA, Hyperlipidemia, Hypertension, Myocardial Infarction (AZ), Osteoarthritis (OA), Pulmonary Embolus (PE), Sleep Apnea/CPAP/BIPAP, Thyroid Disorder Additional Past Medical History / Comment(s): chest pain, HTN Other HX: Previous [place] x2, ELINA with CPAP, hypothyroid, chronic low back pain (4 ruptured discs), RIGHT AND LEFT LUNG-BLOOD CLOT Last Myocardial Infarction Date:: 2013 History of Any Multi-Drug Resistant Organisms: None Reported Past Surgical History: Appendectomy, Breast Surgery, Cholecystectomy, Heart Catheterization, Hysterectomy, Joint Replacement, Orthopedic Surgery, Tonsillectomy Additional Past Surgical History / Comment(s): 2 cardiac caths-unable to perform intervention, bilateral breast reductions, hysterectomy with bilateral oophorectomy, r hand little finger repair, bilateral wrist carpal tunnel releases, R arm ORIF with 2 plates, L knee arthroscopies x 3, total L knee arthroplasty, Rt knee arthroscopy, bladder suspensions 2 or 3 times, colonoscopy.right arm with plates, total right knee x2 ,trigger finger repaired Past Anesthesia/Blood Transfusion Reactions: No Reported Reaction Past Psychological History: Anxiety, Depression Smoking Status: Current every day smoker Past Alcohol Use History: Rare Past Drug Use History: None Reported - Past Family History Father Family Medical History: Dementia, Myocardial Infarction (AZ) Mother Family Medical History: CVA/TIA, Renal Disease Additional Family Medical History / Comment(s): Mother of kidney failure. Brother(s) Family Medical History: Cancer, CVA/TIA Additional Family Medical History / Comment(s): pancreatic cancer Daughter(s) Family Medical History: Cancer, Pulmonary Embolus Additional Family Medical History / Comment(s): thyroid cancer Sister(s) Family Medical History: Cancer Additional Family Medical History / Comment(s): lymphoma Medications and Allergies Home Medications Medication Instructions Recorded Confirmed Type Multivitamins, Thera [Multivitamin 1 tab PO DAILY 03/21/14 02/04/23 History (formulary)] Topiramate [Topamax] 50 mg PO BID 03/21/14 02/04/23 History Atorvastatin [Lipitor] 40 mg PO DAILY #30 tab 03/23/14 02/04/23 Rx Furosemide [Lasix] 40 mg PO DAILY 01/12/15 02/04/23 History Levothyroxine Sodium [Synthroid] 88 mcg PO DAILY 01/10/16 02/04/23 History Potassium Chloride [Klor-Con 10 ER] 10 meq PO DAILY 01/10/16 02/04/23 History Metoprolol Succinate (ER) [Toprol 25 mg PO DAILY 12/10/18 02/04/23 History Xl] Pramipexole [Mirapex] 0.5 mg PO HS 06/24/22 02/04/23 History FLUoxetine HCL [PROzac] 20 mg PO DAILY 07/15/22 02/04/23 History Aspirin [Adult Low Dose Aspirin EC] 81 mg PO DAILY 02/04/23 02/04/23 History Furosemide [Lasix] 20 mg PO DAILY@1400 02/04/23 02/04/23 History traZODone HCL 100 mg PO HS 02/04/23 02/04/23 History Allergies Allergy/AdvReac Type Severity Reaction Status Date / Time adhesive Allergy Rash/Hives Verified 02/04/23 11:15 ciprofloxacin [From Cipro] Allergy Rash/Hives Verified 02/04/23 11:15 ciprofloxacin HCl Allergy Rash/Hives Verified 02/04/23 11:15 [From Cipro] Fish Containing Products Allergy Rash/Hives Verified 02/04/23 11:15 [Fish] Sulfa (Sulfonamide Allergy Rash/Hives Verified 02/04/23 11:15 Antibiotics) sulfamethoxazole Allergy Rash/Hives Verified 02/04/23 11:15 [From Bactrim] trimethoprim [From Bactrim] Allergy Rash/Hives Verified 02/04/23 11:15 ibuprofen AdvReac Nausea Verified 02/04/23 11:15 raw onion AdvReac Chest Pain Uncoded 02/04/23 11:15 Plan - Discharge Summary Discharge Rx Participant: No New Discharge Prescriptions: New Nitroglycerin Sl Tabs [Nitrostat] 0.4 mg SUBLINGUAL Q5M PRN #30 tab PRN Reason: Chest Pain Isosorbide Mononitrate ER [Imdur] 30 mg PO DAILY #30 tab Cephalexin [Keflex] 500 mg PO BID #4 cap Continue Topiramate [Topamax] 50 mg PO BID Multivitamins, Thera [Multivitamin (formulary)] 1 tab PO DAILY Atorvastatin [Lipitor] 40 mg PO DAILY #30 tab Potassium Chloride [Klor-Con 10 ER] 10 meq PO DAILY Levothyroxine Sodium [Synthroid] 88 mcg PO DAILY Metoprolol Succinate (ER) [Toprol XL] 25 mg PO DAILY Pramipexole [Mirapex] 0.5 mg PO HS traZODone HCL 100 mg PO HS Aspirin [Adult Low Dose Aspirin EC] 81 mg PO DAILY FLUoxetine HCL [PROzac] 20 mg PO DAILY Changed Furosemide [Lasix] 40 mg PO DAILY@1400 #0 Discontinued Furosemide [Lasix] 40 mg PO DAILY Discharge Medication List Multivitamins, Thera [Multivitamin (formulary)] 1 tab PO DAILY 03/21/14 [History] Topiramate [Topamax] 50 mg PO BID 03/21/14 [History] Atorvastatin [Lipitor] 40 mg PO DAILY #30 tab 03/23/14 [Rx] Levothyroxine Sodium [Synthroid] 88 mcg PO DAILY 01/10/16 [History] Potassium Chloride [Klor-Con 10 ER] 10 meq PO DAILY 01/10/16 [History] Metoprolol Succinate (ER) [Toprol XL] 25 mg PO DAILY 12/10/18 [History] Pramipexole [Mirapex] 0.5 mg PO HS 06/24/22 [History] FLUoxetine HCL [PROzac] 20 mg PO DAILY 07/15/22 [History] Aspirin [Adult Low Dose Aspirin EC] 81 mg PO DAILY 02/04/23 [History] traZODone HCL 100 mg PO HS 02/04/23 [History] Cephalexin [Keflex] 500 mg PO BID #4 cap 02/05/23 [Rx] Furosemide [Lasix] 40 mg PO DAILY@1400 #0 02/05/23 [Rx] Isosorbide Mononitrate ER [Imdur] 30 mg PO DAILY #30 tab 02/05/23 [Rx] Nitroglycerin Sl Tabs [Nitrostat] 0.4 mg SUBLINGUAL Q5M PRN #30 tab 02/05/23 [Rx] Follow up Appointment(s)/Referral(s): [facility] [Provider Group] - 02/07/23 7:30 am (Previously scheduled stress test this ) Khadar Polk MD [STAFF PHYSICIAN] - 02/19/23 3:00 pm (Saturday [facility] ) Dona Roldan DO [Primary Care Provider] - 02/15/23 9:00 am (Saturday) Patient Instructions/Handouts: Chest Pain (DC) Discharge Disposition: HOME SELF-CARE
[2023-02-05] MEDS ORDERED: CEPHALEXIN 500 MG CAP PO SCH (21:00)
== END 2023-02-05 14:31 | disposition home or self-care (01) ==
LOC: EC 09:17 → INTOOBSV 12:56 → 3SCARD 12:56
PROVIDERS: ADMIT Hospitalist; ATTEND Hospitalist
DX: I25.110 Atherosclerotic heart disease of native coronary artery with unstable angina pectoris (principal); N39.0 Urinary tract infection, site not specified; I10 Essential (primary) hypertension; E78.5 Hyperlipidemia, unspecified; E66.01 Morbid (severe) obesity due to excess calories; Z68.42 Body mass index [BMI] 45.0-49.9, adult; F17.200 Nicotine dependence, unspecified, uncomplicated; I25.2 Old myocardial infarction; F32.A Depression, unspecified; F41.9 Anxiety disorder, unspecified; E03.9 Hypothyroidism, unspecified; G47.33 Obstructive sleep apnea (adult) (pediatric); Z87.74 Personal history of (corrected) congenital malformations of heart and circulatory system; G25.81 Restless legs syndrome; F51.04 Psychophysiologic insomnia; M19.90 Unspecified osteoarthritis, unspecified site; M51.26 Other intervertebral disc displacement, lumbar region; Z90.49 Acquired absence of other specified parts of digestive tract; Z90.710 Acquired absence of both cervix and uterus; Z96.652 Presence of left artificial knee joint; Z90.722 Acquired absence of ovaries, bilateral; Z79.82 Long term (current) use of aspirin; Z79.890 Hormone replacement therapy; Z79.899 Other long term (current) drug therapy; Z88.6 Allergy status to analgesic agent; Z88.1 Allergy status to other antibiotic agents; Z88.2 Allergy status to sulfonamides; Z91.018 Allergy to other foods; Z91.09 Other allergy status, other than to drugs and biological substances; Z86.711 Personal history of pulmonary embolism; Z82.49 Family history of ischemic heart disease and other diseases of the circulatory system; Z84.1 Family history of disorders of kidney and ureter; Z80.0 Family history of malignant neoplasm of digestive organs; Z80.8 Family history of malignant neoplasm of other organs or systems; Z80.7 Family history of other malignant neoplasms of lymphoid, hematopoietic and related tissues
CPT/HCPCS: 96374; 96375; 36415; 93005; 80061; 80053; 82150; 83690; 83735; 84484; 85025; 85610; 85730; 81001; 87040; 87086; 71046; 71275; G0378; J0696; J1170; Q9967

== ENCOUNTER 2023-12-30 17:33 | Observation (INO) | payer MEDICARE ==
[2023-12-30] MEDS ORDERED: MORPHINE SULFATE 4 MG/ML SYRINGE ONE (21:30)
[2023-12-31] MEDS ORDERED: ASPIRIN 81 MG ONE (02:13)
[2023-12-31] MEDS ORDERED: PRAMIPEXOLE 0.25 MG TAB ONE (02:15)
[2023-12-31] MEDS ORDERED: traZODone HCL 100 MG TAB ONE (02:16)
[2023-12-31] MEDS ORDERED: TOPIRAMATE 25 MG TAB ONE (02:16)
[2023-12-31] MEDS ORDERED: MORPHINE SULFATE 4 MG/ML SYRINGE ONE (05:35)
[2023-12-31] MEDS ORDERED: DOBUTamine DRIP for NUC MED 500 MG/250 ML BAG IV ONE (08:00)
[2023-12-31] MEDS ORDERED: ATROPINE SULFATE 0.1 MG/ML 10ML SYRINGE ONE (11:25)
[2023-12-31] MEDS ORDERED: METOPROLOL TARTRATE 5 MG/5 ML VIAL IVP ONE (11:30)
--- NOTE | 2024-01-29 16:39 | CT ---
EXAM: CT Angiography Chest With Intravenous Contrast CLINICAL HISTORY: Elevated d dimer TECHNIQUE: Axial computed tomographic angiography images of the chest with intravenous contrast. CTDI is 35.4 mGy and DLP is 923 mGy-cm. This CT exam was performed using one or more of the following dose reduction techniques: automated exposure control, adjustment of the mA and/or kV according to patient size, and/or use of iterative reconstruction technique. MIP reconstructed images were created and reviewed. COMPARISON: No relevant prior studies available. FINDINGS: Pulmonary arteries:Unremarkable. No acute pulmonaryembolism. Aorta:No acute findings. No thoracic aortic aneurysm. Lungs:Unremarkable. No mass. No consolidation. Pleural space:Unremarkable. No significant effusion. No pneumothorax. Heart:Unremarkable. No cardiomegaly. No significant pericardial effusion. No evidence of RV dysfunction. Bones/joints:No acute fracture. No dislocation. Soft tissues:Unremarkable. Lymph nodes:Unremarkable. No enlarged lymph nodes. Liver:Hepatic steatosis. Gallbladder and bile ducts:Cholecystectomy. IMPRESSION: No acute pulmonary embolism. Radiologist: Omid Aguilera MD Electronically Signed: 12/31/23 02:28 Study ready at 01:40 and initial results transmitted at 02:28 Results also transmitted to Film Room, Film Room @ [id number] [facility]
--- NOTE | 2024-02-12 08:58 | XR ---
EXAMINATION TYPE: XR chest 2V DATE OF EXAM: 12/30/2023 COMPARISON: Chest radiographs from 02/04/2023 TECHNIQUE: XR chest 2V Frontal and lateral views of the chest. CLINICAL INDICATION:Female, 69 years old with history of CHEST PAIN; FINDINGS: Lungs/Pleura: There is no evidence of pleural effusion, focal consolidation, or pneumothorax. Pulmonary vascularity: Pulmonary vascular congestion. Heart/mediastinum: Cardiomediastinal silhouette is enlarged and stable. Musculoskeletal: Multiple level degenerative disc disease changes seen throughout the spine. IMPRESSION: Cardiomegaly and mild pulmonary vascular congestion. Correlate with BNP for congestive heart failure. [facility], , 02/12/2024 8:56 AM
== END 2023-12-31 17:55 | disposition home or self-care (01) ==
LOC: EC 17:33 → 6NMEDSUR 12-31 02:05
PROVIDERS: ADMIT Hospitalist; ATTEND Hospitalist
DX: R07.89 Other chest pain (principal); R79.89 Other specified abnormal findings of blood chemistry; I25.10 Atherosclerotic heart disease of native coronary artery without angina pectoris; R68.84 Jaw pain; M79.602 Pain in left arm; M54.9 Dorsalgia, unspecified; M54.2 Cervicalgia; M25.512 Pain in left shoulder; F17.210 Nicotine dependence, cigarettes, uncomplicated; Z91.141 Patient's other noncompliance with medication regimen due to financial hardship; I25.2 Old myocardial infarction; Z88.1 Allergy status to other antibiotic agents; Z88.2 Allergy status to sulfonamides; Z87.74 Personal history of (corrected) congenital malformations of heart and circulatory system; Z86.711 Personal history of pulmonary embolism; Z86.718 Personal history of other venous thrombosis and embolism
CPT/HCPCS: 71046; 71275; 80048; 80053; 83690; 83735; 83880; 84484; 85025; 85379; 85610; 85730; 93005; 93306; 93351; 96374; 99285

== ENCOUNTER 2024-09-09 15:30 | Observation (INO) | payer MEDICARE ==
--- NOTE | 2024-09-09 16:01 | ED ---
General Adult HPI - General Chief complaint: Shortness of Breath Stated complaint: tiera leg swelling, MARKEL Time Seen by Provider: 09/09/24 15:35 Source: patient, family, RN/MD, RN notes reviewed Mode of arrival: wheelchair Limitations: no limitations - History of Present Illness Initial comments: Patient is a 69-year-old female present to the emergency department with edema and dyspnea. Symptoms have progressed over the past week. Patient was seen at [facility] and transferred for cardiology care. I did speak with transferring physician who has concern for congestion on chest x-ray. He states patient had an echo in March which was fairly normal. - Related Data Home Medications Medication Instructions Recorded Confirmed Multivitamins, Thera [Multivitamin 1 tab PO DAILY 03/21/14 02/04/23 (formulary)] Topiramate [Topamax] 50 mg PO BID 03/21/14 02/04/23 Levothyroxine Sodium [Synthroid] 88 mcg PO DAILY 01/10/16 02/04/23 Potassium Chloride [Klor-Con 10 ER] 10 meq PO DAILY 01/10/16 02/04/23 Metoprolol Succinate (ER) [Toprol 25 mg PO DAILY 12/10/18 02/04/23 XL] Pramipexole [Mirapex] 0.5 mg PO HS 06/24/22 02/04/23 FLUoxetine HCL [PROzac] 20 mg PO DAILY 07/15/22 02/04/23 Aspirin [Adult Low Dose Aspirin EC] 81 mg PO DAILY 02/04/23 02/04/23 traZODone HCL 100 mg PO HS 02/04/23 02/04/23 Previous Rx's Medication Instructions Recorded Atorvastatin [Lipitor] 40 mg PO DAILY #30 tab 03/23/14 Cephalexin [Keflex] 500 mg PO BID #4 cap 02/05/23 Furosemide [Lasix] 40 mg PO DAILY@1400 #0 02/05/23 Isosorbide Mononitrate ER [Imdur] 30 mg PO DAILY #30 tab 02/05/23 Nitroglycerin Sl Tabs [Nitrostat] 0.4 mg SUBLINGUAL Q5M PRN #30 tab 02/05/23 Allergies Allergy/AdvReac Type Severity Reaction Status Date / Time adhesive Allergy Rash/Hives Verified 09/09/24 15:54 ciprofloxacin [From Cipro] Allergy Rash/Hives Verified 09/09/24 15:54 ciprofloxacin HCl Allergy Rash/Hives Verified 09/09/24 15:54 [From Cipro] Fish Containing Products Allergy Rash/Hives Verified 09/09/24 15:54 [Fish] Sulfa (Sulfonamide Allergy Rash/Hives Verified 09/09/24 15:54 Antibiotics) sulfamethoxazole Allergy Rash/Hives Verified 09/09/24 15:54 [From Bactrim] trimethoprim [From Bactrim] Allergy Rash/Hives Verified 09/09/24 15:54 ibuprofen AdvReac Nausea Verified 09/09/24 15:54 raw onion AdvReac Chest Pain Uncoded 09/09/24 15:35 Review of Systems ROS Statement: Those systems with pertinent positive or pertinent negative responses have been documented in the HPI. ROS Other: All systems not noted in ROS Statement are negative. Constitutional: Denies: fever Eyes: Denies: eye pain Respiratory: Reports: as per HPI, cough, dyspnea Cardiovascular: Reports: edema Genitourinary: Denies: dysuria Musculoskeletal: Reports: other (Chronic back pains) Past Medical History Past Medical History: Coronary Artery Disease (CAD), Chest Pain / Angina, CVA/TIA, Hyperlipidemia, Hypertension, Myocardial Infarction ([place]), Osteoarthr itis (OA), Pulmonary Embolus (PE), Sleep Apnea/CPAP/BIPAP, Thyroid Disorder Additional Past Medical History / Comment(s): chest pain, HTN Other HX: Previous [place] x2, ELINA with CPAP, hypothyroid, chronic low back pain (4 ruptured discs), RIGHT AND LEFT LUNG-BLOOD CLOT Last Myocardial Infarction Date:: 2013 History of Any Multi-Drug Resistant Organisms: None Reported Past Surgical History: Appendectomy, Breast Surgery, Cholecystectomy, Heart Catheterization, Hysterectomy, Joint Replacement, Orthopedic Surgery, Tonsillectomy Additional Past Surgical History / Comment(s): 2 cardiac caths-unable to perform intervention, bilateral breast reductions, hysterectomy with bilateral oophorectomy, r hand little finger repair, bilateral wrist carpal tunnel releases, R arm ORIF with 2 plates, L knee arthroscopies x 3, total L knee arthroplasty, Rt knee arthroscopy, bladder suspensions 2 or 3 times, colonoscopy.right arm with plates, total right knee x2 ,trigger finger repaired Past Anesthesia/Blood Transfusion Reactions: No Reported Reaction Past Psychological History: Anxiety, Depression Smoking Status: Current every day smoker Past Alcohol Use History: Rare Past Drug Use History: None Reported - Past Family History Father Family Medical History: Dementia, Myocardial Infarction ([place]) Mother Family Medical History: CVA/TIA, Renal Disease Additional Family Medical History / Comment(s): Mother of kidney failure. Brother(s) Family Medical History: Cancer, CVA/TIA Additional Family Medical History / Comment(s): pancreatic cancer Daughter(s) Family Medical History: Cancer, Pulmonary Embolus Additional Family Medical History / Comment(s): thyroid cancer Sister(s) Family Medical History: Cancer Additional Family Medical History / Comment(s): lymphoma General Exam Limitations: no limitations General appearance: alert, in no apparent distress Head exam: Present: normocephalic Eye exam: Present: normal appearance Neck exam: Present: normal inspection Respiratory exam: Present: normal lung sounds bilaterally Cardiovascular Exam: Present: regular rate, normal rhythm GI/Abdominal exam: Present: soft. Absent: tenderness Extremities exam: Present: pedal edema. Absent: calf tenderness Neurological exam: Present: alert Psychiatric exam: Present: normal affect, normal mood Skin exam: Present: normal color Course Vital Signs 09/09/24 15:31 Temperature 97.5 F L Pulse Rate 61 Respiratory 18 Rate Blood Pressure 135/73 O2 Sat by Pulse 95 Oximetry EKG Findings - EKG Results: EKG: interpreted by ERMD (Left axis. First AV block with a HI of 224.), sinus rhythm, normal ST/T EKG shows: bradycardia Medical Decision Making - Medical Decision Making Was pt. sent in by a medical professional or institution (, PA, [employer], urgent care, hospital, or retirement...) When possible be specific @ -Patient was sent from [address] [place] [address] Did you speak to anyone other than the patient for history (EMS, parent, family, police, friend...)? What history was obtained from this source @ -I did speak with transferring physician Dr. Nguyen Did you review nursing and triage notes (agree or disagree)? Why? @ -I reviewed and agree with nursing and triage notes Were old charts reviewed (outside hosp., previous admission, EMS record, old EKG, old radiological studies, urgent care reports/EKG's, retirement records)? Report findings @ -Chart reviewed from [facility] including patient chart and lab work and x-ray results and EKG Differential Diagnosis (chest pain, altered mental status, abdominal pain women, abdominal pain men, vaginal bleeding, weakness, fever, dyspnea, syncope, headache, dizziness, GI bleed, back pain, seizure, CVA, palpatations, mental health, musculoskeletal)? @ -Differential Dyspnea: Coronary syndrome, arrhythmia, tamponade, asthma, COPD, pulmonary embolism, pneumonia, pneumothorax, pulmonary effusion, anaphylaxis, diabetic ketoacidosis, flailed chest, pulmonary contusion, diaphragmatic rupture, anemia, neuromuscular, this is not meant to be an all-inclusive list. EKG interpreted by me (3pts min.). @ -As above X-rays interpreted by me (1pt min.). @ -None done CT interpreted by me (1pt min.). @ -None done U/S interpreted by me (1pt. min.). @ -None done What testing was considered but not performed or refused? (CT, X-rays, U/S, labs)? Why? @ -None What meds were considered but not given or refused? Why? @ -None Did you discuss the management of the patient with other professionals (professionals i.e. , PA, [employer], lab, RT, psych nurse, social security benefits interviewer, heavy equipment operator apprentice, teacher, navigating officer, case checker)? Give summary @ -Dr. Honeycutt to admit covering Dr. She will Was smoking cessation discussed for >3mins.? @ -No Was critical care preformed (if so, how long)? @ -No Were there social determinants of health that impacted care today? How? (Homelessness, low income, unemployed, alcoholism, drug addiction, transportation, low edu. Level, literacy, decrease access to med. care, [facility], rehab)? @ -No Was there de-escalation of care discussed even if they declined (Discuss DNR or withdrawal of care, Hospice)? DNR status @ -No What co-morbidities impacted this encounter? (DM, HTN, Smoking, COPD, CAD, Cancer, CVA, ARF, Chemo, Hep., AIDS, mental health diagnosis, sleep apnea, morbid obesity)? @ -None Was patient admitted / discharged? Hospital course, mention meds given and route, prescriptions, significant lab abnormalities, going to OR and other pertinent info. @ -Patient presents with worsening edema and dyspnea with concerns for congestive heart failure off workup. Patient updated. Admission orders written. Undiagnosed new problem with uncertain prognosis? @ -No Drug Therapy requiring intensive monitoring for toxicity (Heparin, Nitro, Insulin, Cardizem)? @ -No Were any procedures done? @ -No Diagnosis/symptom? @ -CHF Acute, or Chronic, or Acute on Chronic? @ -Acute Uncomplicated (without systemic symptoms) or Complicated (systemic symptoms)? @ -Default Side effects of treatment? @ -No Exacerbation, Progression, or Severe Exacerbation? @ -No Poses a threat to life or bodily function? How? (Chest pain, [place], [place], pneumonia, PE, COPD, DKA, ARF, appy, cholecystitis, CVA, Diverticulitis, Homicidal, Suicidal, threat to staff... and all critical care pts) @ -Threat to cardiac and pulmonary function Disposition Clinical Impression: Congestive heart failure Disposition: ADMITTED IP TO THIS HOSP Is patient prescribed a controlled substance at d/c from ED?: No Referrals: Dona Roldan DO [Primary Care Provider] - 1-2 days Time of Disposition: 16:01
[2024-09-09] MEDS ORDERED: NITROGLYCERIN SL TABS 0.4 MG TAB SUBLINGUAL PRN (16:03)
[2024-09-09] MEDS: ASPIRIN 325 MG TAB PO STA (16:43)
[2024-09-09] MEDS: FUROSEMIDE 10 MG/ML 4 ML VIAL IV SCH (16:44)
[2024-09-09] MEDS: NITROGLYCERIN OINT 1 INCH/GM PACKET TOPICAL SCH (21:01)
[2024-09-09] MEDS: PRAMIPEXOLE 0.5 MG TAB PO SCH (21:48)
[2024-09-09] MEDS: TOPIRAMATE 25 MG TAB PO SCH (21:48)
[2024-09-09] MEDS: traZODone HCL 100 MG TAB PO SCH (21:48)
--- NOTE | 2024-09-09 23:15 | P.HPIM ---
History of Present Illness H&P Date: 09/09/24 Chief Complaint: Short of breath Pleasant 69-year-old patient who follows with Dr. Dona Roldan. epic analyst Dr. JEFF Polk. Prior history of PFO closure. previous cardiac catheterization. Was told she is occluded arteries not for any intervention except for medical management. Patient presents initially to [facility] with 5 days of increasing shortness of breath. Also edema which is now up to her thighs. Abdomen also distended. No chest pain. Diagnosed of CHF. Patient uses 1 pillow at night. No chest pain. Review of systems: GEN.: Tired EYES: None HEENT: None NECK: None RESPIRATORY: As above CARDIOVASCULAR: As above GASTROINTESTINAL: None GENITOURINARY: Prolapsing urinary bladder MUSCULOSKELETAL: Multiple joint pains including lower back LYMPHATICS: None HEMATOLOGICAL: None PSYCHIATRY: None NEUROLOGICAL: None Past medical history to include: CAD as per cardiac catheterization but not for intervention. Medical management. Hyperlipidemia, hypertension, previous [place], osteoarthritis, pulmonary embolism fevers ago. Obstructive sleep apnea with CPAP, hypothyroid anxiety depression Social history: Patient smoked from 1976 till 2005.. Smoke about averaged half a pack packs a day.. Alcohol rarely. Lives with her . Physical examination: VITAL SIGNS: 97.5, 61, 18, 135 x 73, 95% room air upon presentation GENERAL: Reclining in bed, tired EYES: Pupils equal. Conjunctiva normal. HEENT: External appearance of nose and ears normal, oral cavity grossly normal. NECK: JVD unable to assess; masses not palpable. HEART: First and second heart sounds are normal; edema present LUNGS: Respiratory rate increased; decreased breath sounds. ABDOMEN: Soft, nontender, liver spleen not palpable, no masses palpable. PSYCH: Alert and oriented x3; mood and affect normal. MUSCULOSKELETAL:No Clubbing/cyanosis;muscles-grossly intact. OA NEUROLOGICAL: Cranial nerves grossly intact; no facial asymmetry, power and sensation grossly intact. LYMPHATICS: No lymph nodes palpable in the axilla and neck INVESTIGATIONS, reviewed in the clinical context: Troponin I less than 0.012 x 2 Assessment and plan: - Acute congestive heart failure exacerbation. EF not known. IV Lasix 40 mg every 8. Fluid restriction 1800 cc a day. Labs. 2D echo -CAD with a prior history of cardiac catheterization showing occluded vessels in the inferior part of the heart as per the patient. Did not have any further intervention. Aspirin. Toprol-XL. Lipitor. -Morbid obesity BMI 49.4 Weight loss measures -Depression otherwise specified Prozac 20 mg a day. Trazodone -Hypothyroid Synthroid 88 g a day -Essential hypertension Toprol-XL 25 mg a day. Cozaar -Restless leg syndrome Mirapex 0.5 mg daily at bedtime -Chronic insomnia Trazodone 100 mg daily at bedtime -Primary osteoarthritis multiple joints Tylenol as needed Discussed with patient. Cardiology consulted. Past Medical History Past Medical History: Coronary Artery Disease (CAD), Chest Pain / Angina, CVA/TIA, Hyperlipidemia, Hypertension, Myocardial Infarction ([place]), Osteoarthritis (OA), Pulmonary Embolus ([place]), Sleep Apnea/CPAP/BIPAP, Thyroid Disorder Additional Past Medical History / Comment(s): chest pain, HTN Other HX: Previous [place] x2, ELINA with CPAP, hypothyroid, chronic low back pain (4 ruptured discs), RIGHT AND LEFT LUNG-BLOOD CLOT, TIA Last Myocardial Infarction Date:: 2013 History of Any Multi-Drug Resistant Organisms: None Reported Past Surgical History: Appendectomy, Breast Surgery, Cholecystectomy, Heart Catheterization, Hysterectomy, Joint Replacement, Orthopedic Surgery, Tonsillectomy Additional Past Surgical History / Comment(s): 2 cardiac caths-unable to perform intervention (being monitored), bilateral breast reductions, hysterectomy with bilateral oophorectomy, r hand little finger repair, bilateral wrist carpal tunnel releases, R arm ORIF with 2 plates, L knee arthroscopies x 3, total L knee arthroplasty, Rt knee arthroscopy, bladder suspensions 2 or 3 times, colonoscopy.right arm with plates, total right knee x2 ,trigger finger repaired Past Anesthesia/Blood Transfusion Reactions: No Reported Reaction Past Psychological History: Anxiety, Depression Smoking Status: Current every day smoker Past Alcohol Use History: Rare Additional Past Alcohol Use History / Comment(s): Pt states she smoked from 1976 til 2005. quit smoking on and off recently smoking 10cig per day Past Drug Use History: None Reported Additional Drug Use History / Comment(s): cbd oil with no thc for pain - Past Family History Father Family Medical History: Dementia, Myocardial Infarction ([place]) Mother Family Medical History: CVA/TIA, Renal Disease Additional Family Medical History / Comment(s): Mother of kidney failure. Brother(s) Family Medical History: Cancer, CVA/TIA Additional Family Medical History / Comment(s): pancreatic cancer Daughter(s) Family Medical History: Cancer, Pulmonary Embolus Additional Family Medical History / Comment(s): thyroid cancer Sister(s) Family Medical History: Cancer Additional Family Medical History / Comment(s): lymphoma Medications and Allergies Home Medications Medication Instructions Recorded Confirmed Type Multivitamins, Thera [Multivitamin 1 tab PO DAILY 03/21/14 09/09/24 History (formulary)] Topiramate [Topamax] 50 mg PO BID 03/21/14 09/09/24 History Atorvastatin [Lipitor] 40 mg PO DAILY #30 tab 03/23/14 09/09/24 Rx Levothyroxine Sodium [Synthroid] 88 mcg PO DAILY 01/10/16 09/09/24 History Potassium Chloride [Klor-Con 10 ER] 10 meq PO DAILY 01/10/16 09/09/24 History Metoprolol Succinate (ER) [Toprol 25 mg PO DAILY 12/10/18 09/09/24 History XL] Pramipexole [Mirapex] 0.5 mg PO HS 06/24/22 09/09/24 History FLUoxetine HCL [PROzac] 20 mg PO DAILY 07/15/22 09/09/24 History traZODone HCL 200 mg PO HS 02/04/23 09/09/24 History Isosorbide Mononitrate ER [Imdur] 30 mg PO DAILY #30 tab 02/05/23 09/09/24 Rx Nitroglycerin Sl Tabs [Nitrostat] 0.4 mg SUBLINGUAL Q5M PRN #30 tab 02/05/23 09/09/24 Rx Apixaban [Eliquis] 5 mg PO BID 09/09/24 09/09/24 History Furosemide [Lasix] 40 mg PO DAILY 09/09/24 09/09/24 History Losartan [Cozaar] 50 mg PO DAILY 09/09/24 09/09/24 History oxyCODONE-APAP 7.5-325MG [Percocet 1 tab PO Q4H PRN 09/09/24 09/09/24 History 7.5-325 mg] Allergies Allergy/AdvReac Type Severity Reaction Status Date / Time adhesive Allergy Rash/Hives Verified 09/09/24 15:54 ciprofloxacin [From Cipro] Allergy Rash/Hives Verified 09/09/24 15:54 ciprofloxacin HCl Allergy Rash/Hives Verified 09/09/24 15:54 [From Cipro] Fish Containing Products Allergy Rash/Hives Verified 09/09/24 15:54 [Fish] Sulfa (Sulfonamide Allergy Rash/Hives Verified 09/09/24 15:54 Antibiotics) sulfamethoxazole Allergy Rash/Hives Verified 09/09/24 15:54 [From Bactrim] trimethoprim [From Bactrim] Allergy Rash/Hives Verified 09/09/24 15:54 ibuprofen AdvReac Nausea Verified 09/09/24 15:54 raw onion AdvReac Chest Pain Uncoded 09/09/24 15:35 Physical Exam Vitals: Vital Signs Temp Pulse Pulse Resp BP BP Pulse Ox 09/09/24 18:41 97.4 F L 48 L 16 144/69 97 09/09/24 18:31 87 16 156/89 96 09/09/24 17:01 135/75 09/09/24 16:53 60 20 142/106 99 09/09/24 15:31 97.5 F L 61 18 135/73 95 Intake and Output 09/09/24 09/09/24 09/10/24 14:59 22:59 06:59 Other: # Voids 1 # Bowel Movements 1 Weight 122.47 kg Thrombosis Risk Factor Assmnt - Choose All That Apply Any of the Below Risk Factors Present?: Yes Each Factor Represents 1 point: Obesity (BMI >25), Swollen legs (current) Each Risk Factor Represents 3 Points: History of DVT/PE Thrombosis Risk Factor Assessment Total Risk Factor Score: 5 Thrombosis Risk Factor Assessment Level: High Risk
[2024-09-10 05:41] LABS: Basophils # (A) 0.08 10*3/uL (0.00-0.10); Basophils % (A) 1.1 %; Eosinophils # (A) 0.35 10*3/uL (0.04-0.35); Eosinophils % (A) 4.9 %; HCT 46.6 % (37.2-46.3); HGB 15.6 g/dL (12.0-15.0); Lymphocytes # (A) 1.81 10*3/uL (0.90-5.00); Lymphocytes % (A) 25.5 %; MCH 32.1 pg (27.0-32.0); MCHC 33.5 g/dL (32.0-37.0); MCV 95.9 fL (80.0-97.0); Mean Platelet Volume 10.4 fL (9.5-12.2); Monocytes # (A) 0.58 10*3/uL (0.20-1.00); Monocytes % (A) 8.2 %; Neutrophils # (A) 4.24 10*3/uL (1.80-7.70); Neutrophils % (A) 59.9 %; Platelet Count 152 10*3/uL (140-440); RBC 4.86 10*6/uL (4.10-5.20); WBC 7.09 10*3/uL (4.50-10.00)
[2024-09-10 06:13] LABS: ALT 19 U/L (4-34); AST 23 U/L (14-36); African American GFR (CKD) 66 (>60 ml/min/1.73 sqM); Albumin 3.5 g/dL (3.5-5.0); Albumin/Globulin Ratio 1.5; Alkaline Phosphatase 86 U/L (38-126); Anion Gap 8 mmol/L; Blood Urea Nitrogen 13 mg/dL (7-17); Calcium 9.5 mg/dL (8.4-10.2); Carbon Dioxide 26 mmol/L (22-30); Chloride 104 mmol/L (98-107); Globulin 2.4 g/dL; Glucose 87 mg/dL (74-99); Non-African American GFR(CKD) 57 (>60 ml/min/1.73 sqM); Potassium 3.6 mmol/L (3.5-5.1); Sodium 138 mmol/L (137-145); Total Bilirubin 0.9 mg/dL (0.2-1.3); Total Protein 5.9 g/dL (6.3-8.2)
[2024-09-10 06:18] LABS: NT-Pro-B-Type Natriuretic Pept 97 pg/mL
[2024-09-10] MEDS: oxyCODONE-APAP 7.5-325MG 1 EACH TAB PO PRN (06:37)
[2024-09-10] MEDS: LEVOTHYROXINE 88 MCG TAB PO SCH (06:40)
[2024-09-10] MEDS: ATORVASTATIN 40 MG TAB PO SCH (10:26)
[2024-09-10] MEDS: FLUoxetine HCL 20 MG CAP PO SCH (10:26)
[2024-09-10] MEDS: ASPIRIN 81 MG PO SCH (10:26)
[2024-09-10] MEDS: ISOSORBIDE MONONITRATE ER 30 MG TAB.ER.24H PO SCH (10:26)
[2024-09-10] MEDS: APIXABAN 5 MG TAB PO SCH (10:27)
[2024-09-10] MEDS: MULTIVITAMINS, THERA 1 EACH TAB PO SCH (10:27)
[2024-09-10] MEDS: DAPAGLIFLOZIN PROPANEDIOL 10 MG TABLET PO SCH (10:28)
[2024-09-10] MEDS: METOPROLOL SUCCINATE (ER) 25 MG TAB.ER.24H PO SCH ×2 (10:29→10:46)
[2024-09-10] MEDS: ASPIRIN 325 MG TAB PO SCH (10:46)
[2024-09-10] MEDS: POTASSIUM CHLORIDE ER 10 MEQ TAB.ER.PRT PO SCH (10:47)
[2024-09-10] MEDS: SPIRONOLACTONE 25 MG TAB PO SCH (11:56)
[2024-09-10] MEDS: LOSARTAN 50 MG TAB PO SCH (11:56)
--- NOTE | 2024-09-10 12:50 | P.CRDCN ---
History of Present Illness Consult date: 09/10/24 Consult reason: congestive heart failure History of present illness: This is 69-year-old female patient of Dr. JEFF Polk with past medical history of coronary artery disease with diffusely diseased LAD with distal occlusion, anterior septal DE, hypertension, hyperlipidemia, PFO closure, obstructive sleep apnea on CPAP, COPD, pulmonary embolism diagnosed in 2019 on Eliquis, hypothyroidism, chronic tobacco use and dependence, anxiety, CVA, obesity. We have been asked to evaluate the patient for CHF. Patient states that she came into the hospital because she was having difficulty with swelling in her legs. She has been taking her Lasix at home as directed. She also complains of shortness of breath for the past 2 days. Blood pressure 104/63, heart rate 51, pulse ox 100% on room air. Patient was on CPAP during the night. Patient was started on IV Lasix 40 mg every 8 hours. She has had improvement of lower extremity edema. -EKG: Sinus bradycardia at 51 bpm, telemetry is sinus bradycardia. -Laboratory studies: Hemoglobin 15.6, WBC 7 troponins negative x 3. Electrolytes, renal function, liver function test within normal limits. proBNP 97. -Home cardiac medications: Eliquis 5 mg twice daily, atorvastatin 40 mg daily, Lasix 40 mg daily, Imdur 30 mg daily, losartan 50 mg daily, metoprolol succinate 25 mg daily, Nitrostat as needed, potassium chloride 10 mill equivalents daily. Patient is also on levothyroxine. -Echocardiogram performed at [facility] during downtime on 12/31/2023 revealed normal EF, normal AV and MV, moderate increase in RVSP. -Dobutamine stress echo performed at [facility] 12/31/2023 was normal. -Right heart catheterization performed 07/31/2019 status post percutaneous closure of PFO. -Left heart catheterization performed 03/22/2014 after NSTEMI revealed total occlusion of LAD which was diffusely diseased vessel in the midportion. RCA was dominant and disease-free with minor irregularities. Review Of Systems: At the time of my exam: CONSTITUTIONAL: Denies fever or chills. HEENT: Denies blurred vision, vision changes, or eye pain. Denies hemoptysis CARDIOVASCULAR: Denies chest pain. Denies orthopnea. Denies PND. Denies palpitations.+ Lower extremity edema RESPIRATORY: Reports improved shortness of breath. GASTROINTESTINAL: Denies abdominal pain. Denies nausea or vomiting. HEMATOLOGIC: Denies bleeding disorders. GENITOURINARY: Denies any blood in urine. SKIN: Denies puritis. Denies rash. Physical examination: Gen: This is 69-year-old female in no acute distress VS: reviewed HEENT: Head is atraumatic, normocephalic. Pupils equal, round. Sclerae is anicteric. NECK: Supple. No JVD. LUNGS: Clear to auscultation. No wheezes or rhonchi. No intercostal retractions. HEART: Regular rate and rhythm. No murmur. ABDOMEN: Soft No tenderness. EXTREMITIES: 1+ pedal edema. No calf tenderness. NEUROLOGICAL: Patient is awake, alert and oriented x3. Assessment: Acute on chronic diastolic heart failure Coronary artery disease with diffuse disease LAD and distal occlusion History of anterior septal DE Hypertension Hyperlipidemia History of PFO closure History of CVA Obstructive sleep apnea on CPAP COPD Pulmonary embolism diagnosed in 2019 on Eliquis Hypothyroidism Chronic tobacco use and dependence Anxiety Morbid obesity with BMI of 49 Plan: Resume patient's home cardiac medications Add aspirin 81 mg daily Discontinue IV Lasix and start patient on Bumex 1 mg daily starting tomorrow Decrease metoprolol succinate to 12.5 mg daily due to bradycardia Add Aldactone 25 mg daily, Farxiga 10 mg daily Obtain lipid panel and hemoglobin A1c Obtain 2-D echocardiogram and Doppler study to assess cardiac structure and function Further recommendations to follow based upon clinical course Smoking cessation. Patient will be provided the [place] quit line information at discharge. Thank you kindly for this consultation. Nurse practitioner note has been reviewed, I agree with documented findings and plan of care. Patient was seen and examined. Past Medical History Past Medical History: Coronary Artery Disease (CAD), Chest Pain / Angina, CVA/TIA, Hyperlipidemia, Hypertension, Myocardial Infarction (DE), Osteoarthritis (OA), Pulmonary Embolus (PE), Sleep Apnea/CPAP/BIPAP, Thyroid Disorder Additional Past Medical History / Comment(s): chest pain, HTN Other HX: Previous [place] x2, ELINA with CPAP, hypothyroid, chronic low back pain (4 ruptured discs), RIGHT AND LEFT LUNG-BLOOD CLOT, TIA Last Myocardial Infarction Date:: 2013 History of Any Multi-Drug Resistant Organisms: None Reported Past Surgical History: Appendectomy, Breast Surgery, Cholecystectomy, Heart Catheterization, Hysterectomy, Joint Replacement, Orthopedic Surgery, T onsillectomy Additional Past Surgical History / Comment(s): 2 cardiac caths-unable to perform intervention (being monitored), bilateral breast reductions, hysterectomy with bilateral oophorectomy, r hand little finger repair, bilateral wrist carpal tunnel releases, R arm ORIF with 2 plates, L knee arthroscopies x 3, total L knee arthroplasty, Rt knee arthroscopy, bladder suspensions 2 or 3 times, colonoscopy.right arm with plates, total right knee x2 ,trigger finger repaired Past Anesthesia/Blood Transfusion Reactions: No Reported Reaction Past Psychological History: Anxiety, Depression Smoking Status: Current every day smoker Past Alcohol Use History: Rare Additional Past Alcohol Use History / Comment(s): Pt states she smoked from 1976 til 2005. quit smoking on and off recently smoking 10cig per day Past Drug Use History: None Reported Additional Drug Use History / Comment(s): cbd oil with no thc for pain - Past Family History Father Family Medical History: Dementia, Myocardial Infarction (DE) Mother Family Medical History: CVA/TIA, Renal Disease Additional Family Medical History / Comment(s): Mother of kidney failure. Brother(s) Family Medical History: Cancer, CVA/TIA Additional Family Medical History / Comment(s): pancreatic cancer Daughter(s) Family Medical History: Cancer, Pulmonary Embolus Additional Family Medical History / Comment(s): thyroid cancer Sister(s) Family Medical History: Cancer Additional Family Medical History / Comment(s): lymphoma Medications and Allergies Home Medications Medication Instructions Recorded Confirmed Type Multivitamins, Thera [Multivitamin 1 tab PO DAILY 03/21/14 09/09/24 History (formulary)] Topiramate [Topamax] 50 mg PO BID 03/21/14 09/09/24 History Atorvastatin [Lipitor] 40 mg PO DAILY #30 tab 03/23/14 09/09/24 Rx Levothyroxine Sodium [Synthroid] 88 mcg PO DAILY 01/10/16 09/09/24 History Potassium Chloride [Klor-Con 10 ER] 10 meq PO DAILY 01/10/16 09/09/24 History Metoprolol Succinate (ER) [Toprol 25 mg PO DAILY 12/10/18 09/09/24 History XL] Pramipexole [Mirapex] 0.5 mg PO HS 06/24/22 09/09/24 History FLUoxetine HCL [PROzac] 20 mg PO DAILY 07/15/22 09/09/24 History traZODone HCL 200 mg PO HS 02/04/23 09/09/24 History Isosorbide Mononitrate ER [Imdur] 30 mg PO DAILY #30 tab 02/05/23 09/09/24 Rx Nitroglycerin Sl Tabs [Nitrostat] 0.4 mg SUBLINGUAL Q5M PRN #30 tab 02/05/23 09/09/24 Rx Apixaban [Eliquis] 5 mg PO BID 09/09/24 09/09/24 History Furosemide [Lasix] 40 mg PO DAILY 09/09/24 09/09/24 History Losartan [Cozaar] 50 mg PO DAILY 09/09/24 09/09/24 History oxyCODONE-APAP 7.5-325MG [Percocet 1 tab PO Q4H PRN 09/09/24 09/09/24 History 7.5-325 mg] Allergies Allergy/AdvReac Type Severity Reaction Status Date / Time adhesive Allergy Rash/Hives Verified 09/09/24 15:54 ciprofloxacin [From Cipro] Allergy Rash/Hives Verified 09/09/24 15:54 ciprofloxacin HCl Allergy Rash/Hives Verified 09/09/24 15:54 [From Cipro] Fish Containing Products Allergy Rash/Hives Verified 09/09/24 15:54 [Fish] Sulfa (Sulfonamide Allergy Rash/Hives Verified 09/09/24 15:54 Antibiotics) sulfamethoxazole Allergy Rash/Hives Verified 09/09/24 15:54 [From Bactrim] trimethoprim [From Bactrim] Allergy Rash/Hives Verified 09/09/24 15:54 ibuprofen AdvReac Nausea Verified 09/09/24 15:54 raw onion AdvReac Chest Pain Uncoded 09/09/24 15:35 Physical Exam Vitals: Vital Signs Temp Pulse Pulse Resp BP BP Pulse Ox 09/10/24 07:00 97.6 F 51 L 16 104/63 100 09/10/24 03:34 97.5 F L 55 L 17 113/70 94 L 09/09/24 18:41 97.4 F L 48 L 16 144/69 97 09/09/24 18:31 87 16 156/89 96 09/09/24 17:01 135/75 09/09/24 16:53 60 20 142/106 99 09/09/24 15:31 97.5 F L 61 18 135/73 95 Intake and Output 09/09/24 09/10/24 09/10/24 22:59 06:59 14:59 Other: Voiding Method Toilet # Voids 1 4 # Bowel Movements 1 Weight 122.47 kg 121.6 kg Results 09/10/24 04:11 09/10/24 04:11 Cardiac Enzymes 09/09/24 09/09/24 09/10/24 Range/Units 16:11 18:24 04:11 AST 23 (14-36) U/L Troponin I <0.012 <0.012 (0.000-0.034) ng/mL CBC 09/10/24 Range/Units 04:11 WBC 7.09 (4.50-10.00) 10*3/uL RBC 4.86 (4.10-5.20) 10*6/uL Hgb 15.6 H (12.0-15.0) g/dL Hct 46.6 H (37.2-46.3) % Plt Count 152 (140-440) 10*3/uL Comprehensive Metabolic Panel 09/10/24 Range/Units 04:11 Sodium 138 (137-145) mmol/L Potassium 3.6 (3.5-5.1) mmol/L Chloride 104 (98-107) mmol/L Carbon Dioxide 26 (22-30) mmol/L BUN 13 (7-17) mg/dL Creatinine 1.02 (0.52-1.04) mg/dL Glucose 87 (74-99) mg/dL Calcium 9.5 (8.4-10.2) mg/dL AST 23 (14-36) U/L ALT 19 (4-34) U/L Alkaline Phosphatase 86 (38-126) U/L Total Protein 5.9 L (6.3-8.2) g/dL Albumin 3.5 (3.5-5.0) g/dL Current Medications Generic Name Dose Route Start Last Admin Trade Name Freq PRN Reason Stop Dose Admin Aspirin 325 mg 09/10/24 09:00 Aspirin 325 Mg Tab PO DAILY [facility] Atorvastatin Calcium 40 mg 09/10/24 09:00 Atorvastatin 40 Mg Tab PO DAILY [facility] Fluoxetine HCl 20 mg 09/10/24 09:00 Fluoxetine Hcl 20 Mg Cap PO DAILY [facility] Furosemide 40 mg 09/09/24 16:30 09/10/24 00:51 Furosemide 10 Mg/Ml 4 Ml Vial IV Not Given Q8H [facility] Isosorbide Mononitrate 30 mg 09/10/24 09:00 Isosorbide Mononitrate Er 30 Mg Tab.Er.24h PO DAILY [facility] Levothyroxine Sodium 88 mcg 09/10/24 06:30 09/10/24 06:40 Levothyroxine 88 Mcg Tab PO Not Given DAILY@0630 [facility] Losartan Potassium 50 mg 09/10/24 09:00 Losartan 50 Mg Tab PO DAILY [facility] Metoprolol Succinate 25 mg 09/10/24 09:00 Metoprolol Succinate (Er) 25 Mg Tab.Er.24h PO DAILY [facility] Multivitamins 1 each 09/10/24 09:00 Multivitamins, Thera 1 Each Tab PO DAILY [facility] Nitroglycerin 1 inch 09/09/24 18:00 09/09/24 21:49 Nitroglycerin Oint 1 Inch/Gm Packet TOPICAL Not Given QID [facility] Nitroglycerin 0.4 mg 09/09/24 16:03 Nitroglycerin Sl Tabs 0.4 Mg Tab SUBLINGUAL Q5M PRN Chest Pain Oxycodone/Acetaminophen 1 each 09/09/24 16:03 09/10/24 06:37 Oxycodone-Apap 7.5-325mg 1 Each Tab PO 1 each Q4H PRN Administration Pain Potassium Chloride 10 meq 09/10/24 09:00 Potassium Chloride Er 10 Meq Tab.Er.Prt PO DAILY [facility] Pramipexole Dihydrochloride 0.5 mg 09/09/24 21:00 09/09/24 21:48 Pramipexole 0.5 Mg Tab PO Not Given HS [facility] Topiramate 50 mg 09/09/24 21:00 09/09/24 21:48 Topiramate 25 Mg Tab PO Not Given BID [facility] Trazodone HCl 200 mg 09/09/24 21:00 09/09/24 21:48 Trazodone Hcl 100 Mg Tab PO Not Given HS [facility] Intake and Output 09/09/24 09/10/24 09/10/24 22:59 06:59 14:59 Other: Voiding Method Toilet # Voids 1 4 # Bowel Movements 1 Weight 122.47 kg 121.6 kg 09/10/24 04:11 09/10/24 04:11
[2024-09-10 15:33] LABS: Chol/HDL Ratio 2.98 Ratio; LDL Cholesterol,Calculated 66.9 mg/dL (0.0-131.0)
[2024-09-10 16:27] VITALS: BMI 49.0
--- NOTE | 2024-09-10 17:04 | P.PN ---
Progress Note - Text Progress Note Date: 09/10/24 Chief Complaint: Short of breath Pleasant 69-year-old patient who follows with Dr. Dona Roldan. 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 Prior history of PFO closure. previous cardiac catheterization. Was told she is occluded arteries not for any intervention except for medical management. Patient presents initially to [facility] with 5 days of increasing shortness of breath. Also edema which is now up to her thighs. Abdomen also distended. No chest pain. Diagnosed of CHF. Patient uses 1 pillow at night. No chest pain. September 10: Received IV Lasix. Good urine output. Breathing better. Per cardio switched over to oral Bumex. Farxiga added. Increase activity. Active Medications Apixaban (Apixaban 5 Mg Tab) 5 mg PO BID [facility]; Protocol Last Admin: 09/10/24 10:27 Dose: 5 mg Aspirin (Aspirin 81 Mg) 81 mg PO DAILY [facility] Last Admin: 09/10/24 10:26 Dose: 81 mg Atorvastatin Calcium (Atorvastatin 40 Mg Tab) 40 mg PO DAILY [facility] Last Admin: 09/10/24 10:26 Dose: 40 mg Bumetanide (Bumetanide 1 Mg Tab) 1 mg PO DAILY [facility] Dapagliflozin (Dapagliflozin Propanediol 10 Mg Tablet) 10 mg PO DAILY [facility] Last Admin: 09/10/24 10:28 Dose: 10 mg Fluoxetine HCl (Fluoxetine Hcl 20 Mg Cap) 20 mg PO DAILY [facility] Last Admin: 09/10/24 10:26 Dose: 20 mg Isosorbide Mononitrate (Isosorbide Mononitrate Er 30 Mg Tab.Er.24h) 30 mg PO DAILY [facility] Last Admin: 09/10/24 10:26 Dose: 30 mg Levothyroxine Sodium (Levothyroxine 88 Mcg Tab) 88 mcg PO DAILY@0630 [facility] Last Admin: 09/10/24 06:40 Dose: Not Given Losartan Potassium (Losartan 50 Mg Tab) 50 mg PO DAILY [facility] Last Admin: 09/10/24 11:56 Dose: Not Given Metoprolol Succinate (Metoprolol Succinate (Er) 25 Mg Tab.Er.24h) 12.5 mg PO DAILY [facility] Last Admin: 09/10/24 11:56 Dose: Not Given Multivitamins (Multivitamins, Thera 1 Each Tab) 1 each PO DAILY [facility] Last Admin: 09/10/24 10:27 Dose: 1 each Nitroglycerin (Nitroglycerin Sl Tabs 0.4 Mg Tab) 0.4 mg SUBLINGUAL Q5M PRN PRN Reason: Chest Pain Oxycodone/Acetaminophen (Oxycodone-Apap 7.5-325mg 1 Each Tab) 1 each PO Q4H PRN PRN Reason: Pain Last Admin: 09/10/24 06:37 Dose: 1 each Pramipexole Dihydrochloride (Pramipexole 0.5 Mg Tab) 0.5 mg PO HS [facility] Last Admin: 09/09/24 21:48 Dose: Not Given Spironolactone (Spironolactone 25 Mg Tab) 25 mg PO DAILY [facility] Last Admin: 09/10/24 11:56 Dose: Not Given Topiramate (Topiramate 25 Mg Tab) 50 mg PO BID [facility] Last Admin: 09/10/24 10:27 Dose: 50 mg Trazodone HCl (Trazodone Hcl 100 Mg Tab) 200 mg PO HS [facility] Last Admin: 09/09/24 21:48 Dose: Not Given Past medical history to include: CAD as per cardiac catheterization but not for intervention. Medical management. Hyperlipidemia, hypertension, previous [place], osteoarthritis, pulmonary embolism fevers ago. Obstructive sleep apnea with CPAP, hypothyroid anxiety depression Social history: Patient smoked from 1976 till 2005.. Smoke about averaged half a pack packs a day.. Alcohol rarely. Lives with her . Physical examination: VITAL SIGNS: 98, 52, 16, 103 x 54, 93% room air GENERAL: Sitting up in bed, looking better EYES: Pupils equal. Conjunctiva normal. HEENT: External appearance of nose and ears normal, oral cavity grossly normal. NECK: JVD unable to assess; masses not palpable. HEART: First and second heart sounds are normal; edema decreasing LUNGS: Respiratory rate normal; decreased breath sounds. ABDOMEN: Soft, nontender, liver spleen not palpable, no masses palpable. PSYCH: Alert and oriented x3; mood and affect normal. MUSCULOSKELETAL:No Clubbing/cyanosis;muscles-grossly intact. OA INVESTIGATIONS, reviewed in the clinical context: September 10: White count 7.0 hemoglobin 15.6 platelets 122 potassium 3.6 creatinine 1.02 Troponin I less than 0.012 x 2 Assessment and plan: - Acute congestive heart failure exacerbation. EF not known.: Better IV Lasix given. Fluid restriction 1800 cc a day. Labs. 2D echo pending -CAD with a prior history of cardiac catheterization showing occluded vessels in the inferior part of the heart as per the patient. Did not have any further intervention. Aspirin. Toprol-XL. Lipitor. -Morbid obesity BMI 49.4 Weight loss measures -Depression otherwise specified Prozac 20 mg a day. Trazodone -Hypothyroid Synthroid 88 g a day -Essential hypertension Toprol-XL 25 mg a day. Cozaar -Restless leg syndrome Mirapex 0.5 mg daily at bedtime -Chronic insomnia Trazodone 100 mg daily at bedtime -Primary osteoarthritis multiple joints Tylenol as needed Switched over to oral Bumex. Increase activity. 2D echo pending. Past Medical History Past Medical History: Coronary Artery Disease (CAD), Chest Pain / Angina, CVA/TIA, Hyperlipidemia, Hypertension, Myocardial Infarction ([place]), Osteoarthritis (OA), Pulmonary Embolus (PE), Sleep Apnea/CPAP/BIPAP, Thyroid Disorder Additional Past Medical History / Comment(s): chest pain, HTN Other HX: Previous [place] x2, ELINA with CPAP, hypothyroid, chronic low back pain (4 ruptured discs), RIGHT AND LEFT LUNG-BLOOD CLOT, TIA Last Myocardial Infarction Date:: 2013 History of Any Multi-Drug Resistant Organisms: None Reported Past Surgical History: Appendectomy, Breast Surgery, Cholecystectomy, Heart Catheterization, Hysterectomy, Joint Replacement, Orthopedic Surgery, Tonsillectomy Additional Past Surgical History / Comment(s): 2 cardiac caths-unable to perform intervention (being monitored), bilateral breast reductions, hysterectomy with bilateral oophorectomy, r hand little finger repair, bilateral wrist carpal tunnel releases, R arm ORIF with 2 plates, L knee arthroscopies x 3, total L knee arthroplasty, Rt knee arthroscopy, bladder suspensions 2 or 3 times, colonoscopy.right arm with plates, total right knee x2 ,trigger finger repaired Past Anesthesia/Blood Transfusion Reactions: No Reported Reaction Past Psychological History: Anxiety, Depression Smoking Status: Current every day smoker Past Alcohol Use History: Rare Additional Past Alcohol Use History / Comment(s): Pt states she smoked from 1976 til 2005. quit smoking on and off recently smoking 10cig per day Past Drug Use History: None Reported Additional Drug Use History / Comment(s): cbd oil with no thc for pain
[2024-09-11 07:47] VITALS: BP 123/89; PULSE 51; TEMP 97.8
[2024-09-11 08:31] LABS: Blood Urea Nitrogen 18.3 mg/dL (9.0-27.0); Calcium 9.2 mg/dL (8.7-10.3); Carbon Dioxide 24.9 mmol/L (21.6-31.8); Chloride 103 mmol/L (96-109); Glucose 116 mg/dL (70-110); Potassium 3.9 mmol/L (3.5-5.5); Sodium 138 mmol/L (135-145)
[2024-09-11] MEDS: BUMETANIDE 1 MG TAB PO SCH (08:34)
[2024-09-11 09:47] VITALS: RESP 18
--- NOTE | 2024-09-11 10:14 | CA ---
Transthoracic Echo Report Name: Mariya Gomez Age: 69 Gender: F : 1955 Exam Date: 09/10/2024 12:53 Exam Location: [facility] Ht (in): 62 Wt (lb): 270 Ordering Physician: Burt Honeycutt MD Attending/Referring Phys: Plant Operations Manager Leta Torres RDCS Procedure CPT: Indications: chf, Acute diastolic (congestive) heart failure Cardiac Hx: Technical Quality: Poor, Technically difficult study Contrast 1: Definity Total Dose (mL): 2 Contrast 2: Total Dose (mL): MEASUREMENTS (Male / Female) Normal Values 2D ECHO LV Diastolic Diameter PLAX 4.9 cm 4.2 - 5.9 / 3.9 - 5.3 cm LV Systolic Diameter PLAX 3.0 cm IVS Diastolic Thickness 1.1 cm 0.6 - 1.0 / 0.6 - 0.9 cm LVPW Diastolic Thickness 1.4 cm 0.6 - 1.0 / 0.6 - 0.9 cm LV Relative Wall Thickness 0.5 RV Internal Dim ED PLAX 2.7 cm LA Systolic Diameter LX 3.9 cm 3.0 - 4.0 / 2.7 - 3.8 cm M-MODE Aortic Root Diameter MM 3.2 cm LA Systolic Diameter MM 3.6 cm LA Ao Ratio MM 1.1 AV Cusp Separation MM 1.8 cm DOPPLER MV Area PHT 2.2 cm??? Mitral E Point Velocity 70.5 cm/s Mitral A Point Velocity 89.3 cm/s Mitral E to A Ratio 0.8 MV Deceleration Time 344.8 ms FINDINGS Left Ventricle Left ventricular ejection fraction is estimated at 50-55 %. Mildly increased septal wall thickness. Moderately increased posterior wall thickness. Mildly reduced global left ventricular systolic function. Right Ventricle Mild right ventricular dilatation. Unable to estimate the right ventricular systolic pressure. Right Atrium Mild right atrial dilatation. Left Atrium Mildly increased left atrial diameter. Mitral Valve Structurally normal mitral valve. Trace mitral regurgitation. No mitral stenosis. Aortic Valve Trileaflet aortic valve. No aortic stenosis. No aortic regurgitation. Tricuspid Valve Structurally normal tricuspid valve. Trace tricuspid regurgitation. No tricuspid stenosis. Pulmonic Valve Pulmonic valve not well visualized. Pericardium No pericardial or pleural effusion. Aorta Normal size aortic root and proximal ascending aorta. CONCLUSIONS LVEF 50 to 55% Mild concentric LVH No obvious regional wall motion abnormality Mild biatrial dilatation Mild RV dilatation Epicardial fat echo Previewed by: Dr Dawood Franco (Electronically Signed) Final Date: 11 September 2024 10:13
--- NOTE | 2024-09-11 13:03 | P.PN ---
Subjective Progress Note Date: 09/11/24 Consult reason: congestive heart failure History of present illness: This is 69-year-old female patient of Dr. JEFF Polk with past medical history of coronary artery disease with diffusely diseased LAD with distal occlusion, anterior septal KS, hypertension, hyperlipidemia, PFO closure, obstructive sleep apnea on CPAP, COPD, pulmonary embolism diagnosed in 2019 on Eliquis, hypothyroidism, chronic tobacco use and dependence, anxiety, CVA, obesity. We h ave been asked to evaluate the patient for CHF. Patient states that she came into the hospital because she was having difficulty with swelling in her legs. She has been taking her Lasix at home as directed. She also complains of shortness of breath for the past 2 days. Blood pressure 104/63, heart rate 51, pulse ox 100% on room air. Patient was on CPAP during the night. Patient was started on IV Lasix 40 mg every 8 hours. She has had improvement of lower extremity edema. -EKG: Sinus bradycardia at 51 bpm, telemetry is sinus bradycardia. -Laboratory studies: Hemoglobin 15.6, WBC 7 troponins negative x 3. Electrolytes, renal function, liver function test within normal limits. proBNP 97. -Home cardiac medications: Eliquis 5 mg twice daily, atorvastatin 40 mg daily, Lasix 40 mg daily, Imdur 30 mg daily, losartan 50 mg daily, metoprolol succinate 25 mg daily, Nitrostat as needed, potassium chloride 10 mill equivalents daily. Patient is also on levothyroxine. -Echocardiogram performed at [facility] during downtime on 12/31/2023 revealed normal EF, normal AV and MV, moderate increase in RVSP. -Dobutamine stress echo performed at [facility] 12/31/2023 was normal. -Right heart catheterization performed 07/31/2019 status post percutaneous closure of PFO. -Left heart catheterization performed 03/22/2014 after NSTEMI revealed total occlusion of LAD which was diffusely diseased vessel in the midportion. RCA was dominant and disease-free with minor irregularities. 09/11 Patient seen and examined. She feels that she is mostly back to her baseline. Yesterday we discontinued IV Lasix and started her on Bumex oral. Aspirin and Aldactone were also added. Metoprolol dose was decreased due to bradycardia. Heart rate has been in the 50s, blood pressure 123/89, pulse ox 96% on room air. Repeat blood work reveals sodium 138, potassium 3.9, creatinine 1.0, BUN 18. Triglycerides 114, cholesterol 135, LDL 66. A1c 5.3. Echocardiogram reveals EF of 50 to 55%, mild concentric LVH. No obvious regional wall motion abnormality. Mild biatrial dilatation. Mild RV dilatation. Physical examination: Gen: This is 69-year-old female in no acute distress VS: reviewed HEENT: Head is atraumatic, normocephalic. Pupils equal, round. Sclerae is anicteric. NECK: Supple. No JVD. LUNGS: Clear to auscultation. No wheezes or rhonchi. No intercostal retractions. HEART: Regular rate and rhythm. No murmur. ABDOMEN: Soft No tenderness. EXTREMITIES: 1+ pedal edema. No calf tenderness. NEUROLOGICAL: Patient is awake, alert and oriented x3. Assessment: Acute on chronic diastolic heart failure Coronary artery disease with diffuse disease LAD and distal occlusion History of anterior septal KS Hypertension Hyperlipidemia History of PFO closure History of CVA Obstructive sleep apnea on CPAP COPD Pulmonary embolism diagnosed in 2019 on Eliquis Hypothyroidism Chronic tobacco use and dependence Anxiety Morbid obesity with BMI of 49 Plan: Resume patient's home cardiac medications Add aspirin 81 mg daily Discontinue IV Lasix and start patient on Bumex 1 mg daily starting tomorrow Decrease metoprolol succinate to 12.5 mg daily due to bradycardia Add Aldactone 25 mg daily, Farxiga 10 mg daily Smoking cessation. Patient will be provided the [place] quit line information at discharge. Patient is cleared for discharge from cardiology and may follow-up with Dr. Polk in 1 to 2 weeks. Nurse practitioner note has been reviewed, I agree with documented findings and plan of care. Patient was seen and examined. Objective - Vital Signs Vital signs: Vital Signs Temp 97.8 F 09/11/24 07:00 Pulse 51 L 09/11/24 07:00 Resp 15 09/11/24 07:00 BP 123/89 09/11/24 07:00 Pulse Ox 96 09/11/24 07:00 FiO2 Intake & Output 09/10/24 09/11/24 09/11/24 18:59 06:59 18:59 Intake Total 222 Balance 222 Weight 121.6 kg 121.2 kg Intake: Oral 222 Other: Voiding Method Toilet # Voids 4 1 # Bowel Movements 1 - Labs CBC & Chem 7: 09/10/24 04:11 09/11/24 04:23 Labs: Abnormal Lab Results - Last 24 Hours (Table) 09/11/24 Range/Units 04:23 Glucose 116 H (70-110) mg/dL
--- NOTE | 2024-09-11 19:54 | P.DS ---
Providers Date of admission: 09/09/24 16:02 Expected date of discharge: 09/11/24 Attending physician: Burt Honeycutt Consults: 09/09/24 16:02 Consult Physician Routine Consulting Provider: Gama Parikh Consult Reason/Comments: chf Do you want consulting provider notified?: Yes Primary care physician: Dona Roldan [facility] Course: Chief Complaint: Short of breath Pleasant 69-year-old patient who follows with Dr. Dona Roldan. hemmer automatic Dr. JEFF Polk. Prior history of PFO closure. previous cardiac catheterization. Was told she is occluded arteries not for any intervention except for medical management. Patient presents initially to [facility] with 5 days of increasing shortness of breath. Also edema which is now up to her thighs. Abdomen also distended. No chest pain. Diagnosed of CHF. Patient uses 1 pillow at night. No chest pain. September 10: Received IV Lasix. Good urine output. Breathing better. Per cardio switched over to oral Bumex. Farxiga added. Increase activity. September 11: Stable. Breathing stable. Being discharged on Bumex and Aldactone. Fluid restriction. Will follow with Dr. JEFF Polk. Past medical history to include: CAD as per cardiac catheterization but not for intervention. Medical management. Hyperlipidemia, hypertension, previous IA, osteoarthritis, pulmonary embolism fevers ago. Obstructive sleep apnea with CPAP, hypothyroid anxiety depression Social history: Patient smoked from 1976 till 2005.. Smoke about averaged half a pack packs a day.. Alcohol rarely. Lives with her . Physical examination: VITAL SIGNS: 97.8, 51, 15, 123 x 89, 96% room GENERAL: Sitting up in bed, looking better EYES: Pupils equal. Conjunctiva normal. HEENT: External appearance of nose and ears normal, oral cavity grossly normal. NECK: JVD unable to assess; masses not palpable. HEART: First and second heart sounds are normal; edema decreasing LUNGS: Respiratory rate normal; decreased breath sounds. ABDOMEN: Soft, nontender, liver spleen not palpable, no masses palpable. PSYCH: Alert and oriented x3; mood and affect normal. MUSCULOSKELETAL:No Clubbing/cyanosis;muscles-grossly intact. OA INVESTIGATIONS, reviewed in the clinical context: 2D echo: EF 50 to 55% September 10: White count 7.0 hemoglobin 15.6 platelets 122 potassium 3.6 creatinine 1.02 Troponin I less than 0.012 x 2 Assessment and plan: - Acute congestive heart failure exacerbation. Diastolic dysfunction EF 50 to 55%.: Better IV Lasix given. Fluid restriction 1800 cc a day. Labs. Discharged on Bumex and Aldactone -CAD with a prior history of cardiac catheterization showing occluded vessels in the inferior part of the heart as per the patient. Did not have any further intervention. Aspirin. Toprol-XL. Lipitor. -Morbid obesity BMI 49.4 Weight loss measures -Depression otherwise specified Prozac 20 mg a day. Trazodone -Hypothyroid Synthroid 88 g a day -Essential hypertension Toprol-XL 25 mg a day. Cozaar -Restless leg syndrome Mirapex 0.5 mg daily at bedtime -Chronic insomnia Trazodone 100 mg daily at bedtime -Primary osteoarthritis multiple joints Tylenol as needed Position: Home Past Medical History Past Medical History: Coronary Artery Disease (CAD), Chest Pain / Angina, CVA/TIA, Hyperlipidemia, Hypertension, Myocardial Infarction (IA), Osteoarthritis (OA), Pulmonary Embolus (PE), Sleep Apnea/CPAP/BIPAP, Thyroid Disorder Additional Past Medical History / Comment(s): chest pain, HTN Other HX: Previous IA x2, ELINA with CPAP, hypothyroid, chronic low back pain (4 ruptured discs), RIGHT AND LEFT LUNG-BLOOD CLOT, TIA Last Myocardial Infarction Date:: 2013 History of Any Multi-Drug Resistant Organisms: None Reported Past Surgical History: Appendectomy, Breast Surgery, Cholecystectomy, Heart Catheterization, Hysterectomy, Joint Replacement, Orthopedic Surgery, Tonsillectomy Additional Past Surgical History / Comment(s): 2 cardiac caths-unable to perform intervention (being monitored), bilateral breast reductions, hysterectomy with bilateral oophorectomy, r hand little finger repair, bilateral wrist carpal tunnel releases, R arm ORIF with 2 plates, L knee arthroscopies x 3, total L kne e arthroplasty, Rt knee arthroscopy, bladder suspensions 2 or 3 times, colonoscopy.right arm with plates, total right knee x2 ,trigger finger repaired Past Anesthesia/Blood Transfusion Reactions: No Reported Reaction Past Psychological History: Anxiety, Depression Smoking Status: Current every day smoker Past Alcohol Use History: Rare Additional Past Alcohol Use History / Comment(s): Pt states she smoked from 1976 til 2005. quit smoking on and off recently smoking 10cig per day Past Drug Use History: None Reported Additional Drug Use History / Comment(s): cbd oil with no thc for pain Plan - Discharge Summary New Discharge Prescriptions: New Spironolactone [Aldactone] 25 mg PO DAILY #30 tab Aspirin 81 mg PO DAILY tab Bumetanide [BUMEX] 1 mg PO DAILY #30 tab Dapagliflozin Propanediol [Farxiga] 10 mg PO DAILY #30 tab Metoprolol Succinate (ER) [Toprol XL] 12.5 mg PO DAILY #30 tab Continue Topiramate [Topamax] 50 mg PO BID Multivitamins, Thera [Multivitamin (formulary)] 1 tab PO DAILY Atorvastatin [Lipitor] 40 mg PO DAILY #30 tab Potassium Chloride [Klor-Con 10 ER] 10 meq PO DAILY Levothyroxine Sodium [Synthroid] 88 mcg PO DAILY Pramipexole [Mirapex] 0.5 mg PO HS traZODone HCL 200 mg PO HS Nitroglycerin Sl Tabs [Nitrostat] 0.4 mg SUBLINGUAL Q5M PRN #30 tab PRN Reason: Chest Pain oxyCODONE-APAP 7.5-325MG [Percocet 7.5-325 mg] 1 tab PO Q4H PRN PRN Reason: Pain FLUoxetine HCL [PROzac] 20 mg PO DAILY Isosorbide Mononitrate ER [Imdur] 30 mg PO DAILY #30 tab Apixaban [Eliquis] 5 mg PO BID Losartan [Cozaar] 50 mg PO DAILY Discontinued Metoprolol Succinate (ER) [Toprol XL] 25 mg PO DAILY Furosemide [Lasix] 40 mg PO DAILY Discharge Medication List Multivitamins, Thera [Multivitamin (formulary)] 1 tab PO DAILY 03/21/14 [History] Topiramate [Topamax] 50 mg PO BID 03/21/14 [History] Atorvastatin [Lipitor] 40 mg PO DAILY #30 tab 03/23/14 [Rx] Levothyroxine Sodium [Synthroid] 88 mcg PO DAILY 01/10/16 [History] Potassium Chloride [Klor-Con 10 ER] 10 meq PO DAILY 01/10/16 [History] Pramipexole [Mirapex] 0.5 mg PO HS 06/24/22 [History] FLUoxetine HCL [PROzac] 20 mg PO DAILY 07/15/22 [History] traZODone HCL 200 mg PO HS 02/04/23 [History] Isosorbide Mononitrate ER [Imdur] 30 mg PO DAILY #30 tab 02/05/23 [Rx] Nitroglycerin Sl Tabs [Nitrostat] 0.4 mg SUBLINGUAL Q5M PRN #30 tab 02/05/23 [Rx] Apixaban [Eliquis] 5 mg PO BID 09/09/24 [History] Losartan [Cozaar] 50 mg PO DAILY 09/09/24 [History] oxyCODONE-APAP 7.5-325MG [Percocet 7.5-325 mg] 1 tab PO Q4H PRN 09/09/24 [History] Aspirin 81 mg PO DAILY tab 09/11/24 [Rx] Bumetanide [BUMEX] 1 mg PO DAILY #30 tab 09/11/24 [Rx] Dapagliflozin Propanediol [Farxiga] 10 mg PO DAILY #30 tab 09/11/24 [Rx] Metoprolol Succinate (ER) [Toprol XL] 12.5 mg PO DAILY #30 tab 09/11/24 [Rx] Spironolactone [Aldactone] 25 mg PO DAILY #30 tab 09/11/24 [Rx] Follow up Appointment(s)/Referral(s): Khadar Polk MD [STAFF PHYSICIAN] - 09/21/24 2:15 pm Dona Roldan DO [Primary Care Provider] - 1-2 days (please call for an appointment thank you!!) Patient Instructions/Handouts: Heart Failure (GEN), Fluid Restriction (GEN) Activity/Diet/Wound Care/Special Instructions: fluid restict 2000 cc/day Discharge Disposition: HOME SELF-CARE
== END 2024-09-11 11:50 | disposition home or self-care (01) ==
LOC: EC 15:30 → 6NMEDSUR 16:02
PROVIDERS: ADMIT Hospitalist; ATTEND Hospitalist
DX: I11.0 Hypertensive heart disease with heart failure (principal); I50.33 Acute on chronic diastolic (congestive) heart failure; I25.82 Chronic total occlusion of coronary artery; I25.10 Atherosclerotic heart disease of native coronary artery without angina pectoris; E78.5 Hyperlipidemia, unspecified; G47.33 Obstructive sleep apnea (adult) (pediatric); J44.9 Chronic obstructive pulmonary disease, unspecified; E03.9 Hypothyroidism, unspecified; G25.81 Restless legs syndrome; M15.9 Polyosteoarthritis, unspecified; F17.210 Nicotine dependence, cigarettes, uncomplicated; R00.1 Bradycardia, unspecified; F32.A Depression, unspecified; F51.04 Psychophysiologic insomnia; F41.9 Anxiety disorder, unspecified; E66.01 Morbid (severe) obesity due to excess calories; Z68.42 Body mass index [BMI] 45.0-49.9, adult; Z86.711 Personal history of pulmonary embolism; Z87.74 Personal history of (corrected) congenital malformations of heart and circulatory system; I25.2 Old myocardial infarction; Z79.890 Hormone replacement therapy; Z79.82 Long term (current) use of aspirin; Z79.01 Long term (current) use of anticoagulants; Z79.899 Other long term (current) drug therapy; Z88.6 Allergy status to analgesic agent; Z88.1 Allergy status to other antibiotic agents; Z88.2 Allergy status to sulfonamides; Z91.018 Allergy to other foods; Z91.048 Other nonmedicinal substance allergy status; Z86.73 Personal history of transient ischemic attack (TIA), and cerebral infarction without residual deficits
CPT/HCPCS: 96376; 96374; 99285; 36415; 93306; 83880; 80061; 80053; 80048; 84484; 85025; 83036; G0378 ×3; Q9957; J1938 ×2

== ENCOUNTER → 2024-09-21 | Outpatient (CLI) | payer MEDICARE ==
[2024-09-21 18:49] LABS: Blood Urea Nitrogen 10.2 mg/dL (9.0-27.0); Calcium 9.6 mg/dL (8.7-10.3); Carbon Dioxide 24.6 mmol/L (21.6-31.8); Chloride 105 mmol/L (96-109); Glucose 93 mg/dL (70-110); Potassium 4.1 mmol/L (3.5-5.5); Sodium 142 mmol/L (135-145)
== END | disposition home or self-care (01) ==
LOC: LABWHC1 14:42
PROVIDERS: ATTEND Internal Medicine
DX: I50.9 Heart failure, unspecified (principal); I25.10 Atherosclerotic heart disease of native coronary artery without angina pectoris
CPT/HCPCS: 36415; 80048